=== PATIENT | female | born 1955 | race Caucasian/White ===

== ENCOUNTER 2016-12-13 06:47 | Outpatient (CLI) | payer MEDICAID ==
[2016-12-13] VITALS (10 sets, daily range): BP systolic 127–153; BP diastolic 48–74
[~2016-12-13] VITALS: Ht 154.9 cm; Wt 125.4 kg
[~2016-12-13 06:47] MED LIST: AC500T PO; ACHD5005 PO; ALBU17AE23 IH; ALPR0.5T7 PO; ASP81TEC PO; ASPI-983 PO; ATEN25TA PO; AZTH250C PO; BUDE10.22 IH; CEPH-507 PO; CHOL5000 PO; CYCL10TA9 PO; FLC150T PO; FLUC150T PO; FURO-125 PO; FURO40TA4 PO; LEVO75TA6 PO; LORA10TA7 PO; MAGN400T6 PO; METO5TAB6 PO; NAPR-243 PO; NITR-65 PO; OMG1KC PO; POTA-51 PO; POTA10TA36 PO; PRD20T PO; RABE20TA27 PO; RNT150T PO; ROSU10TA12 PO; RT-ALBUINH IH
[2016-12-13 07:54] LABS: MEAN PLATELET VOLUME 8.8 FL (7.4-10.4); RED BLOOD COUNT 3.73 10^6/uL (4.35-5.85); WHITE BLOOD COUNT 5.1 10^3/uL (4.3-11.0)
[2016-12-13 08:03] LABS: INR 1.2 (0.8-1.4); PROTHROMBIN TIME PATIENT 15.3 SEC (12.2-14.7)
[2016-12-13] MEDS ORDERED: LIDOCAINE 1% INJ 20 ML (XYLOCAINE) VIAL ONE (08:13)
[2016-12-13] MEDS ORDERED: FURO-125 PO (09:37)
[2016-12-13] MEDS ORDERED: SPIR25TA3 PO (09:37)
[2016-12-13] MEDS ORDERED: ACET-2267 PO (09:37)
[2016-12-13] MEDS ORDERED: FOLI1TAB24 PO (09:37)
[2016-12-13] MEDS ORDERED: RANI150T15 PO (09:37)
[2016-12-13] MEDS ORDERED: ACETAMINOPHEN 325 MG TABLET/CAPLET (TYLENOL) PO PRN (10:00)
--- NOTE | 2016-12-13 10:26 | Diagnostic Imaging Report ---
EXAMINATION: US-guided core biopsy-liver. INDICATION: Hepatitis. Cirrhosis assessment. Current history and physical and other medical records are reviewed prior to the procedure. CONSENT: Informed consent was obtained from the patient. The risks, benefits, potential complications and alternatives were reviewed and all questions answered to the patient's satisfaction. The patient's vital signs, cardiac rhythm, and pulse oximetry with observed throughout the procedure by qualified nursing personnel. Sedation/medications: none. FINDINGS: The liver contour is normal with no focal lesion identified. PROCEDURE: After maximal sterile barrier technique preparation and draping, 1% lidocaine was utilized for local anesthesia. With the patient in supine position, and via anterolateral subcostal approach, a 17-gauge guide needle is introduced into the right hepatic lobe under live ultrasound guidance. After confirming adequate positioning with saved ultrasound images, multiple 18 gauge core biopsy specimens were obtained. Gelfoam injected in the tract as the guide needle was removed The patient tolerated the procedure well with no immediate complications. IMPRESSION: Successful US-guided random liver core biopsy taken from the right hepatic lobe. Dictated by: Dictated on workstation # [id number]
[2016-12-13] MEDS ORDERED: ACETAMINOPHEN 325 MG TABLET/CAPLET (TYLENOL) ONE (13:25)
[2016-12-13] MEDS ORDERED: ACETAMINOPHEN 325 MG TABLET/CAPLET (TYLENOL) PO NR (13:31)
== END 2016-12-13 14:10 | disposition home or self-care (01) ==
LOC: RAD 06:47
PROVIDERS: ATTEND Pediatrics
DX: K74.60 Unspecified cirrhosis of liver (principal)
CPT/HCPCS: 36415; 76942; 85027; 85610; 85730

== ENCOUNTER 2017-03-10 11:29 | Emergency (ER) | payer MEDICAID ==
[~2017-03-10] VITALS: Ht 157.5 cm; Wt 108.9 kg
[~2017-03-10 11:29] MED LIST changes: +ACET-2267 PO; +FOLI1TAB24 PO; +RANI150T15 PO; +SPIR25TA3 PO
--- NOTE | 2017-03-10 12:13 | ED Lower Extremity ---
General Chief Complaint: Lower Extremity Stated Complaint: BIG TOE INJ Source: patient Exam Limitations: no limitations History of Present Illness Time seen by provider: 12:11 Initial Comments To ER with an injury to the second third toes of the right foot. She arrives per EMS after dropping a 1 gallon can of pork and beans to the top of her foot. Onset: just prior to arrival Severity: moderate Pain/Injury Location: right 2nd toe, right 3rd toe Modifying Factors: Worse With Movement Allergies and Home Medications Allergies Coded Allergies: ciprofloxacin (Verified Allergy, Mild, 01/14/16) sulfamethoxazole (Verified Allergy, Mild, ITCH ALL OVER, 01/14/16) trimethoprim (Verified Allergy, Mild, ITCH ALL OVER, 01/14/16) Penicillins (Verified Allergy, Unknown, 01/14/16) Sulfa (Sulfonamide Antibiotics) (Verified Allergy, Unknown, 01/14/16) atorvastatin (Unverified Allergy, Unknown, EDEMA, 12/13/16) hydrocodone (Verified Allergy, Unknown, 01/14/16) tramadol (Verified Allergy, Unknown, 01/14/16) metformin (Unverified Adverse Reaction, Mild, NAUSEA, 12/13/16) Uncoded Allergies: RED MEAT (Allergy, Unknown, HIVES, 12/13/16) KELFEX (Adverse Reaction, Mild, HEART RACES, 01/15/10) Home Medications Acetaminophen 500 Mg Tablet, 2 TAB PO Q6H, #0 Prescribed by: GRACIELA AGUILLON on 12/13/16 09 Alprazolam 0.5 Mg Tablet, 0.5 MG PO BID, (Reported) Atenolol 25 Mg Tablet, 12.5 MG PO HS, (Reported) TAKES 1/2 OF A (25 MG) TABLET Cholecalciferol (Vitamin D3) 5,000 Unit Capsule, 5,000 UNIT PO DAILY, (Reported) Folic Acid 1 Mg Tablet, 1 MG PO DAILY, #30 Prescribed by: GRACIELA AGUILLON on 12/13/1637 Furosemide 20 Mg Tablet, 20 MG PO DAILY, #30 Prescribed by: GRACIELA AGUILLON on 12/13/1637 Levothyroxine Sodium 75 Mcg Tablet, 75 MCG PO DAILY, (Reported) Loratadine 10 Mg Tablet, 10 MG PO DAILY, (Reported) Magnesium Oxide 400 Mg Tablet, 400 MG PO BID, (Reported) Potassium Chloride 20 Meq Tablet.er, 20 MEQ PO DAILY, #30 Ref 2 Prescribed by: JOCELYNE BARTON on 01/16/16 0815 Ranitidine HCl 150 Mg Tablet, 150 MG PO BID, #30 Prescribed by: GRACIELA AGUILLON on 12/13/16 0937 Spironolactone 25 Mg Tablet, 2 TAB PO DAILY, #30 Prescribed by: GRACIELA AGUILLON on 12/13/16 0937 Constitutional: see HPI EENTM: see HPI Respiratory: no symptoms reported Cardiovascular: no symptoms reported Genitourinary: no symptoms reported Musculoskeletal: see HPI Skin: no symptoms reported Psychiatric/Neurological: No Symptoms Reported Past Uhhedny-Djksqr-Gotizc Hx Patient Social History Type Used: Cigarettes Former Smoker/When Quit: Oct 26, 2015 Recent Hopitalizations: Yes Immunizations Up To Date Date of Pneumonia Vaccine: Sep 26, 2016 Date of Influenza Vaccine: Sep 26, 2016 Surgeries HX Surgeries: Yes (D&C) Surgeries: Section, Gallbladder, Hysterectomy Respiratory Hx Respiratory Disorders: Yes (SLEEP APNEA, COPD) Respiratory Disorders: Asthma, Sleep Apnea, COPD, Emphysema Cardiovascular Hx Cardiac Disorders: Yes Cardiac Disorders: Hypertension Neurological Hx Neurological Disorders: Yes (seizures from fever as teen) Reproductive System Hx 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 Genitourinary Hx Genitourinary Disorders: No Gastrointestinal Hx Gastrointestinal Disorders: Yes (HX OF HERNIA, GERD, CIRRHOSIS WITH ASCITES) Gastrointestinal Disorders: Gastroesophageal Reflux, Hepatitis, Cirrhosis Musculoskeletal Hx Musculoskeletal Disorders: Yes (DJD) Musculoskeletal Disorders: Arthritis Endocrine Hx Endocrine Disorders: Yes Endocrine Disorders: Hypothyroidsim, Diabetes, Non-Insulin dep HEENT HX ENT Disorders: No Cancer Hx Cancer: Yes Cancer: Skin Psychosocial Hx Psychiatric Problems: Yes Behavioral Health Disorders: Anxiety Integumentary HX Skin/Integumentary Disorder: Yes Skin/Integumentary Disorders: Psoriasis Blood Transfusions Hx Blood Disorders: No Adverse Reaction to a Blood Tr: No Family Medical History Significant Family History: Cancer Family Medial History: Arthritis G8 BROTHER G8 SISTER Diabetes mellitus 19 FATHER Neoplasm 19 MOTHER (lung cancer ) Respiratory disorder G8 SISTER (pulmonary fibrosis) Physical Exam Vital Signs Vital Sign - Last 12Hours 03/10/17 12:00 Temp 97.5 Pulse 70 B/P (MAP) 134/73 Pulse Ox 98 Capillary Refill : General Appearance: WD/WN, no apparent distress HEENT: PERRL/EOMI, normal ENT inspection Neck: non-tender, full range of motion Respiratory: no respiratory distress, no accessory muscle use Gastrointestinal: non tender, soft Hips: bilateral hip non-tender, bilateral hip normal inspection, bilateral hip normal range of motion Legs: bilateral leg non-tender, bilateral leg normal inspection, bilateral leg normal range of motion Knees: bilateral knee non-tender, bilateral knee normal inspection, bilateral knee normal range of motion Ankles: bilateral ankle non-tender, bilateral ankle normal inspection, bilateral ankle normal range of motion Feet: right foot other (there is a laceration to the dorsal aspect of the second third toes of the right foot with an eye avulsion of the second toenail from the proximal nail bed. Remains attached distally.) Neurologic/Psychiatric: alert, normal mood/affect, oriented x 3 Skin: normal color, warm/dry Laceration Repair : Wound Location: Lower Extremities Wound Length (cm): 3 Wound's Depth, Shape: bone, sub Q Wound Explored: clean Irrigated w/ Saline (ccs): 200 Anesthesia: 1% Lidocaine Volume Anesthetic (ccs): 3 Suture: Chromic Suture Size: 4-0 Number of Sutures: 13 Layer Closure?: 1 Number Deep Layer Sutures: 0 Progress The right third and fourth toes were anesthetized via digital block using a total of 4 mL of 2 percent lidocaine without epinephrine. The nail was removed from the third toe and the nailbed laceration was sutured using 4-0 chromic gut total of 6 sutures. The laceration to the dorsal aspect of the right toe was sutured with 4-0 chromic gut as well and used a total of 7 sutures. Progress/Results/Core Measures Results/Orders My Orders Orders - TONYA GONSALEZ APRN Lidocaine 2% Injection 20 Ml (Xylocaine (03/10/17 12:15) Foot, Right, 3 View (03/10/17 12:11) Dipht,Pertuss(Acell),Tet Adult (Boostrix (03/10/17 12:30) Medications Given in ED Current Medications Medications Dose Ordered Sig/Petr Route Start Time Stop Time Status Last Admin Dose Admin Lidocaine HCl 5 ml ONCE ONCE INJ 03/10/17 12:15 03/10/17 12:16 DC 03/10/17 12:37 5 ML Vital Signs/I&O Vital Sign - Last 12Hours 03/10/17 12:00 Temp 97.5 Pulse 70 B/P (MAP) 134/73 Pulse Ox 98 Departure Impression Impression: Primary Impression: Fracture of toe Additional Impression: Laceration of foot Disposition: 01 HOME, SELF-CARE Condition: Stable Departure-Patient Inst. Decision time for Depature: 13:16 Referrals: DANNY HUBABRD MD (PCP) Primary Care Physician KELLY HAYES (Family) Primary Care Physician Patient Instructions: Laceration Repair With Stitches (DC), Toe Fracture (DC) Add. Discharge Instructions: 1. Keep the foot clean and covered and dry for the next 3 days. The new may leave it open to air 2. Antibiotics as directed 3. Return to ER for any concerns 4. Follow-up with your doctor next week for recheck All discharge instructions reviewed with patient and/or family. Voiced understanding. Scripts Doxycycline Hyclate (Doxycycline Hyclate) 100 Mg Capsule 100 MG PO BID for 7 Days, CAP Prov: TONYA GONSALEZ APRN 03/10/17 TONYA GONSALEZ APRN Mar 10, 2017 12:13
[2017-03-10] MEDS ORDERED: LIDOCAINE 2% 20 ML (XYLOCAINE) VIAL INJ ONE (12:15)
[2017-03-10] MEDS ORDERED: TETANUS,DIPTH,PERTUSS P/F (BOOSTRIX) 0.5 ML VIAL IM ONE (12:30)
[2017-03-10] MEDS ORDERED: DOXY100C2 PO (13:19)
[2017-03-10 13:39] VITALS: BP 132/80
--- NOTE | 2017-03-10 14:38 | Diagnostic Imaging Report ---
EXAM: Right foot. INDICATION: Injury, foot pain. Three views were obtained. COMPARISON: There are no prior studies available for comparison. FINDINGS: There are slightly comminuted fractures involving the tuft of distal phalanx of the third digit and the body of the distal phalanx of the fourth digit. There is also a nondisplaced fracture of the lateral aspect of the head of the proximal phalanx of the fourth digit. In addition, there also appears to be a soft tissue injury to the medial aspect of the fourth digit. There is no radiopaque foreign body identified in this area, however. No other fracture or acute bony abnormality is appreciated. IMPRESSION: 1. There are comminuted fractures of the wyatt of the distal phalanx of the third digit and of the body of the distal phalanx of the fourth digit. There is also a nondisplaced fracture of the proximal phalanx of the fourth digit. 2. No other acute bony abnormality appreciated. Dictated by: Dictated on workstation # [id number]
== END 2017-03-10 13:39 | disposition home or self-care (01) ==
LOC: EDUNIT# 11:29 → ER 11:30
DX: S92.515A Nondisplaced fracture of proximal phalanx of left lesser toe(s), initial encounter for closed fracture (principal); S92.532A Displaced fracture of distal phalanx of left lesser toe(s), initial encounter for closed fracture; S91.214A Laceration without foreign body of right lesser toe(s) with damage to nail, initial encounter; S91.114A Laceration without foreign body of right lesser toe(s) without damage to nail, initial encounter; Z23 Encounter for immunization; J44.9 Chronic obstructive pulmonary disease, unspecified; I10 Essential (primary) hypertension; Z79.899 Other long term (current) drug therapy; W20.8XXA Other cause of strike by thrown, projected or falling object, initial encounter; Y93.G1 Activity, food preparation and clean up; Y99.8 Other external cause status
CPT/HCPCS: 12013; 73630; 90471; 90715

== ENCOUNTER 2017-06-19 19:22 | Emergency (ER) | payer MEDICAID ==
[~2017-06-19] VITALS: Ht 160 cm; Wt 123.8 kg
[~2017-06-19 19:22] MED LIST changes: +DOXY100C2 PO
--- NOTE | 2017-06-19 20:30 | Diagnostic Imaging Report ---
INDICATION: Chest pain. FINDINGS: The lungs are clear. The heart and vessels are normal. There is no effusion or pneumothorax. IMPRESSION: No acute appearing abnormality. Dictated by: Dictated on workstation # [id number]
[2017-06-19 20:40] LABS: BASOPHILS % (AUTO) 0 % (0-10); EOSINOPHILS % (AUTO) 1 % (0-10); LYMPHOCYTES # (AUTO) 0.8 X 10^3 (1.0-4.0); LYMPHOCYTES % (AUTO) 14 % (12-44); MEAN CORPUSCULAR HEMOGLOBIN 33 PG (25-34); MEAN CORPUSCULAR HGB CONC 34 G/DL (32-36); MEAN CORPUSCULAR VOLUME 95 FL (80-99); MONOCYTES # (AUTO) 0.2 X 10^3 (0.0-1.0); MONOCYTES % (AUTO) 5 % (0-12); NEUTROPHILS # (AUTO) 4.3 X 10^3 (1.8-7.8); NEUTROPHILS % (AUTO) 80 % (42-75); PLATELET COUNT 144 10^3/uL (130-400); RED BLOOD COUNT 4.07 10^6/uL (4.35-5.85); RED CELL DISTRIBUTION WIDTH 13.4 % (10.0-14.5); WHITE BLOOD COUNT 5.4 10^3/uL (4.3-11.0)
[2017-06-19 20:49] LABS: INR 1.1 (0.8-1.4); PROTHROMBIN TIME PATIENT 13.4 SEC (12.2-14.7)
[2017-06-19 21:00] LABS: ALANINE AMINOTRANSFERASE 20 U/L (0-55); ALBUMIN 3.8 GM/DL (3.2-4.5); ANION GAP 14 MMOL/L (5-14); ASPARTATE AMINO TRANSFERASE 27 U/L (5-34); BILIRUBIN,TOTAL 0.5 MG/DL (0.1-1.0); BLOOD UREA NITROGEN 23 MG/DL (7-18); BUN/CREATININE RATIO 16; CARBON DIOXIDE 22 MMOL/L (21-32); CHLORIDE 101 MMOL/L (98-107); GFR ESTIMATED 38; GLUCOSE 147 MG/DL (70-105); MAGNESIUM 2.1 MG/DL (1.8-2.4); POTASSIUM 4.2 MMOL/L (3.6-5.0); SODIUM 137 MMOL/L (135-145); TOTAL PROTEIN 8.6 GM/DL (6.4-8.2)
[2017-06-19 21:06] LABS: MYOGLOBIN SERUM 96.3 NG/ML (10.0-92.0)
--- NOTE | 2017-06-19 22:33 | ED Chest Pain ---
General Chief Complaint: Psych/Social Disorder Stated Complaint: CHEST PAIN Nursing Triage Note: PT TO ED 2 W/ FAMILY FOR C/O ANXIETY R/T RECENT MEDICATION CHANGES AND INTERMITTENT CHEST PAIN SINCE STARTING PREDNISONE X4 DAYS AGO. PT DENIES C/O CP AT THIS TIME. DENIES N/V/D, SOA Nursing Sepsis Screen: No Definite Risk Source: patient, old records Exam Limitations: no limitations History of Present Illness Time seen by provider: 19:38 Initial Comments This pleasant 61-year-old woman presents to the emergency room with primary complaint of epigastric and chest pain that occurs in intermittent episodes over the past 3 days. Patient reports starting prednisone 40 mg daily 4 or 5 days ago for treatment of what sounds like autoimmune hepatitis based on her description of pathology. She reports her pain is sometimes worse with eating and she feels like pain generally occurs 1-2 hours after taking prednisone. She also reports having some recent cramps in her legs over the past few days. She is on Lasix and potassium replacement. Her last episode of chest pain was around 19:00. The pain was noted to radiate to both arms. Patient does feel anxious about her present circumstances. She denies any shortness of air or lightheadedness. She does comment that burping seems to relieve the pain. She does have a history of GERD for which she takes Pepcid. She avoids PPIs due to hepatic metabolism of these medications. Review of her chart shows a cardiac catheterization in 2012 demonstrating ectasia of the right coronary system and a 40-50 percent stenosis of the LAD. Ejection fraction was 60 percent. Patient 's primary care provider is Ruma Barreto. She also sees Bryon Dubon. Her strip cleaner is Dr. Mason. Patient has had prior cholecystectomy. She denies any pain at present. Allergies and Home Medications Allergies Coded Allergies: ciprofloxacin (Verified Allergy, Mild, 01/14/16) sulfamethoxazole (Verified Allergy, Mild, ITCH ALL OVER, 01/14/16) trimethoprim (Verified Allergy, Mild, ITCH ALL OVER, 01/14/16) Penicillins (Verified Allergy, Unknown, 01/14/16) Sulfa (Sulfonamide Antibiotics) (Verified Allergy, Unknown, 01/14/16) atorvastatin (Unverified Allergy, Unknown, EDEMA, 12/13/16) hydrocodone (Verified Allergy, Unknown, 01/14/16) tramadol (Verified Allergy, Unknown, 01/14/16) metformin (Unverified Adverse Reaction, Mild, NAUSEA, 12/13/16) Uncoded Allergies: RED MEAT (Allergy, Unknown, HIVES, 12/13/16) KELFEX (Adverse Reaction, Mild, HEART RACES, 01/15/10) Home Medications Acetaminophen 500 Mg Tablet, 2 TAB PO Q6H, #0 Prescribed by: GRACIELA AGUILLON on 12/13/16 0937 Alprazolam 0.5 Mg Tablet, 0.5 MG PO BID, (Reported) Atenolol 25 Mg Tablet, 12.5 MG PO HS, (Reported) TAKES 1/2 OF A (25 MG) TABLET Cholecalciferol (Vitamin D3) 5,000 Unit Capsule, 5,000 UNIT PO DAILY, (Reported) Doxycycline Hyclate 100 Mg Capsule, 100 MG PO BID for 7 Days Prescribed by: TONYA GONSALEZ on 03/10/17 1319 Folic Acid 1 Mg Tablet, 1 MG PO DAILY, #30 Prescribed by: GRACEILA AGUILLON on 12/13/16 0937 Furosemide 20 Mg Tablet, 20 MG PO DAILY, #30 Prescribed by: GRACIELA AGUILLON on 12/13/16 0937 Levothyroxine Sodium 75 Mcg Tablet, 75 MCG PO DAILY, (Reported) Loratadine 10 Mg Tablet, 10 MG PO DAILY, (Reported) Magnesium Oxide 400 Mg Tablet, 400 MG PO BID, (Reported) Potassium Chloride 20 Meq Tablet.er, 20 MEQ PO DAILY, #30 Ref 2 Prescribed by: JOCELYNE BARTON on 01/16/16 0815 Ranitidine HCl 150 Mg Tablet, 150 MG PO BID, #30 Prescribed by: GRACIELA AGUILLON on 12/13/16 0937 Spironolactone 25 Mg Tablet, 2 TAB PO DAILY, #30 Prescribed by: GRACIELA AGUILLON on 12/13/16 0937 Sucralfate 1 Gm/10 Ml Oral.susp, 1 GM PO QID, #1200 30 minutes before meals and bedtime Prescribed by: CORBIN SCHWARTZ on 06/19/17 7682 Review of Systems Constitutional: no symptoms reported EENTM: No Symptoms Reported Respiratory: No Symptoms Reported Cardiovascular: See HPI Gastrointestinal: See HPI Genitourinary: No Symptoms Reported Musculoskeletal: no symptoms reported Skin: no symptoms reported Psychiatric/Neurological: See HPI, Anxiety Endocrine: No Symptoms Reported Hematologic/Lymphatic: No Symptoms Reported Past Obblxtc-Xjachy-Rcinmy Hx Patient Social History Alcohol Use: Denies Use Recreational Drug Use: No Smoking Status: Former Smoker Type Used: Cigarettes Former Smoker/When Quit: Oct 26, 2015 Recent Foreign Travel: No Contact w/Someone Who Travel: No Recent Infectious Disease Expo: No Recent Hopitalizations: No Immunizations Up To Date Date of Pneumonia Vaccine: Sep 26, 2016 Date of Influenza Vaccine: Mar 10, 2017 Surgeries HX Surgeries: Yes (D&C, skin cancer resection) Surgeries: Cardiac (Cardiac catheter with no interventions), Section, Gallbladder, Hysterectomy Respiratory Hx Respiratory Disorders: Yes (SLEEP APNEA, COPD) Respiratory Disorders: Asthma, Sleep Apnea, COPD, Emphysema Cardiovascular Hx Cardiac Disorders: Yes Cardiac Disorders: Coronary Artery Disease (Nonobstructive disease of the LAD per cardiac catheter 2012), Hypertension Neurological Hx Neurological Disorders: Yes (seizures from fever as teen) Reproductive System : No 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 Genitourinary Hx Genitourinary Disorders: No Gastrointestinal Hx Gastrointestinal Disorders: Yes (HX OF HERNIA, GERD, CIRRHOSIS WITH ASCITES) Gastrointestinal Disorders: Gastroesophageal Reflux, Hepatitis (?Autoimmune?), Cirrhosis Musculoskeletal Hx Musculoskeletal Disorders: Yes (DJD) Musculoskeletal Disorders: Arthritis Endocrine Hx Endocrine Disorders: Yes (Hypokalemia) Endocrine Disorders: Hypothyroidsim, Diabetes, Non-Insulin dep HEENT HX ENT Disorders: No Cancer Hx Cancer: Yes Cancer: Skin Psychosocial Hx Psychiatric Problems: Yes Behavioral Health Disorders: Anxiety Integumentary HX Skin/Integumentary Disorder: Yes Skin/Integumentary Disorders: Psoriasis Blood Transfusions Hx Blood Disorders: No Adverse Reaction to a Blood Tr: No Family Medical History Significant Family History: Cancer Family Medial History: Arthritis G8 BROTHER G8 SISTER Diabetes mellitus 19 FATHER Neoplasm 19 MOTHER (lung cancer ) Respiratory disorder G8 SISTER (pulmonary fibrosis) Physical Exam Vital Signs Vital Sign - Last 12Hours 06/19/17 19:33 Temp 99.2 Pulse 85 Resp 24 B/P (MAP) 167/75 Pulse Ox 94 O2 Delivery Room Air Capillary Refill : Less Than 3 Seconds General Appearance: No Apparent Distress, WD/WN, Obese HEENT: PERRL/EOMI, Normal ENT Inspection Neck: Normal Inspection Respiratory: Chest Non Tender, Lungs Clear, Normal Breath Sounds, No Accessory Muscle Use, No Respiratory Distress Cardiovascular: Regular Rate, Rhythm, No Edema, No Murmur, Normal Peripheral Pulses Gastrointestinal: Normal Bowel Sounds, Non Tender, Soft Extremity: Normal Inspection, Non Tender, No Pedal Edema Neurologic/Psychiatric: Alert, Oriented x3, No Motor/Sensory Deficits, Normal Mood/Affect, brush hand II-XII Norm as Tested Skin: Normal Color, Warm/Dry Laceration Repair : Suture Size: 4-0 Progress/Results/Core Measures Results/Orders Lab Results Laboratory Tests Test 06/19/17 18:30 06/19/17 21:25 Range/Units White Blood Count 5.4 4.3-11.0 10^3/uL Red Blood Count 4.07 L 4.35-5.85 10^6/uL Hemoglobin 13.3 11.5-16.0 G/DL Hematocrit 39 35-52 % Mean Corpuscular Volume 95 80-99 FL Mean Corpuscular Hemoglobin 33 25-34 PG Mean Corpuscular Hemoglobin Concent 34 32-36 G/DL Red Cell Distribution Width 13.4 10.0-14.5 % Platelet Count 144 130-400 10^3/uL Mean Platelet Volume 9.0 7.4-10.4 FL Neutrophils (%) (Auto) 80 H 42-75 % Lymphocytes (%) (Auto) 14 12-44 % Monocytes (%) (Auto) 5 0-12 % Eosinophils (%) (Auto) 1 0-10 % Basophils (%) (Auto) 0 0-10 % Neutrophils # (Auto) 4.3 1.8-7.8 X 10^3 Lymphocytes # (Auto) 0.8 L 1.0-4.0 X 10^3 Monocytes # (Auto) 0.2 0.0-1.0 X 10^3 Eosinophils # (Auto) 0.0 0.0-0.3 10^3/uL Basophils # (Auto) 0.0 0.0-0.1 10^3/uL Prothrombin Time 13.4 12.2-14.7 SEC INR Comment 1.1 0.8-1.4 Activated Partial Thromboplast Time 29 24-35 SEC Sodium Level 137 135-145 MMOL/L Potassium Level 4.2 3.6-5.0 MMOL/L Chloride Level 101 98-107 MMOL/L Carbon Dioxide Level 22 21-32 MMOL/L Anion Gap 14 5-14 MMOL/L Blood Urea Nitrogen 23 H 7-18 MG/DL Creatinine 1.40 H 0.60-1.30 MG/DL Estimat Glomerular Filtration Rate 38 BUN/Creatinine Ratio 16 Glucose Level 147 H 70-105 MG/DL Calcium Level 9.0 8.5-10.1 MG/DL Magnesium Level 2.1 1.8-2.4 MG/DL Total Bilirubin 0.5 0.1-1.0 MG/DL Aspartate Amino Transf (AST/SGOT) 27 5-34 U/L Alanine Aminotransferase (ALT/SGPT) 20 0-55 U/L Alkaline Phosphatase 78 40-136 U/L Myoglobin 96.3 H 10.0-92.0 NG/ML Troponin I < 0.30 < 0.30 <0.30 NG/ML Total Protein 8.6 H 6.4-8.2 GM/DL Albumin 3.8 3.2-4.5 GM/DL My Orders Orders - CORBIN HADLEY MD Cbc With Automated Diff (06/19/17 20:16) Magnesium (06/19/17 20:16) Chest 1 View, Ap/Pa Only (06/19/17 20:16) Ekg Tracing (06/19/17 20:16) Cardiac Profile 1 (06/19/17 20:16) Comprehensive Metabolic Panel (06/19/17 20:16) Myoglobin Serum (06/19/17 20:16) Protime With Inr (06/19/17 20:16) Partial Thromboplastin Time (06/19/17 20:16) O2 (06/19/17 20:16) Monitor-Rhythm Ecg Trace Only (06/19/17 20:16) Saline Lock/Iv-Start (06/19/17 20:16) Troponin I (06/19/17 21:12) Vital Signs/I&O Vital Sign - Last 12Hours 06/19/17 06/19/17 19:33 22:42 Temp 99.2 97.8 Pulse 85 70 Resp 24 20 B/P (MAP) 167/75 Pulse Ox 94 96 O2 Delivery Room Air Room Air Blood Pressure Mean: 105 Progress Note : Progress Note Workup was relatively unremarkable. Patient had no recurrence of chest pain while in the emergency room. I discussed the case with Dr. Bermeo who advised a 3 hour troponin rule out. The repeat troponin was negative. Patient was advised to increase her water intake while weather is hot as she had some mild renal insufficiency demonstrated in her lab work. Advise close follow-up with Dr. Mason and her primary care team. Etiology of chest pain could be caused by acid reflux and irritation from recent steroid use. Dietary recommendations were provided. Carafate was added to her medication regimen. PPIs will not be prescribed at this time due to concerns regarding hepatic metabolism. ECG Initial ECG Impression Date: Jun 19, 2017 Initial ECG Impression Time: 19:38 Initial ECG Rate: 83 Initial ECG Rhythm: Normal Sinus Initial ECG Intervals: Normal Comment Normal sinus rhythm with no ST elevation or depression. No abnormal intervals or axis deviation. Diagnostic Imaging Diagonstic Imaging: Xray Plain Films/CT/US/NM/MRI: chest Comments Chest x-ray viewed by me and report reviewed. See report below: NAME: JOSHUA WILDER [facility] REC#: [id number] PT STATUS: REG ER : 1955 PHYSICIAN: CORBIN HADLEY MD ADMIT DATE: 06/19/17/ER Signed Date of Exam: 06/19/17 CHEST 1 VIEW, AP/PA ONLY INDICATION: Chest pain. FINDINGS: The lungs are clear. The heart and vessels are normal. There is no effusion or pneumothorax. IMPRESSION: No acute appearing abnormality. Dictated by: Dictated on workstation # [id number] Dict: 06/19/172027 Trans: 06/19/172124 Interpreted by: GLENYS GARCIA Electronically signed by: GLENYS GARCIA 06/19/172124 Departure Impression Impression: Primary Impression: Chest pain Qualified Codes: R07.9 - Chest pain, unspecified Additional Impressions: Epigastric pain Renal insufficiency Disposition: 01 HOME, SELF-CARE Condition: Improved Departure-Patient Inst. Decision time for Depature: 22:28 Referrals: RUMA BARRETO MD (PCP/Family) Primary Care Physician Patient Instructions: Chest Pain Add. Discharge Instructions: Follow-up with your strip cleaner as soon as possible. Call tomorrow for an appointment. Continue taking your other medications including Pepcid as prescribed. Add Carafate suspension as prescribed from the ER. Avoid the following: Eating large meals, eating close to bedtime, caffeine, carbonation, chocolate, citrus fruits and juices, tomato products, tobacco products, alcohol, mint, spicy foods, fatty or greasy foods, NSAID medications such as ibuprofen or naproxen, or anything else you know irritate your stomach. All discharge instructions reviewed with patient and/or family. Voiced understanding. Scripts Sucralfate (Carafate) 1 Gm/10 Ml Oral.susp 1 GM PO QID, #1200 ML 30 minutes before meals and bedtime Prov: CORBIN HADLEY MD 06/19/17 Copy Copies To 1: RUMA BARRETO MD Copies To 2: STARLA MASON MD, JOSHUA T MD Jun 19, 2017 22:33
[2017-06-19] MEDS ORDERED: SUCR1ORA5 PO (22:34)
[2017-06-19 22:42] VITALS: BP 154/79
== END 2017-06-19 22:37 | disposition home or self-care (01) ==
LOC: EDUNIT# 19:22 → ER 19:25
DX: R07.89 Other chest pain (principal); R10.13 Epigastric pain; N28.9 Disorder of kidney and ureter, unspecified; K21.9 Gastro-esophageal reflux disease without esophagitis; I25.10 Atherosclerotic heart disease of native coronary artery without angina pectoris; E03.9 Hypothyroidism, unspecified; E11.9 Type 2 diabetes mellitus without complications; F41.9 Anxiety disorder, unspecified; M19.90 Unspecified osteoarthritis, unspecified site; M47.9 Spondylosis, unspecified; G47.30 Sleep apnea, unspecified; I10 Essential (primary) hypertension; J43.9 Emphysema, unspecified; Z87.891 Personal history of nicotine dependence; Z85.118 Personal history of other malignant neoplasm of bronchus and lung; Z85.828 Personal history of other malignant neoplasm of skin; Z90.710 Acquired absence of both cervix and uterus
CPT/HCPCS: 36415; 71010; 80053; 83735; 83874; 84484; 85025; 85610; 85730; 93005; 93041

== ENCOUNTER → 2017-09-27 | Outpatient (CLI) | payer MEDICAID ==
[~2017-09-27] MED LIST changes: +SUCR1ORA5 PO
== END ==
LOC: CARD 08:37
PROVIDERS: ATTEND Physician Assistant
DX: I25.10 Atherosclerotic heart disease of native coronary artery without angina pectoris (principal); I27.81 Cor pulmonale (chronic); I11.0 Hypertensive heart disease with heart failure; I50.30 Unspecified diastolic (congestive) heart failure
CPT/HCPCS: 93306

== ENCOUNTER 2017-10-17 05:54 | Outpatient (CLI) | payer MEDICAID ==
[~2017-10-17] VITALS: Ht 160 cm; Wt 132.9 kg
[2017-10-17] MEDS ORDERED: LACT10SO PO (11:42)
[2017-10-17] MEDS ORDERED: PANT40TA2 PO (11:42)
[2017-10-17] MEDS ORDERED: AMLO5TAB4 PO (11:42)
[2017-10-17] MEDS ORDERED: ASPI-999 PO (11:42)
== END 2017-10-17 11:52 ==
LOC: PREOP 05:54
PROVIDERS: ATTEND Surgery
DX: Z01.818 Encounter for other preprocedural examination (principal); K75.4 Autoimmune hepatitis

== ENCOUNTER → 2017-10-19 | Outpatient (CLI) | payer MEDICAID ==
[~2017-10-19] MED LIST changes: +AMLO5TAB4 PO; +ASPI-999 PO; +LACT10SO PO; +PANT40TA2 PO
== END ==
LOC: RAD 08:14
PROVIDERS: ATTEND Pediatrics
DX: K74.60 Unspecified cirrhosis of liver (principal)

== ENCOUNTER → 2017-10-24 | Day surgery (SDC) | payer MEDICAID ==
[~2017-10-24] VITALS: Ht 160 cm; Wt 132.9 kg
[~2017-10-24] MED LIST changes: +AZAT50TA16 PO; +HURRICAINE EXT TUBE (BENZOCAINE) XX PRN; +LACTATED RINGERS 1,000 ML IV ONE; +LACTATED RINGERS 1,000 ML IV SCH; +LACTATED RINGERS 1,000 ML IV STA; +MIDAZOLAM 2 MG/2 ML (VERSED) VIAL ONE; +PROPOFOL INJECTION 50 ML IV ONE; +proPOfol 200 MG/20 ML (DIPRIVAN) VIAL IV ONE
--- OUTSIDE RECORDS SUMMARY | 2017-10-24 11:23 | XMS REPORT | Continuity of Care Document ---
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
--- OUTSIDE RECORDS SUMMARY | 2017-10-24 11:24 | XMS REPORT | Encounter Summary ---
Author Author [facility] Organization [facility] Address Unknown Phone Unavailable Care Team Providers Care Composite Technician Name Role Phone PCP Unavailable Reason for Visit * Reason Comments Procedure Encounter Details Date Type Department Care Team Description 10/12/2017 Telephone Center for Devan Riley RN Procedure Transplantation-Liver Transplant Hep [address] [facility] [place] [address] Social History Tobacco Use Types Packs/Day Years Used Date Former Smoker Cigarettes Smokeless Tobacco: Former User Alcohol Use Drinks/Week oz/Week Comments Yes Sex Assigned at Date Recorded Not on file as of this encounter Functional Status Functional Status Response Date of Assessment Does the patient have a hearing impairment: No 10/11/2017 Does the patient have a visual impairment: Yes 10/11/2017 Does the patient have impaired ambulation: No 10/11/2017 Does the patient have an activity of daily living No 10/11/2017 (ADL) impairment: Does the patient have an instrumental activity of No 10/11/2017 daily living (IADL) impairment: Cognitive Status Response Date of Assessment Does the patient have a cognitive impairment: No 10/11/2017 as of this encounter Miscellaneous Notes * Telephone Encounter - Devan Riley RN - 10/12/2017 11:41 AM LABORER BRUSH CLEARING Spoke with Dr. Gonzales nurse to let her now that we are requesting CT abdomen with and without contrast, EGD, Colon and para with cell count and culture with replacement of 25%albumin per each lliter of ascites removed. [facility] stated that they probably could do all of that in [place], but would encourage pt to have it done at . [facility] will call back. in this encounter Plan of Treatment Not on fileas of this encounter Visit Diagnoses Not on filein this encounter
--- OUTSIDE RECORDS SUMMARY | 2017-10-24 11:24 | XMS REPORT | Encounter Summary ---
Author Author [facility] Organization [facility] Address Unknown Phone Unavailable Care Team Providers Care Teaching Aide Name Role Phone PCP Unavailable Reason for Visit * Reason Comments Test/procedure Encounter Details Date Type Department Care Team Description 10/16/2017 Telephone Center for Devan Riley RN Test/procedure Transplantation-Liver Transplant Hep [address] [facility] [place] [address] Social History Tobacco Use Types Packs/Day Years Used Date Former Smoker Cigarettes Quit: 11/26/2013 Smokeless Tobacco: Former User Alcohol Use Drinks/Week oz/Week Comments No Sex Assigned at Date Recorded Not on [...] Telephone Encounter - Devan Riley RN - 10/16/2017 9:44 AM MEASUREMENT ADVISOR Confirmed with pt that PCP's office has ordered CT, para, EGD and Colon. Pt stated yes. in this encounter Plan of Treatment Not on fileas of this encounter Visit Diagnoses Not on filein this encounter
--- OUTSIDE RECORDS SUMMARY | 2017-10-24 11:24 | XMS REPORT | Clinical Summary ---
Author Author [facility] Organization [facility] Address Unknown Phone Unavailable Care Team Providers Care Die Caster Name Role Phone PCP Unavailable Source Comments Some departments are not documenting in the electronic medical record. If you do not see the information that you expected, contact Release of Information in the Health Information Management department at [phone] for further assistance in locating additional records.[facility] Allergies Active Allergy Reactions Severity Noted Date Comments Hydrocodone ANAPHYLAXIS High 10/11/2017 Atorvastatin EDEMA High 10/11/2017 Penicillins ANAPHYLAXIS High 10/11/2017 Sulfur ANAPHYLAXIS High 10/11/2017 Tramadol ANAPHYLAXIS High 10/11/2017 Metformin Hcl STOMACH UPSET Low 10/11/2017 Current Medications Prescription Sig. Disp. Refills Start End Date Status Date folic acid (FOLVITE) 1 mg Take 1 mg by mouth daily. Active tablet pantoprazole DR Take 40 mg by mouth Active (PROTONIX) 40 mg tablet daily. lactulose 10 gram/15 mL Take 10 g by mouth daily. Active oral solution azaTHIOprine (IMURAN) 50 Take 50 mg by mouth Active mg tablet daily. spironolactone Take 25 mg by mouth Active (ALDACTONE) 25 mg tablet daily. Take with food. levothyroxine (SYNTHROID) Take 75 mcg by mouth Active 75 mcg tablet daily. loratadine (CLARITIN) 10 Take 10 mg by mouth Active mg tablet daily. potassium chloride SR Take 20 mEq by mouth Active (K-DUR) 20 mEq tablet daily. Take with a meal and a full glass of water. furosemide (LASIX) 20 mg Take 20 mg by mouth Active tablet daily. magnesium oxide (MAG-OX) Take 400 mg by mouth Active 400 mg tablet twice daily. aspirin EC 81 mg tablet Take 81 mg by mouth Active daily. Take with food. BLOOD-GLUCOSE METER Use as directed. Active (BLOOD GLUCOSE MONITOR [facility] blood sugar diagnostic Use 1 strip as directed Active test strip twice daily. Active Problems Not on file Encounters Date Type Specialty Care Team Description 10/16/2017 Telephone Transplant Surgery Devan Riley RN Test/ procedure 10/16/2017 Telephone Transplant Surgery Devan Riley RN Lab Request 10/12/2017 Hospital Lab Julien Wray MD Fatty (change of) liver, Encounter not elsewhere classified 10/12/2017 Telephone Transplant Surgery Devan Riely RN Procedure 10/12/2017 Telephone Hepatology Julien Wray MD Other (return call to [place] ) 10/11/2017 [facility] Lab Julien Wray MD Fatty (change of) liver, Encounter not elsewhere classified 10/11/2017 Office Visit Hepatology Julien Wray MD Fatty liver ( Primary Dx);Other cirrhosis of liver (HCC);Other ascites;Chronic kidney disease, unspecified CKD stage;Umbilical hernia without obstruction and without gangrene;Immunosuppressio n (HCC);Chronic idiopathic constipation;Autoimmune hepatitis (HCC);Metabolic syndrome;Housing or economic circumstance 10/04/2017 Telephone Hepatology Julien Wray MD Appointment Request from Last 3 Months Family History Medical History Relation Name Comments Heart Attack Father Cancer Mother Relation Name Status Comments Father Mother Social History Tobacco Use Types Packs/Day Years Used Date Former Smoker Cigarettes Quit: 11/26/2013 Smokeless Tobacco: Former User Tobacco Cessation: Counseling Given: Yes Alcohol Use Drinks/Week oz/Week Comments No Sex Assigned at Date Recorded Not on file Last Filed Vital Signs Vital Sign Reading Time Taken Blood Pressure 176/70 10/11/2017 12:58 PM MERRY GO ROUND ATTENDANT Pulse 80 10/11/2017 12:58 PM MERRY GO ROUND ATTENDANT Temperature 36.7 C (98.1 F) 10/11/2017 12:58 PM MERRY GO ROUND ATTENDANT Respiratory Rate 14 10/11/2017 12:58 PM MERRY GO ROUND ATTENDANT Oxygen Saturation 95% 10/11/2017 12:58 PM MERRY GO ROUND ATTENDANT Inhaled Oxygen - - Concentration Weight 133.3 kg (293 lb 12.8 oz) 10/11/2017 12:58 PM MERRY GO ROUND ATTENDANT Height 160 cm (5' 3") 10/11/2017 12:58 PM MERRY GO ROUND ATTENDANT Body Mass Index 52.04 10/11/2017 12:58 PM MERRY GO ROUND ATTENDANT Plan of Treatment Health Maintenance Due Date Last Done Comments PHYSICAL (COMPREHENSIVE) 1962 EXAM PERTUSSIS VACCINE 1966 TETANUS VACCINE 1972 CERVICAL CANCER SCREENING 1985 BREAST CANCER SCREENING 1995 COLORECTAL CANCER 2005 SCREENING SHINGLES VACCINE 2015 INFLUENZA VACCINE 06/26/2017 HEPATITIS C SCREENING Completed 10/11/2017 Results * OUTSIDE PATHOLOGY CONSULT (10/12/2017 10:48 AM) Component Value Ref Range PATHOLOGY REPORT [facility] [email or web address] Department of Pathology and Laboratory Medicine [address] [place] [address] Surgical Pathology Office: [phone] PATHOLOGY CONSULTATION NAME: JOSHUA GLEZ SURG PATH #: [id number] MR #: [id number] ALT ID #: LOCATION: [facility] DATE OF PROCEDURE: 10/12/2017 AGE: 62 SEX: F DATE RECEIVED: 10/12/2017 : 1955 TIME RECEIVED: 10:48 PHYSICIAN: JULIEN CHAWLA DATE OF REPORT: 10/12/2017 COPY TO: DATE OF PRINTIN10/12/2017 ################################################## ###################### Final Diagnosis: A. 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 See comment. Comment: Sections of the liver biopsy show broad bands of fibrosis with complete parenchymal nodules consistent with cirrhosis. Within the fibrous bands is moderate to marked chronic inflammation with lymphocytes and prominent plasma cells. The inflammatory infiltrate spills out into the liver parenchyma with moderate interface activity and lobular hepatitis. The lobules show prominent hepatocyte rosettes and emperipolesis is readily identified. These histologic findings would support the diagnosis of autoimmune hepatitis if supported clinically by positive autoimmune serologic markers. Trichrome stain supports the assessment of fibrosis (Stage 4/4) and an iron stain shows focally increased hepatic storage iron (1+/4). Attestation: By this signature, I attest that I have personally formulated the final interpretation expressed in this report and that the above diagnosis is based upon my examination of the slides and/or other material indicated in this report. +++ +++ paj/10/12/2017 ################################################## ###################### Material Received: A: Outside Slides x5 [id number], Via [facility] [address] [place] [address] History: 62-year-old female with a clinical history of cirrhosis. Gross Description: A. Received are five (5) outside slides labeled "[id number]", and a properly identified surgical pathology report from [facility] [address] [place] [address]. ; . [facility]/10/12/2017 If immunohistochemical stains and/or in situ hybridization are cited in this report, the performance characteristics were determined by the Department of Pathology and Laboratory Medicine of the [facility] ([employer]) in compliance with CLIA'88 regulations. Some of these tests rely on the use of "analyte specific reagents" and are subject to specific labeling requirements by the FDA. Known positive and negative control tissues demonstrate appropriate staining. Results should be interpreted with caution given the likelihood of false negativity on decalcified specimens. This testing was developed by the Department of Pathology and Laboratory Medicine of the [facility]. It has not been cleared or approved by the FDA. The FDA has determined that such clearance or approval is not necessary. Specimen Performing Laboratory [facility] RESULTS * HEPATITIS A IGG (10/11/2017 2:08 PM) Component Value Ref Range Hepatitis A IGG NEG Note: Test type and methodology has changed. The [facility] lab has discontinued the test for Total Hep A Immunoglobulin. This test has been replaced with more specific testing. The tests for Hep A IgG and Hep A IgM are both now available and can be ordered. Specimen Performing Laboratory Blood MAIN LAB [address] [place] [address] * TOTAL PROTEIN-URINE RANDOM (10/11/2017 2:08 PM) Component Value Ref Range Protein, Random <4 MG/DL Specimen Performing Laboratory Urine MAIN LAB [address] [place] [address] * SODIUM-URINE RANDOM (10/11/2017 2:08 PM) Component Value Ref Range Sodium, Random 55 MMOL/L Specimen Performing Laboratory Urine MAIN LAB [address] [place] [address] * ANTI-SMOOTH MUSCLE-QUANT (10/11/2017 2:08 PM) Component Value Ref Range Anti-Smooth Muscle Titer 40 (H) <20 TITER Specimen Performing Laboratory MAIN LAB [address] [place] [address] * ANTI-NUCLEAR AB(MILADYS)-QUANT (10/11/2017 2:08 PM) Component Value Ref Range MILADYS Titer/Pattern > QP=4899Mnhyrin: HOMOGENEOUS <80 Specimen Performing Laboratory MAIN LAB [address] [place] [address] * HEPATITIS C AB (10/11/2017 2:08 PM) Component Value Ref Range Anti HCV NEG Specimen Performing Laboratory Blood [facility] [address] [place] [address] * HEPATITIS B SURFACE AB (10/11/2017 2:08 PM) Component Value Ref Range Anti HBs <2.5 mIU/ml Comment: Hepatitis B Surface Antibody Reference Ranges >12.0 Positive 8.0-12.0 Equivocal <8.0 Negative Specimen Performing Laboratory Blood [facility] [address] [place] [address] * ANTI-SMOOTH MUSCLE AB (10/11/2017 2:08 PM) Component Value Ref Range Anti-Smooth Muscle Screen SEE TITER <20 TITER Specimen Performing Laboratory Blood [facility] [address] [place] [address] * ANTI-MITOCHONDRIAL ANTIBODY (10/11/2017 2:08 PM) Component Value Ref Range Anti-Mitochondrial Screen <20 <20 TITER Specimen Performing Laboratory Blood MAIN LAB [address] [place] [address] * 25-OH VITAMIN D (D2 + D3) (10/11/2017 2:08 PM) Component Value Ref Range Vitamin D(25-OH)Total 50.8 30 - 80 NG/ML Specimen Performing Laboratory Blood MAIN LAB [address] [place] [address] * PROTIME INR (PT) (10/11/2017 2:08 PM) Component Value Ref Range INR 1.0 0.8 - 1.2 Specimen Performing Laboratory Blood MAIN LAB [address] [place] [address] * CBC AND DIFF (10/11/2017 2:08 PM) Component Value Ref Range White Blood Cells 6.0 4.5 - 11.0 K/UL RBC 4.19 4.0 - 5.0 M/UL Hemoglobin 13.8 12.0 - 15.0 GM/DL Hematocrit 41.0 36 - 45 % MCV 97.9 80 - 100 FL MCH 33.0 26 - 34 PG MCHC 33.8 32.0 - 36.0 G/DL RDW 13.3 11 - 15 % Platelet Count 184 150 - 400 K/UL MPV 6.9 (L) 7 - 11 FL Neutrophils 54 41 - 77 % Lymphocytes 31 24 - 44 % Monocytes 9 4 - 12 % Eosinophils 6 (H) 0 - 5 % Basophils 0 0 - 2 % Absolute Neutrophil Count 3.20 1.8 - 7.0 K/UL Absolute Lymph Count 1.80 1.0 - 4.8 K/UL Absolute Monocyte Count 0.60 0 - 0.80 K/UL Absolute Eosinophil Count 0.30 0 - 0.45 K/UL Absolute Basophil Count 0.00 0 - 0.20 K/UL Specimen Performing Laboratory Blood MAIN LAB [address] [place] [address] * ANTI-NUCLEAR ANTIBODY(MILADYS) (10/11/2017 2:08 PM) Component Value Ref Range MILADYS Screen SEE TITER <80 TITER Specimen Performing Laboratory Blood MAIN LAB [address] [place] [address] * COMPREHENSIVE METABOLIC PANEL (10/11/2017 2:08 PM) Component Value Ref Range Sodium 137 137 - 147 MMOL/L Potassium 3.8 3.5 - 5.1 MMOL/L Chloride 101 98 - 110 MMOL/L Glucose 90 70 - 100 MG/DL Blood Urea Nitrogen 12 7 - 25 MG/DL Creatinine 0.98 0.4 - 1.00 MG/DL Calcium 9.6 8.5 - 10.6 MG/DL Total Protein 8.0 6.0 - 8.0 G/DL Total Bilirubin 0.6 0.3 - 1.2 MG/DL Albumin 3.8 3.5 - 5.0 G/DL Alk Phosphatase 81 25 - 110 U/L AST (SGOT) 28 7 - 40 U/L CO2 30 21 - 30 MMOL/L ALT (SGPT) 11 7 - 56 U/L Anion Gap 6 3 - 12 eGFR Non 58 (L) >60 mL/min Comment: The eGFR is not validated for use in drug dosing adjustments. Continue to use estimated creatinine clearance per dosing reference text. Please contact the Clinical Pharmacist for questions. eGFR >60 >60 mL/min Comment: The eGFR is not validated for use in drug dosing adjustments. Continue to use estimated creatinine clearance per dosing reference text. Please contact the Clinical Pharmacist for questions. Specimen Performing Laboratory Blood [facility] [address] [place] [address] from Last 3 Months
--- OUTSIDE RECORDS SUMMARY | 2017-10-24 11:24 | XMS REPORT | Encounter Summary ---
Author Author [facility] Organization [facility] Address Unknown Phone Unavailable Care Team Providers Care Vacuum Conditioner Operator Name Role Phone PCP Unavailable Encounter Details Date Type Department Care Team Description 10/12/2017 Hospital Clinlab Julien Wray MD Fatty (change of) liver, Encounter [address] [place] [place] [address] [place] [address] [phone] Social History Tobacco Use Types Packs/Day Years [...] impairment: No 10/11/2017 as of this encounter Medications at Time of Discharge Medication Sig. Disp. Refills Start Date End Date aspirin EC 81 mg tablet Take 81 mg by mouth daily. Take with food. azaTHIOprine (IMURAN) 50 Take 50 mg by mouth mg tablet daily. blood sugar diagnostic Use 1 strip as directed test strip twice daily. BLOOD-GLUCOSE METER Use as directed. (BLOOD GLUCOSE MONITOR [facility]) folic acid (FOLVITE) 1 mg Take 1 mg by mouth daily. tablet furosemide (LASIX) 20 mg Take 20 mg by mouth tablet daily. lactulose 10 gram/15 mL Take 10 g by mouth daily. oral solution levothyroxine (SYNTHROID) Take 75 mcg by mouth 75 mcg tablet daily. loratadine (CLARITIN) 10 Take 10 mg by mouth mg tablet daily. magnesium oxide (MAG-OX) Take 400 mg by mouth 400 mg tablet twice daily. pantoprazole DR Take 40 mg by mouth (PROTONIX) 40 mg tablet daily. potassium chloride SR Take 20 mEq by mouth (K-DUR) 20 mEq tablet daily. Take with a meal and a full glass of water. spironolactone Take 25 mg by mouth (ALDACTONE) 25 mg tablet daily. Take with food. as of this encounter Plan of Treatment Not on fileas of this encounter Results * OUTSIDE PATHOLOGY CONSULT (10/12/2017 10:48 AM) Component Value Ref Range PATHOLOGY REPORT [facility] [email or web address] Department of Pathology and Laboratory Medicine [address] [place] [address] Surgical Pathology Office: [phone] PATHOLOGY CONSULTATION NAME: JOSHUA GLEZ SURG PATH #: [id number] MR #: [id number] ALT ID #: LOCATION: [facility] DATE OF PROCEDURE: 10/12/2017 AGE: 62 SEX: F DATE RECEIVED: 10/12/2017 : 1955 TIME RECEIVED: 10:48 PHYSICIAN: JULIEN CHAWLA DATE OF REPORT: 10/12/2017 COPY TO: DATE OF PRINTIN10/12/2017 ################################################## ###################### Final Diagnosis: A. Outside case [id number] (Date Collected: 12/13/2016) Liver, needle biopsy- Cirrhosis [...] ###################### Material Received: A: Outside Slides x5 [id number], Via [facility] [address] [place] [address] History: 62-year-old female with a clinical history of cirrhosis. Gross Description: A. Received are five (5) outside slides labeled "[id number]", and a properly identified surgical pathology report from Via [facility]., [address] [place] [address]. ; . pa/10/12/2017 If immunohistochemical stains and/or in situ hybridization are cited in this report, the performance characteristics were determined by the Department of Pathology and Laboratory Medicine of the [facility] ([employer]) in compliance with CLIA'88 [...] of Pathology and Laboratory Medicine of the [facility]. It has not been cleared or approved by the FDA. The FDA has determined that such clearance or approval is not necessary. Specimen Performing Laboratory [facility] RESULTS in this encounter Visit Diagnoses Not on filein this encounter Admitting Diagnoses Diagnosis Fatty (change of) liver, not elsewhere classified in this encounter
--- OUTSIDE RECORDS SUMMARY | 2017-10-24 11:24 | XMS REPORT | Encounter Summary ---
Author Author [facility] Organization [facility] Address Unknown Phone Unavailable Care Team Providers Care Pan Devulcanizer Helper Name Role Phone PCP Unavailable Reason for Visit * Reason Comments Other return call to [place] Encounter Details Date Type Department Care Team Description 10/12/2017 Telephone Center for Sara Wray MD Other (return call to [place] Transplantation-Hepatolog [address] ) [place] [address] [phone] [facility] [place] [address] Social History Tobacco Use Types Packs/Day Years [...] impairment: No 10/11/2017 as of this encounter Plan of Treatment Not on fileas of this encounter Visit Diagnoses Not on filein this encounter
--- OUTSIDE RECORDS SUMMARY | 2017-10-24 11:24 | XMS REPORT | Encounter Summary ---
Author Author [facility] Organization [facility] Address Unknown Phone Unavailable Care Team Providers Care Metropolitan Editor Name Role Phone PCP Unavailable Reason for Visit * Reason Comments Lab Request Encounter Details Date Type Department Care Team Description 10/16/2017 Telephone Center for Devan Riley RN Lab Request Transplantation-Liver Transplant Hep [address] [facility] [place] [address] Social History Tobacco Use Types Packs/Day Years [...] Encounter - Devan Riley RN - 10/16/2017 8:08 AM FIELD MARKETING ASSOCIATE Labs reviewed with pt. Consistent with AI. Per Dr. Wray, pt to have monthly labs and to continue on azathioprine. Pt agrees with plan. Standing orders to be sent to [facility] in [facility]. in this encounter Plan of Treatment Name Priority Associated Diagnoses Order Schedule CBC AND DIFF Routine Autoimmune hepatitis Every 4 Weeks for 12 (HCC) Occurrences starting 10/16/2017 until 10/16/2018 COMPREHENSIVE METABOLIC PANEL Routine Autoimmune hepatitis Every 4 Weeks for 12 (HCC) Occurrences starting 10/16/2017 until 10/16/2018 PROTIME INR (PT) Routine Autoimmune hepatitis Every 4 Weeks for 12 (HCC) Occurrences starting 10/16/2017 until 10/16/2018 as of this encounter Visit Diagnoses Diagnosis Autoimmune hepatitis (HCC) - Primary Autoimmune hepatitis in this encounter
--- OUTSIDE RECORDS SUMMARY | 2017-10-24 11:25 | XMS REPORT | Encounter Summary ---
Author Author [facility] Organization [facility] Address Unknown Phone Unavailable Care Team Providers Care Corporate Technical Recruiter Name Role Phone PCP Unavailable Reason for Visit * Reason Comments Appointment Request Encounter Details Date Type Department Care Team Description 10/04/2017 Telephone Center for Sara Wray MD Appointment Request Transplantation-Hepatolog [address] [place] [place] [address] [phone] [facility] [place] [address] Social History Tobacco Use Types Packs/Day Years Used Date Never Assessed Sex Assigned at Date Recorded Not on file as of this encounter Miscellaneous Notes * Telephone Encounter - Kierra Wiley - 10/04/2017 9:30 AM CEMENT RAILROAD CAR LOADER LVM reminding pt of appt. Asked pt to arrive 30 minutes early and bring a list of current meds. in this encounter Plan of Treatment Not on fileas of this encounter Visit Diagnoses Not on filein this encounter
--- OUTSIDE RECORDS SUMMARY | 2017-10-24 11:25 | XMS REPORT | Encounter Summary ---
Author Author [facility] Organization [facility] Address Unknown Phone Unavailable Care Team Providers Care Special Systems Technician Name Role Phone PCP Unavailable Encounter Details Date Type Department Care Team Description 10/11/2017 [facility] Sara Wray MD Fatty (change of) liver, Encounter [address] [place] [address] [place] [address] [phone] Social History Tobacco Use Types Packs/Day Years [...] Use as directed. (BLOOD GLUCOSE MONITOR KIT [facility] [place]) folic acid (FOLVITE) 1 mg Take 1 [...] on fileas of this encounter Results * ANTI-SMOOTH MUSCLE-QUANT (10/11/2017 2:08 PM) Component Value Ref Range Anti-Smooth Muscle Titer 40 (H) <20 TITER Specimen Performing Laboratory MAIN LAB [address] [place] [id number] * ANTI-NUCLEAR AB(MILADYS)-QUANT (10/11/2017 2:08 PM) Component Value Ref Range MILADYS Titer/Pattern > [id number]: HOMOGENEOUS <80 Specimen Performing Laboratory MAIN LAB [address] [place] [address] * SODIUM-URINE RANDOM (10/11/2017 2:08 PM) Component Value Ref Range Sodium, Random 55 MMOL/L Specimen Performing Laboratory Urine [facility] [address] [place] [address] * TOTAL PROTEIN-URINE RANDOM (10/11/2017 2:08 PM) Component Value Ref Range Protein, Random <4 MG/DL Specimen Performing Laboratory Urine MAIN LAB [address] [place] [address] * ANTI-SMOOTH MUSCLE AB (10/11/2017 2:08 PM) Component Value Ref Range Anti-Smooth Muscle Screen SEE TITER <20 TITER Specimen Performing Laboratory Blood MAIN LAB [address] [place] [address] * ANTI-NUCLEAR ANTIBODY(MILADYS) (10/11/2017 2:08 PM) Component Value Ref Range MILADYS Screen SEE TITER <80 TITER Specimen Performing Laboratory Blood MAIN LAB [address] [place] [address] * ANTI-MITOCHONDRIAL ANTIBODY (10/11/2017 2:08 PM) Component Value Ref Range Anti-Mitochondrial Screen <20 <20 TITER Specimen Performing Laboratory Blood MAIN LAB [address] [place] [address], [place] [address] * HEPATITIS C AB (10/11/2017 2:08 PM) Component Value Ref Range Anti HCV NEG Specimen Performing Laboratory Blood MAIN LAB [address] [place] [address] * HEPATITIS B SURFACE AB (10/11/2017 2:08 PM) Component Value Ref Range Anti HBs <2.5 mIU/ml Comment: Hepatitis B Surface Antibody Reference Ranges >12.0 Positive 8.0-12.0 Equivocal <8.0 Negative Specimen Performing Laboratory Blood MAIN LAB [address] [place], [place] [id number] * HEPATITIS A IGG (10/11/2017 2:08 PM) Component Value Ref Range Hepatitis A IGG NEG Note: Test type and methodology has changed. The [facility] lab has discontinued the test for Total Hep A Immunoglobulin. This test has been replaced with more specific testing. The tests for Hep A IgG and Hep A IgM are both now available and can be ordered. Specimen Performing Laboratory Blood [facility] [address] [place] [id number] * 25-OH VITAMIN D (D2 + D3) (10/11/2017 2:08 PM) Component Value Ref Range Vitamin D(25-OH)Total 50.8 30 - 80 NG/ML Specimen Performing Laboratory Blood MAIN LAB [address] [place] [address] * PROTIME INR (PT) (10/11/2017 2:08 PM) Component Value Ref Range INR 1.0 0.8 - 1.2 Specimen Performing Laboratory Blood [facility] [address] [place], [place] [id number] * COMPREHENSIVE METABOLIC PANEL (10/11/2017 2:08 PM) [...] Specimen Performing Laboratory Blood [facility] [address] [place] [address] * CBC AND DIFF (10/11/2017 2:08 PM) [...] - 0.20 K/UL Specimen Performing Laboratory Blood [facility] [address] [place] [address] in this encounter Visit Diagnoses Diagnosis Fatty liver Other chronic nonalcoholic liver disease in this encounter Admitting Diagnoses Diagnosis Fatty (change of) liver, not elsewhere classified in this encounter
--- OUTSIDE RECORDS SUMMARY | 2017-10-24 11:25 | XMS REPORT | Encounter Summary ---
Author Author [facility] Organization [facility] Address Unknown Phone Unavailable Care Team Providers Care Neurourologist Name Role Phone PCP Unavailable Reason for Visit * Reason Comments Autoimmune Hepatitis Encounter Details Date Type Department Care Team Description 10/11/2017 Office Visit Center for Sara Wray MD Fatty liver ( Primary Transplantation-Hepatolog [address] Dx);Other [place] [address] liver (HCC);Other [address] [phone] ascites;Chronic kidney CENTER FOR disease, unspecified CKD TRANSPLANTATION stage;Umbilical hernia [place], [place] without obstruction and [phone] without [phone] gangrene;Immunosuppressio n (HCC);Chronic idiopathic constipation;Autoimmune hepatitis (HCC);Metabolic syndrome;Housing or economic circumstance Social History Tobacco Use Types Packs/Day Years Used Date Former Smoker Cigarettes Quit: 11/26/2013 Smokeless Tobacco: Former User Tobacco Cessation: Counseling Given: Yes Alcohol Use Drinks/Week oz/Week Comments No Sex Assigned at Date Recorded Not on file as of this encounter Last Filed Vital Signs Vital Sign Reading Time Taken Blood Pressure 176/70 10/11/2017 12:58 PM RN HEART Pulse 80 10/11/2017 12:58 PM RN HEART Temperature 36.7 C (98.1 F) 10/11/2017 12:58 PM RN HEART Respiratory Rate 14 10/11/2017 12:58 PM RN HEART Oxygen Saturation 95% 10/11/2017 12:58 PM RN HEART Inhaled Oxygen - - Concentration Weight 133.3 kg (293 lb 12.8 oz) 10/11/2017 12:58 PM RN HEART Height 160 cm (5' 3") 10/11/2017 12:58 PM RN HEART Body Mass Index 52.04 10/11/2017 12:58 PM RN HEART in this encounter Functional Status Functional Status Response [...] impairment: No 10/11/2017 as of this encounter Instructions * Patient Instructions - Devan Riley RN - 10/11/2017 1:00 PM RN HEART 10/11/[address] Nils ARIZMENDI to schedule Labs RTC 6 months Patient instructions Labs today I will get your biopsy slides from [facility] Dr. Wray feels that you have cirrhosis and fatty liver disease Weight loss. I will request your cardiac studies from [facility] ([place]) I will refer you to [facility] in [place] for a paracentesis and fluid studies Depending on your kidney function we will schedule you for abdominal imaging I will get you scheduled for a colonoscopy and upper endoscopy You can get your eye fixed- no general anesthesia If you are taking lactulose for constipation, please switch to miralax. If you have confusion(hepatic encephalopathy), you should take the lactulose cms in this encounter Progress Notes * Sara Wray MD - 10/11/2017 1:00 PM RN HEART Formatting of this note may be different from the original. Date of Service: 10/11/2017 Subjective: Madeleine Glez is a 62 y.o. female presenting for evaluation of liver disease. History of Present Illness Madeleine Glez is a 62 y.o. female with past medical history of metabolic syndrome including morbid obesity BMI 52; hypothyroidism; LY non compliant with CPAP; and cirrhosis, who is referred for the latter. Pt presents to clinic with a friend. Outside records are reviewed. Both are fair historians. Patient reports retaining fluid over the past 2 years. She initially reports lower extremity edema and then noticed worsening umbilical hernia and abdominal fluid retention. In late 2015, she was noted to have what appears to be an acute liver injury with AST 100s, ALT 30-40, total bilirubin 2, albumin 2.6, platelet 161. She is a lifelong nondrinker. At that time AMA and MILADYS were negative. It is uncclear if she had smooth muscle antibody testing done. 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 This biopsy was concerning for autoimmune hepatitis, and she reports being told only 3-4 months ago that she had this disease and any liver disease at all. She was initially given prednisone and now has been on low- dose azathioprine for 2 months. Last laboratory data available is from May 2017 and is as follows: Creatinine 1.1, albumin 3.6, bilirubin 0.5, alkaline phosphatase 84, AST 34, ALT 16. She has never undergone paracentesis. She reports undergoing an echocardiogram 09/27 and DSE 10/01, the results of which are unavailable. She does report some renal insufficiency, but it is unclear what from. She reports having diet-controlled diabetes. She is currently on Lasix 20 mg daily, but takes 40 mg 2 days of the week, and Aldactone 25 mg daily. She feels that this is not controlling her fluid adequately and her umbilical hernia is very bothersome to her. She takes lactulose for constipation, but denies any confusion or day night reversal. Last imaging available for review is a CT abdomen pelvis with contrast dated September 2016, demonstrating cirrhotic appearing liver; large ascites; splenomegaly; right lobe 1 cm indeterminate lesion. She denies ab pain, N/V, BRBPR, melena, jaundice, pruritus.No RF for HCV, including blood transfusion before 1989, unprofessionally placed tattoos, IVDA, intranasal cocaine use, nor high risk sexual behavior. She reports having EGD and colon several years ago. She is unsure if she had esophageal varices; she reports having polyps. She is the primary caregiver to her disabled son, whom she had a age 17. She very much wishes to do anything she can to improve her health, so that she may be there for her child. She last worked in 1991 and then became disabled. 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 She currently reports having housing issues with a bug infestation in her apartment. Unfortunately, the bugs are gravitating towards her CPAP machine and for this reason, she has been noncompliant with that. She quit smoking in 2013, previously smoked 1-1/2-2 packs per day. As stated before, she is a lifelong nondrinker. No family history of liver disease nor autoimmune disease. Past Medical History: Past Medical History: Diagnosis Date Ascites Autoimmune hepatitis (HCC) liver bx 11/2016 Cirrhosis of liver (HCC) 2/2 AIH +/- ALVAREZ Constipation History of liver injury ALI 12/28 Metabolic syndrome Morbid obesity with BMI of 50.0-59.9, adult (HCC) LY (obstructive sleep apnea) noncompliant with CPAP Seasonal allergies Surgical History: Past Surgical History: Procedure Laterality Date INCISIONAL HERNIA REPAIR OPEN CHOLECYSTECTOMY Social History: Social History Social History Marital status: Spouse name: N/A Number of children: 1 Years of education: N/A Occupational History disabled Social History Main Topics Smoking status: Former Smoker Types: Cigarettes Quit date: 11/26/2013 Smokeless tobacco: Former User Alcohol use No Drug use: No Sexual activity: No Other Topics Concern Not on file Social History Narrative Family History: Family History Problem Relation Age of Onset Cancer Mother Heart Attack Father Review of Systems A complete 10 point review of systems was asked and answered in the negative unless specifically commented upon in the HPI Objective: aspirin EC 81 mg tablet Take 81 mg by mouth daily. Take with food. azaTHIOprine (IMURAN) 50 mg tablet Take 50 mg by mouth daily. blood sugar diagnostic test strip Use 1 strip as directed twice daily. BLOOD-GLUCOSE METER (BLOOD GLUCOSE MONITOR KIT [facility]) Use as directed. folic acid (FOLVITE) 1 mg tablet Take 1 mg by mouth daily. furosemide (LASIX) 20 mg tablet Take 20 mg by mouth daily. lactulose 10 gram/15 mL oral solution Take 10 g by mouth daily. levothyroxine (SYNTHROID) 75 mcg tablet Take 75 mcg by mouth daily. loratadine (CLARITIN) 10 mg tablet Take 10 mg by mouth daily. magnesium oxide (MAG-OX) 400 mg tablet Take 400 mg by mouth twice daily. pantoprazole DR (PROTONIX) 40 mg tablet Take 40 mg by mouth daily. potassium chloride SR (K-DUR) 20 mEq tablet Take 20 mEq by mouth daily. Take with a meal and a full glass of water. spironolactone (ALDACTONE) 25 mg tablet Take 25 mg by mouth daily. Take with food. Vitals: 10/11/17 1258 BP: 176/70 Pulse: 80 Resp: 14 Temp: 36.7 C (98.1 F) TempSrc: Oral SpO2: 95% Weight: 133.3 kg (293 lb 12.8 oz) Height: 160 cm (63") Body mass index is 52.04 kg/(m^2). Physical Exam Vitals reviewed. Constitutional: Well-developed, well-nourished, in no apparent distress. HEENT: Normocephalic. No scleral icterus. Moist oral mucosa. Dentition fair Neck/Lymph: Normal ROM, supple. No thyromegaly. No lymphadenopathy Cardiac: Regular rate and rhythm. No overt murmurs Respiratory: Clear to auscultation bilaterally. No wheezes or rales GI: Abdomen obese, soft, non-distended, non-tender. BS present. + shifting dullness, reducible umbilical hernia. + splenomegaly. Exam limited d/t body habitus. Skin: Skin is warm and dry. No rash noted. No jaundice. + spider nevi noted. No palmar erythema Peripheral Vascular: + lower extremity edema. 2+ pulses in all extremities Musculoskeletal: ROM intact, adequate muscle bulk Psychiatric: Normal mood and affect. Behavior is normal. Neuro: No asterixis, + tremor Labs and Diagnostic tests: CBC w/Diff Lab Results Component Value Date/Time WBC 6.0 10/11/2017 02:08 PM RBC 4.19 10/11/2017 02:08 PM HGB 13.8 10/11/2017 02:08 PM HCT 41.0 10/11/2017 02:08 PM MCV 97.9 10/11/2017 02:08 PM MCH 33.0 10/11/2017 02:08 PM MCHC 33.8 10/11/2017 02:08 PM RDW 13.3 10/11/2017 02:08 PM PLTCT 184 10/11/2017 02:08 PM MPV 6.9 (L) 10/11/2017 02:08 PM Lab Results Component Value Date/Time NEUT 54 10/11/2017 02:08 PM ANC 3.20 10/11/2017 02:08 PM LYMA 31 10/11/2017 02:08 PM ALC 1.80 10/11/2017 02:08 PM ALANNAH 9 10/11/2017 02:08 PM AMC 0.60 10/11/2017 02:08 PM EOSA 6 (H) 10/11/2017 02:08 PM AEC 0.30 10/11/2017 02:08 PM BASA 0 10/11/2017 02:08 PM ABC 0.00 10/11/2017 02:08 PM Comprehensive Metabolic Profile Lab Results Component Value Date/Time NA 137 10/11/2017 02:08 PM K 3.8 10/11/2017 02:08 PM CL 101 10/11/2017 02:08 PM CO2 30 10/11/2017 02:08 PM GAP 6 10/11/2017 02:08 PM BUN 12 10/11/2017 02:08 PM CR 0.98 10/11/2017 02:08 PM GLU 90 10/11/2017 02:08 PM Lab Results Component Value Date/Time CA 9.6 10/11/2017 02:08 PM ALBUMIN 3.8 10/11/2017 02:08 PM TOTPROT 8.0 10/11/2017 02:08 PM ALKPHOS 81 10/11/2017 02:08 PM AST 28 10/11/2017 02:08 PM ALT 11 10/11/2017 02:08 PM TOTBILI 0.6 10/11/2017 02:08 PM GFR 58 (L) 10/11/2017 02:08 PM GFRAA >60 10/11/2017 02:08 PM MELD-Na score: 6 at 10/11/2017 2:08 PM MELD score: 6 at 10/11/2017 2:08 PM Calculated from: Serum Creatinine: 0.98 MG/DL (Rounded to 1) at 10/11/2017 2:08 PM Serum Sodium: 137 MMOL/L at 10/11/2017 2:08 PM Total Bilirubin: 0.6 MG/DL (Rounded to 1) at 10/11/2017 2:08 PM INR(ratio): 1.0 at 10/11/2017 2:08 PM Age: 62 years Imaging: CT a/p with contrast (OSH) 09/2016- cirrhotic appearing liver; large ascites; splenomegaly; right lobe 1 cm indeterminate lesion. Procedures: Liver biopsy (OSH) 11/2016- chronic hepatitis marked by lymphocytes with severe portal inflammation and necrosis, stage 4 out of 4 fibrosis EGD "several years ago", unknown results. Colonoscopy "several years ago", unknown results. Assessment and Plan: Cirrhosis: 2/2 AIH with RF for ALVAREZ. Complete AI serologies from outside are not available. Liver biopsy from 11/2016 suggests AIH, with labs 09/2016 c/w ALI. Labs were in a typical pattern suggestive of acute EtOH hepatitis, but pt is a lifelong nondrinker. Last labs 05/2017 reveal resolved ALI and normal liver function. She remains on low dose AZA. With ascites, as below. - Will review outside liver biopsy. - Stay on low dose AZA. - CBC with diff, updated MELD labs today. Liver Transplant Candidacy: deferred /2 low MELD. Barriers to OLT include morbid obesity and other co morbidities. Metabolic Syndrome: I had a discussion with the patient about nonalcoholic fatty liver disease (NAFLD). We discussed how fat deposits in the liver, how this leads to inflammation, and how chronic inflammation (ALVAREZ) can ultimately lead to scarring and cirrhosis. The long-term complications of fatty liver disease were discussed with the patient, including variable progression to cirrhosis and end stage liver disease. - It is recommended to lose 5% of body weight in order to reduce steatosis; and 10% is needed to reduce inflammation associated with ALVAREZ. Weight loss may be achieved through diet alone, or ideally, in conjunction with exercise. Goal is to exercise for 60min/day for most days (5-6) of the week, as able. - Consider the utility of liberalizing coffee and black tea consumption as some data that this may slow progression and reverse effects of ALVAREZ-related fibrosis. - The highest mortality in NAFLD/ALVAREZ is from cardiovascular disease and careful attention should be paid to those risk factors, including management of HTN, HLP, DM2. Statin use is safe and encouraged. She is currently noncompliant with CPAP d/t housing issues. Recommended she discuss any available assistance with PCP. Hepatocellular Cancer Screening: indeterminate lesion R lobe CT (OSH) 09/2016. - Recommend hepatoma screening q6-12 months with either abdominal ultrasound or contrasted, cross-sectional imaging. - She is due for updated imaging, but states renal insufficiency. We will recheck kidney function today and determine best screening modality, ideally triple phase CT now. Ascites: It is unclear if ascites is related to cirrhosis, although I suspect it is. She has RF for heart disease and recently underwent cardiac evaluation. Umbilical hernia is currently reducible, but is at risk. She needs better control of volume overload. Kidney function may be prohibitive. - Continue low dose diuretics for now. - BMP today and will adjust diuretics accordingly. - Therapeutic and diagnostic paracentesis to be set up locally. Check cell count with diff, TP, albumin, etc. - We will obtain outside cardiology reports. - Reinforced low Na diet. Hepatic Encephalopathy: none. Currently using lactulose for constipation. - Discontinue lactulose. - Miralax PRN for constipation. - Recommend strict avoidance of medications such as narcotics, sedatives and sleep aids. Low dose Benadryl PRN or melatonin can be used for insomnia, if needed. Esophageal Varices: unknown. - Recommend repeating an upper GI endoscopy now . If evidence of /large esophageal varices, would recommend esophageal varix band ligation or the initiation of a non-selective beta-khanh (carvedilol or propranolol). If band ligation is performed, please continue to repeat until eraditation of varices. Kidney Health: reported renal insufficiency. With "diet-controlled DM2". - BMP today. - Spot urine protein and Na. - All patients with liver disease should avoid the use of Non-steroidal Anti- Inflammatory (NSAID) medications as they can cause significant injury to the kidneys in this population. Immobility/Frailty: at risk Nutrition: As with most patients with chronic liver disease, there is a significant degree of protein malnutrition. Dicussed need to change dietary habits to improve overall protein balance. Discussed the importance of eating between 1.2-1.5g/kg /day lean protein such as plant-based proteins (soy, legumes, nuts), dairy- based proteins (cheese, milk, yogurt), white meat chicken or pork, fish, and eggs. Continue to follow a sodium restricted (<2g sodium diet), heart-healthy, Mediterranean style diet. It is best to minimize the intake of carbohydrates and sugars, to avoid obesity. - Strongly encourage protein supplements 2-3 times daily (Boost, Ensure, Oxford Instant Milk, etc.) between meals, or 5-6 times daily for meal replacement, to meet protein and caloric intake. - Recommend a bedtime snack with protein and complex carbohydrate to minimize risk of muscle catabolism overnight. Routine Health Care in Patient with Chronic Liver Disease: - We recommend screening for hepatitis A and B, and vaccination if not immune. - All patients with liver disease are at an increased risk for osteoporosis. We strongly recommend screening for Vitamin D deficiency with aggressive supplementation/replacement, as indicated. Screening for all fat soluble vitamin deficiencies should be performed in those patients with cholestatic liver disease. - Baseline DEXA scan should be performed to evaluate for decreased bone mineral density. If present, Ca/Vit D +/- bisphosphonate therapy should be considered.Follow up DEXA scans shall be based on prior scans as well as therapies. It is not uncommon for our patients to be referred to an Event Specialist Product Demonstrator/bone health specialist. - The preferred analgesic in cirrhosis and liver disease is Tylenol, up to 2g daily. - Recommend age appropriate vaccination including yearly influenza and Pneumovax prior to OLT in cirrhotic patients. Follow Up: 6 mos Labs today: CBC, updated MELD, repeat AI serologies, HCV screening, check immunity to Hepatitis A/B, urine protein and Na, Vit D. Imaging/biopsy: Review outside liver biopsy. Triple phase CT if renal function allows. Procedures: Tx and Dx paracentesis locally. Schedule EGD/colon. Thank you very much for the opportunity to participate in the care of this patient. If you have any further questions, please don't hesitate to contact our office. Sara Wray MD Construction Engine[employer] porter Advanced Hepatology & Liver Transplantation [facility] in this encounter Plan of Treatment Not on fileas of this encounter Results * SODIUM-URINE RANDOM (10/11/2017 2:08 PM) Component Value Ref Range Sodium, Random 55 MMOL/L Specimen Performing Laboratory Urine MAIN LAB [address] [place] [id number] * TOTAL PROTEIN-URINE RANDOM (10/11/2017 2:08 PM) Component Value Ref Range Protein, Random <4 MG/DL Specimen Performing Laboratory Urine MAIN LAB [address] [place] [address] * ANTI-SMOOTH MUSCLE AB (10/11/2017 2:08 PM) Component Value Ref Range Anti-Smooth Muscle Screen SEE TITER <20 TITER Specimen Performing Laboratory Blood MAIN LAB [address] [place] [address] * ANTI-NUCLEAR ANTIBODY(MILADYS) (10/11/2017 2:08 PM) Component Value Ref Range MILADYS Screen SEE TITER <80 TITER Specimen Performing Laboratory Blood MAIN LAB [address] [place] [address] * ANTI-MITOCHONDRIAL ANTIBODY (10/11/2017 2:08 PM) Component Value Ref Range Anti-Mitochondrial Screen <20 <20 TITER Specimen Performing Laboratory Blood MAIN LAB [address] [place] [address] * HEPATITIS C AB (10/11/2017 2:08 PM) Component Value Ref Range Anti HCV NEG Specimen Performing Laboratory Blood MAIN LAB [address] [place] [address] * HEPATITIS B SURFACE AB (10/11/2017 2:08 PM) Component Value Ref Range Anti HBs <2.5 mIU/ml Comment: Hepatitis B Surface Antibody Reference Ranges >12.0 Positive 8.0-12.0 Equivocal <8.0 Negative Specimen Performing Laboratory Blood MAIN LAB [address] [place] [address] * HEPATITIS A IGG (10/11/2017 2:08 PM) Component Value Ref Range Hepatitis A IGG NEG Note: Test type and methodology has changed. The [facility] lab has discontinued the test for Total Hep A Immunoglobulin. This test has been replaced with more specific testing. The tests for Hep A IgG and Hep A IgM are both now available and can be ordered. Specimen Performing Laboratory Blood [facility] [address] [place] [address] * 25-OH VITAMIN D (D2 + D3) (10/11/2017 2:08 PM) Component Value Ref Range Vitamin D(25-OH)Total 50.8 30 - 80 NG/ML Specimen Performing Laboratory Blood [facility] [address] [place] [address] * PROTIME INR (PT) (10/11/2017 2:08 PM) Component Value Ref Range INR 1.0 0.8 - 1.2 Specimen Performing Laboratory Blood [facility] [address] [place] [address] * COMPREHENSIVE METABOLIC PANEL (10/11/2017 2:08 PM) [...] Pharmacist for questions. Specimen Performing Laboratory Blood MAIN LAB [address] [place] [address] * CBC AND DIFF (10/11/2017 2:08 PM) [...] K/UL Specimen Performing Laboratory Blood MAIN LAB [address] [place] [address] in this encounter Visit Diagnoses Diagnosis Fatty liver - Primary Other chronic nonalcoholic liver disease Other cirrhosis of liver (HCC) Other ascites Chronic kidney disease, unspecified CKD stage Umbilical hernia without obstruction and without gangrene Immunosuppression (HCC) Unspecified disorder of immune mechanism Chronic idiopathic constipation Unspecified constipation Autoimmune hepatitis (HCC) Autoimmune hepatitis Metabolic syndrome Dysmetabolic Syndrome X Housing or economic circumstance Unspecified housing or economic circumstance in this encounter
--- OUTSIDE RECORDS SUMMARY | 2017-10-24 11:26 | XMS REPORT ---
Author Author CLARA GONZALES Organization [facility] Address [address] [place] [address] Care Team Providers Care Sanitation Director Name Role Phone CHRISTIAN CLARA Unavailable PROBLEMS Type Condition ICD9-CM Code [id number] Code Onset Dates Condition Status SNOMED Code Problem Diabetes type 2, controlled E11.9 Active 86183925 Problem Morbid obesity, unspecified obesity type E66.01 Active 791223115 Problem Sleep apnea in adult G47.33 Active 79825748 Problem Gastro-esophageal reflux disease without esophagitis K21.9 Active 347313107 Problem Chronic obstructive pulmonary disease, unspecified J44.9 Active 81269323 Problem Acquired hypothyroidism E03.9 Active 170966307 Problem Adjustment disorder with depressed mood F43.21 Active 96239513 Problem Cirrhosis of liver with ascites, unspecified hepatic cirrhosis type K74.60 Active 33243566 Problem Constipation, unspecified constipation type K59.00 Active 08051459 Problem Autoimmune hepatitis K75.4 Active 997167540 Problem Essential hypertension I10 Active 59699216 ALLERGIES No Information SOCIAL HISTORY Never Assessed PLAN OF CARE VITAL SIGNS MEDICATIONS Unknown Medications RESULTS No Results PROCEDURES No Known procedures IMMUNIZATIONS No Known Immunizations MEDICAL (GENERAL) HISTORY Type Description Date Medical History type II diabetes Medical History hypertension Medical History Hypothyroidism Medical History hyperlipidemia Medical History mood disorder Medical History sciatica Medical History chronic obstructive pulmonary disease (COPD)-nodules in right lung (2007) Medical History obesity Medical History sleep apnea Medical History gastroesophageal reflux disease (GERD) Medical History stress test (Lexiscan 04/2010) EF 70% Medical History squamous cell skin cancer 08/2009 Medical History seizures as a child Medical History degenerative disease lumbosacral spine-disabled sicne 1989 Medical History Lung nodule initially found 09/2007 CT scan 09/2008 3 nodular opacities within the lungs stable c/w films from 03/[address] Kaur in the past Medical History hypokalemia Medical History umbilical hernia Surgical History cholecystectomy Surgical History appendectomy Surgical History hysterectomy, total with bilateral salpingo-oophorectomy (BSO ) Surgical History cervical cryotherapy Surgical History section Surgical History Echocardiogram EF 60% mild LVH 01/2009 Surgical History PFT no abnormality except increased airway resistance and small airway disease 09/2008 Hospitalization History Thyroid disease TSH 5.77 on 02/11/201001/2010 Hospitalization History surgeries Hospitalization History hypokalemia 01/14/2016
--- OUTSIDE RECORDS SUMMARY | 2017-10-24 11:26 | XMS REPORT ---
Author Author RUMA BARRETO Organization [facility] Address [address] [place] [address] Care Team Providers Care Cartoon Animator Name Role Phone RUMA BARRETO Unavailable PROBLEMS Type Condition ICD9-CM Code [id number] Code Onset Dates Condition Status SNOMED Code Problem Diabetes type 2, controlled E11.9 Active 11346728 Problem Chronic obstructive pulmonary disease, unspecified J44.9 Active 82236420 Problem Gastro-esophageal reflux disease without esophagitis K21.9 Active 166413596 Problem Autoimmune hepatitis K75.4 Active 350344517 Problem Essential hypertension I10 Active 83464697 Problem Sleep apnea in adult G47.33 Active 11721187 Problem Morbid obesity, unspecified obesity type E66.01 Active 079657918 Problem Cirrhosis of liver with ascites, unspecified hepatic cirrhosis type K74.60 Active 44858781 Problem Constipation, unspecified constipation type K59.00 Active 67803093 ALLERGIES Substance Reaction Event Type Date Status Tramadol HCl Unknown Drug Allergy Sep, Active Sulfamethoxazole-Trimethoprim Unknown Drug Allergy Sep, Active Penicillin V Potassium Unknown Drug Allergy Sep, Active Metformin HCl stomach upset Drug Allergy Sep, Active Lipitor edema Drug Allergy Sep, Active Hydrocodone-Acetaminophen anaphylaxis Drug Allergy Sep, Active Red Meat hives Non Drug Allergy Sep, Active SOCIAL HISTORY No smoking Hx information available PLAN OF CARE Activity Details Follow Up 4 Weeks w me Reason: VITAL SIGNS Height 63 in 2016-10-16 Weight 276.9 lbs 2016-10-16 Temperature 98.5 degrees Fahrenheit 2016-10-16 Heart Rate 88 bpm 2016-10-16 Respiratory Rate 20 2016-10-16 BMI 49.05 kg/m2 2016-10-16 Blood pressure systolic 180 mmHg 2016-10-16 Blood pressure diastolic 92 mmHg 2016-10-16 MEDICATIONS Medication Instructions Dosage Frequency Start Date End Date Duration Status Zantac 150 MG Orally 2 times a day 1 tablet 12h 18 May, 2016 30 day(s) Active Alprazolam 0.5 MG Orally Twice a day 1 tablet 12h May, Active Potassium Chloride ER 20 MEQ Orally Twice a day 1 tablet 12h Active Folic Acid 1 MG Orally Once a day 1 tablet 24h May, Nov, 30 day(s) Active Levothyroxine Sodium 75 MCG Orally Once a day 1 tablet 24h 30 Active Blood Glucose Monitor System w/Device as directed May, Active Levaquin 500 MG Orally Once a day 1 tablet 24h Sep, Sep, 10 day(s) Active Claritin 10 MG Orally Once a day 1 tablet 24h Active Spironolactone 25 MG Orally Once a day 2 tablets 24h 30 Active Tylenol 500 mg Orally every 6 hrs 2 tablets as needed 6h Active Clobetasol Propionate 0.05 % Externally Twice a day X 10 days and then may repeat in 2 weeks if needed 1 application to affected area Jul, Active Test strips 1 as directed 12h Apr, 25 Active Magnesium 400 MG Orally Twice a day 1 tablet 12h Active Lasix 40 mg Orally Once a day 1 tablet 24h Active Blood Glucose Test - as directed May, Active MiraLax - Orally 3-4 times per week 17 grams Sep, Active Cholecalciferol 5000 UNIT Orally Once a day 1 tablet 24h Active Aspirin 81 mg take 1 tablet (81 mg) by oral route once daily Aug, Active RESULTS Name Result Date Reference Range INR (IN HOUSE) 2016-10-16 INR 1.2 1.10 - 3.30 PREVIOUS INR n/a CURRENT COUMADIN DOSE NEW COUMADIN DOSE Lot # [id number] Exp date 10/2016 PROTEIN E-PHORESIS, SERUM 2016-10-16 Protein, Total, Serum 8.2 6.0-8.5 Albumin 3.0 2.9-4.4 Ipxbw-8-Usdwnsab 0.3 0.0-0.4 Xxjwo-0-Kpfjpkgn 0.5 0.4-1.0 Beta Globulin 1.4 0.7-1.3 Gamma Globulin 3.0 0.4-1.8 M-Jose G Not Observed Not Observed Globulin, Total 5.2 2.2-3.9 A/G Ratio 0.6 0.7-1.7 Please note: MITOCHONDRIAL (M2) ANTIBODY 2016-10-16 Mitochondrial (M2) Antibody 5.5 0.0-20.0 MILADYS ANALYZER 2016-10-16 MILADYS Direct Negative Negative See below: MICROALBUMIN/CREATININE RATIO, URINE Ambiguous Test Order Please note Request Problem Request Problem Microalb/Creat Ratio Creatinine, Urine Microalbumin, Urine Written Authorization 2016-10-16 Written Authorization PDF Report 2016-10-16 PDF Report1 LCLS PROCEDURES Procedure Date Ordered Related Diagnosis Body Site Office Visit, Est Pt., Level 4 Oct 16, 2016 MITOCHONDRIAL (M2) ANTIBODY Oct 16, 2016 PROTHROMBIN TIME Oct 16, 2016 SINGLE IMMUNIZATION ADMIN Oct 16, 2016 FLUARIX QUAD P-FREE 3 AND UP .50 2015Oct 16, 2016 IMMUNIZATION ADMIN, EACH ADD (please include units) Oct 16, 2016 VENIPUNCT, ROUTINE* Oct 16, 2016 [facility] Oct 16, 2016 PCV 13 Oct 16, 2016 [place] (HEP A/B) Oct 16, 2016 IMMUNIZATIONS Vaccine Route Administration Date Status PCV 13 IM Intramuscular Oct 16, 2016 Administered FLUARIX QUAD P-FREE 3 AND UP .50 2015 IM Intramuscular Oct 16, 2016 Administered TWINRIX (HEP A/B) IM Intramuscular Oct 16, 2016 Administered
--- OUTSIDE RECORDS SUMMARY | 2017-10-24 11:26 | XMS REPORT ---
Author Author CLARA GONZALES Organization [facility] Address [address] [place] [address] Care Team Providers Care Anchorman Name Role Phone CLARA GONZALES Unavailable PROBLEMS Type Condition ICD9-CM Code [id number] Code Onset Dates Condition Status SNOMED Code Problem Diabetes type 2, controlled E11.9 Active 83529136 Problem Morbid obesity, unspecified obesity type E66.01 Active 966863073 Problem Sleep apnea in adult G47.33 Active 73994040 Problem Gastro-esophageal reflux disease without esophagitis K21.9 Active 303288267 Problem Chronic obstructive pulmonary disease, unspecified J44.9 Active 85006187 Problem Acquired hypothyroidism E03.9 Active 764250152 Problem Adjustment disorder with depressed mood F43.21 Active 72415431 Problem Cirrhosis of liver with ascites, unspecified hepatic cirrhosis type K74.60 Active 96904601 Problem Constipation, unspecified constipation type K59.00 Active 75450970 Problem Autoimmune hepatitis K75.4 Active 549673388 Problem Essential hypertension I10 Active 54929701 ALLERGIES No Information SOCIAL HISTORY Never Assessed PLAN OF CARE VITAL SIGNS MEDICATIONS Medication Instructions Dosage Frequency Start Date End Date Duration Status Clindamycin HCl 150 MG Orally every 6 hrs 2 capsules 6h March, March, 10 days Active RESULTS No Results PROCEDURES No Known procedures [...]
--- OUTSIDE RECORDS SUMMARY | 2017-10-24 11:27 | XMS REPORT ---
Author Author CLARA GONZALES Organization [facility] Address [address] [place] [address] Care Team Providers Care Educational Advisor Name Role Phone CLARA GONZALES Unavailable PROBLEMS Type Condition ICD9-CM Code [id number] Code Onset Dates Condition Status SNOMED Code Problem Diabetes type 2, controlled E11.9 Active 11309694 Problem Morbid obesity, unspecified obesity type E66.01 Active 935273616 Problem Sleep apnea in adult G47.33 Active 26858899 Problem Gastro-esophageal reflux disease without esophagitis K21.9 Active 843668030 Problem Chronic obstructive pulmonary disease, unspecified J44.9 Active 76277230 Problem Acquired hypothyroidism E03.9 Active 576015686 Problem Adjustment disorder with depressed mood F43.21 Active 58755117 Problem Cirrhosis of liver with ascites, unspecified hepatic cirrhosis type K74.60 Active 47063891 Problem Constipation, unspecified constipation type K59.00 Active 47097745 Problem Autoimmune hepatitis K75.4 Active 070632415 Problem Essential hypertension I10 Active 90125361 ALLERGIES No Information SOCIAL HISTORY Never Assessed PLAN OF CARE VITAL SIGNS MEDICATIONS Medication Instructions Dosage Frequency Start Date End Date Duration Status Potassium Chloride ER 20 MEQ Orally Twice a day 1 tablet 12h Active Lasix 40 mg Orally Once a day 1 tablet 24h Active RESULTS No Results PROCEDURES No Known [...]
--- OUTSIDE RECORDS SUMMARY | 2017-10-24 11:27 | XMS REPORT ---
Author Author CLARA GONZALES Organization [facility] Address [address] [place] [address] Care Team Providers Care Marine Welder Name Role Phone CLARA GONZALES Unavailable PROBLEMS Type Condition ICD9-CM Code [id number] Code Onset Dates Condition Status SNOMED Code Problem Diabetes type 2, controlled E11.9 Active 20500942 Problem Morbid obesity, unspecified obesity type E66.01 Active 276946599 Problem Sleep apnea in adult G47.33 Active 64005521 Problem Gastro-esophageal reflux disease without esophagitis K21.9 Active 046706611 Problem Chronic obstructive pulmonary disease, unspecified J44.9 Active 52442135 Problem Acquired hypothyroidism E03.9 Active 429030766 Problem Adjustment disorder with depressed mood F43.21 Active 79001022 Problem Cirrhosis of liver with ascites, unspecified hepatic cirrhosis type K74.60 Active 54443036 Problem Constipation, unspecified constipation type K59.00 Active 49601332 Problem Autoimmune hepatitis K75.4 Active 600869961 Problem Essential hypertension I10 Active 36447375 ALLERGIES No Information SOCIAL HISTORY Never Assessed PLAN OF CARE VITAL SIGNS MEDICATIONS Medication Instructions Dosage Frequency Start Date End Date Duration Status Atenolol 25 MG Orally Once a day 0.5 tablet at bedtime 24h 30 days Active RESULTS No Results PROCEDURES No [...]
--- OUTSIDE RECORDS SUMMARY | 2017-10-24 11:28 | XMS REPORT ---
Author Author CLARA GONZALES Organization [facility] Address [address] [place] [address] Care Team Providers Care Front Office Secretary Name Role Phone CLARA GONZALES Unavailable PROBLEMS Type Condition ICD9-CM Code [id number] Code Onset Dates Condition Status SNOMED Code Problem Gastro-esophageal reflux disease without esophagitis K21.9 Active 465013502 Problem Sleep apnea in adult G47.33 Active 69654569 Problem Chronic obstructive pulmonary disease, unspecified J44.9 Active 85573137 Problem Autoimmune hepatitis K75.4 Active 538183748 Problem Essential hypertension I10 Active 24387461 Problem Morbid obesity, unspecified obesity type E66.01 Active 051421172 Problem Diabetes type 2, controlled E11.9 Active 27350916 Problem Cirrhosis of liver with ascites, unspecified hepatic cirrhosis type K74.60 Active 21662153 Problem Constipation, unspecified constipation type K59.00 Active 58808949 ALLERGIES Unknown Allergies SOCIAL HISTORY No smoking Hx information available PLAN OF CARE VITAL SIGNS MEDICATIONS Medication Instructions Dosage Frequency Start Date End Date Duration Status Alprazolam 0.5 MG Orally Twice a day as needed 1 tablet May, 28 days Active RESULTS No Results PROCEDURES No Known procedures IMMUNIZATIONS No Known Immunizations
--- OUTSIDE RECORDS SUMMARY | 2017-10-24 11:28 | XMS REPORT ---
Author Author CLARA GONZALES Organization [facility] Address [address] [place] [address] Care Team Providers Care Autographer Name Role Phone CLARA GONZALES Unavailable PROBLEMS Type Condition ICD9-CM Code [id number] Code Onset Dates Condition Status SNOMED Code Problem Gastro-esophageal reflux disease without esophagitis K21.9 Active 429194830 Problem Sleep apnea in adult G47.33 Active 85424471 Problem Chronic obstructive pulmonary disease, unspecified J44.9 Active 70375015 Problem Autoimmune hepatitis K75.4 Active 629942454 Problem Essential hypertension I10 Active 04795906 Problem Morbid obesity, unspecified obesity type E66.01 Active 094546363 Problem Diabetes type 2, controlled E11.9 Active 53207523 Problem Cirrhosis of liver with ascites, unspecified hepatic cirrhosis type K74.60 Active 73010667 Problem Constipation, unspecified constipation type K59.00 Active 86147807 ALLERGIES Unknown Allergies SOCIAL HISTORY No smoking Hx information available PLAN OF CARE VITAL SIGNS MEDICATIONS Unknown Medications RESULTS No Results PROCEDURES No Known procedures IMMUNIZATIONS No Known Immunizations
--- OUTSIDE RECORDS SUMMARY | 2017-10-24 11:28 | XMS REPORT ---
Author Author CLARA GONZALES Organization [facility] Address [address] [place] [address] [address] Team Providers Care [address] Marker Installer Name Role Phone CLARA GONZALES Unavailable PROBLEMS Type Condition ICD9-CM Code [id number] Code Onset Dates Condition Status SNOMED Code Problem Gastro-esophageal reflux disease without esophagitis K21.9 Active 075713703 Problem Sleep apnea in adult G47.33 Active 04019418 Problem Chronic obstructive pulmonary disease, unspecified J44.9 Active 52787582 Problem Autoimmune hepatitis K75.4 Active 744562792 Problem Essential hypertension I10 Active 14336763 Problem Morbid obesity, unspecified obesity type E66.01 Active 689412775 Problem Diabetes type 2, controlled E11.9 Active 74149368 Problem Cirrhosis of liver with ascites, unspecified hepatic cirrhosis type K74.60 Active 16817450 Problem Constipation, unspecified constipation type K59.00 Active 97163925 ALLERGIES Unknown Allergies SOCIAL HISTORY No smoking Hx information available PLAN OF CARE VITAL SIGNS MEDICATIONS Medication Instructions Dosage Frequency Start Date End Date Duration Status Zantac 150 MG Orally 2 times a day 1 tablet 12h 18 May, 2016 30 day(s) Active Levothyroxine Sodium 75 MCG Orally Once a day 1 tablet 24h 30 Active RESULTS No Results PROCEDURES No Known procedures IMMUNIZATIONS No Known Immunizations
--- OUTSIDE RECORDS SUMMARY | 2017-10-24 11:30 | XMS REPORT ---
Author Author RUMA BARRETO Organization [facility] Address [address] [place] [address] Care Team Providers Care Pond Worker Name Role Phone RUMA BARRETO Unavailable PROBLEMS Type Condition ICD9-CM Code [id number] Code Onset Dates Condition Status SNOMED Code Problem Diabetes type 2, controlled E11.9 Active 43989594 Problem Morbid obesity, unspecified obesity type E66.01 Active 099647831 Problem Sleep apnea in adult G47.33 Active 34800816 Problem Gastro-esophageal reflux disease without esophagitis K21.9 Active 928332359 Problem Chronic obstructive pulmonary disease, unspecified J44.9 Active 57750762 Problem Acquired hypothyroidism E03.9 Active 266261882 Problem Adjustment disorder with depressed mood F43.21 Active 92855870 Problem Cirrhosis of liver with ascites, unspecified hepatic cirrhosis type K74.60 Active 42530752 Problem Constipation, unspecified constipation type K59.00 Active 66654607 Problem Autoimmune hepatitis K75.4 Active 126228303 Problem Essential hypertension I10 Active 57976158 ALLERGIES Substance Reaction Event Type Date Status Tramadol HCl Unknown Drug Allergy March, Active Sulfamethoxazole-Trimethoprim Unknown Drug Allergy March, Active Penicillin V Potassium Unknown Drug Allergy March, Active Metformin HCl stomach upset Drug Allergy March, Active Lipitor edema Drug Allergy March, Active Hydrocodone-Acetaminophen anaphylaxis Drug Allergy March, Active Red Meat hives Non Drug Allergy March, Active SOCIAL HISTORY Never Assessed PLAN OF CARE Activity Details Follow Up we will call Reason: VITAL SIGNS Height 63 in 2017-04-25 Weight 275 lbs 2017-04-25 Temperature 97.9 degrees Fahrenheit 2017-04-25 Heart Rate 70 bpm 2017-04-25 Respiratory Rate 20 2017-04-25 BMI 48.71 kg/m2 2017-04-25 Blood pressure systolic 110 mmHg 2017-04-25 Blood pressure diastolic 70 mmHg 2017-04-25 MEDICATIONS Medication Instructions Dosage Frequency Start Date End Date Duration Status Magnesium 400 MG Orally Twice a day 1 tablet 12h Active Zantac 150 MG Orally 2 times a day 1 tablet 12h 18 May, 2016 30 day(s) Active Test strips 1 as directed 12Apr, 25 Active Claritin 10 MG Orally Once a day 1 tablet 24h Active Blood Glucose Test - as directed May, Active Folic Acid 1 MG Orally Once a day 1 tablet 24h 30 Active Potassium Chloride ER 20 MEQ Orally Twice a day 1 tablet 12h Active Cholecalciferol 5000 UNIT Orally Once a day 1 tablet 24h Active Spironolactone 25 MG Orally Once a day 2 tablets 24h 30 Active Levothyroxine Sodium 75 MCG Orally Once a day 1 tablet 24h 30 Active Atenolol 25 MG Orally Once a day 0.5 tablet at bedtime 24h 30 days Active Blood Glucose Monitor System w/Device as directed May, Active Lasix 40 mg Orally Once a day 1 tablet 24h Active Alprazolam 0.5 MG Orally Twice a day as needed 1 tablet May, 28 days Active RESULTS Name Result Date Reference Range A1C (IN HOUSE) 2017-04-25 A1C IN HOUSE 5.2 4.3 - 5.6 % Previous A1c 5.0 Lot [id number] Exp date 01/2019 PROCEDURES Procedure Date Ordered Result Body Site GLYCATED HEMOGLOBIN TEST April 25, 2017 IMMUNIZATIONS No Known Immunizations MEDICAL (GENERAL) HISTORY [...]
--- OUTSIDE RECORDS SUMMARY | 2017-10-24 11:30 | XMS REPORT ---
Author Author CLARA GONZALES [facility] [address] Address [address] [place] [address] Care Team Providers Care Environmental Permitting Specialist Name Role Phone CLARA GONZALES Unavailable PROBLEMS Type Condition ICD9-CM Code [id number] Code Onset Dates Condition Status SNOMED Code Problem Gastro-esophageal reflux disease without esophagitis K21.9 Active 025099903 Problem Sleep apnea in adult G47.33 Active 37352347 Problem Chronic obstructive pulmonary disease, unspecified J44.9 Active 83897559 Problem Autoimmune hepatitis K75.4 Active 970257764 Problem Essential hypertension I10 Active 79511761 Problem Morbid obesity, unspecified obesity type E66.01 Active 235786549 Problem Diabetes type 2, controlled E11.9 Active 84660765 Problem Cirrhosis of liver with ascites, unspecified hepatic cirrhosis type K74.60 Active 54526501 Problem Constipation, unspecified constipation type K59.00 Active 98266333 ALLERGIES Unknown Allergies SOCIAL HISTORY No smoking Hx information available PLAN OF CARE VITAL SIGNS MEDICATIONS Unknown Medications RESULTS No Results PROCEDURES No Known procedures IMMUNIZATIONS No Known Immunizations
--- OUTSIDE RECORDS SUMMARY | 2017-10-24 11:30 | XMS REPORT ---
Author Author RUMA BARRETO Organization [facility] Address [address] [place] [address] Care Team Providers Care Cylinder Machine Operator Pulp Drier Name Role Phone RUMA BARRETO Unavailable PROBLEMS Type Condition ICD9-CM Code [id number] Code Onset Dates Condition Status SNOMED Code Problem Gastro-esophageal reflux disease without esophagitis K21.9 Active 031709501 Problem Sleep apnea in adult G47.33 Active 89104937 Problem Chronic obstructive pulmonary disease, unspecified J44.9 Active 12921925 Problem Autoimmune hepatitis K75.4 Active 750444709 Problem Essential hypertension I10 Active 01708189 Problem Morbid obesity, unspecified obesity type E66.01 Active 107148508 Problem Diabetes type 2, controlled E11.9 Active 68013949 Problem Cirrhosis of liver with ascites, unspecified hepatic cirrhosis type K74.60 Active 85608094 Problem Constipation, unspecified constipation type K59.00 Active 24388739 ALLERGIES No Information SOCIAL HISTORY Never Assessed [...]
--- OUTSIDE RECORDS SUMMARY | 2017-10-24 11:31 | XMS REPORT ---
Author Author RUMA BARRETO Organization [facility] Address [address] [place] [address] Care Team Providers Care Director Of Diagnostic Imaging Name Role Phone RUMA BARRETO Unavailable PROBLEMS Type Condition ICD9-CM Code MPQ72-CI Code Onset Dates Condition Status SNOMED Code Problem Gastro-esophageal reflux disease without esophagitis K21.9 Active 231241334 Problem Sleep apnea in adult G47.33 Active 94499733 Problem Chronic obstructive pulmonary disease, unspecified J44.9 Active 98434273 Problem Autoimmune hepatitis K75.4 Active 484977517 Problem Essential hypertension I10 Active 59980208 Problem Morbid obesity, unspecified obesity type E66.01 Active 773623964 Problem Diabetes type 2, controlled E11.9 Active 50156753 Problem Cirrhosis of liver with ascites, unspecified hepatic cirrhosis type K74.60 Active 51704808 Problem Constipation, unspecified constipation type K59.00 Active 23729363 ALLERGIES Unknown Allergies SOCIAL HISTORY No smoking Hx information available PLAN OF CARE VITAL SIGNS MEDICATIONS Unknown Medications RESULTS No Results PROCEDURES No Known procedures IMMUNIZATIONS No Known Immunizations
--- OUTSIDE RECORDS SUMMARY | 2017-10-24 11:32 | XMS REPORT ---
Author Author JOSELITO AMEZCUA Organization [facility] Address [address] [place] [address] Care Team Providers Care Installation Helper Name Role Phone JANELLE AMEZCUANETTE Unavailable PROBLEMS Type Condition ICD9-CM Code [id number] Code Onset Dates Condition Status SNOMED Code Problem Gastro-esophageal reflux disease without esophagitis K21.9 Active 467612193 Problem Sleep apnea in adult G47.33 Active 68132607 Problem Chronic obstructive pulmonary disease, unspecified J44.9 Active 36183105 Problem Autoimmune hepatitis K75.4 Active 834518843 Problem Essential hypertension I10 Active 34309841 Problem Morbid obesity, unspecified obesity type E66.01 Active 000403265 Problem Diabetes type 2, controlled E11.9 Active 47871978 Problem Cirrhosis of liver with ascites, unspecified hepatic cirrhosis type K74.60 Active 76612527 Problem Constipation, unspecified constipation type K59.00 Active 75640183 ALLERGIES No Information SOCIAL HISTORY Never Assessed [...]
--- OUTSIDE RECORDS SUMMARY | 2017-10-24 11:32 | XMS REPORT ---
Author Author CLARA GONZALES Organization [facility] Address [address] [place] [address] Care Team Providers Care Quality Assurance Director Name Role Phone CLARA GONZALES Unavailable PROBLEMS Type Condition ICD9-CM Code [id number] Code Onset Dates Condition Status SNOMED Code Problem Gastro-esophageal reflux disease without esophagitis K21.9 Active 188097150 Problem Sleep apnea in adult G47.33 Active 21927370 Problem Chronic obstructive pulmonary disease, unspecified J44.9 Active 04168569 Problem Autoimmune hepatitis K75.4 Active 576339036 Problem Essential hypertension I10 Active 61287431 Problem Morbid obesity, unspecified obesity type E66.01 Active 165804686 Problem Diabetes type 2, controlled E11.9 Active 71691879 Problem Cirrhosis of liver with ascites, unspecified hepatic cirrhosis type K74.60 Active 13515740 Problem Constipation, unspecified constipation type K59.00 Active 46812759 ALLERGIES Substance Reaction Event Type Date Status Tramadol HCl Unknown Drug Allergy Nov, Active Sulfamethoxazole-Trimethoprim Unknown Drug Allergy Nov, Active Penicillin V Potassium Unknown Drug Allergy Nov, Active Metformin HCl stomach upset Drug Allergy Nov, Active Lipitor edema Drug Allergy Nov, Active Hydrocodone-Acetaminophen anaphylaxis Drug Allergy Nov, Active Red Meat hives Non Drug Allergy Nov, Active SOCIAL HISTORY No smoking Hx information available PLAN OF CARE VITAL SIGNS Height 63 in 2016-12-07 Weight 276.9 lbs 2016-12-07 Temperature 98.0 degrees Fahrenheit 2016-12-07 Heart Rate 92 bpm 2016-12-07 Respiratory Rate 22 2016-12-07 BMI 49.05 kg/m2 2016-12-07 Blood pressure systolic 122 mmHg 2016-12-07 Blood pressure diastolic 78 mmHg 2016-12-07 MEDICATIONS Medication Instructions Dosage Frequency Start Date End Date Duration Status Alprazolam 0.5 MG Orally Twice a day as needed 1 tablet May, 28 days Active Folic Acid 1 MG Orally Once a day 1 tablet 24h May, Nov, 30 day(s) Active Cholecalciferol 5000 UNIT Orally Once a day 1 tablet 24h Active Blood Glucose Monitor System w/Device as directed May, Active Magnesium 400 MG Orally Twice a day 1 tablet 12h Active Tylenol 500 mg Orally every 6 hrs 2 tablets as needed 6h Active Spironolactone 25 MG Orally Once a day 2 tablets 24h 30 Active Claritin 10 MG Orally Once a day 1 tablet 24h Active Zantac 150 MG Orally 2 times a day 1 tablet 12h May, 30 day(s) Active Levothyroxine Sodium 75 MCG Orally Once a day 1 tablet 24h 30 Active Lasix 40 mg Orally Once a day 1 tablet 24h Active Test strips 1 as directed 12Apr, 25 Active Blood Glucose Test - as directed May, Active Potassium Chloride ER 20 MEQ Orally Twice a day 1 tablet 12h Active RESULTS Name Result Date Reference Range AFP TUMOR MARKER, SERUM 2016-12-07 AFP, Serum, Tumor Marker 3.3 0.0-8.3 CMP 2016-12-07 Glucose, Serum 116 65-99 BUN 9 8-27 Creatinine, Serum 0.85 0.57-1.00 eGFR If NonAfricn Am 74 >59 eGFR If Africn Am 86 >59 BUN/Creatinine Ratio 11 11-26 Sodium, Serum 138 134-144 Potassium, Serum 4.2 3.5-5.2 Chloride, Serum 98 96-106 Carbon Dioxide, Total 30 18-29 Calcium, Serum 8.8 8.7-10.3 Protein, Total, Serum 8.1 6.0-8.5 Albumin, Serum 3.0 3.6-4.8 Globulin, Total 5.1 1.5-4.5 A/G Ratio 0.6 1.1-2.5 Bilirubin, Total 0.8 0.0-1.2 Alkaline Phosphatase, S 62 39-117 AST (SGOT) 37 0-40 ALT (SGPT) 16 0-32 PROCEDURES Procedure Date Ordered Related Diagnosis Body Site LAB NOT BILLED BY [facility] Dec 07, 2016 Office Visit, Est Pt., Level 3 Dec 07, 2016 VENIPUNCT, ROUTINE* Dec 07, 2016 IMMUNIZATIONS No Known Immunizations
--- OUTSIDE RECORDS SUMMARY | 2017-10-24 11:32 | XMS REPORT ---
Author Author CLARA GONZALES Organization [facility] Address [address] [place] [address] Care Team Providers Care Executive Talent Acquisition Consultant Name Role Phone CLARA GONZALES Unavailable PROBLEMS Type Condition ICD9-CM Code [id number] Code Onset Dates Condition Status SNOMED Code Problem Gastro-esophageal reflux disease without esophagitis K21.9 Active 958187966 Problem Sleep apnea in adult G47.33 Active 26427689 Problem Chronic obstructive pulmonary disease, unspecified J44.9 Active 66178157 Problem Autoimmune hepatitis K75.4 Active 973275285 Problem Essential hypertension I10 Active 32286454 Problem Morbid obesity, unspecified obesity type E66.01 Active 481117913 Problem Diabetes type 2, controlled E11.9 Active 95270296 Problem Cirrhosis of liver with ascites, unspecified hepatic cirrhosis type K74.60 Active 87144735 Problem Constipation, unspecified constipation type K59.00 Active 01144266 ALLERGIES Substance Reaction Event Type Date Status Tramadol HCl Unknown Drug Allergy Dec, Active Sulfamethoxazole-Trimethoprim Unknown Drug Allergy Dec, Active Penicillin V Potassium Unknown Drug Allergy Dec, Active Metformin HCl stomach upset Drug Allergy Dec, Active Lipitor edema Drug Allergy Dec, Active Hydrocodone-Acetaminophen anaphylaxis Drug Allergy Dec, Active Red Meat hives Non Drug Allergy Dec, Active SOCIAL HISTORY No smoking Hx information available PLAN OF CARE VITAL SIGNS Height 63 in 2016-12-28 Weight 276.0 lbs 2016-12-28 Temperature 98.2 degrees Fahrenheit 2016-12-28 Heart Rate 72 bpm 2016-12-28 Respiratory Rate 20 2016-12-28 BMI 48.89 kg/m2 2016-12-28 Blood pressure systolic 155 mmHg 2016-12-28 Blood pressure diastolic 90 mmHg 2016-12-28 MEDICATIONS Medication Instructions Dosage Frequency Start Date End Date Duration Status Blood Glucose Monitor System w/Device as directed May, Active Spironolactone 25 MG Orally Once a day 2 tablets 24h 30 Active Lasix 40 mg Orally Once a day 1 tablet 24h Active Blood Glucose Test - as directed May, Active Alprazolam 0.5 MG Orally Twice a day as needed 1 tablet May, 28 days Active Test strips 1 as directed 12Apr, 25 Active Magnesium 400 MG Orally Twice a day 1 tablet 12h Active Tylenol 500 mg Orally every 6 hrs 2 tablets as needed 6h Active Levothyroxine Sodium 75 MCG Orally Once a day 1 tablet 24h 30 Active Zantac 150 MG Orally 2 times a day 1 tablet 12h May, 30 day(s) Active Claritin 10 MG Orally Once a day 1 tablet 24h Active Potassium Chloride ER 20 MEQ Orally Twice a day 1 tablet 12h Active Folic Acid 1 MG Orally Once a day 1 tablet 24h 30 Active Cholecalciferol 5000 UNIT Orally Once a day 1 tablet 24h Active RESULTS Name Result Date Reference Range Xray : Shoulder, Right 2 view (IN HOUSE) 2016-12-28 PROCEDURES Procedure Date Ordered Related Diagnosis Body Site X-RAY EXAM OF SHOULDER Dec 28, 2016 Office Visit, Est Pt., Level 3 Dec 28, 2016 IMMUNIZATIONS No Known Immunizations
[2017-10-24 12:15] VITALS: BP 151/65
--- NOTE | 2017-10-24 12:51 | Progress Note-Pre Operative ---
Pre-Operative Progress Note H&P Reviewed The H&P was reviewed, patient examined and no changes noted. Time Seen by Provider: 12:48 Date H&P Reviewed: Oct 24, 2017 Time H&P Reviewed: 12:51 Pre-Operative Diagnosis: Cirrhosis, Screening colonoscopy SHILPA SHERWOOD DO Oct 24, 2017 12:51
--- NOTE | 2017-10-24 13:52 | Progress Note-Post Operative ---
Post-Operative Progess Note Surgeon (s)/Pie Dough Roller (s) Surgeon SHILPA SHERWOOD DO Pie Dough Roller: none Pre-Operative Diagnosis Cirrhosis, Screening colonoscopy Post-Operative Diagnosis Gastritis, Duodenitis, Small Hiatal hernia Colon polyps x 7, Diverticula, Colonic Varices, Internal hemorrhoids Procedure & Operative Findings Date of Procedure 10/24/17 Procedure Performed/Findings EGD with bx Colon with snare polypectomy Anesthesia Type IV sedation Estimated Blood Loss Estimated blood loss (mL): scant Specimens/Packing Specimens Removed Duodenal bx Antral bx Colon polyp x7, 2 Asc colon, 1 Cecum, 3 Transverse colon, 1 Desc colon > 1cm taken in 2 pieces SHILPA SHERWOOD DO Oct 24, 2017 13:52
--- NOTE | 2017-10-24 13:54 | Endoscopy Discharge Instruct ---
Endo Procedure/Findings Findings 1.: Gastritis 2.: Polyp 3.: Diverticulosis 4.: Internal Hemorrhoids Discharge Instructions - Activity: You might feel a little sleepy until tomorrow. This is due to the medicine you received to relax you. Until tomorrow, you should: NOT drive a car, operate machinery or power tools. NOT drink any alcoholic beverages. NOT make any important decisions or sign importortant papers. Do not return to work until tomorrow, unless otherwise instructed. Resume previous activities tomorrow. Diet: Start by taking liquids. If you tolerate liquids, advance to solid food. Make appt for one week. Instructions: 1.: Colonoscopy in 1 year 2.: EGD in 3 years Notify Physician - If you experience excessive bleeding, unusual abdominal pain, fever, or chest pain, contact your doctor immediately. [phone] Follow-Up: - I have received and understand the above instructions and will call my doctor if I have any further questions. Patient Signature Date Nurse Signature Other (Relationship) SHILPA SHERWOOD DO Oct 24, 2017 13:54
[2017-10-24 14:05] VITALS: BP 185/95
[2017-10-24 14:35] VITALS: BP 160/80
[2017-10-24 14:44] VITALS: BP 160/80
--- NOTE | 2017-10-25 00:31 | OPERATIVE REPORT ---
DATE OF SERVICE: 10/24/2017 PREOPERATIVE DIAGNOSES: Cirrhosis and screening colonoscopy. POSTOPERATIVE DIAGNOSES: 1. Gastritis. 2. Duodenitis. 3. Colon polyps. 4. Diverticula. 5. Internal hemorrhoids. PROCEDURES: 1. EGD with biopsy. 2. Colonoscopy, snare polypectomy. SURGEON: Kulwant Yap DO. TELLERS SUPERVISOR: None. ANESTHESIA: IV sedation. SPECIMENS: 1. One biopsy from duodenum, 1 biopsy from antrum. 2. Two polyps in the ascending colon snared and taken in 1 bite. 3. One cecal polyp taken in snare. 3. Transverse colon polyps taken and then finally a descending colon polyp larger than a cm taken in 2 bites with a snare. BLOOD LOSS: Scant. FLUIDS: Per anesthesia. POSTOPERATIVE CONDITION: Stable. INDICATION FOR PROCEDURE: The patient is a 62-year-old female who has autoimmune hepatitis, supposedly end-stage cirrhosis and some treatment needed, EGD and colonoscopy prior to this treatment. FINDINGS: The patient had a little bit of gastritis, duodenitis and possibly a lipoma in the stomach, but did not see any esophageal varices. She also then in the colon had multiple polyps at least 7, one of them larger than a cm. She had some diverticula. She had some internal hemorrhoids. She also had what looked like colonic varices right out of the splenic flexure. PROCEDURE NOTE: After informed consent was obtained, the patient was brought to the endoscopy suite, placed in the bed in left lateral decubitus position. She was administered IV sedation. During the case, she was monitored by the HOSPITAL NURSE LIAISON, vitals. EGD was performed first. Inserted the scope down the mouth into the esophagus, did not see any esophageal varices, pushed down in the stomach. I saw some erythema in the antrum, did a biopsy here, pushed into the duodenum and saw a little bit of erythema here as well and did another biopsy. I saw a small lipoma, took a picture of this, retroflexed to look at the cardia and saw small hiatal hernia and then slowly withdrew the scope up in and out of the stomach into the esophagus. Z-line looked good at the GE junction and I again did not see any esophageal varices. I removed the scope up out of the esophagus out of the mouth. I then switched scopes went around to the other side and started the colonoscopy. I inserted the colonoscope pushing in. On the way in, noted some large colonic varices just outside of the splenic flexure, then pushed in toward the ascending colon and saw 2 polyps. These 2 polyps were then snared and then able to get to the cecum, saw another polyp in the cecum, did a snare polypectomy here. Took a picture of the appendiceal orifice, noted the ileocecal valve and slowly withdrew the scope insufflating to look circumferentially real looking at the cecum up the ascending colon to the hepatic flexure, then down the transverse colon. In the transverse colon, I found 3 more flat polyps, although that her polyps were actually flat. I removed these with a snare polypectomy, continued to the splenic flexure, saw the colonic varices that are very large and then saw another large flat polyp, looked like it was bigger than a cm, took this in two bites with a snare. Continued down the ascending colon, the sigmoid colon, again saw some diverticula throughout here and then down into the rectum, retroflexed, rectal vault, saw some internal hemorrhoids, took a picture of this and then removed the scope. The patient tolerated the procedure and she was recovered in the endoscopy suite. Job ID: [id number] DocumentID: [id number] Dictated Date: 10/24/2017 14:06:36 Grant Officer Date: 10/24/2017 23:49:36 Dictated By: KULWANT YAP DO
== END | disposition home or self-care (01) ==
LOC: ENDO 11:13
PROVIDERS: ATTEND Surgery
DX: Z12.11 Encounter for screening for malignant neoplasm of colon (principal); D12.2 Benign neoplasm of ascending colon; D12.0 Benign neoplasm of cecum; D12.3 Benign neoplasm of transverse colon; K29.80 Duodenitis without bleeding; K63.5 Polyp of colon; K57.30 Diverticulosis of large intestine without perforation or abscess without bleeding; K29.70 Gastritis, unspecified, without bleeding; K64.1 Second degree hemorrhoids; K75.4 Autoimmune hepatitis; Z88.0 Allergy status to penicillin; Z88.2 Allergy status to sulfonamides; Z88.5 Allergy status to narcotic agent; Z88.8 Allergy status to other drugs, medicaments and biological substances; Z88.6 Allergy status to analgesic agent; I25.10 Atherosclerotic heart disease of native coronary artery without angina pectoris; J44.9 Chronic obstructive pulmonary disease, unspecified; I10 Essential (primary) hypertension; E03.9 Hypothyroidism, unspecified; E78.5 Hyperlipidemia, unspecified; K74.60 Unspecified cirrhosis of liver; Z87.891 Personal history of nicotine dependence

== ENCOUNTER → 2017-10-30 | Outpatient (CLI) | payer MEDICAID ==
[~2017-10-30] VITALS: Ht 160 cm; Wt 132.9 kg
[~2017-10-30] MED LIST changes: -HURRICAINE EXT TUBE (BENZOCAINE) XX PRN; -LACTATED RINGERS 1,000 ML IV ONE; -LACTATED RINGERS 1,000 ML IV SCH; -LACTATED RINGERS 1,000 ML IV STA; -MIDAZOLAM 2 MG/2 ML (VERSED) VIAL ONE; -PROPOFOL INJECTION 50 ML IV ONE; -proPOfol 200 MG/20 ML (DIPRIVAN) VIAL IV ONE
== END ==
LOC: PREOP 05:31
PROVIDERS: ATTEND Surgery
DX: Z01.818 Encounter for other preprocedural examination (principal); K75.4 Autoimmune hepatitis

== ENCOUNTER → 2017-10-31 | Outpatient (CLI) | payer MEDICAID ==
--- NOTE | 2017-10-31 15:28 | Diagnostic Imaging Report ---
INDICATION: Assessment for ascites. TECHNIQUE: Multiple real time taylor scale sonographic images were obtained of the four quadrants of the abdomen. CORRELATION STUDY: None. FINDINGS: Limited abdominal ultrasound imaging demonstrates no appreciable ascites sufficient for paracentesis. IMPRESSION: Insufficient ascites for potential paracentesis. Dictated by: Dictated on workstation # [id number]
== END ==
LOC: RAD 10:10
PROVIDERS: ATTEND Surgery
DX: R18.8 Other ascites (principal)
CPT/HCPCS: 76705

== ENCOUNTER 2018-02-11 09:30 | Outpatient (CLI) | payer MEDICAID ==
[~2018-02-11] VITALS: Ht 160 cm; Wt 132.9 kg
[2018-02-11] MEDS ORDERED: POTA20TA15 PO (09:37)
[2018-02-11] MEDS ORDERED: FOLI1TAB24 PO (09:37)
[2018-02-11] MEDS ORDERED: SPIR25TA3 PO (09:37)
[2018-02-11] MEDS ORDERED: FURO-125 PO ×2 (09:37)
== END 2018-02-11 10:04 ==
LOC: PREOP 09:30
PROVIDERS: ATTEND Specialist
DX: Z01.818 Encounter for other preprocedural examination (principal); H25.89 Other age-related cataract

== ENCOUNTER 2018-02-15 10:15 | Day surgery (SDC) | payer MEDICAID ==
[~2018-02-15] VITALS: Ht 160 cm; Wt 132.9 kg
[~2018-02-15 10:15] MED LIST changes: +POTA20TA15 PO
--- OUTSIDE RECORDS SUMMARY | 2018-02-15 10:20 | XMS REPORT | Continuity of Care Document ---
Author Author [employer] Organization [facility] Address Unknown Phone Unavailable Care Team Providers Care Web Software Engineer Name Role Phone [employer] Unavailable Unavailable Problems Medications Allergies, Adverse Reactions, Alerts Immunizations Results Vital Signs Encounters Location Location Details Encounter Type Encounter Number Reason For Visit Attending Provider ADM Date DC Date Status Source OUTPATIENT [id number] JULIEN CALIX 10/11/20172016 Active [facility] SPECIMEN [id number] JULIEN CALIX 10/12/20172016 Active [facility] O Active [facility] Procedures Plan of Care Social History Assessment and Plan Family History Advance Directives Functional Status
--- OUTSIDE RECORDS SUMMARY | 2018-02-15 10:23 | XMS REPORT | Clinical Summary ---
Author Author [facility] Organization [facility] Address Unknown Phone Unavailable Care Team Providers Care Security Systems Integrator Name Role Phone PCP Unavailable Source Comments Some departments are not documenting in the electronic medical record. If you do not see the information that you expected, contact Release of Information in the Health Information Management department at [phone] for further assistance in locating additional records.[facility] Allergies Active Allergy Reactions Severity Noted Date Comments Hydrocodone ANAPHYLAXIS High 10/11/2017 Atorvastatin EDEMA High 10/11/2017 Metformin Hcl STOMACH UPSET Low 10/11/2017 Penicillins ANAPHYLAXIS High 10/11/2017 Sulfur ANAPHYLAXIS High 10/11/2017 Tramadol ANAPHYLAXIS High 10/11/2017 Current Medications Prescription Sig. Disp. Refills [...] as directed. Active (BLOOD GLUCOSE MONITOR [facility]) blood sugar diagnostic Use 1 strip as directed Active test strip twice daily. Active Problems Not on file Family History Medical History Relation Name Comments [...] Taken Blood Pressure 176/70 10/11/2017 12:58 PM BUSINESS SERVICES MANAGER Pulse 80 10/11/2017 12:58 PM BUSINESS SERVICES MANAGER Temperature 36.7 C (98.1 F) 10/11/2017 12:58 PM BUSINESS SERVICES MANAGER Respiratory Rate 14 10/11/2017 12:58 PM BUSINESS SERVICES MANAGER Oxygen Saturation 95% 10/11/2017 12:58 PM BUSINESS SERVICES MANAGER Inhaled Oxygen - - Concentration Weight 133.3 kg (293 lb 12.8 oz) 10/11/2017 12:58 PM BUSINESS SERVICES MANAGER Height 160 cm (5' 3") 10/11/2017 12:58 PM BUSINESS SERVICES MANAGER Body Mass Index 52.04 10/11/2017 12:58 PM BUSINESS SERVICES MANAGER Plan of Treatment Health Maintenance Due Date Last Done Comments PHYSICAL (COMPREHENSIVE) 1962 EXAM PERTUSSIS VACCINE 1966 HIV SCREENING 1970 TETANUS VACCINE 1972 CERVICAL CANCER SCREENING 1985 BREAST CANCER SCREENING 1995 COLORECTAL CANCER 2005 SCREENING SHINGLES VACCINE 2015 INFLUENZA VACCINE 08/26/2018 HEPATITIS C SCREENING Completed 10/11/2017 Results * PATHOLOGY REPORTS FROM OUTSIDE SCAN (12/17/2017 7:32 AM) Narrative Ordered by an unspecified provider. from Last 3 Months
--- OUTSIDE RECORDS SUMMARY | 2018-02-15 10:24 | XMS REPORT ---
Author Author CLARA GONZALES Organization [facility] Address [address] [place] [address] Care Team Providers Care Programming Director Name Role Phone CHRISTIAN CLARA Unavailable PROBLEMS Type Condition ICD9-CM Code OUT60-GX Code Onset Dates Condition Status SNOMED Code Problem Diabetes type 2, controlled E11.9 Active 20606704 Problem Morbid obesity, unspecified obesity type E66.01 Active 244246337 Problem Sleep apnea in adult G47.33 Active 54277535 Problem Gastro-esophageal reflux disease without esophagitis K21.9 Active 275941001 Problem Chronic obstructive pulmonary disease, unspecified J44.9 Active 25436232 Problem Acquired hypothyroidism E03.9 Active 700750182 Problem Adjustment disorder with depressed mood F43.21 Active 43359781 Problem Cirrhosis of liver with ascites, unspecified hepatic cirrhosis type K74.60 Active 02386494 Problem Constipation, unspecified constipation type K59.00 Active 83671599 Problem Autoimmune hepatitis K75.4 Active 133939822 Problem Essential hypertension I10 Active 72257523 ALLERGIES No Information SOCIAL HISTORY Never Assessed [...]
[2018-02-15] MEDS ORDERED: POVIDONE (BETADINE) OPHTH SOLN 5% 30 ML OP ONE (10:30)
[2018-02-15] MEDS ORDERED: EPINEPHrine INJECTION 1 MG/ML AMP INJ ONE (10:30)
[2018-02-15] MEDS ORDERED: TIMOLOL MALEATE 0.5% 5 ML (TIMOPTIC) BTL OU PRN (10:30)
[2018-02-15] MEDS ORDERED: LIDOCAINE PF 1% 2 ML VIAL (OR ONLY) IR PRN (10:30)
[2018-02-15] MEDS ORDERED: VANCOMYCIN/BSS (COMPOUNDED) 10 MG/ML SYR OP ONE (10:30)
[2018-02-15] MEDS ORDERED: MIDAZOLAM 2 MG/2 ML (VERSED) VIAL ONE (10:32)
[2018-02-15 10:40] VITALS: BP 143/96
[2018-02-15] MEDS: TETRACAINE 0.5% OPHTH SOLN 4 ML BTL (SINGLE DOSE ONLY) OU PRN ×4 (10:41→10:59)
[2018-02-15] MEDS: PHENYLEPHRINE 10% OPHTH (NEO-SYN) 5 ML BTL OU SCH ×3 (10:47→10:59)
[2018-02-15] MEDS: CYCLOPENTOLATE 1% (CYCLOGYL) 2 ML DROPS OP SCH ×3 (10:47→10:59)
--- NOTE | 2018-02-15 11:36 | Ophthalmologist Pre-Op Note ---
Pre-Operative Progress Note H&P Reviewed The H&P was reviewed, patient examined and no changes noted. Date H&P Reviewed: Feb 15, 2018 Time H&P Reviewed: 11:36 Pre-Op Dx Cataract, Right Eye AVA MCCARTHY MD Feb 15, 2018 11:36
--- NOTE | 2018-02-15 12:00 | Ophthalmology Operative Report ---
Cataract removal/placement IOL PREOPERATIVE DIAGNOSIS: Cataract Right Eye POSTOPERATIVE DIAGNOSIS: Cataract Right Eye PROCEDURE: Cataract removal and placement of posterior chamber implant, right eye SURGEON: Cosmo Mccarthy ANESTHESIA: Topical with sedation COMPLICATIONS: None ESTIMATED BLOOD LOSS: Minimal DESCRIPTION OF PROCEDURE: After proper informed consent was obtained, the patient, a 62 female, was taken to the Operating Room and the right eye was anesthetized with tetracaine. They right eye was then prepped and draped in the usual manner. A wire lid speculum was placed. A paracentesis was made at the left hand position. Preservative free lidocaine was injected into the anterior chamber followed by viscoelastic. A clear corneal incision was made in the temporal position. A capsulorrhexis was preformed and the central nuclear and cortical material were removed. The posterior capsule was polished and Pato 21.5 SN6CWS IOL was placed into the capsular bag. The residual viscoelastic was aspirated and balanced saline solution was injected into the anterior chamber. 1.0 mg of Vancomycin (10mg/ 1.0ml) was injected into the anterior chamber. The wound was checked and found to be water tight. The patient tolerated the procedure well without complications. COSMO MCCARTHY MD Feb 15, 2018 11:59
[2018-02-15 12:05] VITALS: BP 152/73
--- NOTE | 2018-02-15 14:26 | Anesthesia-General Post-Op ---
MAC Patient Condition Mental Status/LOC: Same as Preop Cardiovascular: Satisfactory Nausea/Vomiting: Absent Respiratory: Satisfactory Pain: Controlled Complications: Absent Post Op Complications Complications None Follow Up Care/Instructions Patient Instructions None needed. Anesthesiology Discharge Order Discharge Order Patient is doing well, no complaints, stable vital signs, no apparent adverse anesthesia problems. No complications reported per nursing. MERCEDES LEON CRNA Feb 15, 2018 14:26
== END 2018-02-15 12:10 | disposition home or self-care (01) ==
LOC: SDC 10:15
PROVIDERS: ATTEND Specialist
DX: H26.9 Unspecified cataract (principal); E11.36 Type 2 diabetes mellitus with diabetic cataract; E11.40 Type 2 diabetes mellitus with diabetic neuropathy, unspecified; I10 Essential (primary) hypertension; J45.909 Unspecified asthma, uncomplicated; G47.33 Obstructive sleep apnea (adult) (pediatric); E03.9 Hypothyroidism, unspecified; E66.01 Morbid (severe) obesity due to excess calories; Z68.43 Body mass index [BMI] 50.0-59.9, adult; Z79.82 Long term (current) use of aspirin; Z79.899 Other long term (current) drug therapy; Z87.891 Personal history of nicotine dependence
CPT/HCPCS: 82962

== ENCOUNTER → 2018-10-28 | Outpatient (CLI) | payer MEDICAID ==
[~2018-10-28] MED LIST changes: -RANI150T15 PO; +RANI150T46 PO; -SPIR25TA3 PO; +SPIR25TA5 PO
--- NOTE | 2018-10-28 16:39 | Diagnostic Imaging Report ---
INDICATION: Right upper quadrant pain. TIME OF EXAM: 3:55 p.m. COMPARISON: Correlation is made with prior study from 06/19/2017. FINDINGS: Heart size is stable. Lungs are clear. No infiltrate, effusion, or pneumothorax is seen. IMPRESSION: No acute cardiopulmonary process is detected. Dictated by: Dictated on workstation # [id number]
--- NOTE | 2018-10-28 16:43 | Diagnostic Imaging Report ---
INDICATION: Right-sided pain. TIME OF EXAM: 4:00 p.m. FINDINGS: The bowel gas pattern is nonobstructed. No definite pathologic calcifications are seen. No free air is identified. IMPRESSION: No acute abnormality is detected. Dictated by: Dictated on workstation # [id number]
== END ==
LOC: RAD 15:15
PROVIDERS: ATTEND Nurse Practitioner Community Health
DX: R10.11 Right upper quadrant pain (principal)
CPT/HCPCS: 71046; 74018

== ENCOUNTER → 2019-02-27 | Outpatient (CLI) | payer MEDICAID ==
[~2019-02-27] MED LIST changes: +CATHETER FLUSH 10 ML SYR IV PRN; +HOLD METFORMIN - RECEIVED CONTRAST 20 ML VIAL IV SCH; +IOHEXOL 350 MG/ML 100 ML (OMNIPAQUE 350) VIAL IV ONE
--- NOTE | 2019-02-27 10:26 | Diagnostic Imaging Report ---
PROCEDURE: CT abdomen with and without contrast. TECHNIQUE: Multiple contiguous axial CT images of the abdomen were obtained prior to and after intravenous administration of iodinated contrast. Auto Exposure Controls were utilized during the CT exam to meet ALARA standards for radiation dose reduction. INDICATION: History of cirrhosis. COMPARISON: 10/10/2016. FINDINGS: Included portions of the lung bases are clear. Fat-containing supraumbilical midline ventral hernia is partially visualized. The ostium measures 2.7 cm in transverse dimension. Liver demonstrates macronodular appearance to its external margins consistent with underlying cirrhosis. No focal hepatic masses are seen. Portal vein is patent. Spleen is mildly enlarged. It measures 14.6 x 8.9 x 13.0 cm. No focal splenic lesions are seen. The kidneys, pancreas, and right adrenal gland have a normal CT appearance. Left adrenal lesion measures 1.9 x 2.8 cm. This is increased in size compared to 2.1 x 1.8 cm on exam dated 10/10/2016. Noncontrast appearance and enhancement characteristics cannot safely characterize this as a benign adenoma. Included small bowel loops are nondistended. Cecum and appendix are not included on this exam. There is no loculated fluid collection, free fluid, nor free air within the abdomen. No abnormal mesenteric or retroperitoneal adenopathy is seen. There is significant diffuse calcified aortic and arterial atherosclerosis. Bony structures show no acute abnormalities. IMPRESSION: 1. Hepatic cirrhosis. Mild splenomegaly, which may be on the basis of underlying portal venous hypertension. 2. No focal hepatic mass. 3. Left adrenal lesion showing slight interval increase in size when compared to 10/10/2016. Again, imaging appearance cannot safely characterize this as a benign adenoma. 4. Fat-containing ventral hernia. Dictated by: Dictated on workstation # [id number]
== END ==
LOC: RAD 09:07
DX: K74.60 Unspecified cirrhosis of liver (principal); K75.81 Nonalcoholic steatohepatitis (NASH); K43.9 Ventral hernia without obstruction or gangrene; E27.8 Other specified disorders of adrenal gland; R16.1 Splenomegaly, not elsewhere classified
CPT/HCPCS: 74170

== ENCOUNTER 2019-03-12 15:40 | Outpatient (CLI) | payer MEDICAID ==
[~2019-03-12] VITALS: Ht 160 cm; Wt 132.9 kg
[~2019-03-12 15:40] MED LIST changes: -CATHETER FLUSH 10 ML SYR IV PRN; -HOLD METFORMIN - RECEIVED CONTRAST 20 ML VIAL IV SCH; -IOHEXOL 350 MG/ML 100 ML (OMNIPAQUE 350) VIAL IV ONE
[2019-03-12] MEDS ORDERED: FLUO20CA42 PO (15:51)
[2019-03-12] MEDS ORDERED: RANI150T46 PO (15:51)
== END 2019-03-12 16:03 | disposition home or self-care (01) ==
LOC: PREOP 15:40
PROVIDERS: ATTEND Surgery
DX: Z01.818 Encounter for other preprocedural examination (principal)

== ENCOUNTER 2019-03-17 07:27 | Day surgery (SDC) | payer MEDICAID ==
[~2019-03-17] VITALS: Ht 160 cm; Wt 132.9 kg
[~2019-03-17 07:27] MED LIST changes: +FLUO20CA42 PO
[2019-03-17] MEDS ORDERED: LACTATED RINGERS 1,000 ML IV ONE (07:36)
[2019-03-17] MEDS ORDERED: LACTATED RINGERS 1,000 ML IV STA (08:00)
[2019-03-17] MEDS ORDERED: HURRICAINE EXT TUBE (BENZOCAINE) XX PRN (08:00)
[2019-03-17 08:03] VITALS: BP 135/67
--- NOTE | 2019-03-17 08:20 | Progress Note-Pre Operative ---
Pre-Operative Progress Note H&P Reviewed The H&P was reviewed, patient examined and no changes noted. Time Seen by Provider: 08:17 Date H&P Reviewed: Mar 17, 2019 Time H&P Reviewed: 08:16 Pre-Operative Diagnosis: Gastritis, hx of cirrhosis SHILPA SHERWOOD DO Mar 17, 2019 08:20
[2019-03-17] MEDS ORDERED: HURRICAINE EXT TUBE (BENZOCAINE) ONE (08:23)
[2019-03-17] MEDS ORDERED: proPOfol 200 MG/20 ML (DIPRIVAN) VIAL IV ONE (09:04)
--- NOTE | 2019-03-17 09:20 | Progress Note-Post Operative ---
Post-Operative Progess Note Surgeon (s)/Monorail Operator (s) Surgeon SHILPA SHERWOOD DO Monorail Operator: none Pre-Operative Diagnosis Gastritis, hx of cirrhosis Post-Operative Diagnosis Same plus Hiatal hernia mild esophagitis Procedure & Operative Findings Date of Procedure 03/17/19 Procedure Performed/Findings EGD with bx Anesthesia Type IV sedation by DISTRIBUTOR CLEANER Estimated Blood Loss Estimated blood loss (mL): scant Specimens/Packing Specimens Removed Antral bx SHILPA SHERWOOD DO Mar 17, 2019 09:20
--- NOTE | 2019-03-17 09:21 | Endoscopy Discharge Instruct ---
Endo Procedure/Findings Findings 1.: Gastritis 2.: Hiatal Hernia Discharge Instructions - Activity: You might feel a little sleepy until tomorrow. This is due to the medicine you received to relax you. Until tomorrow, you should: NOT drive a car, operate machinery or power tools. NOT drink any alcoholic beverages. NOT make any important decisions or sign importortant papers. Do not return to work until tomorrow, unless otherwise instructed. Resume previous activities tomorrow. Diet: Start by taking liquids. If you tolerate liquids, advance to solid food. make an appointment for one week Notify Physician - If you experience excessive bleeding, unusual abdominal pain, fever, or chest pain, contact your doctor immediately. Follow-Up: - I have received and understand the above instructions and will call my doctor if I have any further questions. Patient Signature Date Nurse Signature Other (Relationship) SHILPA SHERWOOD DO Mar 17, 2019 09:21
[2019-03-17 09:35] VITALS: BP 137/64
[2019-03-17 10:05] VITALS: BP 147/71
[2019-03-17 10:30] VITALS: BP 147/71
--- NOTE | 2019-03-17 11:29 | Anesthesia-General Post-Op ---
MAC Patient Condition Mental Status/LOC: Same as Preop Cardiovascular: Satisfactory Nausea/Vomiting: Absent Respiratory: Satisfactory Pain: Controlled Complications: Absent Post Op Complications Complications None Follow Up Care/Instructions Patient Instructions None needed. Anesthesiology Discharge Order Discharge Order Patient is doing well, no complaints, stable vital signs, no apparent adverse anesthesia problems. No complications reported per nursing. AUTUMN JENKINS CRNA Mar 17, 2019 11:29
--- NOTE | 2019-03-18 02:30 | OPERATIVE REPORT ---
DATE OF SERVICE: PREOPERATIVE DIAGNOSES: History of gastritis and cirrhosis, need to make sure there were no esophageal varices. POSTOPERATIVE DIAGNOSES: 1. Gastritis. 2. Small hiatal hernia. 3. Mild esophagitis. PROCEDURE: EGD with biopsy. SURGEON: Kulwant Yap DO. LAB ANIMAL TECHNICIAN: None. ANESTHESIA: IV sedation by the FIELD SERVICE SPECIALIST. SPECIMEN: Biopsy of the antrum. BLOOD LOSS: Scant. FLUIDS: Per anesthesia. POSTOPERATIVE CONDITION: Stable. INDICATION FOR PROCEDURE: The patient is a 63-year-old female who has a history of cirrhosis, gastritis. Her liver specialist want an EGD to make sure she has not developed any varices. FINDINGS: The patient had some mild gastritis, small hiatal hernia and some very mild esophagitis, but no varices seen in the stomach or the esophagus. PROCEDURE NOTE: After informed consent was obtained, the patient was brought to the endoscopy suite, placed in the bed left lateral decubitus position. She was administered IV sedation by the FIELD SERVICE SPECIALIST who then monitored vitals the entire time, heart rate, blood pressure and pulse ox and the scope was inserted down the mouth through the esophagus into the stomach. Took a picture of the antrum, looked like there was mild gastritis, pushed into the duodenum, duodenum looked fine, pulled back and then did a biopsy of the antrum and retroflexed the scope, saw small lipoma, took a picture of this and then looked up at the GE junction and saw small hiatal hernia. At this point, then pulled the scope into the GE junction and saw some mild esophagitis, pulled the scope up into the esophagus, did not see any varices or any problems in the esophagus, pulled the scope slowly out the esophagus and out the mouth. The patient tolerated the procedure. She was recovered in endoscopy suite. Job ID: [id number] DocumentID: [id number] Dictated Date: 03/17/2019 18:51:03 Barrel Roller Date: 03/18/2019 02:30:24 Dictated By: KULWANT YAP DO
== END 2019-03-17 10:30 | disposition home or self-care (01) ==
LOC: ENDO 07:27
PROVIDERS: ATTEND Surgery
DX: K29.70 Gastritis, unspecified, without bleeding (principal); K44.9 Diaphragmatic hernia without obstruction or gangrene; K21.0 Gastro-esophageal reflux disease with esophagitis; I11.9 Hypertensive heart disease without heart failure; J44.9 Chronic obstructive pulmonary disease, unspecified; E78.5 Hyperlipidemia, unspecified; I51.9 Heart disease, unspecified; I25.10 Atherosclerotic heart disease of native coronary artery without angina pectoris; E03.9 Hypothyroidism, unspecified; K74.60 Unspecified cirrhosis of liver; G47.33 Obstructive sleep apnea (adult) (pediatric); Z79.899 Other long term (current) drug therapy; Z87.891 Personal history of nicotine dependence; Z79.82 Long term (current) use of aspirin; Z86.010 Personal history of colon polyps; Z88.8 Allergy status to other drugs, medicaments and biological substances; Z88.0 Allergy status to penicillin

== ENCOUNTER 2019-10-08 05:36 | Outpatient (CLI) | payer MEDICAID ==
[~2019-10-08 05:36] MED LIST changes: +RANI-613 PO; -RANI150T46 PO
== END 2019-10-08 10:35 | disposition home or self-care (01) ==
LOC: PREOP 05:36
PROVIDERS: ATTEND Specialist
DX: Z01.818 Encounter for other preprocedural examination (principal)

== ENCOUNTER 2019-10-10 10:29 | Day surgery (SDC) | payer MEDICAID ==
[~2019-10-10] VITALS: Ht 160 cm; Wt 138.2 kg
[2019-10-10] MEDS ORDERED: POVIDONE (BETADINE) OPHTH SOLN 5% 30 ML OP ONE (10:45)
[2019-10-10] MEDS ORDERED: TIMOLOL MALEATE 0.5% 5 ML (TIMOPTIC) BTL OU PRN (10:45)
[2019-10-10] MEDS ORDERED: LIDOCAINE PF 1% 2 ML AMP IR PRN (10:45)
[2019-10-10] MEDS: TETRACAINE 0.5% OPHTH SOLN 4 ML BTL (SINGLE DOSE ONLY) OU PRN ×4 (10:54→11:13)
[2019-10-10 10:57] VITALS: BP 146/65
[2019-10-10] MEDS: CYCLOPENTOLATE 1% (CYCLOGYL) 2 ML DROPS OP SCH ×3 (11:02→11:13)
[2019-10-10] MEDS: PHENYLEPHRINE 10% OPHTH (NEO-SYN) 5 ML BTL OU SCH ×3 (11:02→11:13)
[2019-10-10] MEDS ORDERED: MIDAZOLAM 2 MG/2 ML (VERSED) VIAL ONE (11:15)
--- NOTE | 2019-10-10 11:37 | Ophthalmologist Pre-Op Note ---
Pre-Operative Progress Note H&P Reviewed The H&P was reviewed, patient examined and no changes noted. Date H&P Reviewed: Oct 10, 2019 Time H&P Reviewed: 11:36 Pre-Op Dx Cataract, Left Eye AVA MCCARTHY MD Oct 10, 2019 11:37 POS
--- NOTE | 2019-10-10 11:57 | Ophthalmology Operative Report ---
Cataract removal/placement IOL PREOPERATIVE DIAGNOSIS: Cataract Left Eye POSTOPERATIVE DIAGNOSIS: Cataract Left Eye PROCEDURE: Cataract removal and placement of posterior chamber implant, left eye SURGEON: Cosmo Mccarthy ANESTHESIA: Topical with sedation COMPLICATIONS: None ESTIMATED BLOOD LOSS: Minimal DESCRIPTION OF PROCEDURE: After proper informed consent was obtained, the patient, a 64 female, was taken to the Operating Room and the left eye was anesthetized with tetracaine. The left eye was then prepped and draped in the usual manner. A wire lid speculum was placed. A paracentesis was made at the left hand position. Preservative free lidocaine was injected into the anterior chamber followed by viscoelastic. A clear corneal incision was made in the temporal position. A capsulorrhexis was preformed and the central nuclear and cortical material were removed. The posterior capsule was polished and an Pato 20.5 [id number] was placed into the capsular bag. The residual viscoelastic was aspirated and balanced saline solution was injected into the anterior chamber. Moxifloxacin was injected into the anterior chamber. The wound was checked and found to be water tight. The patient tolerated the procedure well without complications. COSMO MCCARTHY MD Oct 10, 2019 11:57 POS
[2019-10-10 12:08] VITALS: BP 137/63
--- NOTE | 2019-10-10 13:11 | Anesthesia-General Post-Op ---
MAC Patient Condition Mental Status/LOC: Same as Preop Cardiovascular: Satisfactory Nausea/Vomiting: Absent Respiratory: Satisfactory Pain: Controlled Complications: Absent Post Op Complications Complications None Follow Up Care/Instructions Patient Instructions None needed. Anesthesiology Discharge Order Discharge Order Patient is doing well, no complaints, stable vital signs, no apparent adverse anesthesia problems. No complications reported per nursing. LITO MURRAY CRNA Oct 10, 2019 13:11 POS
== END 2019-10-10 12:07 | disposition home or self-care (01) ==
LOC: SDC 10:29
PROVIDERS: ATTEND Specialist
DX: E11.36 Type 2 diabetes mellitus with diabetic cataract (principal); H25.12 Age-related nuclear cataract, left eye; I10 Essential (primary) hypertension; J45.909 Unspecified asthma, uncomplicated; G47.33 Obstructive sleep apnea (adult) (pediatric); B19.20 Unspecified viral hepatitis C without hepatic coma; K21.9 Gastro-esophageal reflux disease without esophagitis; E66.01 Morbid (severe) obesity due to excess calories; Z68.43 Body mass index [BMI] 50.0-59.9, adult; Z88.0 Allergy status to penicillin; Z88.2 Allergy status to sulfonamides; Z88.1 Allergy status to other antibiotic agents; Z88.8 Allergy status to other drugs, medicaments and biological substances; Z91.018 Allergy to other foods; Z87.891 Personal history of nicotine dependence; Z90.710 Acquired absence of both cervix and uterus; Z79.82 Long term (current) use of aspirin

== ENCOUNTER → 2019-10-20 | Outpatient (CLI) | payer MEDICAID ==
--- NOTE | 2019-10-20 08:44 | Diagnostic Imaging Report ---
EXAMINATION: CT Chest without contrast. TECHNIQUE: Multiple contiguous axial images were obtained through the chest without the use of intravenous contrast. All CT scans use one or more of the following dose optimizing techniques: automated exposure control, MA and/or KvP adjustment based on a patient size and exam type, or iterative reconstruction. HISTORY: LUNG NODULE. COMPARISON: 08/13/2013. FINDINGS: The lungs are clear without edema or pneumonia. No pleural effusion or pneumothorax. An 11 mm fissural nodule along the minor fissure is in keeping with a lymph node and is unchanged in size from 2012 and can be considered benign. Another fissural lymph node along the left major fissure measuring approximately 4 mm is also unchanged and can be considered benign. No suspicious nodules are seen. The heart size is normal. No pericardial effusion. The aorta is normal in caliber. There is no axillary or supraclavicular lymphadenopathy. There is no mediastinal lymphadenopathy. There are severe coronary artery calcifications. Limited views of the upper abdomen are unremarkable. There are no suspicious osseus lesions. There is a mild compression fracture of a mid thoracic vertebra, likely T8. This is stable from a chest radiograph dated 10/28/2018. IMPRESSION: Stable pulmonary nodules in keeping with fissural lymph nodes which can now be considered benign. Dictated by: Dictated on workstation # [id number]
== END ==
LOC: RAD 08:03
PROVIDERS: ATTEND Pediatrics
DX: R91.8 Other nonspecific abnormal finding of lung field (principal)
CPT/HCPCS: 71250

== ENCOUNTER → 2020-01-20 | Outpatient (CLI) | payer MEDICAID ==
[~2020-01-20] MED LIST changes: -MAGN400T6 PO; +MAGN400T8 PO
== END ==
LOC: CARD 10:45
PROVIDERS: ATTEND Physician Assistant
DX: I34.0 Nonrheumatic mitral (valve) insufficiency (principal); I25.10 Atherosclerotic heart disease of native coronary artery without angina pectoris; I11.9 Hypertensive heart disease without heart failure; E78.5 Hyperlipidemia, unspecified
CPT/HCPCS: 93306

== ENCOUNTER → 2020-02-11 | Outpatient (CLI) | payer MEDICAID | END | disposition home or self-care (01) | LOC: PREOP 05:42 | PROVIDERS: ATTEND Specialist | DX: Z01.818 Encounter for other preprocedural examination (principal) ==

== ENCOUNTER 2020-05-17 05:48 | Outpatient (RCR) | payer MEDICAID ==
[~2020-05-17] VITALS: Ht 160 cm; Wt 138.2 kg
[~2020-05-17 05:48] MED LIST changes: +ASPI-1238 PO; -ASPI-983 PO
[2020-05-17] MEDS ORDERED: CHOL500050 PO (12:11)
== END 2020-08-15 | disposition home or self-care (01) ==
LOC: PREOP 05:48
PROVIDERS: ATTEND Specialist
DX: Z01.818 Encounter for other preprocedural examination (principal)

== ENCOUNTER → 2020-10-07 | Outpatient (CLI) | payer MEDICAID ==
[~2020-10-07] MED LIST changes: +CHOL500050 PO
--- NOTE | 2020-10-08 10:35 | Diagnostic Imaging Report ---
INDICATION: Routine screening. COMPARISON is made with prior mammograms of 09/23/2014 and 01/27/2013. 2-D and 3-D bilateral screening mammography was performed with CAD. Scattered fibroglandular densities are identified bilaterally. There are benign parenchymal and vascular calcifications bilaterally. A nodular density has developed in the medial right breast at mid depth. Additional views are recommended. Left breast is unremarkable. Axillae are unremarkable. IMPRESSION: BI-RADS 0 Right breast density. Additional views are recommended for further evaluation. ACR BI-RADS Category 0: Incomplete. (Needs additional imaging evaluation). Result letter will be mailed to the patient. Note: At least 10% of breast cancer is not imaged by mammography. Dictated by: Dictated on workstation # [id number]
== END ==
LOC: RAD 14:12
PROVIDERS: ATTEND Physician Assistant
DX: Z12.31 Encounter for screening mammogram for malignant neoplasm of breast (principal)
CPT/HCPCS: 77063; 77067

== ENCOUNTER → 2020-10-27 | Outpatient (CLI) | payer MEDICAID ==
--- NOTE | 2020-10-27 14:06 | Diagnostic Imaging Report ---
Indication: Right breast density. Patient presents for additional views. Correlation is made with prior mammogram from 10/07/2020. Unilateral right 2-D and 3-D diagnostic mammography was performed with CAD. Spot compression CC and ML views as well as conventional CC and mediolateral views were performed. The nodular density in the inner right breast best seen on CC view on the screening mammogram is no longer visualized. This may have represented superimposed tissue versus a resolved cyst. No new mass is identified. There are benign calcifications in the right breast. IMPRESSION: BI-RADS Category 2 No mammographic features suspicious for malignancy are identified. Patient may return to routine annual screening mammography. ACR BI-RADS Category 2: Benign findings. Result letter will be mailed to the patient. Note: At least 10% of breast cancer is not imaged by mammography. Dictated by: Dictated on workstation # [id number]
== END ==
LOC: RAD 13:45
PROVIDERS: ATTEND Physician Assistant
DX: R92.2 Inconclusive mammogram (principal)
CPT/HCPCS: 77065; G0279

== ENCOUNTER → 2021-03-22 | Outpatient (CLI) | payer MEDICAID ==
[~2021-03-22] MED LIST changes: +CATHETER FLUSH 10 ML SYR IV PRN; -FOLI1TAB24 PO; +FOLI1TAB33 PO; +HOLD METFORMIN - RECEIVED CONTRAST 20 ML VIAL IV SCH; +IOHEXOL 350 MG/ML 100 ML (OMNIPAQUE 350) VIAL IV ONE; -LACT10SO PO; +LACT10SO3 PO; +NS 100 ML (IVPB) BAG IV ONE; -RABE20TA27 PO; +RABE20TA30 PO
--- NOTE | 2021-03-22 14:19 | Diagnostic Imaging Report ---
EXAMINATION: CT abdomen with and without intravenous contrast. TECHNIQUE: Precontrast acquisitions were acquired through the abdomen . Multiple contiguous axial images were obtained through the abdomen after the administration of intravenous contrast. All CT scans use one or more of the following dose optimizing techniques: automated exposure control, MA and/or KvP adjustment based on patient size and exam type or iterative reconstruction. HISTORY: Cirrhosis COMPARISON: 02/27/2019 FINDINGS: Limited views of the lower thorax are unremarkable. The liver is cirrhotic without focal lesion. There is no biliary ductal dilation. Gallbladder is not seen. Pancreas is normal. Spleen is normal. Adrenal glands are normal. The kidneys are normal. There is no hydronephrosis. Visualized bowel is normal in caliber without obstruction or inflammation. There is a complex fat containing ventral hernia. No free fluid or air. No abdominal lymphadenopathy. Aorta is normal in caliber without aneurysm. There are no suspicious osseus lesions. IMPRESSION: 1. Cirrhotic liver without suspicious lesion. Dictated by: Dictated on workstation # [id number]
== END ==
LOC: RAD 12:45
PROVIDERS: ATTEND Nurse Practitioner Family
DX: K75.81 Nonalcoholic steatohepatitis (NASH) (principal); K74.69 Other cirrhosis of liver; D84.9 Immunodeficiency, unspecified; K75.4 Autoimmune hepatitis
CPT/HCPCS: 74170

== ENCOUNTER → 2021-06-14 | Outpatient (CLI) | payer MEDICAID ==
[~2021-06-14] MED LIST changes: -CATHETER FLUSH 10 ML SYR IV PRN; -HOLD METFORMIN - RECEIVED CONTRAST 20 ML VIAL IV SCH; -IOHEXOL 350 MG/ML 100 ML (OMNIPAQUE 350) VIAL IV ONE; -NS 100 ML (IVPB) BAG IV ONE
== END ==
LOC: CARD 13:00
PROVIDERS: ATTEND Physician Assistant
DX: I10 Essential (primary) hypertension (principal); I34.0 Nonrheumatic mitral (valve) insufficiency; I25.10 Atherosclerotic heart disease of native coronary artery without angina pectoris
CPT/HCPCS: 93306

== ENCOUNTER 2022-10-29 10:07 | Inpatient (IN) | payer MEDICAID ==
[~2022-10-29] VITALS: Ht 160 cm; Wt 107.8 kg
[~2022-10-29 10:07] MED LIST changes: -DOXY100C2 PO; +DOXY100C5 PO; -MAGN400T8 PO; +MGX400T PO; +POTA-177 PO; +POTA-179 PO; -POTA10TA36 PO; -POTA20TA15 PO
--- NOTE | 2022-10-29 10:22 | ED Respiratory ---
General Chief Complaint: Respiratory Problems Stated Complaint: SOA Nursing Triage Note: PT TO RM 9 BY [facility] WITH CC OF SOB SINCE ABOUT 0500 THIS A.M. 88% ON ROOM AIR AT TRIAGE, COPD, ASTHMA, DIABETIC Source: patient Exam Limitations: no limitations History of Present Illness Date Seen by Provider: Oct 29, 2022 Time Seen by Provider: 10:09 Initial Comments 67-year-old female with history of valvular cardiac disease, COPD presents for shortness of breath. She states she started to have fevers last night, woke up this morning short of breath. States she has a pressure in her midsternal region with deep inspiration, burning type sensation. No aggravating or alleviating factors outside of inspiration. She has a cough which is moderately productive of green sputum. Oxygen saturation on room air was found to be 87% upon her arrival. She has had her COVID vaccinations Allergies and Home Medications Allergies Coded Allergies: cephalexin (Verified Allergy, Mild, 10/30/17) ciprofloxacin (Verified Allergy, Mild, 10/30/17) sulfamethoxazole (Verified Allergy, Mild, ITCH ALL OVER, 10/30/17) trimethoprim (Verified Allergy, Mild, ITCH ALL OVER, 10/30/17) Penicillins (Verified Allergy, Unknown, 10/30/17) Sulfa (Sulfonamide Antibiotics) (Verified Allergy, Unknown, 10/30/17) atorvastatin (Unverified Allergy, Unknown, EDEMA, 10/30/17) hydrocodone (Verified Allergy, Unknown, 10/30/17) tramadol (Verified Allergy, Unknown, 10/30/17) metformin (Unverified Adverse Reaction, Mild, NAUSEA, 10/30/17) Uncoded Allergies: RED MEAT (Allergy, Unknown, HIVES, 12/13/16) Patient Home Medication List Home Medication List Reviewed: Yes Acetaminophen (Tylenol Extra Strength) 500 Mg Tablet, 1,000 MG PO Q8H PRN for PAIN-MILD (1-4), (Reported) Entered as Reported by: MEGHANA STOLL on 10/30/22 1107 Last Action: Reviewed Amlodipine Besylate (Norvasc) 5 Mg Tablet, 5 MG PO DAILY, (Reported) Entered as Reported by: SINDI BRITO on 10/17/17 1142 Last Action: Held Azathioprine (Imuran) 50 Mg Tablet, 50 MG PO 1200, (Reported) Entered as Reported by: MEGHANA STOLL on 10/30/221101 Last Action: Held Cetirizine HCl (Cetirizine HCl) 10 Mg Tablet, 10 MG PO HS, (Reported) Entered as Reported by: MEGHANA STOLL on 10/30/221101 Last Action: Converted Ezetimibe (Ezetimibe) 10 Mg Tablet, 10 MG PO HS, (Reported) Entered as Reported by: MEGHANA STOLL on 10/30/221101 Last Action: Held Fluoxetine HCl (Prozac) 20 Mg Capsule, 20 MG PO HS, (Reported) Entered as Reported by: NOAM GAN on 03/12/19 1551 Last Action: Continued Folic Acid (Folic Acid) 1 Mg Tablet, 1 MG PO DAILY, (Reported) Entered as Reported by: NOAM GAN on 02/11/18936 Last Action: Continued Furosemide (Lasix) 20 Mg Tablet, 20 MG PO DAILY PRN for FLUID RETENTION, (Reported) Entered as Reported by: NOAM GAN on 02/11/18936 Last Action: Held Levothyroxine Sodium (Levothyroxine Sodium) 75 Mcg Tablet, 75 MCG PO DAILY, (Reported) Entered as Reported by: ERICA ZAFAR on 01/14/16 170 Last Action: Continued Liraglutide (Victoza 3-Avery) 0.6 Mg/0.1 Ml (18 Mg/3 Ml) Pen.injctr, 1.8 MG SQ DAILY, (Reported) Entered as Reported by: MEGHANA STOLL on 10/30/221106 Last Action: Held Lisinopril (Lisinopril) 5 Mg Tablet, 5 MG PO DAILY, (Reported) Entered as Reported by: MEGHANA STOLL on 10/30/221101 Last Action: Held Potassium Chloride (Potassium Chloride) 20 Meq Tab.er.prt, 20 MEQ PO DAILY PRN for FLUID RETENTION, (Reported) Entered as Reported by: NOAM GAN on 02/11/18936 Last Action: Held Rifaximin (Xifaxan) 550 Mg Tablet, 550 MG PO BID, (Reported) Entered as Reported by: MEGHANA STOLL on 10/30/221101 Last Action: Continued Review of Systems Review of Systems Constitutional: fever, weakness EENTM: no symptoms reported Respiratory: cough, short of breath Cardiovascular: chest pain Gastrointestinal: no symptoms reported Genitourinary: no symptoms reported Musculoskeletal: no symptoms reported Skin: no symptoms reported Psychiatric/Neurological: No Symptoms Reported Hematologic/Lymphatic: No Symptoms Reported Immunological/Allergic: no symptoms reported Past Gpndzij-Dkajon-Mkdztl Hx Patient Social History Tobacco Use?: No Use of E-Cig and/or Vaping dev: No Substance use?: No Alcohol Use?: No Seasonal Allergies Seasonal Allergies: Yes Past Medical History Surgeries: Yes (D&C, skin cancer resection, HEART CATH) Section, Gallbladder, Hysterectomy Respiratory: Yes (wears oxygen prn) Asthma, Sleep Apnea, COPD, Emphysema Currently Using CPAP: No (trying to get a new one) Currently Using BIPAP: No Cardiac: Yes Coronary Artery Disease, Hypertension Neurological: Yes (seizures from 5yrs old until 16 yr old) Reproductive Disorders: No BUTCHER 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 History: Hysterectomy Sexually Transmitted Disease: No HIV/AIDS: No Genitourinary: No Gastrointestinal: Yes (HX OF HERNIA,CIRRHOSIS WITH ASCITES, ) Liver Disease/Jaundice, Hepatitis, Cirrhosis Musculoskeletal: Yes (DJD) Arthritis Endocrine: Yes (diet controlled) Hypothyroidsim, Diabetes, Non-Insulin dep HEENT: Yes Cataract Loss of Vision: Bilateral Hearing Impairment: Denies Cancer: Yes Skin What Type of Treatment Did You: Surgical Intervention Psychosocial: Yes Anxiety Integumentary: Yes Psoriasis Blood Disorders: No Adverse Reaction/Blood Tranf: No Family Medical History Reviewed Nursing Family Hx Arthritis G8 BROTHER G8 SISTER Diabetes mellitus 19 FATHER Neoplasm 19 MOTHER (lung cancer ) Respiratory disorder G8 SISTER (pulmonary fibrosis) Cancer Physical Exam Vital Signs - First Documented 10/29/22 10:10 Temp 37.1 Pulse 85 Resp 22 B/P (MAP) 126/42 (70) Pulse Ox 95 O2 Delivery Nasal Cannula O2 Flow Rate 2.00 Capillary Refill : Less Than 3 Seconds Height: 5'3.00" Weight: 293lbs. 0.0oz. 132.927372wk; 45.00 BMI Method:Stated General Appearance: WD/WN, no apparent distress HEENT: PERRL/EOMI, normal ENT inspection, TMs normal, pharynx normal Neck: non-tender, supple, normal inspection Respiratory: chest non-tender, other (Tachypnea with diffuse rhonchi and scant expiratory wheezes bilaterally) Cardiovascular: regular rate, rhythm, no murmur Gastrointestinal: normal bowel sounds, non tender, soft, no organomegaly, no pulsatile mass Extremities: normal range of motion, non-tender, normal inspection, no pedal edema, no calf tenderness Neurologic/Psychiatric: alert, normal mood/affect, oriented x 3 Skin: normal color, warm/dry Lymphatic: no adenopathy Focused Exam Lactate Level 10/29/22 10:30: Lactic Acid Level 1.70 Lactic Acid Level Laboratory Tests Test 10/29/22 10:30 Lactic Acid Level 1.70 MMOL/L (0.50-2.00) Procedures/Interventions Suture Size: 4-0 Progress/Results/Core Measures Suspected Sepsis SIRS Temperature: Pulse: 85 Respiratory Rate: 22 Blood Pressure 126 /42 Mean: 70 10/29/22 10:30: Lactic Acid Level 1.70 Results/Orders Lab Results Laboratory Tests Test 10/29/22 10:15 10/29/22 10:30 Range/Units Influenza Type A (RT-PCR) Not Detected Not Detecte Influenza Type B (RT-PCR) Not Detected Not Detecte SARS-CoV-2 RNA (RT-PCR) Not Detected Not Detecte White Blood Count 1.3 *L 4.3-11.0 10^3/uL Red Blood Count 3.42 L 3.80-5.11 10^6/uL Hemoglobin 11.8 11.5-16.0 g/dL Hematocrit 33 L 35-52 % Mean Corpuscular Volume 97 80-99 fL Mean Corpuscular Hemoglobin 35 H 25-34 pg Mean Corpuscular Hemoglobin Concent 35 32-36 g/dL Red Cell Distribution Width 16.8 H 10.0-14.5 % Platelet Count 72 L 130-400 10^3/uL Mean Platelet Volume 9.5 9.0-12.2 fL Immature Granulocyte % (Auto) 2 % Neutrophils (%) (Auto) 56 42-75 % Lymphocytes (%) (Auto) 25 12-44 % Monocytes (%) (Auto) 17 H 0-12 % Eosinophils (%) (Auto) 0 0-10 % Basophils (%) (Auto) 0 0-10 % Neutrophils # (Auto) 0.7 L 1.8-7.8 10^3/uL Lymphocytes # (Auto) 0.3 L 1.0-4.0 10^3/uL Monocytes # (Auto) 0.2 0.0-1.0 10^3/uL Eosinophils # (Auto) 0.0 0.0-0.3 10^3/uL Basophils # (Auto) 0.0 0.0-0.1 10^3/uL Immature Granulocyte # (Auto) 0.0 0.0-0.1 10^3/uL Percent Immature Platelet Fraction 3.0 0.0-7.6 % Sodium Level 129 L 135-145 MMOL/L Potassium Level 4.2 3.6-5.0 MMOL/L Chloride Level 95 L 98-107 MMOL/L Carbon Dioxide Level 22 21-32 MMOL/L Anion Gap 12 5-14 MMOL/L Blood Urea Nitrogen 13 7-18 MG/DL Creatinine 0.91 0.60-1.30 MG/DL Estimat Glomerular Filtration Rate 69 BUN/Creatinine Ratio 14 Glucose Level 142 H 70-105 MG/DL Lactic Acid Level 1.70 0.50-2.00 MMOL/L Calcium Level 8.6 8.5-10.1 MG/DL Corrected Calcium 9.2 8.5-10.1 MG/DL Total Bilirubin 1.3 H 0.1-1.0 MG/DL Aspartate Amino Transf (AST/SGOT) 12 5-34 U/L Alanine Aminotransferase (ALT/SGPT) < 6 0-55 U/L Alkaline Phosphatase 51 40-136 U/L Total Protein 7.3 6.4-8.2 GM/DL Albumin 3.2 3.2-4.5 GM/DL Micro Results Microbiology 10/29/22 Blood Culture - Final, Complete Staphylococcus epidermidis See Comments 10/29/22 Blood Culture - Preliminary, Resulted Staphylococcus epidermidis Staphylococcus capitis See Comments My Orders Orders - NICOLA GREENWOOD DO Cbc With Automated Diff (10/29/22 10:16) Comprehensive Metabolic Panel (10/29/22 10:16) Blood Culture (10/29/22 10:16) Chest 1 View, Ap/Pa Only (10/29/22 10:16) Ed Iv/Invasive Line Start (10/29/22 10:16) O2 (10/29/22 10:16) Lactic Acid Analyzer (10/29/22 10:16) Influenza A And B By Pcr (10/29/22 10:16) Covid 19 Inhouse Test (10/29/22 10:16) Meropenem (Merrem 500 Mg) (10/29/22 11:15) Furosemide Injection (Lasix Injection) (10/29/22 11:15) Ed Admission (Communication) (10/29/22 11:25) Vital Signs/I&O 10/29/22 10/29/22 10/29/22 10:10 10:12 10:15 Temp 37.1 Pulse 85 Resp 22 B/P (MAP) 126/42 (70) Pulse Ox 95 97 O2 Delivery Nasal Cannula Nasal Cannula Nasal Cannula O2 Flow Rate 2.00 2.00 2.00 Capillary Refill : Less Than 3 Seconds Blood Pressure Mean: 70 Departure Communication (Admissions) Patient is initially hypoxic to 87% on room air with increased work of breathing, tachypnea. She does have diffuse expiratory. Wheezes and rhonchi especially in the right base. She is found to have likely pneumonia on chest x- ray as well as some pulmonary vascular congestion. I start her on antibiotics for community-acquired pneumonia and also gave her a dose of Lasix. No history of known heart failure and recent chart review states EF 55% in 2020. Regardless she does feel better with the provided therapies. She was given a breathing treatment here as well. I spoke with the hospitalist who agrees to admission at this time. Impression Primary Impression: Pulmonary vascular congestion Additional Impressions: Hypoxia CAP (community acquired pneumonia) Qualified Codes: J18.9 - Pneumonia, unspecified organism Disposition: ADMITTED INPATIENT Condition: Stable Departure-Patient Inst. Referrals: [facility] (PCP/Family) Primary Care Physician NICOLA GREENWOOD DO Oct 29, 2022 10:22
[2022-10-29 10:39] LABS: EOSINOPHILS % (AUTO) 0 % (0-10); HEMATOCRIT 33 % (35-52); HEMOGLOBIN 11.8 g/dL (11.5-16.0); MEAN CORPUSCULAR HGB CONC 35 g/dL (32-36)
[2022-10-29 10:41] LABS: BASOPHILS % (AUTO) 0 % (0-10); LYMPHOCYTES # (AUTO) 0.3 10^3/uL (1.0-4.0); LYMPHOCYTES % (AUTO) 25 % (12-44); MEAN CORPUSCULAR HEMOGLOBIN 35 pg (25-34); MEAN CORPUSCULAR VOLUME 97 fL (80-99); MEAN PLATELET VOLUME 9.5 fL (9.0-12.2); MONOCYTES # (AUTO) 0.2 10^3/uL (0.0-1.0); MONOCYTES % (AUTO) 17 % (0-12); NEUTROPHILS # (AUTO) 0.7 10^3/uL (1.8-7.8); NEUTROPHILS % (AUTO) 56 % (42-75); PLATELET COUNT 72 10^3/uL (130-400)
[2022-10-29 10:42] LABS: WHITE BLOOD COUNT 1.3 10^3/uL (4.3-11.0)
[2022-10-29 10:47] LABS: ALBUMIN 3.2 GM/DL (3.2-4.5)
[2022-10-29 10:48] LABS: CHLORIDE 95 MMOL/L (98-107); POTASSIUM 4.2 MMOL/L (3.6-5.0); SODIUM 129 MMOL/L (135-145)
[2022-10-29 10:49] LABS: CALCIUM 8.6 MG/DL (8.5-10.1)
[2022-10-29 10:50] LABS: GLUCOSE 142 MG/DL (70-105); TOTAL PROTEIN 7.3 GM/DL (6.4-8.2)
[2022-10-29 10:51] LABS: CARBON DIOXIDE 22 MMOL/L (21-32)
[2022-10-29 10:52] LABS: BILIRUBIN,TOTAL 1.3 MG/DL (0.1-1.0)
[2022-10-29 10:53] LABS: ALKALINE PHOSPHATASE 51 U/L (40-136)
[2022-10-29 10:54] LABS: CREATININE SERUM 0.91 MG/DL (0.60-1.30); GFR ESTIMATED 69
[2022-10-29 10:55] LABS: BUN/CREATININE RATIO 14
[2022-10-29 10:56] LABS: ALANINE AMINOTRANSFERASE < 6 U/L (0-55)
--- NOTE | 2022-10-29 11:09 | Diagnostic Imaging Report ---
INDICATION: Dyspnea and hypoxia and fever. EXAMINATION: Chest 10/29/2022 COMPARISON: 06/19/2017 FINDINGS: Heart unremarkable. Pulmonary vasculature appears congested with a possible infiltrate at the right lung base. No effusions or pneumothorax. IMPRESSION: 1. Pulmonary vascular congestion. 2. Possible developing infiltrate right lung base. Dictated by: Dictated on workstation # [id number]
[2022-10-29] MEDS ORDERED: FUROSEMIDE 40 MG/4 ML INJ (LASIX) IVP ONE (11:15)
[2022-10-29] MEDS ORDERED: MEROPENEM 500 MG in NS (IVPB) 100 ML IV ONE (11:15)
--- NOTE | 2022-10-29 13:09 | History & Physical-Hospitalist ---
History of Present Illness HPI/Chief Complaint CC: Acute respiratory failure HPI: This is a 67yoWF who has known COPD and continues to smoke who presents to the ER with acute resp failure with hypoxia of 70% resolved with aggressive meds and oxygen. Patient will require IV steroids along with ICS and Nebs and O2. CSD required. PNA will be treatment with abx. Source: patient, RN/MD Date Seen 10/29/22 Time Seen by a Provider: 13:30 Attending Physician [place] PCP Admitting Physician: Sandy Woo DO Attending Physician: Sandy Woo DO Referring Physician Date of Admission Oct 29, 2022 at 11:27 Home Medications & Allergies Home Medications Reviewed patient Home Medication Reconciliation performed by pharmacy medication reconciliations mixing technician and/or nursing. Patients Allergies have been reviewed. Allergies Allergies Coded Allergies cephalexin (Verified Allergy, Mild, 10/30/17) ciprofloxacin (Verified Allergy, Mild, 10/30/17) sulfamethoxazole (Verified Allergy, Mild, ITCH ALL OVER, 10/30/17) trimethoprim (Verified Allergy, Mild, ITCH ALL OVER, 10/30/17) Penicillins (Verified Allergy, Unknown, 10/30/17) Sulfa (Sulfonamide Antibiotics) (Verified Allergy, Unknown, 10/30/17) atorvastatin (Unverified Allergy, Unknown, EDEMA, 10/30/17) hydrocodone (Verified Allergy, Unknown, 10/30/17) tramadol (Verified Allergy, Unknown, 10/30/17) metformin (Unverified Adverse Reaction, Mild, NAUSEA, 10/30/17) Uncoded Allergies RED MEAT ( Allergy, Unknown, HIVES, 12/13/16) Past Abllczo-Fjxobj-Zwhocz Hx Patient Social History Marrital Status: single Employed/Student: retired Tobacco Use?: Yes Tobacco type used: Cigarettes Smoking Status: Current Everyday Smoker Use of E-Cig and/or Vaping dev: No Substance use?: No Alcohol Use?: No Immunizations Up To Date Date of Influenza Vaccine: Mar 10, 2017 Date of Pneumonia Vaccine: Sep 26, 2016 Seasonal Allergies Seasonal Allergies: Yes Current Status Primary Language: Bahraini Implanted or Applied Medical D: None Past Medical History Surgeries: Section, Gallbladder, Hysterectomy Asthma, Sleep Apnea, COPD, Emphysema Currently Using CPAP: No (trying to get a new one) Currently Using BIPAP: No Coronary Artery Disease, 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 COPD- pt. used to see Vincent 2. Anxiety 3. DM-II not taking medications "diet controlled" 4. HTN 5. HLP 6. Hypothyroidism 7. Psoriasis 8. Mild non-obstructive coronary artery disease Isabella 9. Chronic edema of her lower extremities with no history of CHF 10. LY- using CPAP and O2 at night 11. GERD 12. Childhood seizures-resolved 13. Extreme Morbid Obesity Past Surgical History 1. RU BSO 38 years ago 2. 36 years ago 3. Appendectomy- 40 years ago 4. Cholecystectomy 5. Teeth extraction 6. Cardiac Cath 2012 Family Medical History Reviewed Nursing Family Hx Arthritis G8 BROTHER G8 SISTER Diabetes mellitus 19 FATHER Neoplasm 19 MOTHER (lung cancer ) Respiratory disorder G8 SISTER (pulmonary fibrosis) Cancer Review of Systems Constitutional: see HPI EENTM: no symptoms reported Respiratory: dyspnea on exertion, short of breath, wheezing Gastrointestinal: no symptoms reported Genitourinary: no symptoms reported Physical Exam Physical Exam Vital Signs Vital Signs - First Documented 10/29/22 10:10 Temp 37.1 Pulse 85 Resp 22 B/P (MAP) 126/42 (70) Pulse Ox 95 O2 Delivery Nasal Cannula O2 Flow Rate 2.00 Capillary Refill : Less Than 3 Seconds Height, Weight, BMI Height: 5'3.00" Weight: 293lbs. 0.0oz. [id number]; 45.00 BMI Method:Stated General Appearance: No Apparent Distress, Chronically ill, Obese Eyes: Right Eye Normal Inspection, Right Eye PERRL HEENT: PERRL/EOMI, Normal ENT Inspection, Pharynx Normal, Moist Mucous Membranes Neck: Full Range of Motion, Normal Inspection, Non Tender Respiratory: Chest Non Tender, No Accessory Muscle Use, No Respiratory Distress, Decreased Breath Sounds, Wheezing Cardiovascular: Regular Rate, Rhythm, No Edema, No Gallop, No JVD, No Murmur, Normal Peripheral Pulses Gastrointestinal: Normal Bowel Sounds, No Organomegaly, No Pulsatile Mass, Non Tender, Soft Back: Normal Inspection, No CVA Tenderness, No Vertebral Tenderness Extremity: Normal Capillary Refill, Normal Inspection, Normal Range of Motion, Non Tender, No Calf Tenderness, No Pedal Edema Neurologic/Psychiatric: Alert, Oriented x3, No Motor/Sensory Deficits, Normal Mood/Affect Skin: Normal Color, Warm/Dry Lymphatic: No Adenopathy Results Results/Procedures Labs Laboratory Tests 10/29/22 10:30 Patient resulted labs reviewed. Assessment/Plan Admission Diagnosis Assessment: Acute hypoxic hypercapneic respiratory failure AECOPD PNA Smoker LY non-compliant Obesity Plan: IV steroids IV abx Nebs O2 BiPAP Admission Status: Inpatient Order (span 2 midnights) Reason for Inpatient Admission: resp failure SANDY WOO DO Oct 29, 2022 13:09
[2022-10-29] MEDS ORDERED: cloNIDine 0.1 MG (CATAPRES) TAB PO PRN (13:15)
[2022-10-29] MEDS ORDERED: LACTULOSE SYRUP 10GM/15ML (ENULOSE) 30ML UDC PO PRN (13:15)
[2022-10-29] MEDS ORDERED: CALCIUM CARBONATE 500 MG (TUMS) TAB.CHEW PO PRN (13:15)
[2022-10-29] MEDS ORDERED: MELATONIN 3 MG TABLET PO PRN (13:15)
[2022-10-29] MEDS ORDERED: MEROPENEM 1,000 MG in NS (IVPB) 100 ML IV SCH (13:15)
[2022-10-29] MEDS ORDERED: diphenhydrAMINE 25 MG TAB (BENADRYL) PO PRN (13:15)
[2022-10-29] MEDS ORDERED: HYDROmorphone 2 MG/ML VIAL (DILAUDID) IV PRN (13:15)
[2022-10-29] MEDS ORDERED: ALPRAZolam 1 MG (XANAX) TAB PO PRN (13:15)
[2022-10-29] MEDS ORDERED: MILK OF MAGNESIA 400 MG/5 ML 30 ML UDC PO PRN (13:15)
[2022-10-29] MEDS ORDERED: polyethylene glycoL POWDER 17 GM (MIRALAX) PACK PO PRN (13:15)
[2022-10-29] MEDS ORDERED: ONDANSETRON 4 MG/2 ML (SDV) Z0FRAN IV PRN (13:15)
[2022-10-29] MEDS ORDERED: BISACODYL 10 MG SUPP (DULCOLAX) PR PRN (13:15)
[2022-10-29] MEDS ORDERED: ONDANSETRON 4 MG (ZOFRAN) ORAL DISSOLVE TAB PO PRN (13:15)
[2022-10-29] MEDS ORDERED: diphenhydrAMINE 50 MG/ML INJ (BENADRYL) IVP PRN (13:15)
[2022-10-29] MEDS ORDERED: RT-ALBUTEROL SULF 2.5 MG/3 ML PRE-MIX VIAL INH SCH (14:00)
[2022-10-29 15:20] VITALS: BP 126/42
[2022-10-29] MEDS ORDERED: RT-ALBUTEROL SULF 2.5 MG/3 ML PRE-MIX VIAL INH PRN (16:00)
--- NOTE | 2022-10-29 17:09 | Consultation-Cardiology ---
HPI-Cardiology Cardiology Consultation: Date of Consultation 10/29/22 Time Seen by a Provider: 16:45 Date of Admission Attending Physician [place] Admitting Physician Admitting Physician: Sandy Woo DO Attending Physician: Sandy Woo DO Consulting Physician ASHLI BOTELLO MD, MA, FACP, FACC, [facility] [place], CCDS Physician requesting consult: Dr Woo HPI: Chief Complaint: Reason for Card consult: Chest pain 67 yo woman who was admitted to Dr Woo's service this afternoon after she had presented to the ER with cough, shortness of breath, malaise, weakness, and pleuritic chest pain in the lower chest on both sides. Chest pain much worse with inspiration and coughing. Denies palp or syncope or swelling. No n/v but poor appetite Review of Systems-Cardiology Review of Systems Constitutional: As described under HPI Eyes: No vision change Ears/Nose/Throat: No ear discharge, No nasal drainage, No recent hearing loss Respiratory: As described under HPI Cardiovascular: As described under HPI Gastrointestinal: No diarrhea, No nausea, No vomiting Genitourinary: No dysuria, No hematuria Musculoskeletal: other (gen body pains) Skin: No rash, No ulcerations Hematologic: No bleeding abnormalities JVW-Dphbuo-Xuutzg Hx Patient Social History Marrital Status: single Employed/Student: retired Smoking Status: Current Everyday Smoker Former smoker/When Quit: Oct 26, 2015 Have you traveled recently?: No Alcohol Use?: No Tobacco type used: Cigarettes Immunizations Up To Date Date of Pneumonia Vaccine: Sep 26, 2016 Date of Influenza Vaccine: Mar 10, 2017 Past Medical History PMH As described under Assessment. Family Medical History Family History: Arthritis G8 BROTHER G8 SISTER Diabetes mellitus 19 FATHER Neoplasm 19 MOTHER (lung cancer ) Respiratory disorder G8 SISTER (pulmonary fibrosis) Allergies and Home Medications Allergies Coded Allergies: cephalexin (Verified Allergy, Mild, 10/30/17) ciprofloxacin (Verified Allergy, Mild, 10/30/17) sulfamethoxazole (Verified Allergy, Mild, ITCH ALL OVER, 10/30/17) trimethoprim (Verified Allergy, Mild, ITCH ALL OVER, 10/30/17) Penicillins (Verified Allergy, Unknown, 10/30/17) Sulfa (Sulfonamide Antibiotics) (Verified Allergy, Unknown, 10/30/17) atorvastatin (Unverified Allergy, Unknown, EDEMA, 10/30/17) hydrocodone (Verified Allergy, Unknown, 10/30/17) tramadol (Verified Allergy, Unknown, 10/30/17) metformin (Unverified Adverse Reaction, Mild, NAUSEA, 10/30/17) Uncoded Allergies: RED MEAT (Allergy, Unknown, HIVES, 12/13/16) Patient Home Medication List Home Medication List Reviewed: Yes Amlodipine Besylate (Norvasc) 5 Mg Tablet, 5 MG PO DAILY, (Reported) Entered as Reported by: SINDI BRITO on 10/17/17 1142 Aspirin (Aspirin) 81 Mg Tab.chew, 81 MG PO DAILY, (Reported) Entered as Reported by: SINDI BRITO on 10/17/17 1142 Cholecalciferol (Vitamin D3) (Vitamin D3) 125 Mcg Capsule, 125 MCG PO DAILY, (Reported) Entered as Reported by: SINDI BRITO on 05/17/20 1211 Fluoxetine HCl (Prozac) 20 Mg Capsule, 20 MG PO DAILY, (Reported) Entered as Reported by: NOAM GAN on 03/12/19 1551 Folic Acid (Folic Acid) 1 Mg Tablet, 1 MG PO DAILY, (Reported) Entered as Reported by: NOAM GAN on 02/11/18 0937 Furosemide (Lasix) 20 Mg Tablet, 20 MG PO SuTuThSa, (Reported) Entered as Reported by: NOAM GAN on 02/11/18 09 Furosemide (Lasix) 20 Mg Tablet, 40 MG PO MoWeFr, (Reported) Entered as Reported by: NOAM GAN on 02/11/18 09 Levothyroxine Sodium (Levothyroxine Sodium) 75 Mcg Tablet, 75 MCG PO DAILY, (Reported) Entered as Reported by: ERICA ZAFAR on 01/14/16 170 Loratadine (Loratadine) 10 Mg Tablet, 10 MG PO DAILY, (Reported) Entered as Reported by: ERICA ZAFAR on 01/14/16 171 Magnesium Oxide (Magnesium Oxide) 400 Mg Tablet, 400 MG PO BID, (Reported) Entered as Reported by: ERICA ZAFAR on 01/14/16 170 Potassium Chloride (Potassium Chloride) 20 Meq Tab.er.prt, 20 MEQ PO DAILY, (Reported) Entered as Reported by: NOAM GAN on 02/11/18 0937 Ranitidine HCl (Zantac) 150 Mg Tablet, 150 MG PO HS, (Reported) Entered as Reported by: NOAM GAN on 03/12/19 1551 Physical Exam-Cardiology Physical Exam Vital Signs/I&O 10/29/22 10/29/22 10/29/22 10/29/22 10:10 10:12 10:15 15:14 Temp 37.1 Pulse 85 81 Resp 22 B/P (MAP) 126/42 (70) 134/74 Pulse Ox 95 97 97 O2 Delivery Nasal Cannula Nasal Cannula Nasal Cannula Nasal Cannula O2 Flow Rate 2.00 2.00 2.00 2.00 10/29/22 10/29/22 15:20 15:32 Temp 37.1 Pulse 85 Pulse Ox 87 O2 Delivery Nasal Cannula O2 Flow Rate 2.00 Capillary Refill : Less Than 3 Seconds Constitutional: AAO x 3, well-developed, well-nourished, other (appears uncomfortable) HEENT: PERRL, EOMI, hearing is well preserved; No xanthelasmas are seen Neck: carotid pulses are 2 + bilaterally, with good upstrokes Respiratory: No accessory muscle use; chest expansion is symmetric, chest is bilaterally symmetric, other (scattered rhonchi and coarse crackles) Cardiovascular: regular rate-rhythm, S1 and S2, systolic murmur (soft EVER at card base) Gastrointestinal: No tender; soft; No guarding, No rebound; audible bowel sounds Extremities: No clubbing, No cyanosis, No significant edema Neurologic/Psychiatric: oriented x 3, other (moves all limbs equally) Skin: warm/dry; No cool, No diaphoresis Data Review Labs Laboratory Tests 10/29/22 10:15: Influenza Type A (RT-PCR) Not Detected, Influenza Type B (RT-PCR) Not Detected, SARS-CoV-2 RNA (RT-PCR) Not Detected 10/29/22 10:30: White Blood Count 1.3*L, Red Blood Count 3.42L, Hemoglobin 11.8, Hematocrit 33L, Mean Corpuscular Volume 97, Mean Corpuscular Hemoglobin 35H, Mean Corpuscular Hemoglobin Concent 35, Red Cell Distribution Width 16.8H, Platelet Count 72L, Mean Platelet Volume 9.5, Immature Granulocyte % (Auto) 2, Neutrophils (%) (Auto) 56, Lymphocytes (%) (Auto) 25, Monocytes (%) (Auto) 17H, Eosinophils (%) (Auto) 0, Basophils (%) (Auto) 0, Neutrophils # (Auto) 0.7L, Lymphocytes # (Auto) 0.3L, Monocytes # (Auto) 0.2, Eosinophils # (Auto) 0.0, Basophils # (Auto) 0.0, Immature Granulocyte # (Auto) 0.0, Percent Immature Platelet Fraction 3.0, Sodium Level 129L, Potassium Level 4.2, Chloride Level 95L, Carbon Dioxide Level 22, Anion Gap 12, Blood Urea Nitrogen 13, Creatinine 0.91, Estimat Glomerular Filtration Rate 69, BUN/Creatinine Ratio 14, Glucose Level 142H, Lactic Acid Level 1.70, Calcium Level 8.6, Corrected Calcium 9.2, Total Jesus irubin 1.3H, Aspartate Amino Transf (AST/SGOT) 12, Alanine Aminotransferase (ALT/SGPT) < 6, Alkaline Phosphatase 51, Total Protein 7.3, Albumin 3.2 10/29/22 16:50: Glucometer 116H Laboratory Tests 10/29/22 10:30 A/P-Cardiology Assessment/Admission Diagnosis Pleuritic chest pain, likely due to pneumonia Marked neutropenia and considerable thrombocytopenia of undetermined etiology Previous cardiac w/u -cardiac catheterization on 08/13/2013 revealed ectasia in the RCA with small vessel disease, slow flow in the RCA. 40-50 percent mid LAD stenosis, otherwise, nonobstructive disease. EF 60 percent - stress test and 2-D echocardiogram in September 2017 revealed no ischemia or infarct with normal EF - 2D echo was in May 2021 showing normal LV size, EF 55 to 65%, mild mitral regurgitation, PA pressure 25 mmHg H/o hypertension H/o hyperlipidemia - h/o intolerance to statins Nonobstructive carotid artery stenosis per carotid duplex done November 2019 Obesity, BMI is 46 Chronic tobacco use (smokes cigs) - advised to quit COPD/asthma, educated on smoking cessation. Diabetes mellitus II H/o hypothyroidism, followed and managed by primary care physician H/o autoimmune hepatitis, followed and managed by primary care physician. H/o psoriasis, followed and managed by primary care physician Discussion and Recomendations * She appears quite ill at this exam. Given marked neutropenia and pneumonia, we recommend consideration of transfer to a tertiary care facility. I have communicated this to Dr Woo (her attending during this admission) * Echo * Monitor labs closely ASHLI BOTELLO MD FACP FAC CCDS Oct 29, 2022 17:09
[2022-10-29] MEDS: methylPREDNISolone 40 MG/ML (Solu-MEDROL) VIAL IV SCH ×3 (18:13→23:48)
[2022-10-29] MEDS: inSUlin ASPART (NovoLOG) 1 UNIT/0.01 ML (CHARGE PER UNIT) SC SCH ×2 (18:13→20:30)
[2022-10-29] MEDS: MEROPENEM 500 MG/NS 100 ML IVPB IV SCH ×4 (18:26→23:48)
[2022-10-29] MEDS: ENOXAPARIN 40 MG/0.4 ML (LOVENOX) SYR SC SCH (18:26)
[2022-10-29] MEDS: FUROSEMIDE 40 MG/4 ML INJ (LASIX) IVP SCH (18:26)
[2022-10-29] MEDS: RT--FLUTICASONE/SALMETEROL 113-14 (AIRDUO RespiCLICK) IH SCH (18:30)
[2022-10-29] MEDS: RT-ALBUTEROL SULF 2.5 MG/3 ML PRE-MIX VIAL INH SCH (18:30)
[2022-10-29 20:27] VITALS: BP 118/61
[2022-10-29] MEDS: MONTELUKAST 10 MG (SINGULAIR) TAB PO SCH (20:27)
[2022-10-29] MEDS: DOCUSATE SODIUM 100 MG (COLACE) CAP PO SCH (20:27)
[2022-10-29] MEDS: SENNOSIDES 8.6 MG (SENOKOT) TAB PO SCH (20:27)
[2022-10-29] MEDS ORDERED: ADVAIR HFA 115/21 MCG INHALER 8 GM IH SCH (21:00)
[2022-10-29 23:51] VITALS: BP 116/67
[2022-10-30] VITALS (11 sets, daily range): BP systolic 88–128; BP diastolic 52–73
[2022-10-30] MEDS: RT-ALBUTEROL SULF 2.5 MG/3 ML PRE-MIX VIAL INH SCH ×7 (01:21→22:10)
[2022-10-30 05:08] LABS: EOSINOPHILS % (AUTO) 0 % (0-10); MEAN CORPUSCULAR VOLUME 97 fL (80-99); MONOCYTES # (AUTO) 0.2 10^3/uL (0.0-1.0)
[2022-10-30 05:10] LABS: BASOPHILS % (AUTO) 1 % (0-10); HEMATOCRIT 31 % (35-52); HEMOGLOBIN 11.2 g/dL (11.5-16.0); LYMPHOCYTES # (AUTO) 0.2 10^3/uL (1.0-4.0); LYMPHOCYTES % (AUTO) 21 % (12-44); MEAN CORPUSCULAR HEMOGLOBIN 35 pg (25-34); MEAN CORPUSCULAR HGB CONC 36 g/dL (32-36); MEAN PLATELET VOLUME 9.9 fL (9.0-12.2); MONOCYTES % (AUTO) 16 % (0-12); NEUTROPHILS # (AUTO) 0.6 10^3/uL (1.8-7.8); NEUTROPHILS % (AUTO) 59 % (42-75); PLATELET COUNT 65 10^3/uL (130-400)
[2022-10-30 05:33] LABS: WHITE BLOOD COUNT 1.1 10^3/uL (4.3-11.0)
[2022-10-30 05:39] LABS: BILIRUBIN,TOTAL 0.7 MG/DL (0.1-1.0); CALCIUM 8.8 MG/DL (8.5-10.1); CREATININE SERUM 0.83 MG/DL (0.60-1.30); POTASSIUM 3.8 MMOL/L (3.6-5.0); TOTAL PROTEIN 6.8 GM/DL (6.4-8.2)
[2022-10-30] MEDS: methylPREDNISolone 40 MG/ML (Solu-MEDROL) VIAL IV SCH ×4 (05:59→23:59)
[2022-10-30] MEDS: MEROPENEM 500 MG/NS 100 ML IVPB IV SCH ×8 (05:59→23:59)
[2022-10-30] MEDS: inSUlin ASPART (NovoLOG) 1 UNIT/0.01 ML (CHARGE PER UNIT) SC SCH ×4 (06:01→20:32)
[2022-10-30] MEDS: ENOXAPARIN 40 MG/0.4 ML (LOVENOX) SYR SC SCH (06:01)
[2022-10-30] MEDS: FUROSEMIDE 40 MG/4 ML INJ (LASIX) IVP SCH ×2 (06:02→16:50)
[2022-10-30 06:34] LABS: BAND NEUTROPHILS 2 %; LYMPHOCYTES % (MANUAL) 22 %; MONOCYTES % (MANUAL) 20 %; NEUTROPHILS % (MANUAL) 56 %
[2022-10-30 06:35] LABS: ANISOCYTOSIS SLIGHT; NUCLEATED RED BLOOD CELLS 2; PLATELET ESTIMATE DECREASED; POLYCHROMASIA SLIGHT
[2022-10-30] MEDS: RT--FLUTICASONE/SALMETEROL 113-14 (AIRDUO RespiCLICK) IH SCH ×2 (06:40→18:50)
[2022-10-30 06:42] LABS: ABG BASE EXCESS 4.4 MMOL/L (-2.5-2.5); ABG OXYGEN SATURATION 93 % (94-100); ABG PCO2 44 MMHG (35-45); ABG PH 7.43 (7.37-7.43); ABG PO2 60 MMHG (79-93); ABG TCO2 30.1 MMOL/L (21.0-31.0)
[2022-10-30 06:45] LABS: ALLENS TEST YES-POS; INSPIRED O2 N; PATIENT TEMP 36.4; VENTILATOR NO
--- NOTE | 2022-10-30 08:23 | Progress Note ---
STEW SMITH 10/30/2223: Subjective Subjective/Events-last exam Madeleine Glez is a 67 yo female admitted for CAP with ARF. She presented to the ER yesterday with SOB and an O2 sat of 70%. Patient reports she is feeling a little better this morning, treatments are helping. She is eating well and able to keep it down. The patient endorses pain and ecchymosis in her thigh that has been present for about 1 week. She states she has seen her PCP for this problem. She is not sure what caused the ecchymosis but does report easy bruising for the past few months. Patient takes a daily aspirin at home. ECHO to be completed this morning. Review of Systems General: No Chills; Appetite Pulmonary: Dyspnea, Cough, Pleuritic Chest Pain Cardiovascular: No: Chest Pain, Palpitations Gastrointestinal: No: Nausea, Vomiting, Abdominal Pain Genitourinary: No Retention Musculoskeletal: leg pain (right lateral and posterior thigh) Neurological: No: Weakness, Confusion Focused Exam Sepsis Stage: Sepsis Lactate Level 10/29/22 10:30: Lactic Acid Level 1.70 Time of Focused Exam: 08:15 Respiratory: Crackles, Wheezing Cardiovascular: Regular Rate, Rhythm Skin: ecchymosis (easy bruising, large ecchymoses to the lateral and posterior thigh, present for 1 week) Within 3hrs of presentation: Admin ABX, Blood cultures prior to ABX's, Focus exam, Lactate level Objective Exam Last Set of Vital Signs Vital Signs Date Time Temp Pulse Resp B/P (MAP) Pulse Ox O2 Delivery O2 Flow Rate FiO2 10/30/22 07:56 36.6 67 18 128/73 (91) 96 Nasal Cannula 2.00 Capillary Refill : Less Than 3 Seconds I&O Intake and Output 10/30/22 00:00 Intake Total 820 ml Output Total 500 ml Balance 320 ml Intake Oral 720 ml IV Total 100 ml Output Urine Total 500 ml # Voids 3 Daily Weight Change No General: Alert, Oriented X3, Cooperative Lungs: Other (expiratory wheezes throughout lung rosas, crackles in bilateral bases) Heart: Regular Rate, Normal S1, Normal S2 Skin: Other (many ecchymoses present, on bilateral upper and lower extremities) Psych/Mental Status: Mental Status NL Results/Procedures Lab Laboratory Tests 10/29/22 10:15: Influenza Type A (RT-PCR) Not Detected, Influenza Type B (RT-PCR) Not Detected, SARS-CoV-2 RNA (RT-PCR) Not Detected 10/29/22 10:30: White Blood Count 1.3*L, Red Blood Count 3.42L, Hemoglobin 11.8, Hematocrit 33L, Mean Corpuscular Volume 97, Mean Corpuscular Hemoglobin 35H, Mean Corpuscular Hemoglobin Concent 35, Red Cell Distribution Width 16.8H, Platelet Count 72L, Mean Platelet Volume 9.5, Immature Granulocyte % (Auto) 2, Neutrophils (%) (Auto) 56, Lymphocytes (%) (Auto) 25, Monocytes (%) (Auto) 17H, Eosinophils (%) (Auto) 0, Basophils (%) (Auto) 0, Neutrophils # (Auto) 0.7L, Lymphocytes # (Auto) 0.3L, Monocytes # (Auto) 0.2, Eosinophils # (Auto) 0.0, Basophils # (Auto) 0.0, Immature Granulocyte # (Auto) 0.0, Percent Immature Platelet Fraction 3.0, Sodium Level 129L, Potassium Level 4.2, Chloride Level 95L, Carbon Dioxide Level 22, Anion Gap 12, Blood Urea Nitrogen 13, Creatinine 0.91, Estimat Glomerular Filtration Rate 69, BUN/Creatinine Ratio 14, Glucose Level 142H, Lactic Acid Level 1.70, Calcium Level 8.6, Corrected Calcium 9.2, Total Bilirubin 1.3H, Aspartate Amino Transf (AST/SGOT) 12, Alanine Aminotransferase (ALT/SGPT) < 6, Alkaline Phosphatase 51, Total Protein 7.3, Albumin 3.2 10/29/22 16:50: Glucometer 116H 10/29/22 20:29: Glucometer 153H 10/30/22 04:25: White Blood Count 1.1*L, Red Blood Count 3.20L, Hemoglobin 11.2L, Hematocrit 31L , Mean Corpuscular Volume 97, Mean Corpuscular Hemoglobin 35H, Mean Corpuscular Hemoglobin Concent 36, Red Cell Distribution Width 16.3H, Platelet Count 65L, Mean Platelet Volume 9.9, Immature Granulocyte % (Auto) 4, Neutrophils (%) (Auto) 59, Lymphocytes (%) (Auto) 21, Monocytes (%) (Auto) 16H, Eosinophils (%) (Auto) 0, Basophils (%) (Auto) 1, Neutrophils # (Auto) 0.6L, Lymphocytes # (A uto) 0.2L, Monocytes # (Auto) 0.2, Eosinophils # (Auto) 0.0, Basophils # (Auto) 0.0, Immature Granulocyte # (Auto) 0.0, Neutrophils % (Manual) 56, Lymphocytes % (Manual) 22, Monocytes % (Manual) 20, Band Neutrophils 2, Nucleated Red Blood Cells 2, Platelet Estimate DECREASED, Percent Immature Platelet Fraction 3.1, Polychromasia SLIGHT, Anisocytosis SLIGHT, Macrocytosis SLIGHT, Sodium Level 131L, Potassium Level 3.8, Chloride Level 96L, Carbon Dioxide Level 22, Anion Gap 13, Blood Urea Nitrogen 16, Creatinine 0.83, Estimat Glomerular Filtration Rate 77, BUN/Creatinine Ratio 19, Glucose Level 151H, Calcium Level 8.8, Corrected Calcium 9.6, Total Bilirubin 0.7, Aspartate Amino Transf (AST/SGOT) 13, Alanine Aminotransferase (ALT/SGPT) 8, Alkaline Phosphatase 49, Total Protein 6.8, Albumin 3.0L 10/30/22 06:35: Blood Gas Puncture Site RIGHT RADIAL, Blood Gas Patient Temperature 36.4, Arterial Blood pH 7.43, Arterial Blood Partial Pressure CO2 44, Arterial Blood Partial Pressure O2 60L, Arterial Blood HCO3 29H, Arterial Blood Total CO2 30.1, Arterial Blood Oxygen Saturation 93L, Arterial Blood Base Excess 4.4H, Benjamin Test YES-POS, Blood Gas Ventilator Setting NO, Blood Gas Inspired Oxygen N Radiology Chest XR 10/29/2022: pulmonary vascular congestion, possible infiltrate developing in right lung base. Assessment/Plan Assessment/Plan Admission Status: Inpatient Order (span 2 midnights) Assessment & Plan Diet: GI prophylaxis: DVT prophylaxis: Code status: DNR Dispo: (1) Bacteremia due to Gram-positive bacteria Status: Acute Assessment & Plan: Blood cultures obtained 10/29/2022 positive for gram + cocci in clusters Patient on Meropenem. (2) CAP (community acquired pneumonia) Status: Acute Assessment & Plan: Blood cultures drawn on presentation. Pending. Labs drawn. Show neutropenia and thrombocytopenia. Chest XR obtained. Shows pulmonary vascular congestion, possible right base infiltrate. Cardiology consulted due to chest pain, determined it pleuritic in origin. Qualifiers: Qualified Codes: J18.9 - Pneumonia, unspecified organism (3) COPD exacerbation Status: Acute Assessment & Plan: Wheezing throughout lung rosas. Patient being treated with Solu-medrol, airduo, albuterol, singulair. Reports some improvement in breathing. ABG results pCO2 44, pO2 60, HCO3 29, O2 sat 93, base excess 4.4 CXR obtained. (4) Pancytopenia Status: Acute Assessment & Plan: Pancytopenia. Normal CBC documented in April 2022. Peripheral smear ordered. Enoxiparin held. Consult hematology. (5) Pulmonary vascular congestion Status: Acute Assessment & Plan: CXR shows pulmonary vascular congestion. EKG obtained. ECHO results show grade 1 diastolic dysfunction of left ventricle. (6) Hypoxia Status: Chronic Assessment & Plan: Patient is on 2L of oxygen. Patient states she has been told she should be on oxygen therapy at home but she is noncompliant. (7) Diabetes mellitus type 2 in obese Status: Chronic Assessment & Plan: Patient is on insulin aspart sliding scale. (8) CAD (coronary artery disease) Status: Chronic (9) LY (obstructive sleep apnea) Status: Chronic Assessment & Plan: Non compliant with CPAP. (10) HTN (hypertension) Status: Chronic (11) Cigarette smoker Status: Chronic JP MONTANEZ MD [id number]/30/[id number]: Supervisory-Addendum Brief Verification & Attestation Participated in pt care: history, MDM, physical Personally performed: exam, history, MDM, supervision of care Care discussed with: Medical Student Procedures: n/a I saw and examined patient and did my own history which confirmed that documented by the medical student. I directed the plan of care as documented. Of note, patient also reports history of cirrhosis which may be related to her pancytopenia, but she did have normal labs in April 2022. STEW SMITH Oct 30, 2022 08:23 JP MONTANEZ MD Oct 30, 2022 21:29
[2022-10-30] MEDS: DOCUSATE SODIUM 100 MG (COLACE) CAP PO SCH ×2 (08:24→20:19)
[2022-10-30] MEDS: SENNOSIDES 8.6 MG (SENOKOT) TAB PO SCH ×2 (08:24→20:19)
[2022-10-30] MEDS ORDERED: LORATADINE (CLARITIN) 10 MG TAB PO SCH (09:00)
--- NOTE | 2022-10-30 09:04 | Cardiology Progress Note ---
Subjective Date Seen by Provider: Oct 30, 2022 Time Seen by Provider: 09:01 Subjective/Events-last exam Patient sitting up in bed, reports dyspnea and chest pain with deep inspiration and cough. Review of Systems General: No Chills, No Night Sweats, No Fatigue, No Malaise, No Appetite, No O ther HEENT: No Head Aches, No Visual Changes, No Eye Pain, No Ear Pain, No Dys phasia, No Sinus Congestion, No Post Nasal Drip, No Sore Throat, No Other Pulmonary: Dyspnea, Cough; No Pleuritic Chest Pain, No Other Cardiovascular: Chest Pain; No: Palpitations, Orthopnea, Paroxysmal Noc. Dyspnea, Edema, Lt Headedness, Other Focused Exam Lactate Level 10/29/22 10:30: Lactic Acid Level 1.70 Objective-Cardiology Exam Last Set of Vital Signs Vital Signs 10/30/22 07:56 Temp 36.6 Pulse 67 Resp 18 B/P (MAP) 128/73 (91) Pulse Ox 96 O2 Delivery Nasal Cannula O2 Flow Rate 2.00 I&O Intake and Output 10/30/22 00:00 Intake Total 820 ml Output Total 500 ml Balance 320 ml Intake Oral 720 ml IV Total 100 ml Output Urine Total 500 ml # Voids 3 Daily Weight Change No General: Alert, Oriented X3, Cooperative HEENT: Atraumatic Neck: Supple Lungs: Other (expiratory wheezes throughout lung rosas, crackles in bilateral bases) Heart: Regular Rate, Normal S1, Normal S2 Extremities: No Clubbing Skin: Other (many ecchymoses present) Neuro: Normal Speech, Normal Tone, Sensation Intact Psych/Mental Status: Mental Status NL, Mood NL Results Lab Laboratory Tests 10/29/22 10:30 10/30/22 04:25 A/P-Cardiology Admission Diagnosis Pneumonia Pleuritic chest pain HTN HLP Assessment/Plan Pleuritic chest pain, likely due to pneumonia I will repeat chest x-ray Echo will be done today Marked neutropenia and considerable thrombocytopenia of undetermined etiology, could be secondary to viral illness Coronary artery disease -cardiac catheterization on 08/13/2013 revealed ectasia in the RCA with small ve ssel disease, slow flow in the RCA. 40-50 percent mid LAD stenosis, otherwise, nonobstructive disease. EF 60 percent - stress test and 2-D echocardiogram in September 2017 revealed no ischemia or infarct with normal EF - 2D echo was in May 2021 showing normal LV size, EF 55 to 65%, mild mitral regurgitation, PA pressure 25 mmHg. I will reevaluate 2D Echo Hypertension, was initially borderline hypotensive, currently blood pressure is better. Continue to monitor H/o hyperlipidemia, intolerance to statins Nonobstructive carotid artery stenosis per carotid duplex done November 2019 Obesity, BMI is 53 Chronic tobacco use - advised to quit COPD/asthma, educated on smoking cessation. Diabetes mellitus II H/o hypothyroidism, followed and managed by primary care physician H/o autoimmune hepatitis, followed and managed by primary care physician. H/o psoriasis, followed and managed by primary care physician Supervisory-Addendum Brief Supervisory Addendum Participated in pt care: history, MDM, physical Personally performed: exam, history, MDM Care discussed with: NADEGE Results interpretation: Verified all documentation Notes: Patient was seen and evaluated with Luisito, examination performed, management plan was discussed, agree with the current scribed note, I made few changes to the note using Italic font Patient was seen at bedside, laying down comfortably, still having cough and some dyspnea I will repeat chest x-ray, continue with the current treatment Chest pain is unlikely to be cardiac. Appears to be pleuritic in nature Patient was noted to have pancytopenia which is worsening. Managed by primary care team LUISITO KEMP Oct 30, 2022 09:04 STARLA COTA MD Oct 30, 2022 09:07
--- NOTE | 2022-10-30 11:00 | Diagnostic Imaging Report ---
INDICATION: Dyspnea. FINDINGS: The heart size, mediastinal configuration, and pulmonary vascularity are within normal limits. There is no pleural effusion, pneumothorax, or pneumonia. The osseous structures are unremarkable. IMPRESSION: No acute cardiopulmonary abnormality. Dictated by: Dictated on workstation # [id number]
[2022-10-30] MEDS ORDERED: EZET10TA49 PO (11:02)
[2022-10-30] MEDS ORDERED: AZAT50TA16 PO (11:02)
[2022-10-30] MEDS ORDERED: LISI5TAB20 PO (11:02)
[2022-10-30] MEDS ORDERED: RIFA550T PO (11:02)
[2022-10-30] MEDS ORDERED: CETI10TA17 PO (11:02)
[2022-10-30] MEDS ORDERED: LIRA0.6P3 SQ (11:07)
[2022-10-30] MEDS ORDERED: ACET-2267 PO (11:07)
[2022-10-30] MEDS ORDERED: ENOXAPARIN 60 MG/0.6 ML (LOVENOX) SYR SC SCH (17:00)
[2022-10-30] MEDS: ACETAMINOPHEN 325 MG TABLET PO PRN (17:02)
[2022-10-30] MEDS: MONTELUKAST 10 MG (SINGULAIR) TAB PO SCH (20:19)
[2022-10-30 21:49] LABS: ABSOLUTE RETIC # 94 10e9/uL (24-90); BASOPHILS % (AUTO) 0 % (0-10); EOSINOPHILS % (AUTO) 0 % (0-10); HEMATOCRIT 29 % (35-52); HEMOGLOBIN 10.6 g/dL (11.5-16.0); LYMPHOCYTES # (AUTO) 0.1 10^3/uL (1.0-4.0); LYMPHOCYTES % (AUTO) 14 % (12-44); MEAN CORPUSCULAR HEMOGLOBIN 34 pg (25-34); MEAN CORPUSCULAR HGB CONC 36 g/dL (32-36); MEAN CORPUSCULAR VOLUME 95 fL (80-99); MEAN PLATELET VOLUME 10.5 fL (9.0-12.2); MONOCYTES # (AUTO) 0.3 10^3/uL (0.0-1.0); MONOCYTES % (AUTO) 25 % (0-12); NEUTROPHILS # (AUTO) 0.6 10^3/uL (1.8-7.8); NEUTROPHILS % (AUTO) 57 % (42-75); PLATELET COUNT 62 10^3/uL (130-400); RETICULOCYTE % 3.05 % (0.50-2.40)
[2022-10-30 22:17] LABS: NEUTROPHILS % (MANUAL) 61 %
[2022-10-30 22:18] LABS: LYMPHOCYTES % (MANUAL) 13 %; MONOCYTES % (MANUAL) 26 %; POLYCHROMASIA MARKED
[2022-10-31] VITALS (8 sets, daily range): BP systolic 104–129; BP diastolic 54–80
[2022-10-31] MEDS: RT-ALBUTEROL SULF 2.5 MG/3 ML PRE-MIX VIAL INH SCH ×6 (02:31→22:23)
[2022-10-31 04:54] LABS: HEMOGLOBIN 11.5 g/dL (11.5-16.0); LYMPHOCYTES # (AUTO) 0.3 10^3/uL (1.0-4.0); MEAN CORPUSCULAR VOLUME 96 fL (80-99)
[2022-10-31 04:56] LABS: BASOPHILS % (AUTO) 1 % (0-10); EOSINOPHILS % (AUTO) 1 % (0-10); HEMATOCRIT 32 % (35-52); LYMPHOCYTES % (AUTO) 24 % (12-44); MEAN CORPUSCULAR HEMOGLOBIN 34 pg (25-34); MEAN CORPUSCULAR HGB CONC 36 g/dL (32-36); MEAN PLATELET VOLUME 10.2 fL (9.0-12.2); MONOCYTES # (AUTO) 0.2 10^3/uL (0.0-1.0); MONOCYTES % (AUTO) 14 % (0-12); NEUTROPHILS # (AUTO) 0.7 10^3/uL (1.8-7.8); NEUTROPHILS % (AUTO) 56 % (42-75); PLATELET COUNT 72 10^3/uL (130-400)
[2022-10-31 05:07] LABS: WHITE BLOOD COUNT 1.2 10^3/uL (4.3-11.0)
[2022-10-31 05:14] LABS: BILIRUBIN,TOTAL 0.4 MG/DL (0.1-1.0); CALCIUM 9.1 MG/DL (8.5-10.1); CREATININE SERUM 0.83 MG/DL (0.60-1.30); POTASSIUM 3.7 MMOL/L (3.6-5.0); TOTAL PROTEIN 7.1 GM/DL (6.4-8.2)
[2022-10-31] MEDS: MEROPENEM 500 MG/NS 100 ML IVPB IV SCH ×6 (05:50→17:29)
[2022-10-31] MEDS: methylPREDNISolone 40 MG/ML (Solu-MEDROL) VIAL IV SCH ×2 (05:50→17:30)
[2022-10-31] MEDS: inSUlin ASPART (NovoLOG) 1 UNIT/0.01 ML (CHARGE PER UNIT) SC SCH ×4 (05:50→21:12)
[2022-10-31] MEDS: FUROSEMIDE 40 MG/4 ML INJ (LASIX) IVP SCH ×2 (06:23→17:30)
[2022-10-31] MEDS: RT--FLUTICASONE/SALMETEROL 113-14 (AIRDUO RespiCLICK) IH SCH ×2 (07:51→22:23)
--- NOTE | 2022-10-31 08:53 | Cardiology Progress Note ---
Subjective Date Seen by Provider: Oct 31, 2022 Time Seen by Provider: 08:47 Subjective/Events-last exam Patient was seen at bedside, laying down comfortably Still having wheezing and cough. Review of Systems General: No Chills, No Night Sweats; Fatigue, Malaise; No Appetite, No Other HEENT: No Head Aches, No Visual Changes, No Eye Pain, No Ear Pain, No Dysphasia, No Sinus Congestion, No Post Nasal Drip, No Sore Throat, No Other Pulmonary: Dyspnea, Cough; No Pleuritic Chest Pain, No Other Cardiovascular: No: Chest Pain, Palpitations, Orthopnea, Paroxysmal Noc. Dyspnea, Edema, Lt Headedness, Other Focused Exam Lactate Level 10/29/22 10:30: Lactic Acid Level 1.70 Time of Focused Exam: 08:15 Objective-Cardiology Exam Last Set of Vital Signs Vital Signs 10/31/22 10/31/22 10/31/22 07:33 07:38 07:51 Temp 36.1 Pulse 60 Resp 18 B/P (MAP) 104/59 (74) Pulse Ox 92 O2 Delivery Nasal Cannula O2 Flow Rate 2.00 I&O Intake and Output 10/30/22 23:59 Intake Total 2600 ml Output Total 2475 ml Balance 125 ml Intake Oral 2600 ml Output Urine Total 2475 ml # Voids 3 # Bowel Movements 1 General: Alert, Oriented X3, Cooperative HEENT: Atraumatic Neck: Supple Lungs: Other (expiratory wheezes throughout lung rosas, crackles in bilateral bases) Heart: Regular Rate, Normal S1, Normal S2 Extremities: No Clubbing Skin: Other (many ecchymoses present, on bilateral upper and lower extremities) Neuro: Normal Speech, Normal Tone, Sensation Intact Psych/Mental Status: Mental Status NL, Mood NL Results Lab Laboratory Tests 10/30/22 21:43 10/31/22 04:15 A/P-Cardiology Admission Diagnosis Pneumonia Pleuritic chest pain HTN HLP Assessment/Plan Pleuritic chest pain, likely due to pneumonia Repeat chest x-ray showed improvement Still having acute exacerbation of COPD with reactive airway disease, having active wheezing. Gram-positive bacteremia, 2 bottles of cultures were positive Patient is neutropenic. She was started on meropenem Identification of the bacteria still pending Marked neutropenia and considerable thrombocytopenia of undetermined etiology Pancytopenia, slightly worse today. Managed and followed by primary care physician History of autoimmune hepatitis, patient was on azathioprine Followed and managed with primary care physician Coronary artery disease -cardiac catheterization on 08/13/2013 revealed ectasia in the RCA with small vessel disease, slow flow in the RCA. 40-50 percent mid LAD stenosis, otherwise, nonobstructive disease. EF 60 percent - stress test and 2-D echocardiogram in September 2017 revealed no ischemia or infarct with normal EF 2D echo was done on October 30, 2022 with normal ejection fraction 55 to 60%, PA pressures 35 to 40 mmHg, grade 1 diastolic dysfunction. I did not notice any vegetation on her valvular structure and no significant valvular disease was noted. If her blood culture were staph aureus I will consider doing a MAURI Hypertension, was initially borderline hypotensive, currently blood pressure is better. Continue to monitor H/o hyperlipidemia, intolerance to statins Nonobstructive carotid artery stenosis per carotid duplex done November 2019 Obesity, BMI is 53 Chronic tobacco use - advised to quit COPD/asthma, educated on smoking cessation. Diabetes mellitus II H/o hypothyroidism, followed and managed by primary care physician H/o autoimmune hepatitis, followed and managed by primary care physician. H/o psoriasis, followed and managed by primary care physician STARLA COTA MD Oct 31, 2022 08:53
[2022-10-31] MEDS: LEVOTHYROXINE 75 MCG (LEVOTHROID) TABLET PO SCH (08:58)
[2022-10-31] MEDS: FOLIC ACID 1 MG TAB PO SCH (08:58)
[2022-10-31] MEDS: RIFAXIMIN 550 MG TABLET (XIFAXAN) PO SCH ×2 (08:58→21:05)
[2022-10-31] MEDS: DOCUSATE SODIUM 100 MG (COLACE) CAP PO SCH ×2 (08:59→21:04)
[2022-10-31] MEDS: SENNOSIDES 8.6 MG (SENOKOT) TAB PO SCH ×2 (08:59→21:05)
--- NOTE | 2022-10-31 09:15 | Progress Note ---
STEW SMITH 10/31/22 0915: Subjective Subjective/Events-last exam Patient is feeling physically better this morning but notes she is worried about the bacteremia and about her . She feels her breathing is improving. She is still on 2L oxygen. She states she is eating and drinking well without issue. She has been able to urinate and pass stool. Review of Systems General: Other (Reports frontal headache today) Pulmonary: Cough, Pleuritic Chest Pain Cardiovascular: Edema; No: Chest Pain, Palpitations Gastrointestinal: No: Nausea, Vomiting, Abdominal Pain, Diarrhea Genitourinary: No Incontinence, No Retention Neurological: No: Change in speech, Confusion Focused Exam Reason for ruling out sepsis: Does not meet SIRS criteria at this time. Lactate Level 10/29/22 10:30: Lactic Acid Level 1.70 Time of Focused Exam: 08:30 Respiratory: No Accessory Muscle Use, Wheezing (Still present but improved since yesterday) Cardiovascular: Regular Rate, Rhythm, Other (Edema, patient states it is consistent with baseline) Skin: ecchymosis (Multiple ecchymoses at multiple sites) Objective Exam Last Set of Vital Signs Vital Signs Date Time Temp Pulse Resp B/P (MAP) Pulse Ox O2 Delivery O2 Flow Rate FiO2 10/31/22 07:51 92 Nasal Cannula 2.00 10/31/22 07:38 60 10/31/22 07:33 36.1 18 104/59 (74) Capillary Refill : Less Than 3 Seconds I&O Intake and Output 10/31/22 00:00 Intake Total 2600 ml Output Total 2475 ml Balance 125 ml Intake Oral 2600 ml Output Urine Total 2475 ml # Voids 3 # Bowel Movements 1 General: Alert, Cooperative Lungs: Other (wheezing present, improved since yesterday) Heart: Regular Rate, Normal S1, Normal S2 Abdomen: Normal Bowel Sounds, Soft, No Tenderness Extremities: Other (lower extremity edema present) Skin: Other (ecchymoses present at mutiple sites) Neuro: Normal Speech Psych/Mental Status: Mental Status NL, Other (mood congruent) Results/Procedures Lab Laboratory Tests 10/30/22 10:47: Glucometer 275H 10/30/22 15:35: Glucometer 164H 10/30/22 20:26: Glucometer 218H 10/30/22 21:43: White Blood Count 1.0*L, Red Blood Count 3.08L, Hemoglobin 10.6L, Hematocrit 29L , Mean Corpuscular Volume 95, Mean Corpuscular Hemoglobin 34, Mean Corpuscular Hemoglobin Concent 36, Red Cell Distribution Width 16.2H, Platelet Count 62L, Mean Platelet Volume 10.5, Immature Granulocyte % (Auto) 4, Neutrophils (%) (Auto) 57, Lymphocytes (%) (Auto) 14, Monocytes (%) (Auto) 25H, Eosinophils (%) (Auto) 0, Basophils (%) (Auto) 0, Neutrophils # (Auto) 0.6L, Lymphocytes # (Auto) 0.1L, Monocytes # (Auto) 0.3, Eosinophils # (Auto) 0.0, Basophils # (Auto) 0.0, Immature Granulocyte # (Auto) 0.0, Neutrophils % (Manual) 61, Lymphocytes % (Manual) 13, Monocytes % (Manual) 26, Percent Immature Platelet Fraction 4.1, Polychromasia MARKED, Absolute Reticulocyte Count 94H, Percent Reticulocyte Count 3.05H 10/31/22 04:15: White Blood Count 1.2*L, Red Blood Count 3.36L, Hemoglobin 11.5, Hematocrit 32L, Mean Corpuscular Volume 96, Mean Corpuscular Hemoglobin 34, Mean Corpuscular Hemoglobin Concent 36, Red Cell Distribution Width 16.1H, Platelet Count 72L, Mean Platelet Volume 10.2, Immature Granulocyte % (Auto) 4, Neutrophils (%) (Auto) 56, Lymphocytes (%) (Auto) 24, Monocytes (%) (Auto) 14H, Eosinophils (%) (Auto) 1, Basophils (%) (Auto) 1, Neutrophils # (Auto) 0.7L, Lymphocytes # (Auto) 0.3L, Monocytes # (Auto) 0.2, Eosinophils # (Auto) 0.0, Basophils # (Auto) 0.0, Immature Granulocyte # (Auto) 0.1, Percent Immature Platelet Fraction 4.5, Sodium Level 132L, Potassium Level 3.7, Chloride Level 93L, Carbon Dioxide Level 25, Anion Gap 14, Blood Urea Nitrogen 22H, Creatinine 0.83, Estimat Glomerular Filtration Rate 77, BUN/Creatinine Ratio 27, Glucose Level 164H, Calcium Level 9.1, Corrected Calcium 9.9, Total Bilirubin 0.4, Aspartate Amino Transf (AST/SGOT) 21, Alanine Aminotransferase (ALT/SGPT) 15, Alkaline Phosphatase 46, Total Protein 7.1, Albumin 3.0L Microbiology 10/29/22 Blood Culture - Preliminary, Resulted Gram Positive Cocci in Cluster See Comments Radiology Chest XR 10/29/2022: pulmonary vascular congestion, possible infiltrate developing in right lung base. Assessment/Plan Assessment/Plan Admission Status: Inpatient Order (span 2 midnights) Assessment & Plan Diet: Regular DVT prophylaxis: none, thrombocytopenia Code status: DNR Dispo: Inpatient (1) Bacteremia due to Gram-positive bacteria Status: Acute Assessment & Plan: Blood cultures obtained 10/29/2022 positive for gram + cocci in clusters. Patient on Meropenem. Continue. Plan to repeat blood cultures. (2) CAP (community acquired pneumonia) Status: Acute Assessment & Plan: Blood cultures drawn on presentation. Postive for gram + cocci in clusters. Labs show neutropenia and thrombocytopenia. Improving slightly. Chest XR shows pulmonary vascular congestion, possible right base infiltrate. Repeat chest CR was WNL. Cardiology consulted due to chest pain, determined it is pleuritic in origin. EKG and ECHO obtained. Qualifiers: Qualified Codes: J18.9 - Pneumonia, unspecified organism (3) COPD exacerbation Status: Acute Assessment & Plan: Wheezing throughout lung rosas. Patient being treated with Solu-medrol, airduo, albuterol, singulair. Reports improvement in breathing. ABG results 10/30/2022 pCO2 44, pO2 60, HCO3 29, O2 sat 93, base excess 4.4 CXR obtained and repeated. Lungs sound better today. Decreased solu-medrol. (4) Pancytopenia Status: Acute Assessment & Plan: Pancytopenia. Normal CBC documented in April 2022. Peripheral smear ordered. Enoxiparin held. Consult hematology. Some improvement in blood counts from 10/30/2022 to 10/31/2022. (5) Pulmonary vascular congestion Status: Acute Assessment & Plan: CXR shows pulmonary vascular congestion. EKG obtained. ECHO results show grade 1 diastolic dysfunction of left ventricle. Repeat CXR showed congestion had improved. (6) Hypoxia Status: Chronic Assessment & Plan: Patient is on 2L of oxygen here. Patient states she has been told she should be on oxygen therapy at home but she is noncompliant. (7) Diabetes mellitus type 2 in obese Status: Chronic Assessment & Plan: Patient is on insulin aspart sliding scale. (8) CAD (coronary artery disease) Status: Chronic Qualifiers: Qualified Codes: I25.10 - Atherosclerotic heart disease of [place] coronary a rtery without angina pectoris (9) LY (obstructive sleep apnea) Status: Chronic Assessment & Plan: Non compliant with CPAP. (10) HTN (hypertension) Status: Chronic Qualifiers: Qualified Codes: I10 - Essential (primary) hypertension (11) Cigarette smoker Status: Chronic (12) Hyponatremia Status: Acute Assessment & Plan: Slowly improving. Continue current management. JP MONTANEZ MD 10/31/22 1852: Assessment/Plan Assessment/Plan (1) CAP (community acquired pneumonia) Status: Acute Qualifiers: Qualified Codes: J18.9 - Pneumonia, unspecified organism (2) CAD (coronary artery disease) Status: Chronic Qualifiers: Qualified Codes: I25.10 - Atherosclerotic heart disease of [place] coronary artery without angina pectoris (3) Pancytopenia Status: Acute (4) Hypoxia Status: Chronic (5) HTN (hypertension) Status: Chronic Qualifiers: Qualified Codes: I10 - Essential (primary) hypertension (6) LY (obstructive sleep apnea) Status: Chronic (7) COPD exacerbation Status: Acute (8) Diabetes mellitus type 2 in obese Status: Chronic (9) Pulmonary vascular congestion Status: Acute (10) Bacteremia due to Gram-positive bacteria Status: Acute (11) Hyponatremia Status: Acute (12) Cigarette smoker Status: Chronic (13) Autoimmune hepatitis Status: Chronic (14) Cirrhosis Status: Chronic Supervisory-Addendum Brief Verification & Attestation Participated in pt care: history, MDM, physical Personally performed: exam, history, MDM, supervision of care Care discussed with: Medical Student Procedures: n/a I personally saw and examined patient and did my own history and exam which confirm that documented by the medical student. I directed the plan of care as documented. Noted that she was on azathioprine for autoimmune hepatitis which can cause pancytopenia, held this when resuming her home meds. Appreciate Hematology and Cardiology recommendations. STEW SMITH Oct 31, 2022 09:15 JP MONTANEZ MD Oct 31, 2022 18:52
[2022-10-31] MEDS: ACETAMINOPHEN 325 MG TABLET PO PRN (10:58)
[2022-10-31] MEDS: dilTIAZem DRIP PRE-MIX 125 ML IV SCH (14:00)
--- NOTE | 2022-10-31 14:47 | Tele-ICU Consult ---
History of Present Illness History of Present Illness Date Seen by Provider: Oct 31, 2022 Time Seen by Provider: 14:46 Allergies and Home Medications Allergies Coded Allergies: cephalexin (Verified Allergy, Mild, 10/30/17) ciprofloxacin (Verified Allergy, Mild, 10/30/17) sulfamethoxazole (Verified Allergy, Mild, ITCH ALL OVER, 10/30/17) trimethoprim (Verified Allergy, Mild, ITCH ALL OVER, 10/30/17) Penicillins (Verified Allergy, Unknown, 10/30/17) Sulfa (Sulfonamide Antibiotics) (Verified Allergy, Unknown, 10/30/17) atorvastatin (Unverified Allergy, Unknown, EDEMA, 10/30/17) hydrocodone (Verified Allergy, Unknown, 10/30/17) tramadol (Verified Allergy, Unknown, 10/30/17) metformin (Unverified Adverse Reaction, Mild, NAUSEA, 10/30/17) Uncoded Allergies: RED MEAT (Allergy, Unknown, HIVES, 12/13/16) Home Medications Acetaminophen 500 Mg Tablet, 1,000 MG PO Q8H PRN for PAIN-MILD (1-4), (Reported) TAKES 2 (500MG) TABS Amlodipine Besylate 5 Mg Tablet, 5 MG PO DAILY, (Reported) Azathioprine 50 Mg Tablet, 50 MG PO 1200, (Reported) Cetirizine HCl 10 Mg Tablet, 10 MG PO HS, (Reported) Ezetimibe 10 Mg Tablet, 10 MG PO HS, (Reported) Fluoxetine HCl 20 Mg Capsule, 20 MG PO HS, (Reported) Folic Acid 1 Mg Tablet, 1 MG PO DAILY, (Reported) Furosemide 20 Mg Tablet, 20 MG PO DAILY PRN for FLUID RETENTION, (Reported) Levothyroxine Sodium 75 Mcg Tablet, 75 MCG PO DAILY, (Reported) Liraglutide 0.6 Mg/0.1 Ml (18 Mg/3 Ml) Pen.injctr, 1.8 MG SQ DAILY, (Reported) Lisinopril 5 Mg Tablet, 5 MG PO DAILY, (Reported) Potassium Chloride 20 Meq Tab.er.prt, 20 MEQ PO DAILY PRN for FLUID RETENTION, (Reported) Rifaximin 550 Mg Tablet, 550 MG PO BID, (Reported) Past Medical/Social/Family Hx Patient Social History Marrital Status: single Employed/Student: retired Tobacco Use?: Yes Tobacco type used: Cigarettes Smoking Status: Current Everyday Smoker Use of E-Cig and/or Vaping dev: No Substance use?: No Alcohol Use?: No Immunizations Up To Date Influenza Vaccine Up-to-Date: Yes; Up-to-Date Tetanus Booster (TDap): Unknown Date of Pneumonia Vaccine: Sep 26, 2016 Current Status Primary Language: Serbian Implanted or Applied Medical D: None Past Medical History Past Medical History 1. COPD- pt. used to see [facility] 2. Anxiety 3. DM-II not taking medications "diet controlled" 4. HTN 5. HLP 6. Hypothyroidism 7. Psoriasis 8. Mild non-obstructive coronary artery disease Is[place] 9. Chronic edema of her lower extremities with no history of CHF 10. LY- using CPAP and O2 at night 11. GERD 12. Childhood seizures-resolved 13. Extreme Morbid Obesity Past Surgical History 1. RU BSO 38 years ago 2. 36 years ago 3. Appendectomy- 40 years ago 4. Cholecystectomy 5. Teeth extraction 6. Cardiac Cath 2012 Focused Exam Lactate Level 10/29/22 10:30: Lactic Acid Level 1.70 Height, Weight, BMI Height: 5'3.00" Weight: 293lbs. 0.0oz. 132.699610nt; 45.93 BMI Method:Stated Time of Focused Exam: 08:30 Exam Exam Patient acknowledged, consented, and participated in this virtual visit which was conducted using real time audio/video Vital Signs Date Time Temp Pulse Resp B/P (MAP) Pulse Ox O2 Delivery O2 Flow Rate FiO2 10/31/22 14:00 159 123/80 10/31/22 13:59 141 115/68 10/31/22 12:49 159 10/31/22 12:47 129 10/31/22 12:45 84 20 123/80 (94) 94 Nasal Cannula 3.00 10/31/22 12:00 70 13 113/58 (76) 94 Nasal Cannula 3.00 10/31/22 11:50 36.4 70 18 111/54 (73) 91 Nasal Cannula 2.00 10/31/22 10:43 94 Nasal Cannula 3.00 10/31/22 08:00 71 19 129/68 (88) 92 Nasal Cannula 3.00 10/31/22 08:00 94 Nasal Cannula 2.00 10/31/22 07:51 92 Nasal Cannula 2.00 10/31/22 07:38 60 10/31/22 07:33 36.1 60 18 104/59 (74) 92 10/31/22 07:00 63 16 104/59 (74) 91 Nasal Cannula 2.00 10/31/22 04:00 36.0 66 20 113/62 (79) 94 Nasal Cannula 2.00 10/31/22 02:31 93 Nasal Cannula 2.00 10/31/22 01:00 71 10/31/22 00:02 36.5 70 19 118/56 (76) 92 Nasal Cannula 2.00 10/30/22 22:10 94 Nasal Cannula 2.00 10/30/22 20:17 36.0 74 15 128/65 (86) 91 Nasal Cannula 2.00 10/30/22 20:00 94 Nasal Cannula 2.00 10/30/22 19:00 72 10/30/22 18:50 Nasal Cannula 2.00 10/30/22 18:44 92 Nasal Cannula 2.00 10/30/22 17:00 88 23 113/58 (76) 92 Nasal Cannula 2.00 10/30/22 15:55 36.3 72 18 122/65 (84) 93 Nasal Cannula 2.00 10/30/22 15:04 93 Nasal Cannula 2.00 I & O 10/31/22 07:00 Intake Total 2080 ml Output Total 2875 ml Balance -795 ml Height & Weight Height: 5'3.00" Weight: 293lbs. 0.0oz. 132.985409lx; 45.93 BMI Method:Stated General Appearance: No Apparent Distress, Chronically ill, Obese HEENT: PERRL/EOMI, Normal ENT Inspection, Pharynx Normal, Moist Mucous Membranes Neck: Full Range of Motion, Normal Inspection, Non Tender Respiratory: No Accessory Muscle Use, Wheezing (Still present but improved since yesterday) Cardiovascular: Regular Rate, Rhythm, Other (Edema, patient states it is consistent with baseline) Capillary Refill: Less Than 3 Seconds Gastrointestinal: normal bowel sounds, non tender, soft, no organomegaly, no pulsatile mass Extremity: Normal Capillary Refill, Normal Inspection, Normal Range of Motion, Non Tender, No Calf Tenderness, No Pedal Edema Neurologic/Psychiatric: Alert, Oriented x3, No Motor/Sensory Deficits, Normal Mood/Affect Skin: Normal Color, Warm/Dry Lymphatic: No Adenopathy Results Lab Laboratory Tests 10/30/22 04:25 10/30/22 21:43 10/31/22 04:15 CECILE CORLEY MD Oct 31, 2022 14:47
--- NOTE | 2022-10-31 14:59 | Tele-ICU Consult ---
History of Present Illness History of Present Illness Date Seen by Provider: Oct 31, 2022 Time Seen by Provider: 14:56 Date of Admission History of Present Illness (Tele-ICU Physician , consultation) Available chart/ vitals / labs / Images reviewed H&P is from ER notes Patient's information available about PMH, allergy reviewed in EMR. ROS as per chart and RN report Video assessment done using teleICU camera, rest of exam as per RN Discussed with RN. She is a 67-year-old female with past medical history of fall hypertension, hyperlipidemia and COPD presented with cough weakness malaise and bilateral alloy rib cage pleuritic type of chest pain. She has a chronic leg swelling. Chest x-ray showed a right lower lobe infiltrate. She is admitted to medical floor and started on IV antibiotics. She is upon admission has a severe neutropenia and thrombocytopenia. Initially she was given Lovenox for DVT prophylaxis and now it is discontinued. She is transferred to the intensive care unit today because of atrial fibrillation and rapid ventricular rate. She was given earlier IV Lasix and repeat chest x-ray done yesterday showed improvement in the pulmonary infiltrate. However she continues to have a neutropenia etiology not clear. She has a history of eczema. She is morbidly obese with a BMI over 50 and she has been a chronic smoker. She carries a diagnosis of COPD/asthma. Also has a hypothyroidism and autoimmune hepatitis as well as psoriasis. Impression 1. New onset atrial fibrillation with rapid ventricular rate 2. Bilateral pleuritic type of chest pain in a patient who is morbidly obese and has a chronic leg swelling is a concern for DVT and pulmonary embolism. 3. Neutropenia and thrombocytopenia could be due to either sepsis or viral infection 4. History of hypertension 5. History of severe osteoarthritis of the knee. 6. COPD with possible exacerbation 7. Right lower lobe pneumonia 8. Tobacco abuse disorder. Recommendations 1. We will get D-dimer, PT/INR, venous Dopplers of the both lower limbs. If the D-dimer is elevated I will do a CT angiogram of the chest. 2. I would recommend therapeutic anticoagulation 3. We will repeat blood cultures to see whether the positive blood cultures from before or contaminant as it grew staph epidermidis. 4. Continue IV antibiotics for now and add vancomycin to cover staph aureus until we know for another. 5. Continue bronchodilator therapy 6. Advised her to quit smoking. 7. Afib with rvr per cardiology Allergies and Home Medications Allergies Coded Allergies: cephalexin (Verified Allergy, Mild, 10/30/17) ciprofloxacin (Verified Allergy, Mild, 10/30/17) sulfamethoxazole (Verified Allergy, Mild, ITCH ALL OVER, 10/30/17) trimethoprim (Verified Allergy, Mild, ITCH ALL OVER, 10/30/17) Penicillins (Verified Allergy, Unknown, 10/30/17) Sulfa (Sulfonamide Antibiotics) (Verified Allergy, Unknown, 10/30/17) atorvastatin (Unverified Allergy, Unknown, EDEMA, 10/30/17) hydrocodone (Verified Allergy, Unknown, 10/30/17) tramadol (Verified Allergy, Unknown, 10/30/17) metformin (Unverified Adverse Reaction, Mild, NAUSEA, 10/30/17) Uncoded Allergies: RED MEAT (Allergy, Unknown, HIVES, 12/13/16) Home Medications Acetaminophen 500 Mg Tablet, 1,000 MG PO Q8H PRN for PAIN-MILD (1-4), (Reported) TAKES 2 (500MG) TABS Amlodipine Besylate 5 Mg Tablet, 5 MG PO DAILY, (Reported) Azathioprine 50 Mg Tablet, 50 MG PO 1200, (Reported) Cetirizine HCl 10 Mg Tablet, 10 MG PO HS, (Reported) Ezetimibe 10 Mg Tablet, 10 MG PO HS, (Reported) Fluoxetine HCl 20 Mg Capsule, 20 MG PO HS, (Reported) Folic Acid 1 Mg Tablet, 1 MG PO DAILY, (Reported) Furosemide 20 Mg Tablet, 20 MG PO DAILY PRN for FLUID RETENTION, (Reported) Levothyroxine Sodium 75 Mcg Tablet, 75 MCG PO DAILY, (Reported) Liraglutide 0.6 Mg/0.1 Ml (18 Mg/3 Ml) Pen.injctr, 1.8 MG SQ DAILY, (Reported) Lisinopril 5 Mg Tablet, 5 MG PO DAILY, (Reported) Potassium Chloride 20 Meq Tab.er.prt, 20 MEQ PO DAILY PRN for FLUID RETENTION, (Reported) Rifaximin 550 Mg Tablet, 550 MG PO BID, (Reported) Past Medical/Social/Family Hx Patient Social History Marrital Status: single Employed/Student: retired Tobacco Use?: Yes Tobacco type used: Cigarettes Smoking Status: Current Everyday Smoker Use of E-Cig and/or Vaping dev: No Substance use?: No Alcohol Use?: No Immunizations Up To Date Influenza Vaccine Up-to-Date: Yes; Up-to-Date Tetanus Booster (TDap): Unknown Date of Pneumonia Vaccine: Sep 26, 2016 Current Status Primary Language: Estonian Implanted or Applied Medical D: None Past Medical History Past Medical History 1. COPD- pt. used to see [facility] 2. Anxiety 3. DM-II not taking medications "diet controlled" 4. HTN 5. HLP 6. Hypothyroidism 7. Psoriasis 8. Mild non-obstructive coronary artery disease Isabella 9. Chronic edema of her lower extremities with no history of CHF 10. LY- using CPAP and O2 at night 11. GERD 12. Childhood seizures-resolved 13. Extreme Morbid Obesity Past Surgical History 1. RU BSO 38 years ago 2. 36 years ago 3. Appendectomy- 40 years ago 4. Cholecystectomy 5. Teeth extraction 6. Cardiac Cath 2012 Review of Systems Constitutional: see HPI Other per attending physician Focused Exam Lactate Level 10/29/22 10:30: Lactic Acid Level 1.70 Height, Weight, BMI Height: 5'3.00" Weight: 293lbs. 0.0oz. 132.434440ed; 45.93 BMI Method:Stated Time of Focused Exam: 08:30 Exam Exam Patient acknowledged, consented, and participated in this virtual visit which was conducted using real time audio/video Vital Signs Date Time Temp Pulse Resp B/P (MAP) Pulse Ox O2 Delivery O2 Flow Rate FiO2 10/31/22 14:00 159 123/80 10/31/22 13:59 141 115/68 10/31/22 12:49 159 10/31/22 12:47 129 10/31/22 12:45 84 20 123/80 (94) 94 Nasal Cannula 3.00 10/31/22 12:00 70 13 113/58 (76) 94 Nasal Cannula 3.00 10/31/22 11:50 36.4 70 18 111/54 (73) 91 Nasal Cannula 2.00 10/31/22 10:43 94 Nasal Cannula 3.00 10/31/22 08:00 71 19 129/68 (88) 92 Nasal Cannula 3.00 10/31/22 08:00 94 Nasal Cannula 2.00 10/31/22 07:51 92 Nasal Cannula 2.00 10/31/22 07:38 60 10/31/22 07:33 36.1 60 18 104/59 (74) 92 10/31/22 07:00 63 16 104/59 (74) 91 Nasal Cannula 2.00 10/31/22 04:00 36.0 66 20 113/62 (79) 94 Nasal Cannula 2.00 10/31/22 02:31 93 Nasal Cannula 2.00 10/31/22 01:00 71 10/31/22 00:02 36.5 70 19 118/56 (76) 92 Nasal Cannula 2.00 10/30/22 22:10 94 Nasal Cannula 2.00 10/30/22 20:17 36.0 74 15 128/65 (86) 91 Nasal Cannula 2.00 10/30/22 20:00 94 Nasal Cannula 2.00 10/30/22 19:00 72 10/30/22 18:50 Nasal Cannula 2.00 10/30/22 18:44 92 Nasal Cannula 2.00 10/30/22 17:00 88 23 113/58 (76) 92 Nasal Cannula 2.00 10/30/22 15:55 36.3 72 18 122/65 (84) 93 Nasal Cannula 2.00 10/30/22 15:04 93 Nasal Cannula 2.00 I & O 10/31/22 07:00 Intake Total 2080 ml Output Total 2875 ml Balance -795 ml Height & Weight Height: 5'3.00" Weight: 293lbs. 0.0oz. 132.395942uw; 45.93 BMI Method:Stated General Appearance: No Apparent Distress, Chronically ill, Obese HEENT: PERRL/EOMI, Normal ENT Inspection, Pharynx Normal, Moist Mucous Membranes Neck: Full Range of Motion, Normal Inspection, Non Tender Respiratory: No Accessory Muscle Use, Wheezing (Still present but improved since yesterday) Cardiovascular: Regular Rate, Rhythm, Other (Edema, patient states it is consistent with baseline) Capillary Refill: Less Than 3 Seconds Gastrointestinal: normal bowel sounds, non tender, soft, no organomegaly, no pulsatile mass Extremity: Normal Capillary Refill, Normal Inspection, Normal Range of Motion, Non Tender, No Calf Tenderness, No Pedal Edema Neurologic/Psychiatric: Alert, Oriented x3, No Motor/Sensory Deficits, Normal Mood/Affect Skin: Normal Color, Warm/Dry Lymphatic: No Adenopathy Results Lab Laboratory Tests 10/30/22 04:25 10/30/22 21:43 10/31/22 04:15 Assessment/Plan Assessment/Plan as above Critical Care: Critically Ill Patient Time spent with patient (mins): 40 CECILE CORLEY MD Oct 31, 2022 14:59
--- NOTE | 2022-10-31 16:10 | Diagnostic Imaging Report ---
PROCEDURE: US Venous Lower Ext Jesus. TECHNIQUE: Multiple real-time grayscale images were obtained over the lower extremities in various projections, bilaterally. Additional duplex Doppler and color Doppler images were also obtained. INDICATION: Lower extremity swelling. FINDINGS: There is no evidence of right or left lower extremity DVT. Both lower extremity deep venous systems show normal compressibility with normal response to augmentation and Valsalva. No fluid collection or mass is detected. IMPRESSION: No evidence of right or left lower extremity DVT. Dictated by: Dictated on workstation # [id number]
[2022-10-31 17:04] LABS: FREE T4 (FREE THYROXINE) 0.98 NG/DL (0.70-1.48)
[2022-10-31] MEDS ORDERED: IOHEXOL 350 MG/ML 100 ML (OMNIPAQUE 350) VIAL IV ONE (19:45)
[2022-10-31] MEDS ORDERED: NS 100 ML (IVPB) BAG IV ONE (19:45)
--- NOTE | 2022-10-31 20:44 | Diagnostic Imaging Report ---
PROCEDURE: CT angiography of the chest with contrast. TECHNIQUE: Multiple contiguous axial images were obtained through the chest after uneventful bolus administration of intravenous contrast. 3D reconstructed CTA MIP acquisitions were also performed. Auto Exposure Controls were utilized during the CT exam to meet ALARA standards for radiation dose reduction. INDICATION: Shortness of air, elevated D-dimer COMPARISON: 10/20/2019 FINDINGS: No significant adenopathy within the chest. Scattered vascular calcifications, including advanced calcifications within the coronary arteries. No aneurysmal dilatation of the thoracic aorta. The heart is enlarged. No significant pericardial effusion. No significant pleural effusion. No pneumothorax. Mild background emphysematous changes. Stable 0.5 cm left upper lobe pulmonary nodule, benign. Focal dense consolidation/opacities noted within the left lower lobe with minimal reticular opacities also noted within the lingula. New focal groundglass opacities within the inferior right upper lobe, best seen on series 3, image 71. There is mild scarring and/or atelectasis within the inferior right lower lobe. 1.2 cm pulmonary nodule pleural-based within the right middle lobe is unchanged since 2019, and benign. No significant filling defect within the central or segmental pulmonary arteries. 2.8 cm hypodense mass lesion within the left adrenal gland is again identified and not significantly changed from the prior examination. The visualized upper abdomen is otherwise unremarkable. Stable vertebral body height loss within the mid to lower thoracic spine. Scattered osseous degenerative changes without acute osseous abnormality. IMPRESSION: No significant pulmonary embolus. Dense focal consolidation within the left lower lobe extending into the lingula, this is favored to relate to underlying pneumonia. Patchy ground glass opacities within the inferior right upper lobe. This is also concerning for an infectious infiltrate. Radiographic follow-up after appropriate therapy is recommended. Advanced calcifications within the coronary arteries. Mild background emphysematous changes. Bilateral pulmonary nodules are stable from 2 years prior and benign. Benign left adrenal gland mass, felt to relate to an adenoma. Dictated by: Dictated on workstation # [id number]
[2022-10-31] MEDS ORDERED: APIXABAN 5 MG (ELIQUIS) TABLET PO SCH (21:00)
[2022-10-31] MEDS: FLUoxetine HCL 20 MG (PROzac) CAP PO SCH (21:04)
[2022-10-31] MEDS: LORATADINE (CLARITIN) 10 MG TAB PO SCH (21:05)
[2022-10-31] MEDS: MONTELUKAST 10 MG (SINGULAIR) TAB PO SCH (21:05)
[2022-10-31] MEDS: MICONAZOLE 2% POWDER (DESENEX AF) 90 GM TOP SCH (21:15)
[2022-11-01] MEDS: dilTIAZem DRIP PRE-MIX 125 ML IV SCH ×2 (00:39→13:28)
[2022-11-01] MEDS: MEROPENEM 500 MG/NS 100 ML IVPB IV SCH ×8 (00:40→18:21)
[2022-11-01] MEDS: RT-ALBUTEROL SULF 2.5 MG/3 ML PRE-MIX VIAL INH SCH ×4 (03:10→18:52)
[2022-11-01 03:29] LABS: BASOPHILS % (AUTO) 0 % (0-10); EOSINOPHILS % (AUTO) 0 % (0-10)
[2022-11-01 03:31] LABS: HEMATOCRIT 30 % (35-52); LYMPHOCYTES # (AUTO) 0.2 10^3/uL (1.0-4.0); LYMPHOCYTES % (AUTO) 27 % (12-44); MEAN CORPUSCULAR HEMOGLOBIN 35 pg (25-34); MEAN CORPUSCULAR HGB CONC 36 g/dL (32-36); MEAN CORPUSCULAR VOLUME 96 fL (80-99); MEAN PLATELET VOLUME 10.8 fL (9.0-12.2); MONOCYTES # (AUTO) 0.1 10^3/uL (0.0-1.0); MONOCYTES % (AUTO) 8 % (0-12); NEUTROPHILS # (AUTO) 0.5 10^3/uL (1.8-7.8); NEUTROPHILS % (AUTO) 60 % (42-75); PLATELET COUNT 71 10^3/uL (130-400)
[2022-11-01 03:33] LABS: WHITE BLOOD COUNT 0.9 10^3/uL (4.3-11.0)
[2022-11-01 03:49] LABS: ALBUMIN 2.8 GM/DL (3.2-4.5)
[2022-11-01 03:50] LABS: POTASSIUM 3.5 MMOL/L (3.6-5.0)
[2022-11-01 03:51] LABS: CALCIUM 8.5 MG/DL (8.5-10.1)
[2022-11-01 03:52] LABS: TOTAL PROTEIN 6.5 GM/DL (6.4-8.2)
[2022-11-01 03:54] LABS: BILIRUBIN,TOTAL 0.4 MG/DL (0.1-1.0)
[2022-11-01 03:56] LABS: CREATININE SERUM 0.73 MG/DL (0.60-1.30)
[2022-11-01] MEDS: RT--FLUTICASONE/SALMETEROL 113-14 (AIRDUO RespiCLICK) IH SCH ×2 (06:42→18:53)
[2022-11-01] MEDS: inSUlin ASPART (NovoLOG) 1 UNIT/0.01 ML (CHARGE PER UNIT) SC SCH ×4 (07:04→21:34)
[2022-11-01] MEDS: methylPREDNISolone 40 MG/ML (Solu-MEDROL) VIAL IV SCH ×2 (07:28→18:19)
[2022-11-01 07:31] LABS: MAGNESIUM 1.9 MG/DL (1.6-2.4); PHOSPHORUS 3.3 MG/DL (2.3-4.7)
--- NOTE | 2022-11-01 07:59 | Tele-ICU Progress Note ---
Subjective Date Seen by a Provider: Nov 01, 2022 Time Seen by a Provider: 07:59 Sepsis Event Evaluation Height, Weight, BMI Height: 5'3.00" Weight: 293lbs. 0.0oz. 132.565102lk; 45.93 BMI Method:Stated Focused Exam Lactate Level 10/29/22 10:30: Lactic Acid Level 1.70 Time of Focused Exam: 08:30 Exam Exam Patient acknowledged, consented, and participated in this virtual visit which was conducted using real time audio/video Vital Signs Date Time Temp Pulse Resp B/P (MAP) Pulse Ox O2 Delivery O2 Flow Rate FiO2 11/01/22 06:42 96 Nasal Cannula 3.00 11/01/22 06:00 65 8 112/63 (79) 96 Nasal Cannula 2.00 11/01/22 05:00 65 16 110/61 (77) 95 Nasal Cannula 2.00 11/01/22 04:00 74 18 117/68 (84) 94 Nasal Cannula 2.00 11/01/22 03:39 95 Nasal Cannula 2.00 11/01/22 03:10 95 Nasal Cannula 3.00 11/01/22 03:00 81 16 99/71 (80) 94 Nasal Cannula 2.00 11/01/22 02:00 67 10 98/65 (76) 94 Nasal Cannula 2.00 11/01/22 01:00 74 11/01/22 01:00 66 33 117/67 (84) 94 Nasal Cannula 2.00 11/01/22 00:39 75 113/67 11/01/22 00:00 58 17 116/60 (78) 93 Nasal Cannula 2.00 10/31/22 23:59 95 Nasal Cannula 2.00 10/31/22 23:00 79 20 105/61 (76) 95 Nasal Cannula 2.00 10/31/22 22:24 95 Nasal Cannula 3.00 10/31/22 22:00 82 14 99/51 (67) 95 Nasal Cannula 2.00 10/31/22 21:00 98 21 91/56 (68) 93 Nasal Cannula 2.00 10/31/22 20:45 87 11 111/88 (96) 93 Nasal Cannula 2.00 10/31/22 20:00 36.5 10/31/22 20:00 94 Nasal Cannula 2.00 10/31/22 20:00 84 12 93 Nasal Cannula 2.00 10/31/22 19:47 98 Nasal Cannula 3.00 10/31/22 19:00 86 22 105/62 (76) 93 Nasal Cannula 2.00 10/31/22 19:00 86 10/31/22 18:00 108 18 102/65 (77) 93 Nasal Cannula 3.00 10/31/22 17:00 96 10 105/58 (74) 95 Nasal Cannula 3.00 10/31/22 16:00 94 Nasal Cannula 3.00 10/31/22 16:00 105 14 97/63 (74) 93 Nasal Cannula 3.00 10/31/22 15:53 36.3 10/31/22 15:30 110 10 114/62 (79) 94 Nasal Cannula 3.00 10/31/22 15:15 110 19 97/60 (72) 94 Nasal Cannula 2.50 10/31/22 15:00 112 26 105/78 (87) 94 Nasal Cannula 2.50 10/31/22 14:45 115 18 100/68 (79) 94 Nasal Cannula 2.50 10/31/22 14:30 105 22 100/65 (77) 93 Nasal Cannula 2.50 10/31/22 14:15 123 40 88/64 (72) 92 Nasal Cannula 2.50 10/31/22 14:00 159 123/80 10/31/22 14:00 137 36 100/75 (83) 93 Nasal Cannula 2.50 10/31/22 13:59 141 115/68 10/31/22 13:45 129 27 115/68 (84) 93 Nasal Cannula 2.50 10/31/22 13:30 118 24 92/66 (75) 93 Nasal Cannula 2.50 10/31/22 13:20 133 10/31/22 12:49 159 10/31/22 12:47 129 10/31/22 12:45 84 20 123/80 (94) 94 Nasal Cannula 3.00 10/31/22 12:00 70 13 113/58 (76) 94 Nasal Cannula 3.00 10/31/22 11:50 36.4 70 18 111/54 (73) 91 Nasal Cannula 2.00 10/31/22 10:43 94 Nasal Cannula 3.00 10/31/22 08:00 71 19 129/68 (88) 92 Nasal Cannula 3.00 10/31/22 08:00 94 Nasal Cannula 2.00 I & O 11/01/22 07:00 Intake Total 1670 ml Output Total 1400 ml Balance 270 ml Height & Weight Height: 5'3.00" Weight: 293lbs. 0.0oz. 132.056631wk; 45.93 BMI Method:Stated General Appearance: No Apparent Distress, Chronically ill, Obese HEENT: PERRL/EOMI, Normal ENT Inspection, Pharynx Normal, Moist Mucous Membranes Neck: Full Range of Motion, Normal Inspection, Non Tender Respiratory: No Accessory Muscle Use, Wheezing (Still present but improved since yesterday) Cardiovascular: Regular Rate, Rhythm, Other (Edema, patient states it is consistent with baseline) Capillary Refill: Less Than 3 Seconds Gastrointestinal: normal bowel sounds, non tender, soft, no organomegaly, no pulsatile mass Extremity: Normal Capillary Refill, Normal Inspection, Normal Range of Motion, Non Tender, No Calf Tenderness, No Pedal Edema Neurologic/Psychiatric: Alert, Oriented x3, No Motor/Sensory Deficits, Normal Mood/Affect Skin: Normal Color, Warm/Dry Lymphatic: No Adenopathy Results Lab Laboratory Tests 10/30/22 21:43 10/31/22 04:15 11/01/22 03:06 CECILE CORLEY MD Nov 01, 2022 07:59
--- NOTE | 2022-11-01 08:06 | Tele-ICU Progress Note ---
Subjective Date Seen by a Provider: Nov 01, 2022 Time Seen by a Provider: 08:00 Subjective/Events-last exam Tele-ICU Physician , consultation) Available chart/ vitals / labs / Images reviewed H&P is from ER notes Patient's information available about PMH, allergy reviewed in EMR. ROS as per chart and RN report Video assessment done using teleICU camera, rest of exam as per RN Discussed with RN. She is a 67-year-old female with past medical history of fall hypertension, hyperlipidemia and COPD presented with cough weakness malaise and bilateral alloy rib cage pleuritic type of chest pain. She has a chronic leg swelling. Chest x-ray showed a right lower lobe infiltrate. She is admitted to medical floor and started on IV antibiotics. She is upon admission has a severe neutropenia and thrombocytopenia. Initially she was given Lovenox for DVT prophylaxis and now it is discontinued. She is transferred to the intensive care unit today because of atrial fibrillation and rapid ventricular rate. She was given earlier IV Lasix and repeat chest x-ray done yesterday showed improvement in the pulmonary infiltrate. However she continues to have a neutropenia etiology not clear. She has a history of eczema. She is morbidly obese with a BMI over 50 and she has been a chronic smoker. She carries a diagnosis of COPD/asthma. Also has a hypothyroidism and autoimmune hepatitis as well as psoriasis. today wbc is 0.9. CTA chest swoed no PE but has jesus. pneumonia. venous dopplers showed no DVT Impression 1. New onset atrial fibrillation with rapid ventricular rate now rate controll ed 2. Bilateral pleuritic type of chest pain probably due to pneumonia. 3. Neutropenia and thrombocytopenia could be due to either sepsis or viral infection or malignancy 4. History of hypertension 5. History of severe osteoarthritis of the knee. 6. COPD with possible exacerbation 7. Jesus. pneumonia 8. Tobacco abuse disorder. 9. Possible hemopoietic malignancies considered. Recommendations 1. Suggest bone marrow biopsy. 2. consider neupogen 3. We will repeat blood cultures to see whether the positive blood cultures from before or contaminant as it grew staph epidermidis. 4. Continue IV antibiotics for now and add vancomycin to cover staph aureus until we know for further. 5. Continue bronchodilator therapy 6. Advised her to quit smoking. 7. Afib with rvr per cardiology 8. Discussed with Patient via video visit. 9. she is apixaban now Sepsis Event Evaluation Height, Weight, BMI Height: 5'3.00" Weight: 293lbs. 0.0oz. 132.455992hd; 45.93 BMI Method:Stated Focused Exam Lactate Level 10/29/22 10:30: Lactic Acid Level 1.70 Time of Focused Exam: 08:30 Exam Exam Patient acknowledged, consented, and participated in this virtual visit which was conducted using real time audio/video Vital Signs Date Time Temp Pulse Resp B/P (MAP) Pulse Ox O2 Delivery O2 Flow Rate FiO2 11/01/22 06:42 96 Nasal Cannula 3.00 11/01/22 06:00 65 8 112/63 (79) 96 Nasal Cannula 2.00 11/01/22 05:00 65 16 110/61 (77) 95 Nasal Cannula 2.00 11/01/22 04:00 74 18 117/68 (84) 94 Nasal Cannula 2.00 11/01/22 03:39 95 Nasal Cannula 2.00 11/01/22 03:10 95 Nasal Cannula 3.00 11/01/22 03:00 81 16 99/71 (80) 94 Nasal Cannula 2.00 11/01/22 02:00 67 10 98/65 (76) 94 Nasal Cannula 2.00 11/01/22 01:00 74 11/01/22 01:00 66 33 117/67 (84) 94 Nasal Cannula 2.00 11/01/22 00:39 75 113/67 11/01/22 00:00 58 17 116/60 (78) 93 Nasal Cannula 2.00 10/31/22 23:59 95 Nasal Cannula 2.00 10/31/22 23:00 79 20 105/61 (76) 95 Nasal Cannula 2.00 10/31/22 22:24 95 Nasal Cannula 3.00 10/31/22 22:00 82 14 99/51 (67) 95 Nasal Cannula 2.00 10/31/22 21:00 98 21 91/56 (68) 93 Nasal Cannula 2.00 10/31/22 20:45 87 11 111/88 (96) 93 Nasal Cannula 2.00 10/31/22 20:00 36.5 10/31/22 20:00 94 Nasal Cannula 2.00 10/31/22 20:00 84 12 93 Nasal Cannula 2.00 10/31/22 19:47 98 Nasal Cannula 3.00 10/31/22 19:00 86 22 105/62 (76) 93 Nasal Cannula 2.00 10/31/22 19:00 86 10/31/22 18:00 108 18 102/65 (77) 93 Nasal Cannula 3.00 10/31/22 17:00 96 10 105/58 (74) 95 Nasal Cannula 3.00 10/31/22 16:00 94 Nasal Cannula 3.00 10/31/22 16:00 105 14 97/63 (74) 93 Nasal Cannula 3.00 10/31/22 15:53 36.3 10/31/22 15:30 110 10 114/62 (79) 94 Nasal Cannula 3.00 10/31/22 15:15 110 19 97/60 (72) 94 Nasal Cannula 2.50 10/31/22 15:00 112 26 105/78 (87) 94 Nasal Cannula 2.50 10/31/22 14:45 115 18 100/68 (79) 94 Nasal Cannula 2.50 10/31/22 14:30 105 22 100/65 (77) 93 Nasal Cannula 2.50 10/31/22 14:15 123 40 88/64 (72) 92 Nasal Cannula 2.50 10/31/22 14:00 159 123/80 10/31/22 14:00 137 36 100/75 (83) 93 Nasal Cannula 2.50 10/31/22 13:59 141 115/68 10/31/22 13:45 129 27 115/68 (84) 93 Nasal Cannula 2.50 10/31/22 13:30 118 24 92/66 (75) 93 Nasal Cannula 2.50 10/31/22 13:20 133 10/31/22 12:49 159 10/31/22 12:47 129 10/31/22 12:45 84 20 123/80 (94) 94 Nasal Cannula 3.00 10/31/22 12:00 70 13 113/58 (76) 94 Nasal Cannula 3.00 10/31/22 11:50 36.4 70 18 111/54 (73) 91 Nasal Cannula 2.00 10/31/22 10:43 94 Nasal Cannula 3.00 I & O 11/01/22 07:00 Intake Total 1670 ml Output Total 1400 ml Balance 270 ml Height & Weight Height: 5'3.00" Weight: 293lbs. 0.0oz. 132.696402rj; 45.93 BMI Method:Stated General Appearance: No Apparent Distress, Chronically ill, Obese HEENT: PERRL/EOMI, Normal ENT Inspection, Pharynx Normal, Moist Mucous Membranes Neck: Full Range of Motion, Normal Inspection, Non Tender Respiratory: No Accessory Muscle Use, Wheezing (Still present but improved since yesterday) Cardiovascular: Regular Rate, Rhythm, Other (Edema, patient states it is consistent with baseline) Capillary Refill: Less Than 3 Seconds Gastrointestinal: normal bowel sounds, non tender, soft, no organomegaly, no pulsatile mass Extremity: Normal Capillary Refill, Normal Inspection, Normal Range of Motion, Non Tender, No Calf Tenderness, No Pedal Edema Neurologic/Psychiatric: Alert, Oriented x3, No Motor/Sensory Deficits, Normal Mood/Affect Skin: Normal Color, Warm/Dry Lymphatic: No Adenopathy Results Lab Laboratory Tests 10/30/22 21:43 10/31/22 04:15 11/01/22 03:06 Assessment/Plan Assessment/Plan as above Critical Care: Critically Ill Patient Time spent with patient (mins): 20 CECILE CORLEY MD Nov 01, 2022 08:06
[2022-11-01] MEDS ORDERED: KCL 20 MEQ TAB (K-DUR) PO NR (08:30)
[2022-11-01] MEDS ORDERED: NS IV 500 ML 500 ML IV PRN (08:30)
[2022-11-01] MEDS: FUROSEMIDE 40 MG/4 ML INJ (LASIX) IVP SCH ×2 (09:52→18:19)
[2022-11-01] MEDS: RIFAXIMIN 550 MG TABLET (XIFAXAN) PO SCH ×2 (09:52→20:59)
[2022-11-01] MEDS: DOCUSATE SODIUM 100 MG (COLACE) CAP PO SCH ×2 (09:53→21:35)
[2022-11-01] MEDS: FOLIC ACID 1 MG TAB PO SCH (09:53)
[2022-11-01] MEDS: LEVOTHYROXINE 75 MCG (LEVOTHROID) TABLET PO SCH (09:53)
[2022-11-01] MEDS: SENNOSIDES 8.6 MG (SENOKOT) TAB PO SCH ×2 (09:53→21:35)
[2022-11-01] MEDS: MICONAZOLE 2% POWDER (DESENEX AF) 90 GM TOP SCH ×2 (09:54→21:00)
[2022-11-01] MEDS: TBO-FILGRASTIM 480 MCG/0.8 ML (GRANIX) SQ SCH (09:54)
--- NOTE | 2022-11-01 10:21 | Cardiology Progress Note ---
Subjective Date Seen by Provider: Nov 01, 2022 Time Seen by Provider: 08:55 Subjective/Events-last exam Patient in bed, continues to c/o cough and dyspnea. Denies any chest pain Focused Exam Lactate Level Time of Focused Exam: 08:30 Objective-Cardiology Exam Last Set of Vital Signs Vital Signs 11/01/22 11/01/22 11/01/22 14:00 14:35 16:42 Temp 36.3 Pulse 93 Resp 25 B/P (MAP) 108/75 (86) Pulse Ox 94 O2 Delivery Nasal Cannula O2 Flow Rate 3.00 I&O Intake and Output 11/01/22 00:00 Intake Total 1625 ml Output Total 1600 ml Balance 25 ml Intake Oral 1425 ml IV Total 200 ml Output Urine Total 1600 ml # Voids 1 General: Alert, Cooperative HEENT: Atraumatic Neck: Supple Lungs: Other (wheezing present, improved since yesterday) Heart: Normal S1, Normal S2, Other (irregularly irregular) Abdomen: Normal Bowel Sounds, Soft, No Tenderness Extremities: Other (lower extremity edema present) Skin: Other (ecchymoses present at mutiple sites) Neuro: Normal Speech Psych/Mental Status: Mental Status NL, Other (mood congruent) Results Lab Laboratory Tests 11/01/22 03:06 11/01/22 12:05 A/P-Cardiology Admission Diagnosis Pneumonia Pleuritic chest pain HTN HLP Assessment/Plan New onset afib with RVR, started on Cardizem gtt, Eliquis. Rate better controlled. Pleuritic chest pain, likely due to pneumonia Repeat chest x-ray showed improvement Still having acute exacerbation of COPD with reactive airway disease, having active wheezing. Gram-positive bacteremia, 2 bottles of cultures were positive Patient is neutropenic. She was started on meropenem Identification of the bacteria still pending Marked neutropenia and considerable thrombocytopenia of undetermined etiology Pancytopenia. Managed and followed by primary care physician History of autoimmune hepatitis, patient was on azathioprine Followed and managed with primary care physician Coronary artery disease -cardiac catheterization on 08/13/2013 revealed ectasia in the RCA with small vessel disease, slow flow in the RCA. 40-50 percent mid LAD stenosis, otherwise, nonobstructive disease. EF 60 percent - stress test and 2-D echocardiogram in September 2017 revealed no ischemia or infarct with normal EF 2D echo was done on October 30, 2022 with normal ejection fraction 55 to 60%, PA pressures 35 to 40 mmHg, grade 1 diastolic dysfunction. I did not notice any vegetation on her valvular structure and no significant valvular disease was noted. If her blood culture were staph aureus I will consider doing a MAURI Hypertension, was initially borderline hypotensive, currently blood pressure is better. Continue to monitor H/o hyperlipidemia, intolerance to statins Nonobstructive carotid artery stenosis per carotid duplex done November 2019 Obesity, BMI is 53 Chronic tobacco use - advised to quit COPD/asthma, educated on smoking cessation. Diabetes mellitus II H/o hypothyroidism, followed and managed by primary care physician H/o autoimmune hepatitis, followed and managed by primary care physician. H/o psoriasis, followed and managed by primary care physician Supervisory-Addendum Brief Supervisory Addendum Participated in pt care: history, MDM, physical Personally performed: exam, history, MDM Care discussed with: NADEGE Results interpretation: Verified all documentation Notes: Patient was seen and evaluated with Maddie, examination performed, management plan was discussed, agree with the current scribed note, I made few changes to the note using Italic font Patient was seen at bedside, laying down comfortably I transferred her to ICU last night and started her on Cardizem drip Heart rate is better controlled, Discussed the possibility of doing cardioversion tomorrow, I will start her on heparin drip for now due to the fact that she has pancytopenia, I can stop the heparin as needed and will monitor her closely. MADDIE KEMP Nov 01, 2022 10:21 STARLA COTA MD Nov 01, 2022 16:44
[2022-11-01 10:56] VITALS: BP 128/80
[2022-11-01 12:29] LABS: HEMOGLOBIN 11.7 g/dL (11.5-16.0)
[2022-11-01 12:31] LABS: MEAN PLATELET VOLUME 9.6 fL (9.0-12.2)
[2022-11-01 12:34] LABS: WHITE BLOOD COUNT 0.8 10^3/uL (4.3-11.0)
[2022-11-01 12:44] LABS: PROTHROMBIN TIME PATIENT 13.8 SEC (12.2-14.7)
[2022-11-01] MEDS: HEParin 1000 UNIT/ML (10ML VIAL) FOR BOLUS IV SCH (13:43)
[2022-11-01] MEDS: HEParin DRIP 25000 UNIT/500ML 500 ML IV SCH (13:47)
[2022-11-01] MEDS ORDERED: VANCOMYCIN INJECTION 0.1 MG in NS (IVPB) 250 ML IV SCH (14:45)
[2022-11-01] MEDS ORDERED: VANCOMYCIN 2000 MG/NS 500 ML IVPB IV NR ×2 (15:30)
[2022-11-01] MEDS: ACETAMINOPHEN 325 MG TABLET PO PRN (16:32)
--- NOTE | 2022-11-01 16:52 | Progress Note ---
STEW COOK 11/01/22 5222: Subjective Subjective/Events-last exam Patient reports she feels better today. She states she is breathing better. She is eating, drinking, urinating. Has not stooled for two days but states this is normal for her, does not want intervention at this time. Patient was moved to the ICU due to new onset atrial fibrillation with RVR. Patient restarted on some of her home medications. Review of Systems Pulmonary: Other (Patient states her breathing feels much improved since admission) Cardiovascular: Palpitations; No: Chest Pain Gastrointestinal: Constipation (Patient states this is normal for her, does not want any intervention at this time); No: Vomiting Focused Exam Time of Focused Exam: 08:30 Respiratory: No Accessory Muscle Use, No Respiratory Distress, Wheezing Cardiovascular: Irregularly Irregular, Other (edema present) Skin: ecchymosis (ecchymosis at multiple sites) Objective Exam Last Set of Vital Signs Vital Signs Date Time Temp Pulse Resp B/P (MAP) Pulse Ox O2 Delivery O2 Flow Rate FiO2 11/01/22 16:42 36.3 11/01/22 14:35 94 Nasal Cannula 3.00 11/01/22 14:00 93 25 108/75 (86) Capillary Refill : Less Than 3 Seconds I&O Intake and Output 11/01/22 00:00 Intake Total 1625 ml Output Total 1600 ml Balance 25 ml Intake Oral 1425 ml IV Total 200 ml Output Urine Total 1600 ml # Voids 1 General: Alert, Oriented X3, Cooperative Lungs: Other (wheezing throughout lung rosas) Heart: Other (Irregulaly irregular rythm) Abdomen: Normal Bowel Sounds Extremities: Other (lower extremity edema, consistent with patient's baseline) Skin: Other (ecchymoses at many sites) Psych/Mental Status: Mental Status NL, Other (Mood congruent) Results/Procedures Lab Laboratory Tests 10/31/22 20:45: Glucometer 203H 11/01/22 03:06: White Blood Count 0.9*L, Red Blood Count 3.15L, Hemoglobin 11.0L, Hematocrit 30L , Mean Corpuscular Volume 96, Mean Corpuscular Hemoglobin 35H, Mean Corpuscular Hemoglobin Concent 36, Red Cell Distribution Width 16.1H, Platelet Count 71L, Mean Platelet Volume 10.8, Immature Granulocyte % (Auto) 5, Neutrophils (%) (Auto) 60, Lymphocytes (%) (Auto) 27, Monocytes (%) (Auto) 8, Eosinophils (%) (Auto) 0, Basophils (%) (Auto) 0, Neutrophils # (Auto) 0.5L, Lymphocytes # (Auto) 0.2L, Monocytes # (Auto) 0.1, Eosinophils # (Auto) 0.0, Basophils # (Auto) 0.0, Immature Granulocyte # (Auto) 0.0, Percent Immature Platelet Fraction 3.4, Sodium Level 133L, Potassium Level 3.5L, Chloride Level 93L, Carbon Dioxide Level 29, Anion Gap 11, Blood Urea Nitrogen 26H, Creatinine 0.73, Estimat Glomerular Filtration Rate 90, BUN/Creatinine Ratio 36, Glucose Level 152H, Calcium Level 8.5, Corrected Calcium 9.5, Phosphorus Level 3.3, Magnesium Level 1.9, Total Bilirubin 0.4, Aspartate Amino Transf (AST/SGOT) 27, Alanine Aminotransferase (ALT/SGPT) 17, Alkaline Phosphatase 41, Total Protein 6.5, Albumin 2.8L 11/01/22 06:33: Glucometer 161H 11/01/22 10:37: Glucometer 329H 11/01/22 12:05: White Blood Count 0.8*L, Red Blood Count 3.36L, Hemoglobin 11.7, Hematocrit 32L, Mean Corpuscular Volume 96, Mean Corpuscular Hemoglobin 35H, Mean Corpuscular Hemoglobin Concent 36, Red Cell Distribution Width 16.0H, Platelet Count 77L, Mean Platelet Volume 9.6, Percent Immature Platelet Fraction 3.5, Prothrombin Time 13.8, INR Comment 1.0, Activated Partial Thromboplast Time 36H Microbiology 10/31/22 Blood Culture - Preliminary, Resulted No growth Radiology Chest XR 10/29/2022: pulmonary vascular congestion, possible infiltrate developing in right lung base. Assessment/Plan Assessment/Plan Admission Status: Inpatient Order (span 2 midnights) Assessment & Plan Diet: Regular DVT prophylaxis: none, thrombocytopenia Code status: DNR Dispo: Inpatient (1) Atrial fibrillation Status: Acute Assessment & Plan: New onset Afib with RVR. Patient transferred to ICU for management. Patient had not been on any DVT prophylaxis due to thrombocytopenia. Patient started on Cardizem and Eliquis. Eliquis stopped, heparin started. Qualifiers: Qualified Codes: I48.19 - Other persistent atrial fibrillation (2) CAP (community acquired pneumonia) Status: Acute Assessment & Plan: Blood cultures drawn on admission positive for gram + cocci in clusters. Patient put on meropenem. Pancytopenia present. Chest Xray showed pulmonary vascular congestion and right base infiltrate. X ray repeated and showed improvement in congestion. Cardiology consulted for chest pain, determined to be pleuritic in nature. EKG and ECHO obtained, show grade 1 diastolic dysfunction. Patient states her breathing feels better. O2 requirements went up from 2L to 3L. Chest CT showed no evidence of PE, pneumonia in lower left lobe, infection in upper right lobe, mild emphysematous changes, bilateral benign nodules stable for 2 years, and benign adrenal adenoma. Qualifiers: Qualified Codes: J18.9 - Pneumonia, unspecified organism (3) Bacteremia due to Gram-positive bacteria Status: Acute Assessment & Plan: Blood cultures drawn 10/29/2022 positive for gram+ cocci in clusters. Patient on Meropenem. Continue. Vancomycin added to cover staph aureus. Repeat blood cultures. (4) Pancytopenia Status: Acute Assessment & Plan: Normal CBC in April of 2022. Peripheral smear ordered and obtained. Likely multifactorial, chronic liver disease combined with acute infection. Enoxiparin held. Heme consulted, filgrastim started, ordered bone marrow biopsy. (5) Hypoxia Status: Chronic Assessment & Plan: Patient feels better, but oxygen requirements increased from 2L to 3L. Patient states she has been told she needs oxygen at home but she is noncompliant. (6) COPD exacerbation Status: Acute Assessment & Plan: Patient on solu-medrol, airduo, singulair. Patient feels as though her breathing has improved. ABG results 10/30/2022 pCO2 44, pO2 60, HCO3 29, O2 sat 93, base excess 4.4 Chest Xray obtained and repeated Solu-medrol decreased 10/31/2022 Oxygen requirements increased from 2L to 3L. Will continue with current therapy. (7) Pulmonary vascular congestion Status: Acute Assessment & Plan: Chest Xray shows pulmonary vascular congestion. EKG obtained ECHO results show grade 1 diastolic dysfunction Repeat Chest X ray showed improvement in congestion. (8) LY (obstructive sleep apnea) Status: Chronic Assessment & Plan: Non compliant with CPAP. (9) CAD (coronary artery disease) Status: Chronic Qualifiers: Qualified Codes: I25.10 - Atherosclerotic heart disease of [place] coronary artery without angina pectoris (10) Diabetes mellitus type 2 in obese Status: Chronic Assessment & Plan: Insulin aspart sliding scale. (11) Autoimmune hepatitis Status: Chronic Assessment & Plan: Rifaximin started. (12) Cirrhosis Status: Chronic (13) Lower extremity edema Status: Chronic Assessment & Plan: Patient states this is her baseline. Left leg usually more edematous than right. Doppler showed no evidence of DVT in either leg. Chest CT showed no evidence of PE. (14) HTN (hypertension) Status: Chronic Qualifiers: Qualified Codes: I10 - Essential (primary) hypertension (15) Hyponatremia Status: Acute Assessment & Plan: Improving with Lasix. (16) Cigarette smoker Status: Chronic Assessment & Plan: Counselled to stop. (17) Hypothyroidism Status: Chronic Assessment & Plan: Restarted home levothyroxine. Qualifiers: Qualified Codes: E03.9 - Hypothyroidism, unspecified (18) Anxiety Status: Chronic Assessment & Plan: Restarted home Fluoxetine. JP MONTANEZ MD 11/01/221927: Supervisory-Addendum Brief Verification & Attestation Participated in pt care: history, MDM, physical Personally performed: exam, history, MDM, supervision of care Care discussed with: Medical Student Procedures: n/a Pt seen and examined by me along with OMSBrigette Cook, I did my own history as well which confirms that documented by the medical student. I directed the plan of care as documented. STEW COOK Nov 01, 2022 16:52 JP MONTANEZ MD Nov 01, 2022 19:28
[2022-11-01] MEDS: MONTELUKAST 10 MG (SINGULAIR) TAB PO SCH (20:59)
[2022-11-01] MEDS: FLUoxetine HCL 20 MG (PROzac) CAP PO SCH (20:59)
[2022-11-01] MEDS: LORATADINE (CLARITIN) 10 MG TAB PO SCH (20:59)
[2022-11-02] MEDS: HEParin 1000 UNIT/ML (10ML VIAL) FOR BOLUS IV SCH (00:30)
[2022-11-02] MEDS: MEROPENEM 500 MG/NS 100 ML IVPB IV SCH ×10 (00:45→23:51)
[2022-11-02] MEDS: RT-ALBUTEROL SULF 2.5 MG/3 ML PRE-MIX VIAL INH SCH ×5 (02:44→22:23)
[2022-11-02] MEDS: VANCOMYCIN 1500 MG/NS 500 ML IVPB IV SCH ×4 (04:38→15:49)
[2022-11-02] MEDS ORDERED: VANCOMYCIN 1250 MG/NS 250 ML IVPB IV SCH ×2 (05:00)
[2022-11-02 05:29] LABS: BASOPHILS % (AUTO) 0 % (0-10); EOSINOPHILS % (AUTO) 1 % (0-10); HEMATOCRIT 31 % (35-52); HEMOGLOBIN 11.4 g/dL (11.5-16.0); LYMPHOCYTES # (AUTO) 0.7 10^3/uL (1.0-4.0); LYMPHOCYTES % (AUTO) 23 % (12-44); MEAN CORPUSCULAR HEMOGLOBIN 35 pg (25-34); MEAN CORPUSCULAR HGB CONC 37 g/dL (32-36); MEAN CORPUSCULAR VOLUME 96 fL (80-99); MEAN PLATELET VOLUME 11.2 fL (9.0-12.2); MONOCYTES # (AUTO) 0.6 10^3/uL (0.0-1.0); MONOCYTES % (AUTO) 20 % (0-12); NEUTROPHILS # (AUTO) 1.3 10^3/uL (1.8-7.8); NEUTROPHILS % (AUTO) 44 % (42-75); PLATELET COUNT 54 10^3/uL (130-400); WHITE BLOOD COUNT 2.9 10^3/uL (4.3-11.0)
[2022-11-02 05:40] LABS: ALBUMIN 2.7 GM/DL (3.2-4.5); POTASSIUM 3.9 MMOL/L (3.6-5.0)
[2022-11-02 05:41] LABS: CALCIUM 8.4 MG/DL (8.5-10.1)
[2022-11-02 05:43] LABS: TOTAL PROTEIN 6.5 GM/DL (6.4-8.2)
[2022-11-02 05:44] LABS: BILIRUBIN,TOTAL 0.3 MG/DL (0.1-1.0)
[2022-11-02 05:46] LABS: CREATININE SERUM 0.84 MG/DL (0.60-1.30); PHOSPHORUS 2.7 MG/DL (2.3-4.7)
[2022-11-02 05:49] LABS: MAGNESIUM 1.7 MG/DL (1.6-2.4)
[2022-11-02] MEDS: KCL 20 MEQ TAB (K-DUR) PO SCH (05:53)
[2022-11-02] MEDS: POTASSIUM CL 10MEQ/50ML IVPB 50 ML IV SCH (05:53)
[2022-11-02] MEDS: MAGNESIUM 1 GM/100 ML IVPB 100 ML IV SCH ×3 (05:54→08:51)
[2022-11-02] MEDS: methylPREDNISolone 40 MG/ML (Solu-MEDROL) VIAL IV SCH ×2 (06:19→17:12)
[2022-11-02] MEDS: FUROSEMIDE 40 MG/4 ML INJ (LASIX) IVP SCH ×2 (06:19→15:49)
[2022-11-02] MEDS: inSUlin ASPART (NovoLOG) 1 UNIT/0.01 ML (CHARGE PER UNIT) SC SCH ×4 (06:20→20:28)
[2022-11-02] MEDS: HEParin DRIP 25000 UNIT/500ML 500 ML IV SCH (07:34)
[2022-11-02] MEDS: RT--FLUTICASONE/SALMETEROL 113-14 (AIRDUO RespiCLICK) IH SCH ×2 (08:02→20:27)
--- NOTE | 2022-11-02 08:19 | Tele-ICU Consult ---
History of Present Illness History of Present Illness Date Seen by Provider: Nov 02, 2022 Time Seen by Provider: 08:15 Date of Admission Available chart/ vitals / labs / Images reviewed H&P is from ER notes, RN and progress notes Patient's information available about PMH, allergy reviewed in EMR. ROS as per chart and RN report Video assessment done using teleICU camera, rest of exam as per RN Discussed with RN. Moved to ICU for a fib, on IV Cardizem and Eliquis, to be changed to po Cardizem 60 mg COPD-on Airduo, Medrol/Singulair LLL PNA on IV Vanco and Meropenem Leukopenia-WBC has incrased to 2.9, plt down to 54K received Filgrastin LY, Allergies and Home Medications Allergies Coded Allergies: cephalexin (Verified Allergy, Mild, 10/30/17) ciprofloxacin (Verified Allergy, Mild, 10/30/17) sulfamethoxazole (Verified Allergy, Mild, ITCH ALL OVER, 10/30/17) trimethoprim (Verified Allergy, Mild, ITCH ALL OVER, 10/30/17) Penicillins (Verified Allergy, Unknown, 10/30/17) Sulfa (Sulfonamide Antibiotics) (Verified Allergy, Unknown, 10/30/17) atorvastatin (Unverified Allergy, Unknown, EDEMA, 10/30/17) hydrocodone (Verified Allergy, Unknown, 10/30/17) tramadol (Verified Allergy, Unknown, 10/30/17) metformin (Unverified Adverse Reaction, Mild, NAUSEA, 10/30/17) Uncoded Allergies: RED MEAT (Allergy, Unknown, HIVES, 12/13/16) Home Medications Acetaminophen 500 Mg Tablet, 1,000 MG PO Q8H PRN for PAIN-MILD (1-4), (Reported) TAKES 2 (500MG) TABS Amlodipine Besylate 5 Mg Tablet, 5 MG PO DAILY, (Reported) Azathioprine 50 Mg Tablet, 50 MG PO 1200, (Reported) Cetirizine HCl 10 Mg Tablet, 10 MG PO HS, (Reported) Ezetimibe 10 Mg Tablet, 10 MG PO HS, (Reported) Fluoxetine HCl 20 Mg Capsule, 20 MG PO HS, (Reported) Folic Acid 1 Mg Tablet, 1 MG PO DAILY, (Reported) Furosemide 20 Mg Tablet, 20 MG PO DAILY PRN for FLUID RETENTION, (Reported) Levothyroxine Sodium 75 Mcg Tablet, 75 MCG PO DAILY, (Reported) Liraglutide 0.6 Mg/0.1 Ml (18 Mg/3 Ml) Pen.injctr, 1.8 MG SQ DAILY, (Reported) Lisinopril 5 Mg Tablet, 5 MG PO DAILY, (Reported) Potassium Chloride 20 Meq Tab.er.prt, 20 MEQ PO DAILY PRN for FLUID RETENTION, (Reported) Rifaximin 550 Mg Tablet, 550 MG PO BID, (Reported) Past Medical/Social/Family Hx Patient Social History Marrital Status: single Employed/Student: retired Tobacco Use?: Yes Tobacco type used: Cigarettes Smoking Status: Current Everyday Smoker Use of E-Cig and/or Vaping dev: No Substance use?: No Alcohol Use?: No Immunizations Up To Date Influenza Vaccine Up-to-Date: Yes; Up-to-Date Tetanus Booster (TDap): Unknown Date of Pneumonia Vaccine: Sep 26, 2016 Current Status Primary Language: German Implanted or Applied Medical D: None Past Medical History Past Medical History 1. COPD- pt. used to see [facility] 2. Anxiety 3. DM-II not taking medications "diet controlled" 4. HTN 5. HLP 6. Hypothyroidism 7. Psoriasis 8. Mild non-obstructive coronary artery disease [place] 9. Chronic edema of her lower extremities with no history of CHF 10. LY- using CPAP and O2 at night 11. GERD 12. Childhood seizures-resolved 13. Extreme Morbid Obesity Past Surgical History 1. RU BSO 38 years ago 2. 36 years ago 3. Appendectomy- 40 years ago 4. Cholecystectomy 5. Teeth extraction 6. Cardiac Cath 2012 Review of Systems Constitutional: see HPI EENTM: see HPI Respiratory: see HPI Cardiovascular: see HPI Gastrointestinal: see HPI Genitourinary: see HPI Musculoskeletal: see HPI Skin: see HPI Psychiatric/Neurological: See HPI Focused Exam Height, Weight, BMI Height: 5'3.00" Weight: 293lbs. 0.0oz. [id number]; 52.73 BMI Method:Stated Time of Focused Exam: 08:30 Exam Exam Patient acknowledged, consented, and participated in this virtual visit which was conducted using real time audio/video Vital Signs Date Time Temp Pulse Resp B/P (MAP) Pulse Ox O2 Delivery O2 Flow Rate FiO2 11/02/22 06:00 86 18 110/68 (82) 92 Nasal Cannula 3.00 11/02/22 05:00 92 20 113/68 (83) 92 Nasal Cannula 3.00 11/02/22 04:47 36.6 11/02/22 04:00 100 23 107/65 (79) 92 Nasal Cannula 3.00 11/02/22 04:00 93 Nasal Cannula 3.00 11/02/22 03:00 85 23 117/65 (82) 92 Nasal Cannula 3.00 11/02/22 02:44 94 Nasal Cannula 3.00 11/02/22 02:00 83 17 120/71 (87) 93 Nasal Cannula 3.00 11/02/22 01:00 77 20 102/65 (77) 94 Nasal Cannula 3.00 11/02/22 00:54 77 11/02/22 00:00 36.4 11/02/22 00:00 81 10 104/58 (73) 94 Nasal Cannula 3.00 11/01/22 23:59 93 Nasal Cannula 3.00 11/01/22 23:00 78 17 119/77 (91) 94 Nasal Cannula 3.00 11/01/22 22:00 70 17 101/70 (80) 92 Nasal Cannula 3.00 11/01/22 21:00 80 17 124/69 (87) 97 Nasal Cannula 3.00 11/01/22 20:00 87 10 112/76 (88) 100 Nasal Cannula 3.00 11/01/22 20:00 94 Nasal Cannula 3.00 11/01/22 20:00 36.5 Nasal Cannula 3.00 11/01/22 19:01 104 11/01/22 19:00 87 16 113/81 (92) 96 Nasal Cannula 2.00 11/01/22 18:53 98 Nasal Cannula 3.00 11/01/22 18:00 79 38 109/73 (85) Nasal Cannula 2.00 11/01/22 17:00 76 24 96 Nasal Cannula 2.00 11/01/22 16:42 36.3 11/01/22 16:30 93 Nasal Cannula 3.00 11/01/22 16:00 82 13 109/59 (76) 93 Nasal Cannula 2.00 11/01/22 15:00 89 21 110/55 (73) 92 Nasal Cannula 2.00 11/01/22 14:35 94 Nasal Cannula 3.00 11/01/22 14:00 93 25 108/75 (86) 93 Nasal Cannula 2.00 11/01/22 13:28 85 109/61 11/01/22 13:24 76 11/01/22 13:00 86 16 110/80 (90) 95 Nasal Cannula 2.00 11/01/22 12:45 93 Nasal Cannula 2.00 11/01/22 12:00 81 21 118/64 (82) 89 Nasal Cannula 2.00 11/01/22 11:53 36.2 11/01/22 11:00 72 23 120/74 (89) 93 Nasal Cannula 2.00 11/01/22 10:56 36.6 81 92 11/01/22 10:00 81 19 128/80 (96) 92 Nasal Cannula 2.00 11/01/22 09:00 78 19 128/64 (85) 95 Nasal Cannula 2.00 11/01/22 08:45 96 Nasal Cannula 2.00 I & O 11/02/22 07:00 Intake Total 2780 ml Output Total 1440 ml Balance 1340 ml Height & Weight Height: 5'3.00" Weight: 293lbs. 0.0oz. 132.211087rq; 52.73 BMI Method:Stated General Appearance: No Apparent Distress, Chronically ill, Obese HEENT: PERRL/EOMI, Normal ENT Inspection, Pharynx Normal, Moist Mucous Membranes Neck: Full Range of Motion, Normal Inspection, Non Tender Respiratory: No Accessory Muscle Use, No Respiratory Distress, Wheezing Cardiovascular: Irregularly Irregular, Other (edema present) Capillary Refill: Less Than 3 Seconds Gastrointestinal: normal bowel sounds, non tender, soft, no organomegaly, no pulsatile mass Extremity: Normal Capillary Refill, Normal Inspection, Normal Range of Motion, Non Tender, No Calf Tenderness, No Pedal Edema, Pedal Edema (+2 pitting leg edema bilatteraly) Neurologic/Psychiatric: Alert, Oriented x3, No Motor/Sensory Deficits, Normal Mood/Affect Skin: Normal Color, Warm/Dry Lymphatic: No Adenopathy Results Lab Laboratory Tests 11/01/22 03:06 11/01/22 12:05 11/02/22 05:03 Assessment/Plan Assessment/Plan fib, on IV Cardizem and Eliquis, can change manager to oral COPD-on Airduo, Medrol/Singulair-will continue, on 3 lpm NC LLL PNA on IV Vanco and Meropenem Leukopenia-WBC has incrased to 2.9 on Filgrastin LY on CPPA at home Oncologist to see re: pancytopenia Critical Care: Critically Ill Patient Time spent with patient (mins): 25 RICHARDSON SANZ MD Nov 02, 2022 08:19
--- NOTE | 2022-11-02 08:26 | Cardiology Progress Note ---
Subjective Date Seen by Provider: Nov 02, 2022 Time Seen by Provider: 08:25 Subjective/Events-last exam Patient was seen at bedside, laying down comfortably, feeling better Still in atrial fibrillation, heart rate is better controlled. Review of Systems General: No Chills, No Night Sweats; Fatigue; No Malaise, No Appetite, No Other HEENT: No Head Aches, No Visual Changes, No Eye Pain, No Ear Pain, No Dysphasia, No Sinus Congestion, No Post Nasal Drip, No Sore Throat, No Other Pulmonary: Dyspnea; No Cough, No Pleuritic Chest Pain, No Other Cardiovascular: No: Chest Pain, Palpitations, Orthopnea, Paroxysmal Noc. Dyspnea, Edema, Lt Headedness, Other Focused Exam Time of Focused Exam: 08:30 Objective-Cardiology Exam Last Set of Vital Signs Vital Signs 11/02/22 11/02/22 04:47 06:00 Temp 36.6 Pulse 86 Resp 18 B/P (MAP) 110/68 (82) Pulse Ox 92 O2 Delivery Nasal Cannula O2 Flow Rate 3.00 I&O Intake and Output 11/02/22 00:00 Intake Total 2410 ml Output Total 1490 ml Balance 920 ml Intake Oral 1540 ml IV Total 870 ml Output Urine Total 1490 ml # Voids 5 # Bowel Movements 1 General: Alert, Oriented X3, Cooperative HEENT: Atraumatic Neck: Supple Lungs: Other (wheezing throughout lung rosas) Heart: Normal S1, Normal S2, Other (Irregulaly irregular rythm) Abdomen: Normal Bowel Sounds Extremities: No Clubbing, No Cyanosis, Other (lower extremity edema, consistent with patient's baseline) Skin: No Rashes, No Breakdown, Other (ecchymoses at many sites) Neuro: Normal Speech Psych/Mental Status: Mental Status NL, Other (Mood congruent) Results Lab Laboratory Tests 11/01/22 12:05 11/02/22 05:03 A/P-Cardiology Admission Diagnosis Pneumonia Pleuritic chest pain HTN HLP Assessment/Plan New onset afib with RVR, started on Cardizem gtt, Eliquis. Rate better controlled. I was planning to proceed with cardioversion but due to her worsening thrombocytopenia I decided to cancel the procedure. Patient will be unable to tolerate anticoagulation for the next month. I will maintain rate controlling medication and switch to Cardizem to oral Continue to monitor platelet counts. Pleuritic chest pain, likely due to pneumonia Repeat chest x-ray showed improvement Still having acute exacerbation of COPD with reactive airway disease, having active wheezing. Gram-positive bacteremia, 2 bottles of cultures were positive, probably contamination Patient is neutropenic. She was started on meropenem Marked neutropenia and considerable thrombocytopenia of undetermined etiology Pancytopenia. Managed and followed by primary care physician History of autoimmune hepatitis, patient was on azathioprine Followed and managed with primary care physician Coronary artery disease -cardiac catheterization on 08/13/2013 revealed ectasia in the RCA with small vessel disease, slow flow in the RCA. 40-50 percent mid LAD stenosis, otherwise, nonobstructive disease. EF 60 percent - stress test and 2-D echocardiogram in September 2017 revealed no ischemia or infarct with normal EF 2D echo was done on October 30, 2022 with normal ejection fraction 55 to 60%, PA pressures 35 to 40 mmHg, grade 1 diastolic dysfunction. I did not notice any vegetation on her valvular structure and no significant valvular disease was noted. If her blood culture were staph aureus I will consider doing a MAURI Hypertension, was initially borderline hypotensive, currently blood pressure is better. Continue to monitor H/o hyperlipidemia, intolerance to statins Nonobstructive carotid artery stenosis per carotid duplex done November 2019 Obesity, BMI is 53 Chronic tobacco use - advised to quit COPD/asthma, educated on smoking cessation. Diabetes mellitus II H/o hypothyroidism, followed and managed by primary care physician H/o autoimmune hepatitis, followed and managed by primary care physician. H/o psoriasis, followed and managed by primary care physician STARLA COTA MD Nov 02, 2022 08:26
[2022-11-02] MEDS: FOLIC ACID 1 MG TAB PO SCH (08:36)
[2022-11-02] MEDS: dilTIAZem DRIP PRE-MIX 125 ML IV SCH (08:36)
[2022-11-02] MEDS: RIFAXIMIN 550 MG TABLET (XIFAXAN) PO SCH ×2 (08:37→20:28)
[2022-11-02] MEDS: LEVOTHYROXINE 75 MCG (LEVOTHROID) TABLET PO SCH (08:37)
[2022-11-02] MEDS: MICONAZOLE 2% POWDER (DESENEX AF) 90 GM TOP SCH ×2 (09:02→20:29)
[2022-11-02] MEDS: TBO-FILGRASTIM 480 MCG/0.8 ML (GRANIX) SQ SCH (09:02)
[2022-11-02] MEDS: SENNOSIDES 8.6 MG (SENOKOT) TAB PO SCH ×2 (09:03→20:28)
[2022-11-02] MEDS: DOCUSATE SODIUM 100 MG (COLACE) CAP PO SCH ×2 (09:03→20:28)
--- NOTE | 2022-11-02 16:47 | Progress Note ---
STEW SMITH 11/02/22 1387: Subjective Subjective/Events-last exam Patient states she is coughing up thick mucous this morning, she feels this is good and states she feels better when she gets mucous up. She does state she gets SOB during coughing episodes and has some chest pain only when she coughs. She states she feels weak and fatigued. She had a bowel movement yesterday and is eating and drinking okay. Review of Systems General: Fatigue, Malaise, Appetite (good) Pulmonary: Dyspnea (only with cough), Cough, Pleuritic Chest Pain (only with cough) Gastrointestinal: No: Nausea, Vomiting, Abdominal Pain, Diarrhea, Constipation Genitourinary: No Dysuria Neurological: Weakness; No: Change in speech, Confusion Focused Exam Time of Focused Exam: 08:30 Objective Exam Last Set of Vital Signs Vital Signs Date Time Temp Pulse Resp B/P (MAP) Pulse Ox O2 Delivery O2 Flow Rate FiO2 11/02/22 16:00 Nasal Cannula 3.00 11/02/22 16:00 93 30 111/65 (80) 93 11/02/22 15:06 36.4 Capillary Refill : Less Than 3 Seconds I&O Intake and Output 11/02/22 00:00 Intake Total 2410 ml Output Total 1490 ml Balance 920 ml Intake Oral 1540 ml IV Total 870 ml Output Urine Total 1490 ml # Voids 5 # Bowel Movements 1 General: Alert, Oriented X3, Cooperative Lungs: Other (end expiratory wheezes diffusely) Heart: Other (irregulaly irregular) Abdomen: Normal Bowel Sounds, Soft Neuro: Normal Speech Psych/Mental Status: Mental Status NL, Mood NL Results/Procedures Lab Laboratory Tests 11/01/22 17:00: Glucometer 140H 11/01/22 18:10: Activated Partial Thromboplast Time 63H 11/01/22 21:28: Glucometer 198H 11/01/22 23:50: Activated Partial Thromboplast Time 53H 11/02/22 05:03: White Blood Count 2.9L, Red Blood Count 3.23L, Hemoglobin 11.4L, Hematocrit 31L, Mean Corpuscular Volume 96, Mean Corpuscular Hemoglobin 35H, Mean Corpuscular Hemoglobin Concent 37H, Red Cell Distribution Width 15.9H, Platelet Count 54L, Mean Platelet Volume 11.2, Immature Granulocyte % (Auto) 13, Neutrophils (%) (Auto) 44, Lymphocytes (%) (Auto) 23, Monocytes (%) (Auto) 20H, Eosinophils (%) (Auto) 1, Basophils (%) (Auto) 0, Neutrophils # (Auto) 1.3L, Lymphocytes # (Auto) 0.7L, Monocytes # (Auto) 0.6, Eosinophils # (Auto) 0.0, Basophils # (Auto) 0.0, Immature Granulocyte # (Auto) 0.4H, Sodium Level 132L, Potassium Level 3.9, Chloride Level 93L, Carbon Dioxide Level 28, Anion Gap 11, Blood Urea Nitrogen 23H, Creatinine 0.84, Estimat Glomerular Filtration Rate 76, BUN/Creatinine Ratio 27, Glucose Level 157H, Calcium Level 8.4L, Corrected Calcium 9.4, Phosphorus Level 2.7, Magnesium Level 1.7, Total Bilirubin 0.3, Aspartate Amino Transf (AST/SGOT) 22, Alanine Aminotransferase (ALT/SGPT) 19, Alkaline Phosphatase 39L, Total Protein 6.5, Albumin 2.7L 11/02/22 06:34: Activated Partial Thromboplast Time 88H 11/02/22 10:45: Glucometer 229H 11/02/22 11:29: Glucometer 198H 11/02/22 12:29: Activated Partial Thromboplast Time 30 11/02/22 15:32: Glucometer 240H Microbiology 10/31/22 Blood Culture - Preliminary, Resulted No growth Radiology Chest XR 10/29/2022: pulmonary vascular congestion, possible infiltrate developing in right lung base. Assessment/Plan Assessment/Plan Admission Status: Inpatient Order (span 2 midnights) Assessment & Plan Diet: Regular DVT prophylaxis: heparin Code status: DNR Dispo: Inpatient (1) Atrial fibrillation Status: Acute Assessment & Plan: New onset Afib with RVR. Patient transferred to ICU for management. Patient had not been on any DVT prophylaxis due to thrombocytopenia. Patient started on Cardizem and Eliquis. Eliquis stopped, heparin started. Cardiology does not plan to cardiovert her due to low platelet count. Cardiology plans to change Cardizem from IV to oral. Qualifiers: Qualified Codes: I48.19 - Other persistent atrial fibrillation (2) CAP (community acquired pneumonia) Status: Acute Assessment & Plan: Blood cultures drawn on admission positive for gram + cocci in clusters. Patient put on meropenem. Pancytopenia present. Chest Xray showed pulmonary vascular congestion and right base infiltrate. X ray repeated and showed improvement in congestion. Cardiology consulted for chest pain, determined to be pleuritic in nature. EKG and ECHO obtained, show grade 1 diastolic dysfunction. Patient states her breathing feels better. O2 requirements went up from 2L to 3L. Chest CT showed no evidence of PE, pneumonia in lower left lobe, infection in upper right lobe, mild emphysematous changes, bilateral benign nodules stable for 2 years, and benign adrenal adenoma. Qualifiers: Qualified Codes: J18.9 - Pneumonia, unspecified organism (3) Bacteremia due to Gram-positive bacteria Status: Acute Assessment & Plan: Blood cultures drawn 10/29/2022 positive for gram+ cocci in clusters. Patient on Meropenem. Continue. Vancomycin added to cover staph aureus. Repeat blood cultures. (4) Pancytopenia Status: Acute Assessment & Plan: Normal CBC in April of 2022. Peripheral smear ordered and obtained. Likely multifactorial, chronic liver disease combined with acute infection. Enoxiparin held. Heme consulted, filgrastim started, ordered bone marrow biopsy. (5) Hypoxia Status: Chronic Assessment & Plan: Patient feels better, but oxygen requirements increased from 2L to 3L. Patient states she has been told she needs oxygen at home but she is noncompliant. (6) COPD exacerbation Status: Acute Assessment & Plan: Patient on solu-medrol, airduo, singulair. Patient feels as though her breathing has improved. ABG results 10/30/2022 pCO2 44, pO2 60, HCO3 29, O2 sat 93, base excess 4.4 Chest Xray obtained and repeated Solu-medrol decreased 10/31/2022 Oxygen requirements increased from 2L to 3L. Will continue with current therapy. (7) Pulmonary vascular congestion Status: Acute Assessment & Plan: Chest Xray shows pulmonary vascular congestion. EKG obtained ECHO results show grade 1 diastolic dysfunction Repeat Chest X ray showed improvement in congestion. (8) LY (obstructive sleep apnea) Status: Chronic Assessment & Plan: Non compliant with CPAP. (9) CAD (coronary artery disease) Status: Chronic Qualifiers: Qualified Codes: I25.10 - Atherosclerotic heart disease of [place] coronary artery without angina pectoris (10) Diabetes mellitus type 2 in obese Status: Chronic Assessment & Plan: Insulin aspart sliding scale. (11) Autoimmune hepatitis Status: Chronic Assessment & Plan: Rifaximin started. (12) Cirrhosis Status: Chronic (13) Lower extremity edema Status: Chronic Assessment & Plan: Patient states this is her baseline. Left leg usually more edematous than right. Doppler showed no evidence of DVT in either leg. Chest CT showed no evidence of PE. (14) HTN (hypertension) Status: Chronic Qualifiers: Qualified Codes: I10 - Essential (primary) hypertension (15) Hyponatremia Status: Acute Assessment & Plan: Improving with Lasix. (16) Cigarette smoker Status: Chronic Assessment & Plan: Counselled to stop. (17) Hypothyroidism Status: Chronic Assessment & Plan: Restarted home levothyroxine. Qualifiers: Qualified Codes: E03.9 - Hypothyroidism, unspecified (18) Anxiety Status: Chronic Assessment & Plan: Restarted home Fluoxetine. JP MONTANEZ MD 11/02/229: Supervisory-Addendum Brief Verification & Attestation Participated in pt care: history, MDM, physical Personally performed: exam, history, MDM, supervision of care Care discussed with: Medical Student Procedures: n/a I did my own history and exam which confirmed that documented by the medical student. I directed the plan of care as documented by the medical student. Azathioprine for autoimmune hepatitis held held due to pancytopenia. STEW SMITH Nov 02, 2022 16:47 JP MONTANEZ MD Nov 02, 2022 18:19
[2022-11-02] MEDS: ACETAMINOPHEN 325 MG TABLET PO PRN (18:33)
[2022-11-02] MEDS: MONTELUKAST 10 MG (SINGULAIR) TAB PO SCH (20:28)
[2022-11-02] MEDS: LORATADINE (CLARITIN) 10 MG TAB PO SCH (20:28)
[2022-11-02] MEDS: FLUoxetine HCL 20 MG (PROzac) CAP PO SCH (20:28)
[2022-11-03] MEDS: RT-ALBUTEROL SULF 2.5 MG/3 ML PRE-MIX VIAL INH SCH ×6 (02:32→22:52)
[2022-11-03 05:30] LABS: EOSINOPHILS % (AUTO) 0 % (0-10); HEMOGLOBIN 11.1 g/dL (11.5-16.0); MEAN CORPUSCULAR VOLUME 97 fL (80-99)
[2022-11-03 05:32] LABS: BASOPHILS % (AUTO) 1 % (0-10); HEMATOCRIT 32 % (35-52); LYMPHOCYTES # (AUTO) 0.2 10^3/uL (1.0-4.0); LYMPHOCYTES % (AUTO) 8 % (12-44); MEAN CORPUSCULAR HEMOGLOBIN 34 pg (25-34); MEAN CORPUSCULAR HGB CONC 35 g/dL (32-36); MEAN PLATELET VOLUME 10.9 fL (9.0-12.2); MONOCYTES % (AUTO) 33 % (0-12); NEUTROPHILS # (AUTO) 1.3 10^3/uL (1.8-7.8); NEUTROPHILS % (AUTO) 41 % (42-75); PLATELET COUNT 47 10^3/uL (130-400); WHITE BLOOD COUNT 3.1 10^3/uL (4.3-11.0)
[2022-11-03 05:56] LABS: ALBUMIN 2.8 GM/DL (3.2-4.5); BILIRUBIN,TOTAL 0.4 MG/DL (0.1-1.0); CALCIUM 8.4 MG/DL (8.5-10.1); CREATININE SERUM 0.8 MG/DL (0.60-1.30); MAGNESIUM 2.6 MG/DL (1.6-2.4); PHOSPHORUS 2.5 MG/DL (2.3-4.7); POTASSIUM 3.5 MMOL/L (3.6-5.0); TOTAL PROTEIN 6.1 GM/DL (6.4-8.2)
[2022-11-03] MEDS: VANCOMYCIN 1500 MG/NS 500 ML IVPB IV SCH ×6 (05:58→23:25)
[2022-11-03] MEDS: MEROPENEM 500 MG/NS 100 ML IVPB IV SCH ×6 (05:58→18:34)
[2022-11-03] MEDS: methylPREDNISolone 40 MG/ML (Solu-MEDROL) VIAL IV SCH ×2 (05:59→18:33)
[2022-11-03] MEDS: FUROSEMIDE 40 MG/4 ML INJ (LASIX) IVP SCH ×2 (05:59→16:03)
[2022-11-03 06:00] LABS: SMEAR SCAN COMMENT YES
[2022-11-03] MEDS: MAGNESIUM 1 GM/100 ML IVPB 100 ML IV SCH (06:11)
[2022-11-03] MEDS: POTASSIUM CL 10MEQ/50ML IVPB 50 ML IV SCH (06:12)
[2022-11-03] MEDS: KCL 20 MEQ TAB (K-DUR) PO SCH (06:12)
[2022-11-03] MEDS: inSUlin ASPART (NovoLOG) 1 UNIT/0.01 ML (CHARGE PER UNIT) SC SCH ×4 (06:23→21:02)
[2022-11-03] MEDS: RT--FLUTICASONE/SALMETEROL 113-14 (AIRDUO RespiCLICK) IH SCH ×2 (06:56→21:25)
[2022-11-03] MEDS ORDERED: KCL 20 MEQ TAB (K-DUR) PO ONE (08:00)
[2022-11-03] MEDS: FOLIC ACID 1 MG TAB PO SCH (08:55)
[2022-11-03] MEDS: LEVOTHYROXINE 75 MCG (LEVOTHROID) TABLET PO SCH (08:55)
[2022-11-03] MEDS: TBO-FILGRASTIM 480 MCG/0.8 ML (GRANIX) SQ SCH (08:55)
[2022-11-03] MEDS: RIFAXIMIN 550 MG TABLET (XIFAXAN) PO SCH ×2 (08:55→21:02)
[2022-11-03] MEDS: MICONAZOLE 2% POWDER (DESENEX AF) 90 GM TOP SCH ×2 (08:55→21:04)
[2022-11-03] MEDS: DOCUSATE SODIUM 100 MG (COLACE) CAP PO SCH ×3 (08:56→21:58)
[2022-11-03] MEDS: SENNOSIDES 8.6 MG (SENOKOT) TAB PO SCH ×3 (08:56→21:58)
--- NOTE | 2022-11-03 09:44 | Tele-ICU Progress Note ---
Subjective Date Seen by a Provider: Nov 03, 2022 Subjective/Events-last exam This virtual visit was conducted using real time audio/video. Thank you for asking us to see this patient for respiratory insufficiency due to LLL CAP with underlying COPD. Also new Afib, pancytopenia. PE: VSS. O2 sat 93% on 4LPM HEENT: No obvious masses, adenopathy or JVD. Chest: diminished and coarse breath sounds on auscultation. CV: Irreg 80-105 S1 S2 No murmur or added sounds. Abd: Non-tender. Bowel sounds Y. : Unremarkable. Ho N. TRANSMISSION TESTER/psychiatric: Grossly intact. No obvious focal findings. Extremities: 1+ edema. Capillary refill < 3 seconds. Skin: unremarkable. Results: Elevated BG 221. Decreased WCC 3.1 better, Platelets 47K, worse, K 3.5, Na 134. B.43/44/60 on RA. CXR: LLL infilt. CTAC: no PE, LLL consolidation.. Available chart/ vitals / labs / images reviewed. Video assessment done using teleICU camera, rest of exam as per RN. A/P: Respiratory insufficiency: Continue present management with O2, airduo, Singulair. Monitor for increasing oxygenation needs and/or need for intubation/NIV. Critical Care: critically ill patient. Cont. Card., abx, Filgastrim, rifaxamin, SSI, Folate, prozac, Synth. replace K Discussed with RN sloan.. Asked RN to reach out to eICU if any questions or concerns later. Time spent with patient/coordination of care with other health professionals (mins): 21 Sepsis Event Evaluation Height, Weight, BMI Height: 5'3.00" Weight: 293lbs. 0.0oz. 132.368204tm; 52.61 BMI Method:Stated Focused Exam Time of Focused Exam: 08:30 Exam Exam Patient acknowledged, consented, and participated in this virtual visit which was conducted using real time audio/video Vital Signs Date Time Temp Pulse Resp B/P (MAP) Pulse Ox O2 Delivery O2 Flow Rate FiO2 11/03/22 08:00 36.9 11/03/22 08:00 105 95/74 (81) 92 High Flow N/C 4.00 11/03/22 07:00 84 26 102/64 (77) 96 High Flow N/C 4.00 11/03/22 07:00 85 11/03/22 06:56 94 Nasal Cannula 4.00 11/03/22 06:00 92 11 98/64 (75) 93 High Flow N/C 4.00 11/03/22 05:00 80 28 111/61 (78) 93 High Flow N/C 4.00 11/03/22 04:33 93 Nasal Cannula 4.00 11/03/22 04:00 85 22 119/76 (90) 95 High Flow N/C 4.00 11/03/22 03:00 86 20 104/67 (79) 94 High Flow N/C 4.00 11/03/22 02:59 36.1 High Flow N/C 4.00 11/03/22 02:32 94 Nasal Cannula 4.00 11/03/22 02:00 86 26 104/64 (77) 94 High Flow N/C 4.00 11/03/22 01:00 80 11/03/22 01:00 82 22 102/61 (75) 94 High Flow N/C 4.00 11/03/22 00:00 105 18 114/65 (81) 93 High Flow N/C 4.00 11/02/22 23:56 95 Nasal Cannula 4.00 11/02/22 23:56 36.4 High Flow N/C 4.00 11/02/22 23:00 88 19 111/64 (80) 93 High Flow N/C 4.00 11/02/22 22:23 94 Nasal Cannula 4.00 11/02/22 22:00 79 20 105/65 (78) 94 High Flow N/C 4.00 11/02/22 21:00 87 21 102/69 (80) 92 High Flow N/C 4.00 11/02/22 20:00 87 20 103/60 (74) 91 High Flow N/C 4.00 11/02/22 20:00 92 Nasal Cannula 4.00 11/02/22 19:41 36.1 11/02/22 19:08 93 Nasal Cannula 4.00 11/02/22 19:00 36.6 High Flow N/C 4.00 11/02/22 19:00 88 22 110/59 (76) 92 High Flow N/C 4.00 11/02/22 19:00 88 11/02/22 18:00 86 23 106/66 (79) 93 Nasal Cannula 4.00 11/02/22 17:00 89 26 126/75 (92) 92 Nasal Cannula 4.00 11/02/22 16:00 Nasal Cannula 3.00 11/02/22 16:00 93 30 111/65 (80) 93 Nasal Cannula 4.00 11/02/22 15:06 36.4 11/02/22 15:00 92 Nasal Cannula 4.00 11/02/22 15:00 88 20 98/57 (71) 93 Nasal Cannula 4.00 11/02/22 14:00 77 28 121/78 (92) 94 Nasal Cannula 4.00 11/02/22 13:03 73 11/02/22 13:00 75 18 116/64 (81) 94 Nasal Cannula 4.00 11/02/22 12:00 93 20 123/79 (94) 94 Nasal Cannula 4.00 11/02/22 12:00 Nasal Cannula 3.00 11/02/22 11:56 36.8 11/02/22 11:00 92 30 109/63 (78) 94 Nasal Cannula 4.00 11/02/22 10:00 108 23 117/65 (82) 91 Nasal Cannula 4.00 I & O 11/03/22 07:00 Intake Total 3222.5 ml Output Total 2050 ml Balance 1172.5 ml Height & Weight Height: 5'3.00" Weight: 293lbs. 0.0oz. 132.222622lq; 52.61 BMI Method:Stated General Appearance: No Apparent Distress, Chronically ill, Obese HEENT: PERRL/EOMI, Normal ENT Inspection, Pharynx Normal, Moist Mucous Membranes Neck: Full Range of Motion, Normal Inspection, Non Tender Respiratory: No Accessory Muscle Use, No Respiratory Distress, Wheezing Cardiovascular: Irregularly Irregular, Other (edema present) Capillary Refill: Less Than 3 Seconds Gastrointestinal: normal bowel sounds, non tender, soft, no organomegaly, no pulsatile mass Extremity: Normal Capillary Refill, Normal Inspection, Normal Range of Motion, Non Tender, No Calf Tenderness, No Pedal Edema, Pedal Edema (+2 pitting leg edema bilatteraly) Neurologic/Psychiatric: Alert, Oriented x3, No Motor/Sensory Deficits, Normal Mood/Affect Skin: Normal Color, Warm/Dry Lymphatic: No Adenopathy Results Lab Laboratory Tests 11/01/22 12:05 11/02/22 05:03 11/03/22 05:05 Assessment/Plan Assessment/Plan See free text Critical Care: Critically Ill Patient ARNOLD BOSS MD Nov 03, 2022 09:44
[2022-11-03] MEDS: ACETAMINOPHEN 325 MG TABLET PO PRN (11:14)
--- NOTE | 2022-11-03 14:54 | Progress Note ---
Subjective Subjective/Events-last exam Pt states she is tired, denies other concerns. Continues to feel her breathing is improving. Focused Exam Time of Focused Exam: 08:30 Objective Exam Last Set of Vital Signs Vital Signs Date Time Temp Pulse Resp B/P (MAP) Pulse Ox O2 Delivery O2 Flow Rate FiO2 11/03/22 14:00 106 16 113/65 (81) 98 High Flow N/C 4.00 11/03/22 08:00 36.9 Capillary Refill : Less Than 3 Seconds I&O Intake and Output 11/03/22 00:00 Intake Total 3297.5 ml Output Total 1600 ml Balance 1697.5 ml Intake Oral 1655 ml IV Total 1642.5 ml Output Urine Total 1600 ml # Voids 2 General: Alert, No Acute Distress Lungs: Other (expiratory wheezing) Heart: Regular Rate Neuro: Normal Speech Psych/Mental Status: Mood NL Results/Procedures Lab Laboratory Tests 11/02/22 15:32: Glucometer 240H 11/02/22 20:02: Glucometer 243H 11/03/22 05:05: White Blood Count 3.1L, Red Blood Count 3.25L, Hemoglobin 11.1L, Hematocrit 32L, Mean Corpuscular Volume 97, Mean Corpuscular Hemoglobin 34, Mean Corpuscular Hemoglobin Concent 35, Red Cell Distribution Width 16.0H, Platelet Count 47L, Mean Platelet Volume 10.9, Immature Granulocyte % (Auto) 18, Neutrophils (%) (Auto) 41L, Lymphocytes (%) (Auto) 8L, Monocytes (%) (Auto) 33H, Eosinophils (%) (Auto) 0, Basophils (%) (Auto) 1, Neutrophils # (Auto) 1.3L, Lymphocytes # (Auto) 0.2L, Monocytes # (Auto) 1.0, Eosinophils # (Auto) 0.0, Basophils # (Auto) 0.0, Immature Granulocyte # (Auto) 0.5H, Percent Immature Platelet Fraction 5.1, Sodium Level 134L, Potassium Level 3.5L, Chloride Level 92L, Carbon Dioxide Level 29, Anion Gap 13, Blood Urea Nitrogen 19H, Creatinine 0.80, Estimat Glomerular Filtration Rate 81, BUN/Creatinine Ratio 24, Glucose Level 221H, Calcium Level 8.4L, Corrected Calcium 9.4, Phosphorus Level 2.5, Magnesium Level 2.6H, Total Bilirubin 0.4, Aspartate Amino Transf (AST/SGOT) 16, Alanine Aminotransferase (ALT/SGPT) 20, Alkaline Phosphatase 45, Total Protein 6.1L, Albumin 2.8L, Smear Scan YES 11/03/22 11:50: Glucometer 205H Microbiology 10/31/22 Blood Culture - Preliminary, Resulted No growth Radiology Chest XR 10/29/2022: pulmonary vascular congestion, possible infiltrate developing in right lung base. Assessment/Plan Assessment/Plan Assessment & Plan Diet: Regular DVT prophylaxis: heparin Code status: DNR Dispo: Inpatient (1) Atrial fibrillation Status: Acute Assessment & Plan: New onset Afib with RVR. Patient transferred to ICU for management. Patient had not been on any DVT prophylaxis due to thrombocytopenia. Patient started on Cardizem and Eliquis. Eliquis stopped, heparin started. Cardiology does not plan to cardiovert her due to low platelet count. Cardiology changed Cardizem from IV to oral, transfer to floor when okay with Card Qualifiers: Qualified Codes: I48.19 - Other persistent atrial fibrillation (2) CAP (community acquired pneumonia) Status: Acute Assessment & Plan: Blood cultures drawn on admission positive for gram + cocci in clusters. Patient put on meropenem, vanc added due to staph epi cultures, but uncertain if true infection Pancytopenia present. Chest Xray showed pulmonary vascular congestion and right base infiltrate. X ray repeated and showed improvement in congestion. Cardiology consulted for chest pain, determined to be pleuritic in nature. EKG and ECHO obtained, show grade [address] showed no evidence of PE, pneumonia in lower left lobe, infection in upper right lobe, mild emphysematous changes, bilateral benign nodules stable for 2 years, and benign adrenal adenoma. Qualifiers: Qualified Codes: J18.9 - Pneumonia, unspecified organism (3) Bacteremia due to Gram-positive bacteria Status: Acute Assessment & Plan: Blood cultures drawn 10/29/2022 positive for gram+ cocci in clusters. Patient on Meropenem. Continue. Vancomycin added to cover staph epi and capitis Repeat blood cultures obtained before vanc, no growth to date (4) Pancytopenia Status: Acute Assessment & Plan: Normal CBC in April of 2022. Peripheral smear ordered and obtained. Likely multifactorial, chronic liver disease combined with acute infection and azathioprine use. Heme consulted, filgrastim started, plan for bone marrow biopsy (5) Hypoxia Status: Chronic Assessment & Plan: Patient states she has been told she needs oxygen at home but she is noncompliant. (6) COPD exacerbation Status: Acute Assessment & Plan: Patient on solu-medrol, airduo, singulair. Patient feels as though her breathing has improved. ABG results 10/30/2022 pCO2 44, pO2 60, HCO3 29, O2 sat 93, base excess 4.4 Chest Xray obtained and repeated Solu-medrol decreased 10/31/202211/03 decrease solumedrol to 40 mg IV q12 (7) Pulmonary vascular congestion Status: Acute Assessment & Plan: Chest Xray shows pulmonary vascular congestion. EKG obtained ECHO results show grade 1 diastolic dysfunction Repeat Chest X ray showed improvement in congestion. (8) LY (obstructive sleep apnea) Status: Chronic Assessment & Plan: Non compliant with CPAP. (9) CAD (coronary artery disease) Status: Chronic Qualifiers: Qualified Codes: I25.10 - Atherosclerotic heart disease of [place] coronary artery without angina pectoris (10) Diabetes mellitus type 2 in obese Status: Chronic Assessment & Plan: Insulin aspart sliding scale. (11) Autoimmune hepatitis Status: Chronic Assessment & Plan: Home Rifaximin started. (12) Cirrhosis Status: Chronic (13) Lower extremity edema Status: Chronic Assessment & Plan: Patient states this is her baseline. Left leg usually more edematous than right. Doppler showed no evidence of DVT in either leg. Chest CT showed no evidence of PE. (14) HTN (hypertension) Status: Chronic Qualifiers: Qualified Codes: I10 - Essential (primary) hypertension (15) Hyponatremia Status: Acute Assessment & Plan: Improving with Lasix. (16) Cigarette smoker Status: Chronic Assessment & Plan: Counselled to stop. (17) Hypothyroidism Status: Chronic Assessment & Plan: Restarted home levothyroxine. Qualifiers: Qualified Codes: E03.9 - Hypothyroidism, unspecified (18) Anxiety Status: Chronic Assessment & Plan: Restarted home Fluoxetine. JP MONTANEZ MD Nov 03, 2022 14:54
--- NOTE | 2022-11-03 17:00 | Cardiology Progress Note ---
Progress Note-Cardiology Events since last exam Date Seen by Provider: Nov 03, 2022 Time Seen by Provider: 16:55 Events since last exam We are following her due to atrial fibrillation. She still have a cough and when this happens, she feels short of breath. When she is not coughing, she states her breathing has improved. She denies chest discomfort, palpitations, or syncope. Her peripheral edema has improved. Certain portions of this document may have been dictated utilizing voice recognition technology. Inherent to this technology, typographical and grammatical errors may exist. As much as I am diligent to identify and correct these mistakes, some errors may remain in the document. Vitals Last set of Vitals Signs Vital Signs 11/03/22 11/03/22 15:43 16:00 Temp 36.7 Pulse 108 Resp 18 B/P (MAP) 119/72 (88) Pulse Ox 95 O2 Delivery High Flow N/C O2 Flow Rate 4.00 Labs Labs Laboratory Tests 11/03/22 05:05 Exam Vital Signs Vital Signs Date Time Temp Pulse Resp B/P (MAP) Pulse Ox O2 Delivery O2 Flow Rate FiO2 11/03/22 16:00 108 18 119/72 (88) 95 High Flow N/C 4.00 11/03/22 15:43 36.7 Physical Exam General: Alert. No acute distress. Eye: No xanthelasma. HENT: Normocephalic. Neck: Jugular venous pressure does not appear elevated. Respiratory: Lungs have diffusely decreased breath sounds with scattered wheezes bilaterally. Respirations are non-labored. Breath sounds are equal. Symmetrical chest wall expansion. Cardiovascular: Normal rate. Irregular rhythm. Distant S1/S2. No murmur. No gallop. Trace bilateral pretibial edema. Gastrointestinal: Soft. Normal bowel sounds. Skin: Warm. Dry. Neurologic: Alert and oriented to person, place, time. Cranial nerves 3-11 grossly intact. Psychiatric: Cooperative. Appropriate mood & affect. Labs Laboratory Tests Test 11/02/22 20:02 11/03/22 05:05 11/03/22 11:50 11/03/22 15:29 Range/Units Glucometer 243 H 205 H 226 H 70-110 MG/DL White Blood Count 3.1 L 4.3-11.0 10^3/uL Red Blood Count 3.25 L 3.80-5.11 10^6/uL Hemoglobin 11.1 L 11.5-16.0 g/dL Hematocrit 32 L 35-52 % Mean Corpuscular Volume 97 80-99 fL Mean Corpuscular Hemoglobin 34 25-34 pg Mean Corpuscular Hemoglobin Concent 35 32-36 g/dL Red Cell Distribution Width 16.0 H 10.0-14.5 % Platelet Count 47 L 130-400 10^3/uL Mean Platelet Volume 10.9 9.0-12.2 fL Immature Granulocyte % (Auto) 18 % Neutrophils (%) (Auto) 41 L 42-75 % Lymphocytes (%) (Auto) 8 L 12-44 % Monocytes (%) (Auto) 33 H 0-12 % Eosinophils (%) (Auto) 0 0-10 % Basophils (%) (Auto) 1 0-10 % Neutrophils # (Auto) 1.3 L 1.8-7.8 10^3/uL Lymphocytes # (Auto) 0.2 L 1.0-4.0 10^3/uL Monocytes # (Auto) 1.0 0.0-1.0 10^3/uL Eosinophils # (Auto) 0.0 0.0-0.3 10^3/uL Basophils # (Auto) 0.0 0.0-0.1 10^3/uL Immature Granulocyte # (Auto) 0.5 H 0.0-0.1 10^3/uL Percent Immature Platelet Fraction 5.1 0.0-7.6 % Sodium Level 134 L 135-145 MMOL/L Potassium Level 3.5 L 3.6-5.0 MMOL/L Chloride Level 92 L 98-107 MMOL/L Carbon Dioxide Level 29 21-32 MMOL/L Anion Gap 13 5-14 MMOL/L Blood Urea Nitrogen 19 H 7-18 MG/DL Creatinine 0.80 0.60-1.30 MG/DL Estimat Glomerular Filtration Rate 81 BUN/Creatinine Ratio 24 Glucose Level 221 H 70-105 MG/DL Calcium Level 8.4 L 8.5-10.1 MG/DL Corrected Calcium 9.4 8.5-10.1 MG/DL Phosphorus Level 2.5 2.3-4.7 MG/DL Magnesium Level 2.6 H 1.6-2.4 MG/DL Total Bilirubin 0.4 0.1-1.0 MG/DL Aspartate Amino Transf (AST/SGOT) 16 5-34 U/L Alanine Aminotransferase (ALT/SGPT) 20 0-55 U/L Alkaline Phosphatase 45 40-136 U/L Total Protein 6.1 L 6.4-8.2 GM/DL Albumin 2.8 L 3.2-4.5 GM/DL Smear Scan YES Diagnosis/Problems Diagnosis/Problems (1) Persistent atrial fibrillation Assessment & Plan: She has remained in atrial fibrillation for at least the past several days. She seems to be asymptomatic with this. Heart rates have been reasonably controlled with short acting diltiazem. I will change this over to long-acting diltiazem on 11/04. She is not on oral anticoagulation due to pancytopenia with severe thrombocytopenia. (2) Coronary artery disease without angina pectoris Assessment & Plan: She has a history of coronary artery disease but is not currently having angina. She is not receiving aspirin due to thrombocytopenia. She is on diltiazem for antianginal properties and rate control for the atrial fibrillation. She takes ezetimibe at home for her cholesterol but this is currently on hold. (3) Acute heart failure with preserved ejection fraction (HFpEF) Assessment & Plan: She has been receiving intravenous Lasix. Her peripheral edema has improved. We may be able to convert this over to oral diuretic in the near future. We need to watch her renal function closely. (4) Primary hypertension Assessment & Plan: Continue diltiazem. (5) Mixed hyperlipidemia Assessment & Plan: Resume ezetimibe when more clinically stable. (6) Pancytopenia Status: Acute Assessment & Plan: This is being evaluated by the hospitalist who has also ordered a hematology consultation and bone marrow biopsy. The severe thrombocytopenia is a relative contraindication to anticoagulation for the atrial fibrillation. (7) Morbid obesity Status: Chronic Assessment & Plan: She needs to work on weight loss. (8) Cigarette smoker Status: Chronic Assessment & Plan: She is adamant that she has quit smoking since the day of this current admission. DANNY TATE JR, MD Nov 03, 2022 17:00
[2022-11-03] MEDS: LORATADINE (CLARITIN) 10 MG TAB PO SCH (21:02)
[2022-11-03] MEDS: MONTELUKAST 10 MG (SINGULAIR) TAB PO SCH (21:02)
[2022-11-03] MEDS: FLUoxetine HCL 20 MG (PROzac) CAP PO SCH (21:02)
[2022-11-04] MEDS: MEROPENEM 500 MG/NS 100 ML IVPB IV SCH ×8 (01:25→18:45)
[2022-11-04] MEDS: RT-ALBUTEROL SULF 2.5 MG/3 ML PRE-MIX VIAL INH SCH ×6 (02:35→21:26)
[2022-11-04 05:53] LABS: INR 1.1 (0.8-1.4); PROTHROMBIN TIME PATIENT 14.6 SEC (12.2-14.7)
[2022-11-04 05:55] LABS: ALBUMIN 2.7 GM/DL (3.2-4.5); BILIRUBIN,TOTAL 0.7 MG/DL (0.1-1.0); CALCIUM 8.2 MG/DL (8.5-10.1); CREATININE SERUM 0.71 MG/DL (0.60-1.30); MAGNESIUM 1.9 MG/DL (1.6-2.4); PHOSPHORUS 2.6 MG/DL (2.3-4.7); POTASSIUM 3.9 MMOL/L (3.6-5.0); TOTAL PROTEIN 5.8 GM/DL (6.4-8.2)
[2022-11-04] MEDS: POTASSIUM CL 10MEQ/50ML IVPB 50 ML IV SCH (06:05)
[2022-11-04] MEDS: MAGNESIUM 1 GM/100 ML IVPB 100 ML IV SCH (06:05)
[2022-11-04] MEDS: KCL 20 MEQ TAB (K-DUR) PO SCH (06:06)
[2022-11-04] MEDS: inSUlin ASPART (NovoLOG) 1 UNIT/0.01 ML (CHARGE PER UNIT) SC SCH ×4 (06:14→22:06)
[2022-11-04] MEDS: methylPREDNISolone 40 MG/ML (Solu-MEDROL) VIAL IV SCH ×2 (06:14→17:20)
[2022-11-04] MEDS: FUROSEMIDE 40 MG/4 ML INJ (LASIX) IVP SCH ×2 (06:15→16:24)
--- NOTE | 2022-11-04 06:41 | Progress Note - Hospitalist ---
Subjective HPI/CC On Admission Date Seen by Provider: Nov 04, 2022 Time Seen by Provider: 11:00 CC: Acute respiratory failure HPI: This is a 67yoWF who has known COPD and continues to smoke who presents to the ER with acute resp failure with hypoxia of 70% resolved with aggressive meds and oxygen. Patient will require IV steroids along with ICS and Nebs and O2. CSD required. PNA will be treatment with abx. Subjective/Events-last exam Patient doing a lot better Atrial fibrillation is pretty well controlled O2 sat is good Lungs are improved Moving to fourth floor Review of Systems General: Fatigue, Malaise Pulmonary: Cough Focused Exam Time of Focused Exam: 08:30 Objective Exam Vital Signs Vital Signs Date Time Temp Pulse Resp B/P (MAP) Pulse Ox O2 Delivery O2 Flow Rate FiO2 11/04/22 13:00 87 11/04/22 12:15 36.5 18 112/60 (77) 90 Nasal Cannula 3.00 Capillary Refill : Less Than 3 Seconds General Appearance: No Apparent Distress, WD/WN, Chronically ill, Obese Respiratory: Crackles, Decreased Breath Sounds Cardiovascular: Regular Rate, Rhythm Neurologic/Psychiatric: Alert, Oriented x3, No Motor/Sensory Deficits, Normal Mood/Affect Results/Procedures Lab Laboratory Tests 11/04/22 04:42 Patient resulted labs reviewed. Assessment/Plan Assessment and Plan Assess & Plan/Chief Complaint (1) Atrial fibrillation Status: Acute Assessment & Plan: New onset Afib with RVR. Patient transferred to ICU for management. Patient had not been on any DVT prophylaxis due to thrombocytopenia. Patient started on Cardizem and Eliquis. Eliquis stopped, heparin started. Cardiology does not plan to cardiovert her due to low platelet count. Cardiology changed Cardizem from IV to oral, transfer to floor when okay with Card Qualifiers: Qualified Codes: I48.19 - Other persistent atrial fibrillation (2) CAP (community acquired pneumonia) Status: Acute Assessment & Plan: Blood cultures drawn on admission positive for gram + cocci in clusters. Patient put on meropenem, vanc added due to staph epi cultures, but uncertain if true infection Pancytopenia present. Chest Xray showed pulmonary vascular congestion and right base infiltrate. X ray repeated and showed improvement in congestion. Cardiology consulted for chest pain, determined to be pleuritic in nature. EKG and ECHO obtained, show grade [address] showed no evidence of PE, pneumonia in lower left lobe, infection in upper right lobe, mild emphysematous changes, bilateral benign nodules stable for 2 years, and benign adrenal adenoma. Qualifiers: Qualified Codes: J18.9 - Pneumonia, unspecified organism (3) Bacteremia due to Gram-positive bacteria Status: Acute Assessment & Plan: Blood cultures drawn 10/29/2022 positive for gram+ cocci in clusters. Patient on Meropenem. Continue. Vancomycin added to cover staph epi and capitis Repeat blood cultures obtained before vanc, no growth to date (4) Pancytopenia Status: Acute Assessment & Plan: Normal CBC in April of 2022. Peripheral smear ordered and obtained. Likely multifactorial, chronic liver disease combined with acute infection and azathioprine use. Heme consulted, filgrastim started, plan for bone marrow biopsy (5) Hypoxia Status: Chronic Assessment & Plan: Patient states she has been told she needs oxygen at home but she is noncompliant. (6) COPD exacerbation Status: Acute Assessment & Plan: Patient on solu-medrol, airduo, singulair. Patient feels as though her breathing has improved. ABG results 10/30/2022 pCO2 44, pO2 60, HCO3 29, O2 sat 93, base excess 4.4 Chest Xray obtained and repeated Solu-medrol decreased 10/31/202211/03 decrease solumedrol to 40 mg IV q12 (7) Pulmonary vascular congestion Status: Acute Assessment & Plan: Chest Xray shows pulmonary vascular congestion. EKG obtained ECHO results show grade 1 diastolic dysfunction Repeat Chest X ray showed improvement in congestion. (8) LY (obstructive sleep apnea) Status: Chronic Assessment & Plan: Non compliant with CPAP. (9) CAD (coronary artery disease) Status: Chronic Qualifiers: Qualified Codes: I25.10 - Atherosclerotic heart disease of [place] coronary artery without angina pectoris (10) Diabetes mellitus type 2 in obese Status: Chronic Assessment & Plan: Insulin aspart sliding scale. (11) Autoimmune hepatitis Status: Chronic Assessment & Plan: Home Rifaximin started. (12) Cirrhosis Status: Chronic (13) Lower extremity edema Status: Chronic Assessment & Plan: Patient states this is her baseline. Left leg usually more edematous than right. Doppler showed no evidence of DVT in either leg. Chest CT showed no evidence of PE. (14) HTN (hypertension) Status: Chronic Qualifiers: Qualified Codes: I10 - Essential (primary) hypertension (15) Hyponatremia Status: Acute Assessment & Plan: Improving with Lasix. (16) Cigarette smoker Status: Chronic Assessment & Plan: Counselled to stop. (17) Hypothyroidism Status: Chronic Assessment & Plan: Restarted home levothyroxine. Qualifiers: Qualified Codes: E03.9 - Hypothyroidism, unspecified (18) Anxiety Status: Chronic Assessment & Plan: Restarted home Fluoxetine. Plan: Moved to fourth floor Hold anticoagulation due to thrombocytopenia and anemia and bleeding risk Supportive care Critical Care Critically Ill Patient RANDI GRIMM DO Nov 04, 2022 06:41
[2022-11-04] MEDS: RT--FLUTICASONE/SALMETEROL 113-14 (AIRDUO RespiCLICK) IH SCH ×2 (08:23→21:26)
[2022-11-04] MEDS: LEVOTHYROXINE 75 MCG (LEVOTHROID) TABLET PO SCH (08:52)
[2022-11-04] MEDS: RIFAXIMIN 550 MG TABLET (XIFAXAN) PO SCH ×2 (08:52→22:06)
[2022-11-04] MEDS: FOLIC ACID 1 MG TAB PO SCH (08:52)
[2022-11-04] MEDS: MICONAZOLE 2% POWDER (DESENEX AF) 90 GM TOP SCH ×2 (08:53→22:05)
[2022-11-04] MEDS: DOCUSATE SODIUM 100 MG (COLACE) CAP PO SCH ×2 (09:11→22:06)
[2022-11-04] MEDS: SENNOSIDES 8.6 MG (SENOKOT) TAB PO SCH ×2 (09:12→22:05)
[2022-11-04 12:15] VITALS: BP 112/60
[2022-11-04] MEDS: VANCOMYCIN 1500 MG/NS 500 ML IVPB IV SCH ×2 (13:11)
--- NOTE | 2022-11-04 14:18 | Physical Therapy Evaluation ---
PT Evaluation-General Medical Diagnosis Admission Date Oct 29, 2022 at 11:27 Medical Diagnosis: Pneumonia Onset Date: Oct 29, 2022 Therapy Diagnosis Therapy Diagnosis: impaired mobility Height/Weight Height (Feet): 5 Height (Inches): 3.00 Weight (Pounds): 293 Weight (Ounces): 0.0 Precautions Precautions/Isolations: Fall Prevention, Standard Precautions Weight Bear Status Right Lower Extremity: Right Full Weight Bearing Left Lower Extremity: Left Full Weight Bearing Referral Physician: Chilo Reason for Referral: Evaluation/Treatment Medical History Pertinent Medical History: CAD, COPD, DM, HTN Additional Medical History cholecystectomy, hysterectomy, asthma, sleep apnea, emphysema, cirrhosis, hepatitis, heart catheter Current History Community acquired pneumonia. Reviewed History: Yes Social History Home: Apartment Current Living Status: Spouse Entry Into Home: Level Entry Prior Prior Level of Function SCALE: Activities may be completed with or without assistive devices. 5-Hhrszwebzx-pwfozpt completes the activity by him/herself with no assistance from a helper. 5-Set-up or Clean-up Assistance-helper sets up or cleans up; patient completes activity. [place] assists only prior to or following the activity. 4-Supervision or Touching Assistance-helper provides verbal cues and/or touching/steadying and/or contact guard assistance as patient completes activity. Assistance may be provided throughout the activity or intermittently. 3-Partial/Moderate Assistance-helper does LESS THAN HALF the effort. [place] lifts, holds or supports trunk or limbs, but provides less than half the effort. 2-Substantial/Maximal Assistance-helper does MORE THAN HALF the effort. [place] lifts or holds trunk or limbs and provides more than half the effort. 9-Avtzapfmi-fhylnw does ALL the effort. Patient does none of the effort to co mplete the activity. Or, the assistance of 2 or more helpers is required for the patient to complete the activity. If activity was not attempted, code reason: 7-Patient Refused. 9-Not Applicable-not attempted and the patient did not perform the activity before the current illness, exacerbation or injury. 10-Not Attempted due to Environmental Limitations-(lack of equipment, weather restraints, etc.). 88-Not Attempted due to Medical Conditions or Safety Concerns. Bed Mobility: 4 Transfers (B,C,W/C): 4 Gait: 4 Stairs: 4 Indoor Mobility (Ambulation): Independent Stairs: Needed Some Help Prior Devices Use: Walker PT Evaluation-Current Subjective Pt notes that she is breathing better and able to do more. No pain reported. Pain Numeric Pain Scale: 0-No Pain Pt/Family Goals return home Objective Patient Orientation: Person, Place, Time, Situation Attachments: Oxygen ROM/Strength ROM Upper Extremities WFL ROM Lower Extremities WFL Strength Upper Extremities 3+/5 (B) UE gross MMT Strength Lower Extremities 4-/5 (B) LE gross MMT Sensory Hearing: Functional Sensation Right Upper Extremit: Intact Sensation Left Upper Extremity: Intact Sensation Right Lower Extremit: Impaired Sensation Left Lower Extremity: Impaired Sensation Lower Extremities (B) LE peripheral neuropathy, dorsum and plantar surfaces of (B) feet. Transfers Roll Left to Right (QC): 4 Sit to Lying (QC): 4 Lying to Sitting/Side of Bed(Q: 4 Sit to Stand (QC): 4 Chair/Ekf-sp-Uacff Xfer(QC): 4 Gait Does the Patient Walk?: Yes Mode of Locomotion: Walk Anticipated Mode of Locomotion: Walk Walk 10 feet (QC): 4 Distance: 10ft Gait Assistive Device: FWW Wheelchair Training Does the Pt Use a Wheelchair?: No Balance Sitting Static: Good Sitting Dynamic: Good Standing Static: Fair Standing Dynamic: Fair Assessment/Needs Pt was limited by dyspnea today. She was motivated to walk more, but had to stop. Rehab Potential: Good PT Language Pathologist Goals Residential Goals PT Residential Goals Time Frame: Nov 18, 2022 Roll Left & Right (QC): 5 Sit to Lying (QC): 5 Lying-Sitting on Side/Bed(QC): 5 Sit to Stand (QC): 5 Chair/Qiz-nn-Pvrtw Xfer(QC): 5 Toilet Transfer (QC): 5 Car Transfer (QC): 5 Does the Patient Walk: Yes Walk 10 feet (QC): 5 Walk 50ft with 2 Turns (QC): 5 Walk 150 ft (QC): 5 Does the Pt use WC or Scooter?: No PT Plan Problem List Problem List: Activity Tolerance, Functional Strength, Safety, Balance, Gait, Transfer, Bed Mobility Treatment/Plan Treatment Plan: Continue Plan of Care Treatment Duration: Nov 18, 2022 Frequency: 6 times per week Estimated Hrs Per Day: .25 hour per day Patient and/or Family Agrees t: Yes Time Time In: 1030 Time Out: 1050 DATE: Nov 04, 2022 Total Billed Treatment Time: 20 Total Billed Treatment 1, evlowc 20 GARO HERNÁNDEZ PT Nov 04, 2022 14:18
[2022-11-04 16:00] VITALS: BP 112/60
[2022-11-04 16:16] VITALS: BP 112/60
--- NOTE | 2022-11-04 16:45 | Cardiology Progress Note ---
Progress Note-Cardiology Events since last exam Date Seen by Provider: Nov 04, 2022 Time Seen by Provider: 16:41 Events since last exam We are following her due to atrial fibrillation. Earlier today she was rodriguez sferred out of the intensive care unit to the medical floor. She feels as though her breathing continues to improve. She denies chest discomfort, palpitations, or syncope. She has mild ankle edema. Certain portions of this document may have been dictated utilizing voice recognition technology. Inherent to this technology, typographical and grammatical errors may exist. As much as I am diligent to identify and correct these mistakes, some errors may remain in the document. Vitals Last set of Vitals Signs Vital Signs 11/04/22 11/04/22 11/04/22 12:15 14:38 16:16 Temp 36.5 Pulse 87 Resp 18 B/P (MAP) 112/60 (77) Pulse Ox 95 O2 Delivery Nasal Cannula O2 Flow Rate 4.00 Labs Labs Laboratory Tests 11/04/22 04:42 Exam Vital Signs Vital Signs Date Time Temp Pulse Resp B/P (MAP) Pulse Ox O2 Delivery O2 Flow Rate FiO2 11/04/22 16:16 36.5 87 95 11/04/22 14:38 Nasal Cannula 4.00 11/04/22 12:15 18 112/60 (77) Physical Exam General: Alert. No acute distress. She is morbidly obese. Eye: No xanthelasma. HENT: Normocephalic. Neck: Jugular venous pressure does not appear elevated. Respiratory: Lungs are clear to auscultation but decreased at the bases bilaterally. Respirations are non-labored. Breath sounds are equal. Symmetrical chest wall expansion. Cardiovascular: Normal rate. Irregular rhythm. Distant S1/S2. No murmur. No gallop. Trace bilateral pretibial edema. Gastrointestinal: Soft. Normal bowel sounds. Skin: Warm. Dry. Neurologic: Alert and oriented to person, place, time. Cranial nerves 3-11 grossly intact. Psychiatric: Cooperative. Appropriate mood & affect. Labs Laboratory Tests Test 11/03/22 20:54 11/04/22 04:42 11/04/22 10:22 11/04/22 16:01 Range/Units Glucometer 170 H 248 H 193 H 70-110 MG/DL Prothrombin Time 14.6 12.2-14.7 SEC INR Comment 1.1 0.8-1.4 Sodium Level 134 L 135-145 MMOL/L Potassium Level 3.9 3.6-5.0 MMOL/L Chloride Level 92 L 98-107 MMOL/L Carbon Dioxide Level 32 21-32 MMOL/L Anion Gap 10 5-14 MMOL/L Blood Urea Nitrogen 18 7-18 MG/DL Creatinine 0.71 0.60-1.30 MG/DL Estimat Glomerular Filtration Rate 93 BUN/Creatinine Ratio 25 Glucose Level 174 H 70-105 MG/DL Calcium Level 8.2 L 8.5-10.1 MG/DL Corrected Calcium 9.2 8.5-10.1 MG/DL Phosphorus Level 2.6 2.3-4.7 MG/DL Magnesium Level 1.9 1.6-2.4 MG/DL Total Bilirubin 0.7 0.1-1.0 MG/DL Aspartate Amino Transf (AST/SGOT) 14 5-34 U/L Alanine Aminotransferase (ALT/SGPT) 17 0-55 U/L Alkaline Phosphatase 41 40-136 U/L Total Protein 5.8 L 6.4-8.2 GM/DL Albumin 2.7 L 3.2-4.5 GM/DL Diagnosis/Problems Diagnosis/Problems (1) Persistent atrial fibrillation Assessment & Plan: She has remained in atrial fibrillation for at least the past several days. She seems to be asymptomatic with this. Heart rates had been reasonably controlled with short acting diltiazem. On 11/04 I changed her over to long-acting diltiazem. She is not on oral anticoagulation due to pancytopenia with severe thrombocytopenia. (2) Coronary artery disease without angina pectoris Assessment & Plan: She has a history of coronary artery disease but is not currently having angina. She is not receiving aspirin due to thrombocytopenia. She is on diltiazem for antianginal properties and rate control for the atrial fibrillation. She takes ezetimibe at home for her cholesterol but this is currently on hold. (3) Acute heart failure with preserved ejection fraction (HFpEF) Assessment & Plan: She has been receiving intravenous Lasix. Her peripheral edema has improved. We may be able to convert this over to oral diuretic in the near future. We need to watch her renal function closely. (4) Primary hypertension Assessment & Plan: Continue diltiazem. (5) Mixed hyperlipidemia Assessment & Plan: I have ordered her ezetimibe. She has an intolerance to atorvastatin. (6) Pancytopenia Status: Acute Assessment & Plan: This is being evaluated by the hospitalist who has also ordered a hematology consultation and bone marrow biopsy. The severe thrombocytopenia is a relative contraindication to anticoagulation for the atrial fibrillation. (7) Morbid obesity Status: Chronic Assessment & Plan: She needs to work on weight loss. (8) Cigarette smoker Status: Chronic Assessment & Plan: She is adamant that she has quit smoking since the day of this current admission. DANNY TATE JR, MD Nov 04, 2022 16:45
[2022-11-04] MEDS: ACETAMINOPHEN 325 MG TABLET PO PRN (18:50)
[2022-11-04 21:00] VITALS: BP 117/66
[2022-11-04] MEDS: MONTELUKAST 10 MG (SINGULAIR) TAB PO SCH (22:05)
[2022-11-04] MEDS: eZETimibe 10 MG (ZETIA) TABLET PO SCH (22:06)
[2022-11-04] MEDS: FLUoxetine HCL 20 MG (PROzac) CAP PO SCH (22:06)
[2022-11-04] MEDS: LORATADINE (CLARITIN) 10 MG TAB PO SCH (22:06)
[2022-11-05] VITALS: BP 110/60
[2022-11-05] MEDS: MEROPENEM 500 MG/NS 100 ML IVPB IV SCH ×8 (01:42→18:03)
[2022-11-05] MEDS: RT-ALBUTEROL SULF 2.5 MG/3 ML PRE-MIX VIAL INH SCH ×6 (02:20→22:05)
[2022-11-05 03:24] VITALS: BP 126/73
[2022-11-05] MEDS: inSUlin ASPART (NovoLOG) 1 UNIT/0.01 ML (CHARGE PER UNIT) SC SCH ×4 (06:15→21:06)
[2022-11-05] MEDS: methylPREDNISolone 40 MG/ML (Solu-MEDROL) VIAL IV SCH ×2 (06:18→17:10)
[2022-11-05] MEDS: FUROSEMIDE 40 MG/4 ML INJ (LASIX) IVP SCH ×2 (06:18→16:02)
--- NOTE | 2022-11-05 06:19 | Progress Note - Hospitalist ---
Subjective HPI/CC On Admission Date Seen by Provider: Nov 05, 2022 Time Seen by Provider: 11:00 CC: Acute respiratory failure HPI: This is a 67yoWF who has known COPD and continues to smoke who presents to the ER with acute resp failure with hypoxia of 70% resolved with aggressive meds and oxygen. Patient will require IV steroids along with ICS and Nebs and O2. CSD required. PNA will be treatment with abx. Subjective/Events-last exam No major issues Needs bone marrow so will reach out to Dr Amato tomorrow Breathing better Wants a shower Review of Systems General: Fatigue, Malaise Focused Exam Time of Focused Exam: 08:30 Objective Exam Vital Signs Vital Signs Date Time Temp Pulse Resp B/P (MAP) Pulse Ox O2 Delivery O2 Flow Rate FiO2 11/05/22 15:21 36.2 81 18 139/68 (91) 96 High Flow N/C 4.50 Capillary Refill : Less Than 3 Seconds General Appearance: No Apparent Distress, WD/WN, Chronically ill, Obese Respiratory: Normal Breath Sounds, Crackles Cardiovascular: Regular Rate, Rhythm Neurologic/Psychiatric: Alert, Oriented x3, No Motor/Sensory Deficits, Normal Mood/Affect Results/Procedures Lab Laboratory Tests 11/05/22 07:53 Patient resulted labs reviewed. Assessment/Plan Assessment and Plan Assess & Plan/Chief Complaint (1) Atrial fibrillation Status: Acute Assessment & Plan: New onset Afib with RVR. Patient transferred to ICU for management. Patient had not been on any DVT prophylaxis due to thrombocytopenia. Patient started on Cardizem and Eliquis. Eliquis stopped, heparin started. Cardiology does not plan to cardiovert her due to low platelet count. Cardiology changed Cardizem from IV to oral, transfer to floor when okay with Card Qualifiers: Qualified Codes: I48.19 - Other persistent atrial fibrillation (2) CAP (community acquired pneumonia) Status: Acute Assessment & Plan: Blood cultures drawn on admission positive for gram + cocci in clusters. Patient put on meropenem, vanc added due to staph epi cultures, but uncertain if true infection Pancytopenia present. Chest Xray showed pulmonary vascular congestion and right base infiltrate. X ray repeated and showed improvement in congestion. Cardiology consulted for chest pain, determined to be pleuritic in nature. EKG and ECHO obtained, show grade [address] showed no evidence of PE, pneumonia in lower left lobe, infection in up per right lobe, mild emphysematous changes, bilateral benign nodules stable for 2 years, and benign adrenal adenoma. Qualifiers: Qualified Codes: J18.9 - Pneumonia, unspecified organism (3) Bacteremia due to Gram-positive bacteria Status: Acute Assessment & Plan: Blood cultures drawn 10/29/2022 positive for gram+ cocci in clusters. Patient on Meropenem. Continue. Vancomycin added to cover staph epi and capitis Repeat blood cultures obtained before vanc, no growth to date (4) Pancytopenia Status: Acute Assessment & Plan: Normal CBC in April of 2022. Peripheral smear ordered and obtained. Likely multifactorial, chronic liver disease combined with acute infection and azathioprine use. Heme consulted, filgrastim started, plan for bone marrow biopsy (5) Hypoxia Status: Chronic Assessment & Plan: Patient states she has been told she needs oxygen at home but she is noncompliant. (6) COPD exacerbation Status: Acute Assessment & Plan: Patient on solu-medrol, airduo, singulair. Patient feels as though her breathing has improved. ABG results 10/30/2022 pCO2 44, pO2 60, HCO3 29, O2 sat 93, base excess 4.4 Chest Xray obtained and repeated Solu-medrol decreased 10/31/202211/03 decrease solumedrol to 40 mg IV q12 (7) Pulmonary vascular congestion Status: Acute Assessment & Plan: Chest Xray shows pulmonary vascular congestion. EKG obtained ECHO results show grade 1 diastolic dysfunction Repeat Chest X ray showed improvement in congestion. (8) LY (obstructive sleep apnea) Status: Chronic Assessment & Plan: Non compliant with CPAP. (9) CAD (coronary artery disease) Status: Chronic Qualifiers: Qualified Codes: I25.10 - Atherosclerotic heart disease of [place] coronary artery without angina pectoris (10) Diabetes mellitus type 2 in obese Status: Chronic Assessment & Plan: Insulin aspart sliding scale. (11) Autoimmune hepatitis Status: Chronic Assessment & Plan: Home Rifaximin started. (12) Cirrhosis Status: Chronic (13) Lower extremity edema Status: Chronic Assessment & Plan: Patient states this is her baseline. Left leg usually more edematous than right. Doppler showed no evidence of DVT in either leg. Chest CT showed no evidence of PE. (14) HTN (hypertension) Status: Chronic Qualifiers: Qualified Codes: I10 - Essential (primary) hypertension (15) Hyponatremia Status: Acute Assessment & Plan: Improving with Lasix. (16) Cigarette smoker Status: Chronic Assessment & Plan: Counselled to stop. (17) Hypothyroidism Status: Chronic Assessment & Plan: Restarted home levothyroxine. Qualifiers: Qualified Codes: E03.9 - Hypothyroidism, unspecified (18) Anxiety Status: Chronic Assessment & Plan: Restarted home Fluoxetine. Plan: Moved to fourth floor Hold anticoagulation due to thrombocytopenia and anemia and bleeding risk Supportive care Critical Care Critically Ill Patient RANDI GRIMM DO Nov 05, 2022 06:19
[2022-11-05] MEDS: RT--FLUTICASONE/SALMETEROL 113-14 (AIRDUO RespiCLICK) IH SCH ×2 (07:34→22:05)
[2022-11-05 07:35] VITALS: BP 115/61
[2022-11-05 08:00] LABS: BASOPHILS % (AUTO) 1 % (0-10); EOSINOPHILS % (AUTO) 0 % (0-10); HEMATOCRIT 32 % (35-52); HEMOGLOBIN 11.3 g/dL (11.5-16.0); MEAN CORPUSCULAR HEMOGLOBIN 35 pg (25-34); MEAN CORPUSCULAR HGB CONC 36 g/dL (32-36); MEAN CORPUSCULAR VOLUME 96 fL (80-99)
[2022-11-05 08:02] LABS: LYMPHOCYTES # (AUTO) 0.2 10^3/uL (1.0-4.0); LYMPHOCYTES % (AUTO) 11 % (12-44); MEAN PLATELET VOLUME 11.2 fL (9.0-12.2); MONOCYTES # (AUTO) 0.4 10^3/uL (0.0-1.0); MONOCYTES % (AUTO) 23 % (0-12); NEUTROPHILS # (AUTO) 0.9 10^3/uL (1.8-7.8); NEUTROPHILS % (AUTO) 58 % (42-75); WHITE BLOOD COUNT 1.6 10^3/uL (4.3-11.0)
[2022-11-05 08:08] LABS: PLATELET COUNT 30 10^3/uL (130-400)
[2022-11-05 08:57] LABS: ALBUMIN 2.8 GM/DL (3.2-4.5); BILIRUBIN,TOTAL 0.7 MG/DL (0.1-1.0); CALCIUM 8.5 MG/DL (8.5-10.1); CREATININE SERUM 0.71 MG/DL (0.60-1.30); POTASSIUM 3.7 MMOL/L (3.6-5.0); TOTAL PROTEIN 6.2 GM/DL (6.4-8.2)
[2022-11-05 08:59] LABS: ANISOCYTOSIS SLIGHT; BAND NEUTROPHILS 1 %; BASOPHILS % (MANUAL) 0 %; ELLIPT/OVALOCYTES SLIGHT; EOSINOPHILS % (MANUAL) 0 %; LYMPHOCYTES % (MANUAL) 11 %; MONOCYTES % (MANUAL) 18 %; NEUTROPHILS % (MANUAL) 70 %
[2022-11-05] MEDS ORDERED: SENNOSIDES 8.6 MG (SENOKOT) TAB PO SCH (09:00)
[2022-11-05] MEDS ORDERED: DOCUSATE SODIUM 100 MG (COLACE) CAP PO SCH (09:00)
[2022-11-05] MEDS: DOCUSATE SODIUM 100 MG (COLACE) CAP PO SCH ×2 (11:06→19:44)
[2022-11-05] MEDS: LEVOTHYROXINE 75 MCG (LEVOTHROID) TABLET PO SCH (11:06)
[2022-11-05] MEDS: SENNOSIDES 8.6 MG (SENOKOT) TAB PO SCH ×2 (11:07→19:44)
[2022-11-05] MEDS: RIFAXIMIN 550 MG TABLET (XIFAXAN) PO SCH ×2 (11:07→21:06)
[2022-11-05] MEDS: MICONAZOLE 2% POWDER (DESENEX AF) 90 GM TOP SCH ×2 (11:07→21:05)
[2022-11-05] MEDS: FOLIC ACID 1 MG TAB PO SCH (11:07)
--- NOTE | 2022-11-05 11:17 | Cardiology Progress Note ---
Progress Note-Cardiology Events since last exam Date Seen by Provider: Nov 05, 2022 Time Seen by Provider: 11:11 Events since last exam We are following her due to atrial fibrillation. She feels as though her br eathing has improved and she plans to get up to take a shower with assistance today. She denies chest discomfort, palpitations, or syncope. She still has some mild ankle edema. Certain portions of this document may have been dictated utilizing voice recognition technology. Inherent to this technology, typographical and grammatical errors may exist. As much as I am diligent to identify and correct these mistakes, some errors may remain in the document. Vitals Last set of Vitals Signs Vital Signs 11/05/22 11/05/22 07:35 08:26 Temp 36.0 Pulse 82 Resp 20 B/P (MAP) 115/61 (79) Pulse Ox 92 O2 Delivery Nasal Cannula O2 Flow Rate 4.00 Labs Labs Laboratory Tests 11/05/22 07:53 Exam Vital Signs Vital Signs Date Time Temp Pulse Resp B/P (MAP) Pulse Ox O2 Delivery O2 Flow Rate FiO2 11/05/22 08:26 92 Nasal Cannula 4.00 11/05/22 07:35 36.0 82 20 115/61 (79) Physical Exam General: Alert. No acute distress. She is morbidly obese. Eye: No xanthelasma. HENT: Normocephalic. Neck: Jugular venous pressure does not appear elevated. Respiratory: Lungs have decreased breath sounds at the bases bilaterally. Respirations are non-labored. Breath sounds are equal. Symmetrical chest wall expansion. Cardiovascular: Normal rate. Irregular rhythm. Distant S1/S2. No murmur. No gallop. Trace bilateral pretibial edema with some venous stasis changes. Gastrointestinal: Soft. Normal bowel sounds. Skin: Warm. Dry. Neurologic: Alert and oriented to person, place, time. Cranial nerves 3-11 grossly intact. Psychiatric: Cooperative. Appropriate mood & affect. Labs Laboratory Tests Test 11/04/22 16:01 11/04/22 21:19 11/05/22 05:59 11/05/22 07:53 Range/Units Glucometer 193 H 212 H 166 H 70-110 MG/DL White Blood Count 1.6 L 4.3-11.0 10^3/uL Red Blood Count 3.28 L 3.80-5.11 10^6/uL Hemoglobin 11.3 L 11.5-16.0 g/dL Hematocrit 32 L 35-52 % Mean Corpuscular Volume 96 80-99 fL Mean Corpuscular Hemoglobin 35 H 25-34 pg Mean Corpuscular Hemoglobin Concent 36 32-36 g/dL Red Cell Distribution Width 15.6 H 10.0-14.5 % Platelet Count 30 *L 130-400 10^3/uL Mean Platelet Volume 11.2 9.0-12.2 fL Immature Granulocyte % (Auto) 7 % Neutrophils (%) (Auto) 58 42-75 % Lymphocytes (%) (Auto) 11 L 12-44 % Monocytes (%) (Auto) 23 H 0-12 % Eosinophils (%) (Auto) 0 0-10 % Basophils (%) (Auto) 1 0-10 % Neutrophils # (Auto) 0.9 L 1.8-7.8 10^3/uL Lymphocytes # (Auto) 0.2 L 1.0-4.0 10^3/uL Monocytes # (Auto) 0.4 0.0-1.0 10^3/uL Eosinophils # (Auto) 0.0 0.0-0.3 10^3/uL Basophils # (Auto) 0.0 0.0-0.1 10^3/uL Immature Granulocyte # (Auto) 0.1 0.0-0.1 10^3/uL Neutrophils % (Manual) 70 % Lymphocytes % (Manual) 11 % Monocytes % (Manual) 18 % Eosinophils % (Manual) 0 % Basophils % (Manual) 0 % Band Neutrophils 1 % Percent Immature Platelet Fraction 9.0 H 0.0-7.6 % Anisocytosis SLIGHT Elliptocytes SLIGHT Sodium Level 135 135-145 MMOL/L Potassium Level 3.7 3.6-5.0 MMOL/L Chloride Level 87 L 98-107 MMOL/L Carbon Dioxide Level 35 H 21-32 MMOL/L Anion Gap 13 5-14 MMOL/L Blood Urea Nitrogen 24 H 7-18 MG/DL Creatinine 0.71 0.60-1.30 MG/DL Estimat Glomerular Filtration Rate 93 BUN/Creatinine Ratio 34 Glucose Level 178 H 70-105 MG/DL Calcium Level 8.5 8.5-10.1 MG/DL Corrected Calcium 9.5 8.5-10.1 MG/DL Magnesium Level 2.0 1.6-2.4 MG/DL Total Bilirubin 0.7 0.1-1.0 MG/DL Aspartate Amino Transf (AST/SGOT) 12 5-34 U/L Alanine Aminotransferase (ALT/SGPT) 16 0-55 U/L Alkaline Phosphatase 43 40-136 U/L Total Protein 6.2 L 6.4-8.2 GM/DL Albumin 2.8 L 3.2-4.5 GM/DL Test 11/05/22 10:58 Range/Units Glucometer 282 H 70-110 MG/DL Diagnosis/Problems Diagnosis/Problems (1) Persistent atrial fibrillation Assessment & Plan: She has remained in atrial fibrillation for at least the past several days. She seems to be asymptomatic with this. Heart rates had been reasonably controlled with short acting diltiazem. On 11/04 I changed her over to long-acting diltiazem. She is not on oral anticoagulation due to pancytopenia with severe thrombocytopenia. I will obtain a follow-up electrocardiogram in the morning. She is not currently a candidate for antiarrhythmic drug since we cannot give it for anticoagulation due to thrombocytopenia. (2) Coronary artery disease without angina pectoris Assessment & Plan: She has a history of coronary artery disease but is not currently having angina. She is not receiving aspirin due to thrombocytopenia. She is on diltiazem for antianginal properties and rate control for the atrial fibrillation. I restarted her ezetimibe. (3) Acute heart failure with preserved ejection fraction (HFpEF) Assessment & Plan: She has been receiving intravenous Lasix. Her peripheral edema has improved. We may be able to convert this over to oral diuretic in the near future. We need to watch her renal function closely. (4) Primary hypertension Assessment & Plan: Blood pressures have been reasonably controlled on the current dose of diltiazem. (5) Mixed hyperlipidemia Assessment & Plan: Continue ezetimibe which she takes at home. She has an intolerance to atorvastatin. (6) Pancytopenia Status: Acute Assessment & Plan: This is being evaluated by the hospitalist who has also ordered a hematology consultation and bone marrow biopsy. The severe thrombocytopenia is a relative contraindication to anticoagulation for the atrial fibrillation. The platelet count continues to drop. No signs of bleeding at this point in time. (7) Morbid obesity Status: Chronic Assessment & Plan: She needs to work on weight loss. (8) Cigarette smoker Status: Chronic Assessment & Plan: She is adamant that she has quit smoking since the day of this current admission. DANNY TATE JR, MD Nov 05, 2022 11:17
[2022-11-05 15:21] VITALS: BP 139/68
[2022-11-05 20:18] VITALS: BP 110/52
[2022-11-05] MEDS: MONTELUKAST 10 MG (SINGULAIR) TAB PO SCH (21:05)
[2022-11-05] MEDS: eZETimibe 10 MG (ZETIA) TABLET PO SCH (21:06)
[2022-11-05] MEDS: LORATADINE (CLARITIN) 10 MG TAB PO SCH (21:06)
[2022-11-05] MEDS: FLUoxetine HCL 20 MG (PROzac) CAP PO SCH (21:06)
[2022-11-05 23:39] VITALS: BP 108/64
[2022-11-06] VITALS (8 sets, daily range): BP systolic 108–136; BP diastolic 55–84
[2022-11-06] MEDS: MEROPENEM 500 MG/NS 100 ML IVPB IV SCH ×8 (00:53→18:08)
[2022-11-06] MEDS: RT-ALBUTEROL SULF 2.5 MG/3 ML PRE-MIX VIAL INH SCH ×6 (02:56→22:03)
[2022-11-06] MEDS: inSUlin ASPART (NovoLOG) 1 UNIT/0.01 ML (CHARGE PER UNIT) SC SCH ×5 (05:43→20:18)
[2022-11-06] MEDS: methylPREDNISolone 40 MG/ML (Solu-MEDROL) VIAL IV SCH ×2 (06:00→18:07)
[2022-11-06] MEDS: FUROSEMIDE 40 MG/4 ML INJ (LASIX) IVP SCH ×2 (06:00→16:28)
[2022-11-06] MEDS: RT--FLUTICASONE/SALMETEROL 113-14 (AIRDUO RespiCLICK) IH SCH ×2 (07:05→22:03)
[2022-11-06 07:15] LABS: ALBUMIN 2.9 GM/DL (3.2-4.5); BASOPHILS % (AUTO) 2 % (0-10); BILIRUBIN,TOTAL 0.8 MG/DL (0.1-1.0); CALCIUM 8.6 MG/DL (8.5-10.1); CREATININE SERUM 0.74 MG/DL (0.60-1.30); EOSINOPHILS % (AUTO) 0 % (0-10); LYMPHOCYTES # (AUTO) 0.2 10^3/uL (1.0-4.0); LYMPHOCYTES % (AUTO) 28 % (12-44); MEAN CORPUSCULAR HGB CONC 36 g/dL (32-36); MEAN CORPUSCULAR VOLUME 96 fL (80-99); MEAN PLATELET VOLUME 10.3 fL (9.0-12.2); MONOCYTES # (AUTO) 0.1 10^3/uL (0.0-1.0); MONOCYTES % (AUTO) 15 % (0-12); NEUTROPHILS # (AUTO) 0.3 10^3/uL (1.8-7.8); NEUTROPHILS % (AUTO) 51 % (42-75); POTASSIUM 4.2 MMOL/L (3.6-5.0); TOTAL PROTEIN 6.4 GM/DL (6.4-8.2)
[2022-11-06 07:16] LABS: HEMATOCRIT 32 % (35-52); HEMOGLOBIN 11.8 g/dL (11.5-16.0); MEAN CORPUSCULAR HEMOGLOBIN 35 pg (25-34)
[2022-11-06 08:17] LABS: PLATELET COUNT 14 10^3/uL (130-400)
[2022-11-06 08:18] LABS: WHITE BLOOD COUNT 0.7 10^3/uL (4.3-11.0)
[2022-11-06] MEDS: DOCUSATE SODIUM 100 MG (COLACE) CAP PO SCH ×2 (08:26→20:17)
[2022-11-06] MEDS: FOLIC ACID 1 MG TAB PO SCH (08:26)
[2022-11-06] MEDS: RIFAXIMIN 550 MG TABLET (XIFAXAN) PO SCH ×2 (08:26→20:17)
[2022-11-06] MEDS: SENNOSIDES 8.6 MG (SENOKOT) TAB PO SCH ×2 (08:26→20:17)
[2022-11-06] MEDS: MICONAZOLE 2% POWDER (DESENEX AF) 90 GM TOP SCH ×2 (08:26→20:17)
[2022-11-06] MEDS: LEVOTHYROXINE 75 MCG (LEVOTHROID) TABLET PO SCH (08:26)
--- NOTE | 2022-11-06 09:03 | Cardiology Progress Note ---
Subjective Date Seen by Provider: Nov 06, 2022 Time Seen by Provider: 08:15 Subjective/Events-last exam Patient is sitting up in bed, denies any chest pain or dyspnea, reporting improvement. Review of Systems General: No Chills, No Night Sweats; Fatigue, Malaise; No Appetite, No Other HEENT: No Head Aches, No Visual Changes, No Eye Pain, No Ear Pain, No Dysphasia, No Sinus Congestion, No Post Nasal Drip, No Sore Throat, No Other Pulmonary: No Dyspnea; Cough; No Pleuritic Chest Pain, No Other Cardiovascular: No: Chest Pain, Palpitations, Orthopnea, Paroxysmal Noc. Dyspnea, Edema, Lt Headedness, Other Focused Exam Time of Focused Exam: 08:30 Objective-Cardiology Exam Last Set of Vital Signs Vital Signs 11/06/22 08:06 Temp 36.4 Pulse 91 Resp 18 B/P (MAP) 108/62 (77) Pulse Ox 93 O2 Delivery Nasal Cannula O2 Flow Rate 4.00 I&O Intake and Output 11/06/22 00:00 Intake Total 2360 ml Output Total 2150 ml Balance 210 ml Intake Oral 2260 ml IV Total 100 ml Output Urine Total 2150 ml # Voids 1 # Bowel Movements 2 General: Alert, No Acute Distress HEENT: Atraumatic Neck: Supple Lungs: Clear to Auscultation Heart: Normal S1, Normal S2, Other (Atrial fibrillation) Abdomen: Normal Bowel Sounds, Soft Extremities: No Clubbing, No Cyanosis, Other (lower extremity edema, consistent with patient's baseline) Skin: No Rashes, No Breakdown, Other (ecchymosis at many sites) Neuro: Normal Speech Psych/Mental Status: Mood NL Results Lab Laboratory Tests 11/06/22 06:28 11/06/22 09:45 A/P-Cardiology Admission Diagnosis Pneumonia Pleuritic chest pain HTN HLP Assessment/Plan Persistent afib, new onset during this hospital admission. Rate controlled at this time. Maintained on PO Cardizem Not a candidate for cardioversion due to her thrombocytopenia. Unable to take any anticoagulation at this time. Pleuritic chest pain, likely due to pneumonia, reporting improvement Repeat chest x-ray showed improvement Still having acute exacerbation of COPD with reactive airway disease, having active wheezing. Gram-positive bacteremia, 2 bottles of cultures were positive, probably contamination Pancytopenia, neutropenia, managed by primary care physician Patient is scheduled for bone marrow biopsy today. History of autoimmune hepatitis, patient was on azathioprine Followed and managed with primary care physician Coronary artery disease -cardiac catheterization on 08/13/2013 revealed ectasia in the RCA with small vessel disease, slow flow in the RCA. 40-50 percent mid LAD stenosis, otherwise, nonobstructive disease. EF 60 percent - stress test and 2-D echocardiogram in September 2017 revealed no ischemia or infarct with normal EF 2D echo was done on October 30, 2022 with normal ejection fraction 55 to 60%, PA pressures 35 to 40 mmHg, grade 1 diastolic dysfunction. I did not notice any vegetation on her valvular structure and no significant valvular disease was noted. Hypertension, was initially borderline hypotensive, currently blood pressure is better. Continue to monitor H/o hyperlipidemia, intolerance to statins Nonobstructive carotid artery stenosis per carotid duplex done November 2019 Obesity, BMI is 53 Chronic tobacco use - advised to quit COPD/asthma, educated on smoking cessation. Diabetes mellitus II H/o hypothyroidism, followed and managed by primary care physician H/o autoimmune hepatitis, followed and managed by primary care physician. H/o psoriasis, followed and managed by primary care physician Supervisory-Addendum Brief Supervisory Addendum Participated in pt care: history, MDM, physical Personally performed: exam, history, MDM Care discussed with: NADEGE Results interpretation: Verified all documentation Notes: Patient was seen and evaluated with Luisito, examination performed, management plan was discussed, agree with the current scribed note, I made few changes to the note using Italic font Patient was seen at bedside, sitting comfortably No new complaint, reporting improvement in her symptoms, still having some cough I discussed with Dr. Ceja regarding her pancytopenia, she has been consulting with Dr. Amato over the phone. Patient is scheduled for bone marrow biopsy today. LUISITO KEMP Nov 06, 2022 09:03 STARLA COTA MD Nov 06, 2022 10:03
[2022-11-06] MEDS ORDERED: NS IV 1000 ML 1,000 ML IV STA (09:42)
--- NOTE | 2022-11-06 09:44 | Physical Therapy Daily Note ---
PT Daily Note-Current Subjective Patient agrees to PT. Pain Section J - Health Conditions 1. Rarely or not at all 2. Occasionally 3. Frequently 4. Almost constantly 8. Unable to answer Pain Effect on Sleep: 1 Pain Interference with Therapy: 1 Pain Interference w/Day-to-Day: 1 Transfers SCALE: Activities may be completed with or without assistive devices. 5-Yvufpjqiwj-cvvcxjk completes the activity by him/herself with no assistance from a helper. 5-Set-up or Clean-up Assistance-helper sets up or cleans up; patient completes activity. [place] assists only prior to or following the activity. 4-Supervision or Touching Assistance-helper provides verbal cues and/or touching/steadying and/or contact guard assistance as patient completes activity. Assistance may be provided throughout the activity or intermittently. 3-Partial/Moderate Assistance-helper does LESS THAN HALF the effort. [place] lifts, holds or supports trunk or limbs, but provides less than half the effort. 2-Substantial/Maximal Assistance-helper does MORE THAN HALF the effort. [place] lifts or holds trunk or limbs and provides more than half the effort. 3-Lqgkdqlod-sbdqlo does ALL the effort. Patient does none of the effort to complete the activity. Or, the assistance of 2 or more helpers is required for the patient to complete the activity. If activity was not attempted, code reason: 7-Patient Refused. 9-Not Applicable-not attempted and the patient did not perform the activity before the current illness, exacerbation or injury. 10-Not Attempted due to Environmental Limitations-(lack of equipment, weather restraints, etc.). 88-Not Attempted due to Medical Conditions or Safety Concerns. Lying to Sitting/Side of Bed(Q: 6 Sit to Stand (QC): 6 Chair/Krx-wz-Ziigm Xfer(QC): 6 Toilet Transfer (QC): 6 Weight Bearing Right Lower Extremity: Right Full Weight Bearing Left Lower Extremity: Left Full Weight Bearing Gait Training Distance: 15' x 1/50' x 1 Walk 10 feet (QC): 5 Walk 50 ft with 2 Turns(QC): 5 Gait Assistive Device: FWW slow, steady gait sequence with no deviation Exercises Seated Therapy Exercises: Ankle pumps, Long arc quads, Hip flexion Seated Reps: 15 Assessment Patient improving with treatment plan and is up in recliner with needs met. Patient is encouraged with improvement. PT to increase activity as tolerated by patient. PT Waste Collection Driver Goals Detention Goals PT Waste Collection Driver Goals Time Frame: Nov 18, 2022 Roll Left & Right (QC): 5 Sit to Lying (QC): 5 Lying-Sitting on Side/Bed(QC): 5 Sit to Stand (QC): 5 Chair/Gda-ml-Subsc Xfer(QC): 5 Toilet Transfer (QC): 5 Car Transfer (QC): 5 Does the Patient Walk: Yes Walk 10 feet (QC): 5 Walk 50ft with 2 Turns (QC): 5 Walk 150 ft (QC): 5 Does the Pt use WC or Scooter?: No PT Plan Treatment/Plan Treatment Plan: Continue Plan of Care Treatment Duration: Nov 18, 2022 Frequency: 6 times per week Estimated Hrs Per Day: .25 hour per day Patient and/or Family Agrees t: Yes Time Time In: 837 Time Out: 852 DATE: Nov 06, 2022 Total Billed Treatment Time: 15 Total Billed Treatment 1 visit FA 15 min KEVIN QUINTANILLA PT Nov 06, 2022 09:44
[2022-11-06] MEDS ORDERED: fentaNYL INJ 100 MCG/2 ML AMP IVP ONE (09:45)
[2022-11-06] MEDS ORDERED: LIDOCAINE 1% INJ 30 ML (XYLOCAINE) VIAL INJ ONE (09:45)
[2022-11-06] MEDS ORDERED: MIDAZOLAM 2 MG/2 ML (VERSED) VIAL IVP ONE (09:45)
[2022-11-06 09:53] LABS: EOSINOPHILS % (AUTO) 0 % (0-10); HEMATOCRIT 34 % (35-52)
[2022-11-06 09:55] LABS: ABSOLUTE RETIC # 58 10e9/uL (24-90); BASOPHILS % (AUTO) 0 % (0-10); LYMPHOCYTES # (AUTO) 0.2 10^3/uL (1.0-4.0); LYMPHOCYTES % (AUTO) 22 % (12-44); MEAN CORPUSCULAR HEMOGLOBIN 35 pg (25-34); MEAN CORPUSCULAR HGB CONC 36 g/dL (32-36); MEAN CORPUSCULAR VOLUME 96 fL (80-99); MEAN PLATELET VOLUME 10.2 fL (9.0-12.2); MONOCYTES # (AUTO) 0.2 10^3/uL (0.0-1.0); MONOCYTES % (AUTO) 19 % (0-12); NEUTROPHILS # (AUTO) 0.5 10^3/uL (1.8-7.8); NEUTROPHILS % (AUTO) 53 % (42-75); RETICULOCYTE % 1.67 % (0.50-2.40)
[2022-11-06 09:57] LABS: PLATELET COUNT 38 10^3/uL (130-400)
[2022-11-06 10:25] LABS: ANISOCYTOSIS SLIGHT; BAND NEUTROPHILS 0 %; BASOPHILS % (MANUAL) 0 %; EOSINOPHILS % (MANUAL) 0 %; LYMPHOCYTES % (MANUAL) 26 %; MONOCYTES % (MANUAL) 22 %; NEUTROPHILS % (MANUAL) 52 %
--- NOTE | 2022-11-06 10:33 | Occupational Therapy Eval ---
OT Evaluation-General/PLF Medical Diagnosis Admission Date Oct 29, 2022 at 11:27 Medical Diagnosis: Pneumonia Onset Date: Oct 29, 2022 Therapy Diagnosis Therapy Diagnosis: n/a Height/Weight Height (Feet): 5 Height (Inches): 3.00 Weight (Pounds): 293 Weight (Ounces): 0.0 Precautions Precautions/Isolations: Standard Precautions Referral Physician: Chilo Referral Reason: Evaluation/Treatment Medical History Pertinent Medical History: CAD, COPD, DM, HTN Additional Medical History COPD, anxiety, DM, HTN, HLP, hypothyroidism, CAD, LY, GERD, childhood seizures, extreme morbid obesity, arthritis Current History ED with acute respiratory failure with hypoxia of 70% Social History Home: Apartment Current Living Status: Spouse Entry Into Home: Level Entry ADL-Prior Level of Function SCALE: Activities may be completed with or without assistive devices. 8-Uvkwurmgqq-vynejbm completes the activity by him/herself with no assistance from a helper. 5-Set-up or Clean-up Assistance-helper sets up or cleans up; patient completes activity. [place] assists only prior to or following the activity. 4-Supervision or Touching Assistance-helper provides verbal cues and/or touching/steadying and/or contact guard assistance as patient completes activity. Assistance may be provided throughout the activity or intermittently. 3-Partial/Moderate Assistance-helper does LESS THAN HALF the effort. [place] lifts, holds or supports trunk or limbs, but provides less than half the effort. 2-Substantial/Maximal Assistance-helper does MORE THAN HALF the effort. [place] lifts or holds trunk or limbs and provides more than half the effort. 3-Uvdkypzno-njlecs does ALL the effort. Patient does none of the effort to complete the activity. Or, the assistance of 2 or more helpers is required for the patient to complete the activity. If activity was not attempted, code reason: 7-Patient Refused. 9-Not Applicable-not attempted and the patient did not perform the activity before the current illness, exacerbation or injury. 10-Not Attempted due to Environmental Limitations-(lack of equipment, weather restraints, etc.). 88-Not Attempted due to Medical Conditions or Safety Concerns. ADL PLOF Comments Pt reports IND with ADLs and functional mobility at [facility], no AD. She has been staying at her sister's apartment next door (sister recently had a heart attack). Pt typically goes over to her sister's apartment to shower, walk in with shower chair. Pt's apartment has a tub/shower and pt has difficulty getting in/out. Self Care: Independent Functional Cognition: Independent OT Current Status Subjective Pt on toilet upon OT arrival, agreeable to OT evaluation. Mental Status/Objective Patient Orientation: Normal For Age Attachments: Oxygen Current Upper Extremity ROM WFL ADL-Treatment Eating (QC): 6 On/Off Footwear (QC): 6 Toileting Hygiene (QC): 6 Other Treatments Pt on toilet upon OT arrival, completed toileting independently, then used FWW to transfer to recliner, independently. Pt able to manage O2 tubing during transfer. Pt demo'd ability to don/doff gripper socks. Pt states she has no concerns with her ability to complete ADLs and feels like she is at her PLOF. Po st tx, pt in recliner, call light in reach and all needs met. Education OT Patient Education: Correct positioning, Energy conservation, Modified ADL techniques, Progress toward Goal/Update tx plan, Purpose of tx/functional activities, Rehab process Teaching Recipient: Patient Teaching Methods: Discussion Response to Teaching: Verbalize Understanding OT Snf Goals Senior Construction Manager Goals 1=Demonstrate adherence to instructed precautions during ADL tasks. 2=Patient will verbalize/demonstrate understanding of assistive devices/modifications for ADL. 3=Patient will improve strength/tolerance for activity to enable patient to perform ADL's. OT Education/Plan Problem List/Assessment Assessment: No Skilled OT Needs ID'd No skilled OT services indicated at this time. Pt is currently independent with ADLS and at PLOF. D/C from OT. Discharge Recommendations Plan/Recommendations: Discharge/Goals Met Treatment Plan/Plan of Care Patient would benefit from OT for education, treatment and training to promote independence in ADL's, mobility, safety and/or upper extremity function for ADL's. Plan of Care: ADL Retraining, Functional Mobility Treatment Duration: Nov 06, 2022 Frequency: 1 time per week (eval only) Estimated Hrs Per Day: .25 hour per day Rehab Potential: Good Time Start Time: 09:59 Stop Time: 10:07 DATE: Nov 06, 2022 Total Time Billed (hr/min): 8 Billed Treatment Time 1, SHREYA TREVINO OT Nov 06, 2022 10:33
--- NOTE | 2022-11-06 11:17 | Diagnostic Imaging Report ---
INDICATION: Low platelets. Patient presents for CT-guided bone marrow aspiration and biopsy. Patient was brought to the CT suite and placed on table in the prone position. Axial imaging through the pelvis was performed to evaluate appropriate entry site. Low back was prepped and draped in the usual sterile fashion. A small amount of 1% lidocaine was utilized for local anesthesia. The bone marrow needle was advanced and placed with its tip along the posterior cortex of the right iliac bone. The needle was advanced through the cortex utilizing the bone marrow drill. Two bone marrow aspirates were then obtained. Next, the bone marrow drill was utilized to obtain a bone marrow core biopsy. Needle was removed, and hemostasis was obtained using manual compression. Patient tolerated the procedure well and left the department in stable condition. IMPRESSION: Successful CT-guided bone marrow aspiration and core biopsy, as described. Pathology results are currently pending. Dictated by: Dictated on workstation # [id number]
--- NOTE | 2022-11-06 12:12 | Progress Note - Hospitalist ---
ERIKJUDYANDRESSA 11/06/22 1212: Subjective HPI/CC On Admission Date Seen by Provider: Nov 06, 2022 Time Seen by Provider: 10:25 CC: Acute respiratory failure HPI: This is a 67yoWF who has known COPD and continues to smoke who presents to the ER with acute resp failure with hypoxia of 70% resolved with aggressive meds and oxygen. Patient will require IV steroids along with ICS and Nebs and O2. CSD required. PNA will be treatment with abx. Subjective/Events-last exam Madeleine Glez is a 67 yo female admitted to inpatient care for pneumonia and acute respiratory failure which has since resolved with treatment in the hospital. The patient on encounter today reports feeling improved symptom atically, with no notable SOB and no pain. The patient does endorse decreased appetite but states she is still eating. She has no concerns regarding urinary or bowel functions at this time. The patient has bone marrow biopsy scheduled today due to pancytopenia of HGB 0.7, HGB 11.8, PLT 14. Her other labs are significant for Na 133, Cl 85, CO2 36, BUN 25. EKG obtained yesterday showed atrial fibrillation. Review of Systems Pulmonary: No Dyspnea Cardiovascular: No: Chest Pain Gastrointestinal: No: Abdominal Pain Focused Exam Time of Focused Exam: 08:30 Objective Exam Vital Signs Vital Signs Date Time Temp Pulse Resp B/P (MAP) Pulse Ox O2 Delivery O2 Flow Rate FiO2 11/06/22 11:30 60 110/55 (73) 11/06/22 11:15 36.4 18 95 Nasal Cannula 4.00 Capillary Refill : Less Than 3 Seconds General Appearance: Mild Distress Respiratory: Lungs Clear, Normal Breath Sounds, No Accessory Muscle Use, No Respiratory Distress Cardiovascular: Regular Rate, Rhythm, No Edema, No Gallop, No JVD, No Murmur, Normal Peripheral Pulses Gastrointestinal: Non Tender, Soft Extremity: Pedal Edema (trace, bilateral) Neurologic/Psychiatric: Alert, Oriented x3 Results/Procedures Lab Laboratory Tests 11/06/22 06:28 11/06/22 09:45 Patient resulted labs reviewed. Assessment/Plan Assessment and Plan Assess & Plan/Chief Complaint 1. Community acquired pneumonia: Vancomycin course completed. Continue meropenem. Continue monitoring respiratory status. 2. Bacteremia: Vancomycin course completed. Continue meropenem. 3. Atrial fibrillation: Continue Cardizem. 4. Pancytopenia: Bone marrow biopsy obtained 11/06, awaiting pathology report. 5. Hypoxia with acute respiratory failure and COPD exacerbation: Continue O2 supplementation, inhaled corticosteroids, inhalers as needed. 6. Hyponatremia: Continue Lasix. SANDY GRIMM DO 11/07/22 0458: Subjective Subjective/Events-last exam Bone marrow will be completed today by Dr. Zhu Objective Exam General Appearance: No Apparent Distress, WD/WN, Chronically ill Respiratory: Lungs Clear, Normal Breath Sounds Cardiovascular: Regular Rate, Rhythm Neurologic/Psychiatric: Alert, Oriented x3 Assessment/Plan Assessment and Plan Assess & Plan/Chief Complaint Bone marrow today Supervisory-Addendum Brief Verification & Attestation Participated in pt care: history, MDM, physical Personally performed: exam, history, MDM, supervision of care Care discussed with: Medical Student Procedures: n/a Results interpretation: Verified all documentation Verification and Attestation of Medical Student E/M Service A medical student performed and documented this service in my presence. I reviewed and verified all information documented by the medical student and made modifications to such information, when appropriate. I personally performed the physical exam and medical decision making. Sandy Grimm, Nov 07, 2022,04:58 ANDRESSA GANT Nov 06, 2022 12:12 SANDY GRIMM DO Nov 07, 2022 04:58
--- NOTE | 2022-11-06 14:33 | Pre-Procedure Progress Note ---
Pre-Procedure Progress Note Date of Available H&P: Nov 06, 2022 Date H&P Reviewed: Nov 06, 2022 Time H&P Reviewed: 10:00 Pre-Procedure Diagnosis: low platelets ABDI KELLEY MD Nov 06, 2022 14:33
--- NOTE | 2022-11-06 16:07 | Diagnostic Imaging Report ---
INDICATION: Followup pulmonary infiltrate. COMPARISON: 10/31/2022 and 10/30/2022 FINDINGS: Frontal and lateral radiographic views of the chest were obtained and show probable trace bibasilar effusions with asymmetric linear and patchy airspace opacity in the left base. There is no pneumothorax. Cardiac silhouette and pulmonary vasculature with normal limits. Osseous structures show no gross acute abnormalities. IMPRESSION: 1. Probable trace bibasilar effusions with asymmetric left basilar atelectasis. Some component of infiltrate cannot be entirely excluded. Dictated by: Dictated on workstation # [id number]
[2022-11-06] MEDS: ACETAMINOPHEN 325 MG TABLET PO PRN ×2 (18:07→22:25)
[2022-11-06] MEDS: eZETimibe 10 MG (ZETIA) TABLET PO SCH (20:16)
[2022-11-06] MEDS: LORATADINE (CLARITIN) 10 MG TAB PO SCH (20:17)
[2022-11-06] MEDS: MONTELUKAST 10 MG (SINGULAIR) TAB PO SCH (20:17)
[2022-11-06] MEDS: FLUoxetine HCL 20 MG (PROzac) CAP PO SCH (20:17)
[2022-11-07] VITALS (7 sets, daily range): BP systolic 106–141; BP diastolic 52–67
[2022-11-07] MEDS: MEROPENEM 500 MG/NS 100 ML IVPB IV SCH ×8 (02:19→21:29)
[2022-11-07] MEDS: RT-ALBUTEROL SULF 2.5 MG/3 ML PRE-MIX VIAL INH SCH ×6 (02:57→22:04)
[2022-11-07 05:47] LABS: EOSINOPHILS % (AUTO) 0 % (0-10); MEAN CORPUSCULAR VOLUME 95 fL (80-99)
[2022-11-07 05:49] LABS: BASOPHILS % (AUTO) 0 % (0-10); HEMATOCRIT 30 % (35-52); HEMOGLOBIN 10.9 g/dL (11.5-16.0); LYMPHOCYTES # (AUTO) 0.2 10^3/uL (1.0-4.0); LYMPHOCYTES % (AUTO) 30 % (12-44); MEAN CORPUSCULAR HEMOGLOBIN 35 pg (25-34); MEAN CORPUSCULAR HGB CONC 37 g/dL (32-36); MEAN PLATELET VOLUME 11.4 fL (9.0-12.2); MONOCYTES # (AUTO) 0.1 10^3/uL (0.0-1.0); MONOCYTES % (AUTO) 15 % (0-12); NEUTROPHILS # (AUTO) 0.3 10^3/uL (1.8-7.8); NEUTROPHILS % (AUTO) 47 % (42-75); PLATELET COUNT 40 10^3/uL (130-400)
[2022-11-07] MEDS: methylPREDNISolone 40 MG/ML (Solu-MEDROL) VIAL IV SCH ×2 (05:50→18:07)
[2022-11-07] MEDS: FUROSEMIDE 40 MG/4 ML INJ (LASIX) IVP SCH ×2 (05:51→16:32)
[2022-11-07 05:59] LABS: WHITE BLOOD COUNT 0.6 10^3/uL (4.3-11.0)
[2022-11-07] MEDS: inSUlin ASPART (NovoLOG) 1 UNIT/0.01 ML (CHARGE PER UNIT) SC SCH ×4 (06:03→21:31)
[2022-11-07 06:20] LABS: ALBUMIN 2.8 GM/DL (3.2-4.5); BILIRUBIN,TOTAL 0.8 MG/DL (0.1-1.0); CALCIUM 8.3 MG/DL (8.5-10.1); CREATININE SERUM 0.72 MG/DL (0.60-1.30); MAGNESIUM 2.2 MG/DL (1.6-2.4); POTASSIUM 3.9 MMOL/L (3.6-5.0)
[2022-11-07] MEDS: RT--FLUTICASONE/SALMETEROL 113-14 (AIRDUO RespiCLICK) IH SCH ×2 (07:28→21:30)
--- NOTE | 2022-11-07 07:44 | Cardiology Progress Note ---
Subjective Date Seen by Provider: Nov 07, 2022 Time Seen by Provider: 07:30 Subjective/Events-last exam Patient was awake and oriented x3 when seen this morning. She had a bone marrow biopsy yesterday for her pancytopenia, with results pending at this time. She reports feeling the same today as she did yesterday. She reports good appetite and fluid intake. She is having occasional chest tightness which resolves with coughing, intermittent palpitations, SOB, and mild back pain. Denies having chest pain, N/V/D, constipation, dysuria, or weakness/numbness of extremities. She had no specific questions or concerns when seen this morning other than wondering when she can go home. Review of Systems General: No Chills, No Night Sweats; Appetite (good) HEENT: No Head Aches, No Visual Changes Pulmonary: Dyspnea, Cough, Other Cardiovascular: Palpitations, Other (chest tightness); No: Chest Pain, Edema Gastrointestinal: No: Nausea, Vomiting, Abdominal Pain, Diarrhea, Constipation Genitourinary: No Dysuria, No Incontinence, No Hematuria Musculoskeletal: back pain Neurological: No: Weakness, Numbness, Change in speech, Confusion Focused Exam Time of Focused Exam: 08:30 Objective-Cardiology Exam Last Set of Vital Signs Vital Signs 11/07/22 07:48 Temp 36.2 Pulse 55 Resp 20 B/P (MAP) 126/60 (82) Pulse Ox 91 O2 Delivery Nasal Cannula O2 Flow Rate 2.00 I&O Intake and Output 11/07/22 00:00 Intake Total 2100 ml Output Total 400 ml Balance 1700 ml Intake Oral 2100 ml Output Urine Total 400 ml # Voids 4 General: Alert, Oriented X3, No Acute Distress HEENT: Atraumatic, EOMI Neck: Supple Lungs: Other (mild expiratory wheezing in RUL) Heart: Normal S1, Normal S2, Other (Atrial fibrillation) Abdomen: Normal Bowel Sounds, Soft, No Tenderness Extremities: No Clubbing, No Cyanosis, No Edema Skin: No Rashes, No Breakdown, Other (ecchymosis at many sites) Neuro: Normal Speech Psych/Mental Status: Mood NL Results Lab Laboratory Tests 11/06/22 09:45 11/07/22 05:39 A/P-Cardiology Admission Diagnosis Pneumonia Pleuritic chest pain HTN HLP Assessment/Plan Persistent afib, new onset during this hospital admission. Rate controlled at this time. Maintained on PO Cardizem Not a candidate for cardioversion due to her thrombocytopenia. Unable to take any anticoagulation at this time. Pleuritic chest pain, pneumonia vs. COPD exacerbation, reporting improvement Repeat chest x-ray on 11/06 showed improvement Patient continues to have respiratory symptoms with active wheezing. Still having acute exacerbation of COPD with reactive airway disease, having active wheezing. Pt. has finished regimen of vancomycin and is finishing meropenem regimen while also receiving IV steroids, and inhalers at this time. Gram-positive bacteremia, 2 bottles of cultures were positive with Staph e kenidis on 10/29, probably contamination Last blood culture was on 10/31 and was negative at that time while she was on antibiotics Pancytopenia, neutropenia, managed by primary care physician Patient had bone marrow biopsy yesterday with results pending at this time. Unclear etiology at this time. Could be secondary to autoimmune hepatitis, but need to rule out leukemia and other causes as well. I will place patient in neutropenic isolation/precaution History of autoimmune hepatitis, patient was on azathioprine Followed and managed with primary care physician Coronary artery disease -cardiac catheterization on 08/13/2013 revealed ectasia in the RCA with small vessel disease, slow flow in the RCA. 40-50 percent mid LAD stenosis, otherwise, nonobstructive disease. EF 60 percent - stress test and 2-D echocardiogram in September 2017 revealed no ischemia or infarct with normal EF 2D echo was done on October 30, 2022 with normal ejection fraction 55 to 60%, PA pressures 35 to 40 mmHg, grade 1 diastolic dysfunction. I did not notice any vegetation on her valvular structure and no significant valvular disease was noted. Hypertension, was initially borderline hypotensive, currently blood pressure is better. Continue to monitor H/o hyperlipidemia, intolerance to statins, on ezetimibe 10mg QD Nonobstructive carotid artery stenosis per carotid duplex done November 2019 Obesity, BMI is 53 Chronic tobacco use - advised to quit COPD/asthma, educated on smoking cessation. Diabetes mellitus II Insulin sliding scale, being managed by IM team H/o hypothyroidism, followed and managed by primary care physician H/o autoimmune hepatitis, followed and managed by primary care physician. H/o psoriasis, followed and managed by primary care physician Supervisory-Addendum Brief Verification & Attestation Participated in pt care: history, MDM, physical Personally performed: exam, history, MDM, supervision of care Care discussed with: Medical Student Procedures: n/a Results interpretation: Verified all documentation Verification and Attestation of Medical Student E/M Service A medical student performed and documented this service in my presence. I reviewed and verified all information documented by the medical student and made modifications to such information, when appropriate. I personally performed the physical exam and medical decision making. Radha Mason, Nov 07, 2022,08:41 BEVERLY CAROLINA Nov 07, 2022 07:44 RADHA MASON MD Nov 07, 2022 08:41
[2022-11-07] MEDS: SENNOSIDES 8.6 MG (SENOKOT) TAB PO SCH ×2 (08:44→21:30)
[2022-11-07] MEDS: DOCUSATE SODIUM 100 MG (COLACE) CAP PO SCH ×2 (08:44→21:30)
[2022-11-07] MEDS: RIFAXIMIN 550 MG TABLET (XIFAXAN) PO SCH ×2 (08:44→21:30)
[2022-11-07] MEDS: FOLIC ACID 1 MG TAB PO SCH (08:44)
[2022-11-07] MEDS: MICONAZOLE 2% POWDER (DESENEX AF) 90 GM TOP SCH ×2 (08:44→21:31)
[2022-11-07] MEDS: LEVOTHYROXINE 75 MCG (LEVOTHROID) TABLET PO SCH (08:44)
--- NOTE | 2022-11-07 10:59 | Physical Therapy Daily Note ---
PT Daily Note-Current Subjective Patient agrees to PT. Incontinent urine requiring bed and clothing change. Pain Section J - Health Conditions 1. Rarely or not at all 2. Occasionally 3. Frequently 4. Almost constantly 8. Unable to answer Pain Effect on Sleep: 1 Pain Interference with Therapy: 1 Pain Interference w/Day-to-Day: 1 Mental Status Patient Orientation: Normal For Age Attachments: Oxygen Transfers SCALE: Activities may be completed with or without assistive devices. 5-Isksghtpxe-dhhiliz completes the activity by him/herself with no assistance from a helper. 5-Set-up or Clean-up Assistance-helper sets up or cleans up; patient completes activity. Coyote assists only prior to or following the activity. 4-Supervision or Touching Assistance-helper provides verbal cues and/or touching/steadying and/or contact guard assistance as patient completes activity. Assistance may be provided throughout the activity or intermittently. 3-Partial/Moderate Assistance-helper does LESS THAN HALF the effort. Coyote lifts, holds or supports trunk or limbs, but provides less than half the effort. 2-Substantial/Maximal Assistance-helper does MORE THAN HALF the effort. Coyote lifts or holds trunk or limbs and provides more than half the effort. 2-Ijhabwdmf-qqczzg does ALL the effort. Patient does none of the effort to complete the activity. Or, the assistance of 2 or more helpers is required for the patient to complete the activity. If activity was not attempted, code reason: 7-Patient Refused. 9-Not Applicable-not attempted and the patient did not perform the activity before the current illness, exacerbation or injury. 10-Not Attempted due to Environmental Limitations-(lack of equipment, weather restraints, etc.). 88-Not Attempted due to Medical Conditions or Safety Concerns. Lying to Sitting/Side of Bed(Q: 6 Sit to Stand (QC): 4 Chair/Uva-ok-Earvh Xfer(QC): 4 Toilet Transfer (QC): 4 Patient requires assistance to change clothing and to cleanse after toilet use. Weight Bearing Right Lower Extremity: Right Full Weight Bearing Left Lower Extremity: Left Full Weight Bearing Gait Training Distance: 15' x 2 Walk 10 feet (QC): 4 Gait Assistive Device: FWW slow, steady gait sequence Assessment Patient is up in recliner with needs met. Continues to be incontinent urine in bed with use of purewick. PT to increase activity as tolerated by patient. PT [employer] Goals Usp Goals PT Usp Goals Time Frame: Nov 18, 2022 Roll Left & Right (QC): 5 Sit to Lying (QC): 5 Lying-Sitting on Side/Bed(QC): 5 Sit to Stand (QC): 5 Chair/Bng-iw-Zbrqe Xfer(QC): 5 Toilet Transfer (QC): 5 Car Transfer (QC): 5 Does the Patient Walk: Yes Walk 10 feet (QC): 5 Walk 50ft with 2 Turns (QC): 5 Walk 150 ft (QC): 5 Does the Pt use WC or Scooter?: No PT Plan Treatment/Plan Treatment Plan: Continue Plan of Care Treatment Duration: Nov 18, 2022 Frequency: 6 times per week Estimated Hrs Per Day: .25 hour per day Patient and/or Family Agrees t: Yes Time Time In: 947 Time Out: 1010 DATE: Nov 07, 2022 Total Billed Treatment Time: 23 Total Billed Treatment 1 visit FA x 2 23 min KEVIN QUINTANILLA PT Nov 07, 2022 10:59
--- NOTE | 2022-11-07 12:57 | Progress Note - Hospitalist ---
ANDRESSA GANT 11/07/22 1257: Subjective HPI/CC On Admission Date Seen by Provider: Nov 07, 2022 Time Seen by Provider: 10:40 CC: Acute respiratory failure HPI: This is a 67yoWF who has known COPD and continues to smoke who presents to the ER with acute resp failure with hypoxia of 70% resolved with aggressive meds and oxygen. Patient will require IV steroids along with ICS and Nebs and O2. CSD required. PNA will be treatment with abx. Subjective/Events-last exam Madeleine Glez is a 67 yo female who was admitted to inpatient care for acute respiratory failure and pneumonia. The patient on evaluation today reports she feels significantly improved compared to her initial presentation. She states she has returned to baseline respiratory symptoms, and she has no complaints of pain. She endorses decreased appetite but states she is able to eat, and she does not have decreased urine or stool volume. She also admits to a mild frontal headache consistent with chronic headaches she has. The patient denies any nausea, vomiting, sore throat, new leg pain or swelling, or abdominal pain. She has no other concerns or complaints. The patient's bloodwork reveals WBC 0.6, HGB 10.9, PLT 40, Na 129, Cl 82, CO2 39, BUN 27. CXR on 11/06 showed probable trace bibasilar effusions with asymmetric left basilar atelectasis with possible infiltrate. Bone marrow pathology report is still pending. Review of Systems HEENT: Head Aches Pulmonary: No Dyspnea; Cough Cardiovascular: No: Chest Pain Gastrointestinal: No: Nausea, Vomiting, Abdominal Pain Genitourinary: No Dysuria, No Retention Focused Exam Time of Focused Exam: 08:30 Objective Exam Vital Signs Vital Signs Date Time Temp Pulse Resp B/P (MAP) Pulse Ox O2 Delivery O2 Flow Rate FiO2 11/07/22 11:36 94 Nasal Cannula 2.00 11/07/22 11:06 36.2 56 20 117/63 (81) Capillary Refill : Less Than 3 Seconds General Appearance: No Apparent Distress, Obese Respiratory: Chest Non Tender, Lungs Clear, Normal Breath Sounds, No Respiratory Distress Cardiovascular: Regular Rate, Rhythm, No Edema, No Gallop, No Murmur, Normal Peripheral Pulses Extremity: No Pedal Edema Neurologic/Psychiatric: Alert, Oriented x3 Skin: Normal Color, Warm/Dry Results/Procedures Lab Laboratory Tests 11/07/22 05:39 Patient resulted labs reviewed. Radiology Date of Exam:11/06/22 CHEST PA/LAT (2 VIEW) IMPRESSION: 1. Probable trace bibasilar effusions with asymmetric left basilar atelectasis. Some component of infiltrate cannot be entirely excluded. Assessment/Plan Assessment and Plan Assess & Plan/Chief Complaint 1. Community acquired pneumonia: Vancomycin course completed. Continue me ropenem. Continue monitoring respiratory status. Continue inhaled corticosteroids. 2. Bacteremia: Vancomycin course completed. Continue meropenem. 3. Atrial fibrillation: Continue Cardizem. 4. Pancytopenia: Bone marrow biopsy obtained 11/06, awaiting pathology report. 5. Hypoxia with acute respiratory failure and COPD exacerbation: Continue O2 supplementation, inhaled corticosteroids, inhalers as needed. 6. Hyponatremia: Continue Lasix. SANDY GRIMM DO 11/08/22 0441: Subjective Subjective/Events-last exam Spoke with Dr. 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 I reviewed and verified all information documented by the medical student and made modifications to such information, when appropriate. I personally performed the physical exam and medical decision making. Sandy Grimm Nov 08, 2022,04:41 ANDRESSA GANT Nov 07, 2022 12:57 SANDY GRIMM DO Nov 08, 2022 04:41
[2022-11-07] MEDS: ACETAMINOPHEN 325 MG TABLET PO PRN (18:11)
[2022-11-07] MEDS: LORATADINE (CLARITIN) 10 MG TAB PO SCH (21:30)
[2022-11-07] MEDS: MONTELUKAST 10 MG (SINGULAIR) TAB PO SCH (21:30)
[2022-11-07] MEDS: eZETimibe 10 MG (ZETIA) TABLET PO SCH (21:30)
[2022-11-07] MEDS: FLUoxetine HCL 20 MG (PROzac) CAP PO SCH (21:42)
[2022-11-08] VITALS (7 sets, daily range): BP systolic 119–157; BP diastolic 56–70
[2022-11-08] MEDS: MEROPENEM 500 MG/NS 100 ML IVPB IV SCH ×6 (03:02→12:53)
[2022-11-08] MEDS: RT-ALBUTEROL SULF 2.5 MG/3 ML PRE-MIX VIAL INH SCH ×4 (03:22→21:04)
[2022-11-08 05:54] LABS: BASOPHILS % (AUTO) 0 % (0-10); EOSINOPHILS % (AUTO) 0 % (0-10); HEMOGLOBIN 10.5 g/dL (11.5-16.0)
[2022-11-08 05:56] LABS: HEMATOCRIT 29 % (35-52); LYMPHOCYTES # (AUTO) 0.3 10^3/uL (1.0-4.0); LYMPHOCYTES % (AUTO) 38 % (12-44); MEAN CORPUSCULAR HEMOGLOBIN 35 pg (25-34); MEAN CORPUSCULAR HGB CONC 37 g/dL (32-36); MEAN CORPUSCULAR VOLUME 95 fL (80-99); MEAN PLATELET VOLUME 13.5 fL (9.0-12.2); MONOCYTES # (AUTO) 0.1 10^3/uL (0.0-1.0); MONOCYTES % (AUTO) 15 % (0-12); NEUTROPHILS # (AUTO) 0.3 10^3/uL (1.8-7.8); NEUTROPHILS % (AUTO) 40 % (42-75); PLATELET COUNT 41 10^3/uL (130-400)
[2022-11-08 06:23] LABS: WHITE BLOOD COUNT 0.7 10^3/uL (4.3-11.0)
[2022-11-08 06:29] LABS: ALBUMIN 2.8 GM/DL (3.2-4.5); BILIRUBIN,TOTAL 0.9 MG/DL (0.1-1.0); CALCIUM 7.9 MG/DL (8.5-10.1); CREATININE SERUM 0.68 MG/DL (0.60-1.30); MAGNESIUM 2.1 MG/DL (1.6-2.4); POTASSIUM 3.8 MMOL/L (3.6-5.0)
[2022-11-08] MEDS: FUROSEMIDE 40 MG/4 ML INJ (LASIX) IVP SCH ×2 (06:42→18:18)
[2022-11-08] MEDS: inSUlin ASPART (NovoLOG) 1 UNIT/0.01 ML (CHARGE PER UNIT) SC SCH ×5 (06:42→21:44)
[2022-11-08] MEDS: methylPREDNISolone 40 MG/ML (Solu-MEDROL) VIAL IV SCH ×2 (06:42→18:17)
[2022-11-08] MEDS: RT--FLUTICASONE/SALMETEROL 113-14 (AIRDUO RespiCLICK) IH SCH ×2 (07:21→21:05)
[2022-11-08] MEDS: LEVOTHYROXINE 75 MCG (LEVOTHROID) TABLET PO SCH (08:08)
--- NOTE | 2022-11-08 08:09 | Cardiology Progress Note ---
Subjective Date Seen by Provider: Nov 08, 2022 Time Seen by Provider: 07:40 Subjective/Events-last exam Patient was awake and oriented x3 in bed when seen this morning. She reports feeling better today than yesterday and denies having any chest pain or palpitations at this time. She continues to have a cough and left hip pain. She is currently on 2L supplemental O2 which she reports is baseline for her at home although she admits she doesn;t always wear it. She is in neutropenic precautions at this time and her bloodwork has had no significant changes since yesterday. Review of Systems General: No Chills, No Night Sweats; Appetite (normal) HEENT: No Head Aches, No Visual Changes Pulmonary: No Dyspnea; Cough; No Pleuritic Chest Pain Cardiovascular: No: Chest Pain, Palpitations, Edema Gastrointestinal: No: Nausea, Vomiting, Abdominal Pain, Diarrhea, Constipation Genitourinary: No Dysuria, No Hematuria Musculoskeletal: leg pain (Mild left hip pain) Neurological: No: Weakness, Numbness Focused Exam Time of Focused Exam: 08:30 Objective-Cardiology Exam Last Set of Vital Signs Vital Signs 11/08/22 16:09 Temp 36.4 Pulse 57 Resp 18 B/P (MAP) 119/56 (77) Pulse Ox 93 O2 Delivery Nasal Cannula O2 Flow Rate 2.00 I&O Intake and Output 11/08/22 00:00 Intake Total 2620 ml Output Total 1900 ml Balance 720 ml Intake Oral 2620 ml Output Urine Total 1900 ml # Voids 1 General: Alert, Oriented X3, No Acute Distress HEENT: Atraumatic, EOMI Neck: Supple Lungs: Other (mild expiratory wheezing in RUL) Heart: Regular Rate, Normal S1, Normal S2, No Murmurs Abdomen: Normal Bowel Sounds, Soft, No Tenderness Extremities: No Clubbing, No Cyanosis, No Edema, Normal Pulses Skin: No Rashes, No Breakdown, Other (ecchymosis at many sites) Neuro: Normal Speech Psych/Mental Status: Mood NL Results Lab Laboratory Tests 11/08/22 05:24 A/P-Cardiology Admission Diagnosis Pneumonia Pleuritic chest pain HTN HLP Assessment/Plan Paroxysmal atrial fibrillation, new onset during this hospital admission. Converted spontaneously to sinus rhythm on oral Cardizem. Not a candidate for cardioversion due to her thrombocytopenia. Unable to take any anticoagulation at this time. Patient appears to have converted to sinus rhythm on exam this morning. Will monitor for now. Pleuritic chest pain, pneumonia vs. COPD exacerbation, reporting improvement Repeat chest x-ray on 11/06 showed improvement Patient continues to have respiratory symptoms with active wheezing. Still having acute exacerbation of COPD with reactive airway disease, having active wheezing. Pt. has finished regimen of vancomycin and is finishing meropenem regimen while also receiving IV steroids, and inhalers at this time. Gram-positive bacteremia, 2 bottles of cultures were positive with Staph epidermidis on 10/29, probably contamination Last blood culture was on 10/31 and was negative at that time while she was on antibiotics Pancytopenia, neutropenia, managed by primary care physician Patient had bone marrow biopsy yesterday with results still pending at this time. Unclear etiology at this time. Could be secondary to autoimmune hepatitis, but need to rule out leukemia and other causes as well. Patient was placed in neutropenic precautions yesterday. It was reported to me that her pathology came as AML. Management per medical team History of autoimmune hepatitis, patient was on azathioprine Followed and managed with primary care physician Coronary artery disease -cardiac catheterization on 08/13/2013 revealed ectasia in the RCA with small vessel disease, slow flow in the RCA. 40-50 percent mid LAD stenosis, otherwise, nonobstructive disease. EF 60 percent - stress test and 2-D echocardiogram in September 2017 revealed no ischemia or infarct with normal EF 2D echo was done on October 30, 2022 with normal ejection fraction 55 to 60%, PA pressures 35 to 40 mmHg, grade 1 diastolic dysfunction. I did not notice any vegetation on her valvular structure and no significant valvular disease was noted. Hypertension, was initially borderline hypotensive, currently blood pressure is better. Continue to monitor H/o hyperlipidemia, intolerance to statins, on ezetimibe 10mg QD Nonobstructive carotid artery stenosis per carotid duplex done November 2019 Obesity, BMI is 53 Chronic tobacco use - advised to quit COPD/asthma, educated on smoking cessation. Diabetes mellitus II Insulin sliding scale, being managed by IM team H/o hypothyroidism, followed and managed by primary care physician H/o autoimmune hepatitis, followed and managed by primary care physician. H/o psoriasis, followed and managed by primary care physician Supervisory-Addendum Brief Verification & Attestation Participated in pt care: history, MDM, physical Personally performed: exam, history, MDM, supervision of care Care discussed with: Medical Student Procedures: n/a Results interpretation: Verified all documentation Patient was seen and evaluated with Maddie, examination performed, management plan was discussed, agree with the current scribed note, I made few changes to the note using Italic font Patient was seen at bedside, laying down comfortably, feeling better Still having some cough, has pancytopenia Discuss with Dr. Woo her management plan, she will require transfer to a tertiary care center for evaluation and management for her newly diagnosed AML This morning she was noted to be in sinus rhythm, EKG was done confirming her sinus rhythm. Still cannot tolerate oral anticoagulation. BEVERLY CAROLINA Nov 08, 2022 08:09 STARLA COTA MD Nov 08, 2022 16:53
[2022-11-08] MEDS: RIFAXIMIN 550 MG TABLET (XIFAXAN) PO SCH ×2 (08:10→21:44)
[2022-11-08] MEDS: DOCUSATE SODIUM 100 MG (COLACE) CAP PO SCH ×2 (08:10→21:45)
[2022-11-08] MEDS: MICONAZOLE 2% POWDER (DESENEX AF) 90 GM TOP SCH ×2 (08:10→21:46)
[2022-11-08] MEDS: FOLIC ACID 1 MG TAB PO SCH (08:10)
[2022-11-08] MEDS: SENNOSIDES 8.6 MG (SENOKOT) TAB PO SCH ×2 (08:10→21:45)
--- NOTE | 2022-11-08 12:07 | Progress Note - Hospitalist ---
ANDRESSA GANT 11/08/22 1207: Subjective HPI/CC On Admission Date Seen by Provider: Nov 08, 2022 Time Seen by Provider: 10:30 CC: Acute respiratory failure HPI: This is a 67yoWF who has known COPD and continues to smoke who presents to the ER with acute resp failure with hypoxia of 70% resolved with aggressive meds and oxygen. Patient will require IV steroids along with ICS and Nebs and O2. CSD required. PNA will be treatment with abx. Subjective/Events-last exam Madeleine Glez is a 67 yo female who was admitted on 10/29 to inpatient care for pneumonia and acute respiratory failure. The patient was diagnosed with pneumonia requiring antibiotics and COPD exacerbation requiring ICS and serial nebulizer treatments. The patient has had gradual improvement of her respiratory symptoms and on 11/08 states she has residual wheezing and occasional dry cough but overall feels much improved. The patient is not normally on oxygen at home but has 97% SpO2 on 2 L of oxygen here. Vancomycin and meropenem courses completed during admission. The patient was noted to be pancytopenic on CBC and has had her hospitalization extended for continued evaluation. Bone marrow biopsy was obtained. Pathology report returned today with diagnosis of myelodysplastic syndrome vs acute myeloid leukemia. Patient was notified and discussion was held at 1100 today. CBC 11/08 is significant for 0.7, 10.5, 41; CMP shows Na 130, BUN 24, Ca 7.9, Total Protein 6, Albumin 2.8. Review of Systems General: No Chills HEENT: No Head Aches Pulmonary: Dyspnea, Cough, Other (wheeze) Cardiovascular: No: Chest Pain Gastrointestinal: No: Abdominal Pain Genitourinary: No Dysuria Focused Exam Time of Focused Exam: 08:30 Objective Exam Vital Signs Vital Signs Date Time Temp Pulse Resp B/P (MAP) Pulse Ox O2 Delivery O2 Flow Rate FiO2 11/08/22 08:40 36.1 59 18 127/58 (81) 91 Nasal Cannula 2.00 Capillary Refill : Less Than 3 Seconds General Appearance: No Apparent Distress, Obese Respiratory: Chest Non Tender, Other (diffuse end-expiratory wheeze) Cardiovascular: Regular Rate, Rhythm, No Edema, No Gallop, No Murmur, Normal Peripheral Pulses Gastrointestinal: Normal Bowel Sounds, Non Tender, Soft Extremity: Pedal Edema (trace bilateral pedal edema) Neurologic/Psychiatric: Alert, Oriented x3 Skin: Normal Color, Warm/Dry Results/Procedures Lab Laboratory Tests 11/08/22 05:24 Patient resulted labs reviewed. Assessment/Plan Assessment and Plan Assess & Plan/Chief Complaint 1. Community acquired pneumonia: Vancomycin course completed. Continue meropenem. Continue monitoring respiratory status. Continue inhaled corticos teroids. 2. Bacteremia: Vancomycin course completed. Continue meropenem. 3. Atrial fibrillation: Continue Cardizem. 4. Pancytopenia: Pathology report 11/08 shows abnormal myeloid blast concerning for MDS vs AML. Morphologic findings of the bone marrow aspirate is required to further characterize the process. 5. Hypoxia with acute respiratory failure and COPD exacerbation: Continue O2 supplementation, inhaled corticosteroids, inhalers as needed. 6. Hyponatremia: Continue Lasix. 7. Elevated BUN: BUN 24 on 11/08. Likely due to dehydration, continue pushing fluids. Plan to transfer patient to for further management and hematology/oncology referral. SANDY GRIMM DO 11/09/22 0450: Assessment/Plan Assessment and Plan Assess & Plan/Chief Complaint Updated patient on the news She will talk to her family and Dr. Amato regarding next step Supervisory-Addendum Brief Verification & Attestation Participated in pt care: history, MDM, physical Personally performed: exam, history, MDM, supervision of care Care discussed with: Medical Student Procedures: n/a Results interpretation: Verified all documentation Verification and Attestation of Medical Student E/M Service A medical student performed and documented this service in my presence. I reviewed and verified all information documented by the medical student and made modifications to such information, when appropriate. I personally performed the physical exam and medical decision making. Sandy Grimm, Nov 09, 2022,04:50 ANDRESSA GANT Nov 08, 2022 12:07 SANDY GRIMM DO Nov 09, 2022 04:50
--- NOTE | 2022-11-08 14:01 | Physical Therapy Daily Note ---
PT Daily Note-Current Subjective Patient in bed pre tx, agrees to PT, has no complaints of pain. Says she has had a rough day because of bad news about her health. Pain Section J - Health Conditions 1. Rarely or not at all 2. Occasionally 3. Frequently 4. Almost constantly 8. Unable to answer Pain Effect on Sleep: 1 Pain Interference with Therapy: 1 Pain Interference w/Day-to-Day: 1 Appearance Patient on toilet post tx with nurse call, nurse notified, patient requests female nurse to help clean her up when done. Mental Status Patient Orientation: Person, Place, Situation Attachments: Oxygen, IV Transfers SCALE: Activities may be completed with or without assistive devices. 3-Jullmlbfus-xqijhyi completes the activity by him/herself with no assistance from a helper. 5-Set-up or Clean-up Assistance-helper sets up or cleans up; patient completes activity. Falls assists only prior to or following the activity. 4-Supervision or Touching Assistance-helper provides verbal cues and/or touching/steadying and/or contact guard assistance as patient completes activity. Assistance may be provided throughout the activity or intermittently. 3-Partial/Moderate Assistance-helper does LESS THAN HALF the effort. Falls lifts, holds or supports trunk or limbs, but provides less than half the effort. 2-Substantial/Maximal Assistance-helper does MORE THAN HALF the effort. Falls lifts or holds trunk or limbs and provides more than half the effort. 7-Wakklduau-joybpd does ALL the effort. Patient does none of the effort to complete the activity. Or, the assistance of 2 or more helpers is required for the patient to complete the activity. If activity was not attempted, code reason: 7-Patient Refused. 9-Not Applicable-not attempted and the patient did not perform the activity before the current illness, exacerbation or injury. 10-Not Attempted due to Environmental Limitations-(lack of equipment, weather restraints, etc.). 88-Not Attempted due to Medical Conditions or Safety Concerns. Roll Left & Right (QC): 6 Lying to Sitting/Side of Bed(Q: 6 Sit to Stand (QC): 4 Toilet Transfer (QC): 4 CGA for sit to stand and transfers Weight Bearing Right Lower Extremity: Right Full Weight Bearing Left Lower Extremity: Left Full Weight Bearing Gait Training Distance: 15' Walk 10 feet (QC): 4 Gait Assistive Device: FWW CGA, slow but steady ambulation Exercises Supine Ex: Ankle pumps, Quad Set, Heel Slides Supine Reps: 15 Treatments bed mobility and transfers, ambulation, LE ROM Assessment Current Status: Fair Progress slightly improved supine <-> sit and transfers PT Cyber Reverse Engineer Goals Cyber Reverse Engineer Goals PT Senior Living Goals Time Frame: Nov 18, 2022 Roll Left & Right (QC): 5 Sit to Lying (QC): 5 Lying-Sitting on Side/Bed(QC): 5 Sit to Stand (QC): 5 Chair/Mqx-hx-Bofzv Xfer(QC): 5 Toilet Transfer (QC): 5 Car Transfer (QC): 5 Does the Patient Walk: Yes Walk 10 feet (QC): 5 Walk 50ft with 2 Turns (QC): 5 Walk 150 ft (QC): 5 Does the Pt use WC or Scooter?: No PT Plan Problem List Problem List: Activity Tolerance, Functional Strength, Safety, Balance, Gait, Transfer, Bed Mobility, ROM Treatment/Plan Treatment Plan: Continue Plan of Care Treatment Plan: Bed Mobility, Education, Functional Activity Esteban, Functional Strength, Gait, Safety, Therapeutic Exercise, Transfers Treatment Duration: Nov 18, 2022 Frequency: 6 times per week Estimated Hrs Per Day: .25 hour per day Patient and/or Family Agrees t: Yes Safety Risks/Education Patient Education: Gait Training, Transfer Techniques, Correct Positioning, Safety Issues Teaching Recipient: Patient Teaching Methods: Demonstration, Discussion Response to Teaching: Reinforcement Needed Time Time In: 1330 Time Out: 1346 DATE: Nov 08, 2022 Total Billed Treatment Time: 16 Total Billed Treatment 1 visit FA PATTI GIBSON PT Nov 08, 2022 14:01
[2022-11-08] MEDS: FLUoxetine HCL 20 MG (PROzac) CAP PO SCH (21:44)
[2022-11-08] MEDS: MONTELUKAST 10 MG (SINGULAIR) TAB PO SCH (21:44)
[2022-11-08] MEDS: LORATADINE (CLARITIN) 10 MG TAB PO SCH (21:44)
[2022-11-08] MEDS: eZETimibe 10 MG (ZETIA) TABLET PO SCH (21:44)
[2022-11-09] MEDS: RT-ALBUTEROL SULF 2.5 MG/3 ML PRE-MIX VIAL INH SCH ×3 (02:30→20:00)
[2022-11-09 03:11] VITALS: BP 129/61
[2022-11-09 05:58] LABS: BASOPHILS % (AUTO) 0 % (0-10); EOSINOPHILS % (AUTO) 0 % (0-10); HEMATOCRIT 28 % (35-52); HEMOGLOBIN 10.3 g/dL (11.5-16.0); LYMPHOCYTES # (AUTO) 0.4 10^3/uL (1.0-4.0); LYMPHOCYTES % (AUTO) 37 % (12-44); MEAN CORPUSCULAR HEMOGLOBIN 34 pg (25-34); MEAN CORPUSCULAR HGB CONC 36 g/dL (32-36); MEAN CORPUSCULAR VOLUME 95 fL (80-99); MONOCYTES # (AUTO) 0.1 10^3/uL (0.0-1.0); MONOCYTES % (AUTO) 15 % (0-12); NEUTROPHILS # (AUTO) 0.4 10^3/uL (1.8-7.8); NEUTROPHILS % (AUTO) 39 % (42-75)
[2022-11-09 06:01] LABS: PLATELET COUNT 24 10^3/uL (130-400)
[2022-11-09 06:05] LABS: ALBUMIN 2.9 GM/DL (3.2-4.5)
[2022-11-09 06:06] LABS: POTASSIUM 3.9 MMOL/L (3.6-5.0)
[2022-11-09 06:07] LABS: CALCIUM 8.4 MG/DL (8.5-10.1)
[2022-11-09 06:08] LABS: TOTAL PROTEIN 5.8 GM/DL (6.4-8.2)
[2022-11-09 06:10] LABS: BILIRUBIN,TOTAL 0.8 MG/DL (0.1-1.0)
[2022-11-09 06:12] LABS: CREATININE SERUM 0.71 MG/DL (0.60-1.30)
[2022-11-09 06:15] LABS: MAGNESIUM 2.1 MG/DL (1.6-2.4)
[2022-11-09] MEDS: inSUlin ASPART (NovoLOG) 1 UNIT/0.01 ML (CHARGE PER UNIT) SC SCH ×4 (06:28→21:40)
[2022-11-09] MEDS: FUROSEMIDE 40 MG/4 ML INJ (LASIX) IVP SCH ×2 (06:28→17:10)
[2022-11-09] MEDS: methylPREDNISolone 40 MG/ML (Solu-MEDROL) VIAL IV SCH ×2 (06:28→17:10)
--- NOTE | 2022-11-09 07:54 | Progress Note - Hospitalist ---
Subjective HPI/CC On Admission Date Seen by Provider: Nov 09, 2022 Time Seen by Provider: 11:00 CC: Acute respiratory failure HPI: This is a 67yoWF who has known COPD and continues to smoke who presents to the ER with acute resp failure with hypoxia of 70% resolved with aggressive meds and oxygen. Patient will require IV steroids along with ICS and Nebs and O2. CSD required. PNA will be treatment with abx. Subjective/Events-last exam Patient doing well Wheeze noted on exam Awaiting [facility] referral Review of Systems General: Fatigue, Malaise Focused Exam Time of Focused Exam: 08:30 Objective Exam Vital Signs Vital Signs Date Time Temp Pulse Resp B/P (MAP) Pulse Ox O2 Delivery O2 Flow Rate FiO2 11/10/22 03:06 95 Nasal Cannula 2.00 11/10/22 00:00 36.6 62 17 120/55 (76) Capillary Refill : Less Than 3 Seconds General Appearance: No Apparent Distress, WD/WN, Chronically ill, Obese Respiratory: No Accessory Muscle Use, No Respiratory Distress, Decreased Breath Sounds, Wheezing Cardiovascular: Regular Rate, Rhythm Neurologic/Psychiatric: Alert, Oriented x3, No Motor/Sensory Deficits, Normal Mood/Affect Results/Procedures Lab Laboratory Tests 11/09/22 05:30 Patient resulted labs reviewed. 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
--- NOTE | 2022-11-09 08:01 | Cardiology Progress Note ---
Subjective Date Seen by Provider: Nov 09, 2022 Time Seen by Provider: 07:30 Subjective/Events-last exam Patient was awake and alert in bed this morning when seen. Path report from her bone marrow biopsy came back yesterday as myelodysplastic syndrome vs. AML. Patient appears in good spirts this morning and plans to go through with treatment at . Unclear what the timeline is at this time. She reports feeling better today with decreased cough. She converted to sinus rhythm yesterday and reports no palpitations in the past 24 hours. No chest pain, lightheadedness, dizziness, shortness of breath at this time. She had no specific questions or concerns at this time. Review of Systems General: No Chills, No Fatigue; Appetite (good) HEENT: No Head Aches, No Visual Changes Pulmonary: No Dyspnea, No Cough, No Pleuritic Chest Pain Cardiovascular: No: Chest Pain, Palpitations, Edema Gastrointestinal: No: Nausea, Vomiting, Abdominal Pain, Diarrhea, Constipation Genitourinary: No Dysuria, No Hematuria Musculoskeletal: leg pain (mild left hip pain) Neurological: No: Weakness, Numbness, Change in speech Focused Exam Time of Focused Exam: 08:30 Objective-Cardiology Exam Last Set of Vital Signs Vital Signs 11/09/22 08:54 Temp 36.1 Pulse 74 Resp 18 B/P (MAP) 120/58 (78) Pulse Ox 91 O2 Delivery Nasal Cannula O2 Flow Rate 2.00 I&O Intake and Output 11/09/22 00:00 Intake Total 1500 ml Output Total 2000 ml Balance -500 ml Intake Oral 1500 ml Output Urine Total 2000 ml # Urine Diapers 3 # Bowel Movements 2 General: Alert, Oriented X3, No Acute Distress HEENT: Atraumatic, EOMI Neck: Supple Lungs: Clear to Auscultation, Normal Air Movement Heart: Regular Rate, Normal S1, Normal S2, No Murmurs Abdomen: Normal Bowel Sounds, Soft, No Tenderness Extremities: No Clubbing, No Cyanosis, No Edema, Normal Pulses Skin: No Rashes, No Breakdown, Other (ecchymosis at many sites) Neuro: Normal Speech Psych/Mental Status: Mood NL Results Lab Laboratory Tests 11/09/22 05:30 A/P-Cardiology Admission Diagnosis Pneumonia Pleuritic chest pain HTN HLP Assessment/Plan Paroxysmal atrial fibrillation, new onset during this hospital admission. Patient spontaneously converted to sinus rhythm yesterday morning on oral cardizem, confirmed by EKG. She continues to be in sinus rhythm at this time. Monitor for now. If a fib returns, patient is not a candidate for cardioversion due to her thrombocytopenia. Unable to take any anticoagulation at this time. Pleuritic chest pain, pneumonia vs. COPD exacerbation, reporting improvement Repeat chest x-ray on 11/06 showed improvement Patient's wheezing and cough has improved and she is maintaining good oxygen saturation on 2L O2, which is baseline for her. Pt. has finished regimen of vancomycin and meropenem while also receiving IV steroids, and inhalers at this time. Gram-positive bacteremia, 2 bottles of cultures were positive with Staph epidermidis on 10/29, probably contamination Last blood culture was on 10/31 and was negative at that time while she was on antibiotics Pancytopenia, neutropenia, managed by primary care physician Pt. had bone marrow biopsy on 11/06. Results came back on 11/08 as myelodysplastic syndrome vs. AML. Patient is aware of the diagnosis and plans to go through with treatment at . Management per medical team at this time. History of autoimmune hepatitis, patient was on azathioprine Followed and managed with primary care physician Coronary artery disease -cardiac catheterization on 08/13/2013 revealed ectasia in the RCA with small vessel disease, slow flow in the RCA. 40-50 percent mid LAD stenosis, otherwise, nonobstructive disease. EF 60 percent - stress test and 2-D echocardiogram in September 2017 revealed no ischemia or infarct with normal EF 2D echo was done on October 30, 2022 with normal ejection fraction 55 to 60%, PA pressures 35 to 40 mmHg, grade 1 diastolic dysfunction. I did not notice any vegetation on her valvular structure and no significant valvular disease was noted. Hypertension, was initially borderline hypotensive, currently blood pressure is better. Continue to monitor H/o hyperlipidemia, intolerance to statins, on ezetimibe 10mg QD Nonobstructive carotid artery stenosis per carotid duplex done November 2019 Obesity, BMI is 53 Chronic tobacco use - advised to quit COPD/asthma, educated on smoking cessation. Diabetes mellitus II Insulin sliding scale, being managed by IM team H/o hypothyroidism, followed and managed by primary care physician H/o autoimmune hepatitis, followed and managed by primary care physician. H/o psoriasis, followed and managed by primary care physician Supervisory-Addendum Brief Verification & Attestation Participated in pt care: history, MDM, physical Personally performed: exam, history, MDM, supervision of care Care discussed with: Medical Student Procedures: n/a Results interpretation: Verified all documentation Verification and Attestation of Medical Student E/M Service A medical student performed and documented this service in my presence. I reviewed and verified all information documented by the medical student and made modifications to such information, when appropriate. I personally performed the physical exam and medical decision making. Patient was seen at bedside, sitting comfortably, feeling better, breathing better. Denied any chest pain. Possible transfer to a tertiary care center. Starla Mason, Nov 09, 2022,09:07 BEVERLY CAROLINA Nov 09, 2022 08:01 STARLA MASON MD Nov 09, 2022 09:08
[2022-11-09] MEDS: RT--FLUTICASONE/SALMETEROL 113-14 (AIRDUO RespiCLICK) IH SCH ×2 (08:42→20:01)
[2022-11-09 08:54] VITALS: BP 120/58
[2022-11-09] MEDS: FOLIC ACID 1 MG TAB PO SCH (09:01)
[2022-11-09] MEDS: RIFAXIMIN 550 MG TABLET (XIFAXAN) PO SCH ×2 (09:01→21:41)
[2022-11-09] MEDS: LEVOTHYROXINE 75 MCG (LEVOTHROID) TABLET PO SCH (09:01)
[2022-11-09] MEDS: DOCUSATE SODIUM 100 MG (COLACE) CAP PO SCH ×2 (09:02→21:42)
[2022-11-09] MEDS: SENNOSIDES 8.6 MG (SENOKOT) TAB PO SCH ×2 (09:02→21:42)
[2022-11-09] MEDS: MICONAZOLE 2% POWDER (DESENEX AF) 90 GM TOP SCH ×2 (09:02→21:43)
--- NOTE | 2022-11-09 11:41 | Physical Therapy Daily Note ---
PT Daily Note-Current Subjective Patient agrees to PT. Pain Section J - Health Conditions 1. Rarely or not at all 2. Occasionally 3. Frequently 4. Almost constantly 8. Unable to answer Pain Effect on Sleep: 1 Pain Interference with Therapy: 1 Pain Interference w/Day-to-Day: 1 Mental Status Patient Orientation: Normal For Age Attachments: Oxygen Transfers SCALE: Activities may be completed with or without assistive devices. 3-Cxiovyolft-jhawxow completes the activity by him/herself with no assistance from a helper. 5-Set-up or Clean-up Assistance-helper sets up or cleans up; patient completes activity. Floral assists only prior to or following the activity. 4-Supervision or Touching Assistance-helper provides verbal cues and/or touching/steadying and/or contact guard assistance as patient completes activity. Assistance may be provided throughout the activity or intermittently. 3-Partial/Moderate Assistance-helper does LESS THAN HALF the effort. Floral lifts, holds or supports trunk or limbs, but provides less than half the effort. 2-Substantial/Maximal Assistance-helper does MORE THAN HALF the effort. Floral lifts or holds trunk or limbs and provides more than half the effort. 9-Cfmlxhbtb-jitmai does ALL the effort. Patient does none of the effort to complete the activity. Or, the assistance of 2 or more helpers is required for the patient to complete the activity. If activity was not attempted, code reason: 7-Patient Refused. 9-Not Applicable-not attempted and the patient did not perform the activity before the current illness, exacerbation or injury. 10-Not Attempted due to Environmental Limitations-(lack of equipment, weather restraints, etc.). 88-Not Attempted due to Medical Conditions or Safety Concerns. Lying to Sitting/Side of Bed(Q: 6 Sit to Stand (QC): 6 Toilet Transfer (QC): 6 Weight Bearing Right Lower Extremity: Right Full Weight Bearing Left Lower Extremity: Left Full Weight Bearing Gait Training Distance: 30' Walk 10 feet (QC): 6 Assessment Patient incontinent urine and transferred to toilet after ambulation. Patient tolerated treatment well. Nursing notified of patient on toilet. PT Halfway Goals Flat Cutter Goals PT Flat Cutter Goals Time Frame: Nov 18, 2022 Roll Left & Right (QC): 5 Sit to Lying (QC): 5 Lying-Sitting on Side/Bed(QC): 5 Sit to Stand (QC): 5 Chair/Uxm-jj-Nflky Xfer(QC): 5 Toilet Transfer (QC): 5 Car Transfer (QC): 5 Does the Patient Walk: Yes Walk 10 feet (QC): 5 Walk 50ft with 2 Turns (QC): 5 Walk 150 ft (QC): 5 Does the Pt use WC or Scooter?: No PT Plan Treatment/Plan Treatment Plan: Continue Plan of Care Treatment Plan: Bed Mobility, Education, Functional Activity Esteban, Functional Strength, Gait, Safety, Therapeutic Exercise, Transfers Treatment Duration: Nov 18, 2022 Frequency: 6 times per week Estimated Hrs Per Day: .25 hour per day Patient and/or Family Agrees t: Yes Time Time In: 1103 Time Out: 1113 DATE: Nov 09, 2022 Total Billed Treatment Time: 10 Total Billed Treatment 1 visit FA 10 min KEVIN QUINTANILLA PT Nov 09, 2022 11:41
[2022-11-09 11:59] VITALS: BP 122/60
[2022-11-09 16:51] VITALS: BP 129/77
[2022-11-09 20:09] VITALS: BP 120/56
[2022-11-09] MEDS: MONTELUKAST 10 MG (SINGULAIR) TAB PO SCH (21:40)
[2022-11-09] MEDS: FLUoxetine HCL 20 MG (PROzac) CAP PO SCH (21:40)
[2022-11-09] MEDS: LORATADINE (CLARITIN) 10 MG TAB PO SCH (21:40)
[2022-11-09] MEDS: eZETimibe 10 MG (ZETIA) TABLET PO SCH (21:41)
[2022-11-10] VITALS: BP 120/55
[2022-11-10] MEDS: RT-ALBUTEROL SULF 2.5 MG/3 ML PRE-MIX VIAL INH SCH ×4 (03:06→19:29)
[2022-11-10 04:23] VITALS: BP 130/70
--- NOTE | 2022-11-10 05:56 | Progress Note - Hospitalist ---
Subjective HPI/CC On Admission Date Seen by Provider: Nov 10, 2022 Time Seen by Provider: 11:30 CC: Acute respiratory failure HPI: This is a 67yoWF who has known COPD and continues to smoke who presents to the ER with acute resp failure with hypoxia of 70% resolved with aggressive meds and oxygen. Patient will require IV steroids along with ICS and Nebs and O2. CSD required. PNA will be treatment with abx. Subjective/Events-last exam Awaiting [facility] Amato told me [facility] would call me on Sunday to prepare for discharge on Sunday Patient has no new issues CBC assessed Review of Systems General: Fatigue, Malaise Pulmonary: Dyspnea Focused Exam Time of Focused Exam: 08:30 Objective Exam Vital Signs Vital Signs Date Time Temp Pulse Resp B/P (MAP) Pulse Ox O2 Delivery O2 Flow Rate FiO2 11/11/22 02:54 95 Nasal Cannula 2.00 11/11/22 00:00 36.1 60 16 122/70 (87) Capillary Refill : Less Than 3 Seconds General Appearance: No Apparent Distress, WD/WN, Chronically ill Respiratory: No Accessory Muscle Use, No Respiratory Distress, Wheezing Cardiovascular: Regular Rate, Rhythm Neurologic/Psychiatric: Alert, Oriented x3 Results/Procedures Lab Patient resulted labs reviewed. 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
[2022-11-10] MEDS: inSUlin ASPART (NovoLOG) 1 UNIT/0.01 ML (CHARGE PER UNIT) SC SCH ×4 (07:56→20:48)
[2022-11-10] MEDS: FUROSEMIDE 40 MG/4 ML INJ (LASIX) IVP SCH ×2 (07:56→16:08)
[2022-11-10] MEDS: methylPREDNISolone 40 MG/ML (Solu-MEDROL) VIAL IV SCH ×2 (07:56→17:16)
[2022-11-10 08:02] VITALS: BP 143/65
[2022-11-10] MEDS: RT--FLUTICASONE/SALMETEROL 113-14 (AIRDUO RespiCLICK) IH SCH ×2 (08:25→19:29)
[2022-11-10] MEDS: LEVOTHYROXINE 75 MCG (LEVOTHROID) TABLET PO SCH (08:47)
[2022-11-10] MEDS: FOLIC ACID 1 MG TAB PO SCH (08:47)
[2022-11-10] MEDS: RIFAXIMIN 550 MG TABLET (XIFAXAN) PO SCH ×2 (08:47→20:08)
[2022-11-10] MEDS: SENNOSIDES 8.6 MG (SENOKOT) TAB PO SCH ×2 (08:48→20:09)
[2022-11-10] MEDS: DOCUSATE SODIUM 100 MG (COLACE) CAP PO SCH ×2 (08:48→20:09)
[2022-11-10] MEDS: MICONAZOLE 2% POWDER (DESENEX AF) 90 GM TOP SCH ×2 (08:48→20:10)
--- NOTE | 2022-11-10 10:24 | Cardiology Progress Note ---
Subjective Date Seen by Provider: Nov 10, 2022 Time Seen by Provider: 10:23 Subjective/Events-last exam Patient was seen and evaluated at bedside, laying down comfortably, denied any chest pain Review of Systems General: No Chills, No Night Sweats, No Fatigue, No Malaise, No Appetite, No Other HEENT: No Head Aches, No Visual Changes, No Eye Pain, No Ear Pain, No Dysphasia, No Sinus Congestion, No Post Nasal Drip, No Sore Throat, No Other Pulmonary: No Dyspnea, No Cough, No Pleuritic Chest Pain, No Other Cardiovascular: No: Chest Pain, Palpitations, Orthopnea, Paroxysmal Noc. Dyspnea, Edema, Lt Headedness, Other Focused Exam Time of Focused Exam: 08:30 Objective-Cardiology Exam Last Set of Vital Signs Vital Signs 11/10/22 11/10/22 11/10/22 08:02 08:25 08:47 Temp 36.1 Pulse 67 Resp 18 B/P (MAP) 143/65 (91) Pulse Ox 95 O2 Delivery Nasal Cannula O2 Flow Rate 2.00 I&O Intake and Output 11/10/22 00:00 Intake Total 1980 ml Output Total 1850 ml Balance 130 ml Intake Oral 1980 ml Output Urine Total 1850 ml # Voids 9 # Bowel Movements 3 General: Alert, Oriented X3, No Acute Distress HEENT: Atraumatic, EOMI Neck: Supple Lungs: Clear to Auscultation, Normal Air Movement Heart: Regular Rate, Normal S1, Normal S2, No Murmurs Abdomen: Normal Bowel Sounds, Soft, No Tenderness Extremities: No Clubbing, No Cyanosis, No Edema, Normal Pulses Skin: No Rashes, No Breakdown, Other (ecchymosis at many sites) Neuro: Normal Speech Psych/Mental Status: Mood NL Results Lab Laboratory Tests Test 11/09/22 11:29 11/09/22 15:35 11/09/22 16:30 11/09/22 20:47 Range/Units Glucometer 237 H 191 H 200 H 270 H 70-110 MG/DL Test 11/10/22 06:45 11/10/22 07:50 Range/Units Magnesium Level 2.1 1.6-2.4 MG/DL Glucometer 158 H 70-110 MG/DL A/P-Cardiology Admission Diagnosis Pneumonia Pleuritic chest pain HTN HLP Assessment/Plan Paroxysmal atrial fibrillation, new onset during this hospital admission. Patient spontaneously converted to sinus rhythm yesterday morning on oral cardizem, confirmed by EKG. She continues to be in sinus rhythm at this time. Monitor for now. If a fib returns, patient is not a candidate for cardioversion due to her thrombocytopenia. Unable to take any anticoagulation at this time. Pleuritic chest pain, pneumonia vs. COPD exacerbation, reporting improvement Repeat chest x-ray on 11/06 showed improvement Patient's wheezing and cough has improved and she is maintaining good oxygen saturation on 2L O2, which is baseline for her. Pt. has finished regimen of vancomycin and meropenem while also receiving IV steroids, and inhalers at this time. Gram-positive bacteremia, 2 bottles of cultures were positive with Staph epidermidis on 10/29, probably contamination Last blood culture was on 10/31 and was negative at that time while she was on antibiotics Pancytopenia, neutropenia, managed by primary care physician Pt. had bone marrow biopsy on 11/06. Results came back on 11/08 as myelodysplastic syndrome vs. AML. Patient is aware of the diagnosis and plans to go through with treatment at . Management per medical team at this time. History of autoimmune hepatitis, patient was on azathioprine Followed and managed with primary care physician Coronary artery disease -cardiac catheterization on 08/13/2013 revealed ectasia in the RCA with small vessel disease, slow flow in the RCA. 40-50 percent mid LAD stenosis, otherwise, nonobstructive disease. EF 60 percent - stress test and 2-D echocardiogram in September 2017 revealed no ischemia or infarct with normal EF 2D echo was done on October 30, 2022 with normal ejection fraction 55 to 60%, PA pressures 35 to 40 mmHg, grade 1 diastolic dysfunction. I did not notice any vegetation on her valvular structure and no significant valvular disease was noted. Hypertension, was initially borderline hypotensive, currently blood pressure is better. Continue to monitor H/o hyperlipidemia, intolerance to statins, on ezetimibe 10mg QD Nonobstructive carotid artery stenosis per carotid duplex done November 2019 Obesity, BMI is 53 Chronic tobacco use - advised to quit COPD/asthma, educated on smoking cessation. Diabetes mellitus II Insulin sliding scale, being managed by IM team H/o hypothyroidism, followed and managed by primary care physician H/o autoimmune hepatitis, followed and managed by primary care physician. H/o psoriasis, followed and managed by primary care physician STARLA COTA MD Nov 10, 2022 10:24
--- NOTE | 2022-11-10 11:44 | Physical Therapy Progress Note ---
Therapy Progress Note Patient declined PT at this time. Will attempt later today or tomorrow a.m. 1 ref KEVIN QUINTANILLA PT Nov 10, 2022 11:44
[2022-11-10 12:03] VITALS: BP 132/60
[2022-11-10 15:48] VITALS: BP 128/67
[2022-11-10 19:39] VITALS: BP 121/59
[2022-11-10] MEDS: FLUoxetine HCL 20 MG (PROzac) CAP PO SCH (20:08)
[2022-11-10] MEDS: LORATADINE (CLARITIN) 10 MG TAB PO SCH (20:08)
[2022-11-10] MEDS: MONTELUKAST 10 MG (SINGULAIR) TAB PO SCH (20:08)
[2022-11-10] MEDS: eZETimibe 10 MG (ZETIA) TABLET PO SCH (20:08)
[2022-11-10] MEDS: ANTACID SUSP 30 ML UDC (MYLANTA) PO PRN (21:50)
[2022-11-11] VITALS: BP 122/70
[2022-11-11] MEDS: RT-ALBUTEROL SULF 2.5 MG/3 ML PRE-MIX VIAL INH SCH ×4 (02:53→22:08)
[2022-11-11] MEDS: inSUlin ASPART (NovoLOG) 1 UNIT/0.01 ML (CHARGE PER UNIT) SC SCH ×4 (05:32→20:55)
[2022-11-11] MEDS: methylPREDNISolone 40 MG/ML (Solu-MEDROL) VIAL IV SCH ×2 (05:32→17:19)
[2022-11-11] MEDS: ANTACID SUSP 30 ML UDC (MYLANTA) PO PRN (05:47)
[2022-11-11 05:49] VITALS: BP 144/65
--- NOTE | 2022-11-11 06:31 | Progress Note - Hospitalist ---
Subjective HPI/CC On Admission Date Seen by Provider: Nov 11, 2022 Time Seen by Provider: 11:00 CC: Acute respiratory failure HPI: This is a 67yoWF who has known COPD and continues to smoke who presents to the ER with acute resp failure with hypoxia of 70% resolved with aggressive meds and oxygen. Patient will require IV steroids along with ICS and Nebs and O2. CSD required. PNA will be treatment with abx. Subjective/Events-last exam Patient doing the same Using nebulizers Check labs tomorrow [facility] Will arrange transfer Review of Systems General: Fatigue, Malaise Focused Exam Time of Focused Exam: 08:30 Objective Exam Vital Signs Vital Signs Date Time Temp Pulse Resp B/P (MAP) Pulse Ox O2 Delivery O2 Flow Rate FiO2 11/12/22 03:24 94 Nasal Cannula 2.00 11/11/22 23:19 36.0 60 20 118/57 (77) 11/11/22 14:55 28 Capillary Refill : Less Than 3 Seconds General Appearance: No Apparent Distress, WD/WN, Chronically ill Respiratory: Normal Breath Sounds, No Accessory Muscle Use, No Respiratory Distress, Wheezing Cardiovascular: Regular Rate, Rhythm Neurologic/Psychiatric: Alert, Oriented x3 Results/Procedures Lab Patient resulted labs reviewed. 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
[2022-11-11] MEDS: FUROSEMIDE 40 MG/4 ML INJ (LASIX) IVP SCH ×2 (06:36→16:34)
[2022-11-11 08:07] VITALS: BP 128/60
[2022-11-11] MEDS: FOLIC ACID 1 MG TAB PO SCH (09:21)
[2022-11-11] MEDS: LEVOTHYROXINE 75 MCG (LEVOTHROID) TABLET PO SCH (09:21)
[2022-11-11] MEDS: RIFAXIMIN 550 MG TABLET (XIFAXAN) PO SCH ×2 (09:21→19:33)
[2022-11-11] MEDS: MICONAZOLE 2% POWDER (DESENEX AF) 90 GM TOP SCH ×2 (09:22→19:33)
[2022-11-11] MEDS: DOCUSATE SODIUM 100 MG (COLACE) CAP PO SCH ×2 (09:22→19:33)
[2022-11-11] MEDS: SENNOSIDES 8.6 MG (SENOKOT) TAB PO SCH ×2 (09:22→19:33)
[2022-11-11] MEDS: RT--FLUTICASONE/SALMETEROL 113-14 (AIRDUO RespiCLICK) IH SCH ×2 (11:27→22:09)
--- NOTE | 2022-11-11 14:28 | Physical Therapy Daily Note ---
PT Daily Note-Current Subjective States that she is really tired from being up all night. States that she will do some bed exercises. Pain Section J - Health Conditions 1. Rarely or not at all 2. Occasionally 3. Frequently 4. Almost constantly 8. Unable to answer Pain Effect on Sleep: 1 Pain Interference with Therapy: 1 Pain Interference w/Day-to-Day: 1 Transfers SCALE: Activities may be completed with or without assistive devices. 9-Fbeqizhjna-vsdzbsj completes the activity by him/herself with no assistance from a helper. 5-Set-up or Clean-up Assistance-helper sets up or cleans up; patient completes activity. [place] assists only prior to or following the activity. 4-Supervision or Touching Assistance-helper provides verbal cues and/or touching/steadying and/or contact guard assistance as patient completes activity. Assistance may be provided throughout the activity or intermittently. 3-Partial/Moderate Assistance-helper does LESS THAN HALF the effort. [place] lifts, holds or supports trunk or limbs, but provides less than half the effort. 2-Substantial/Maximal Assistance-helper does MORE THAN HALF the effort. [place] lifts or holds trunk or limbs and provides more than half the effort. 0-Szfhmrxin-rsghdb does ALL the effort. Patient does none of the effort to complete the activity. Or, the assistance of 2 or more helpers is required for the patient to complete the activity. If activity was not attempted, code reason: 7-Patient Refused. 9-Not Applicable-not attempted and the patient did not perform the activity before the current illness, exacerbation or injury. 10-Not Attempted due to Environmental Limitations-(lack of equipment, weather restraints, etc.). 88-Not Attempted due to Medical Conditions or Safety Concerns. Weight Bearing Right Lower Extremity: Right Full Weight Bearing Left Lower Extremity: Left Full Weight Bearing Exercises Supine Ex: LE Protocol Supine Reps: 20 Assessment Current Status: Fair Progress Patient did well with bed exercises. PT Trust Clerk Goals Care Home Goals PT Care Home Goals Time Frame: Nov 18, 2022 Roll Left & Right (QC): 5 Sit to Lying (QC): 5 Lying-Sitting on Side/Bed(QC): 5 Sit to Stand (QC): 5 Chair/Vxs-dh-Uceee Xfer(QC): 5 Toilet Transfer (QC): 5 Car Transfer (QC): 5 Does the Patient Walk: Yes Walk 10 feet (QC): 5 Walk 50ft with 2 Turns (QC): 5 Walk 150 ft (QC): 5 Does the Pt use WC or Scooter?: No PT Plan Treatment/Plan Treatment Plan: Continue Plan of Care Treatment Plan: Bed Mobility, Education, Functional Activity Esteban, Functional Strength, Gait, Safety, Therapeutic Exercise, Transfers Treatment Duration: Nov 18, 2022 Frequency: 6 times per week Estimated Hrs Per Day: .25 hour per day Patient and/or Family Agrees t: Yes Time Time In: 1400 Time Out: 1410 DATE: Nov 11, 2022 Total Billed Treatment Time: 10 Total Billed Treatment 1, EX x 10' GARO CARMICHAEL PT Nov 11, 2022 14:28
[2022-11-11 14:55] VITALS: BP 128/60
[2022-11-11 15:55] VITALS: BP 120/64
[2022-11-11] MEDS: eZETimibe 10 MG (ZETIA) TABLET PO SCH (19:33)
[2022-11-11] MEDS: MONTELUKAST 10 MG (SINGULAIR) TAB PO SCH (19:33)
[2022-11-11] MEDS: LORATADINE (CLARITIN) 10 MG TAB PO SCH (19:33)
[2022-11-11] MEDS: FLUoxetine HCL 20 MG (PROzac) CAP PO SCH (19:33)
[2022-11-11 23:19] VITALS: BP 118/57
[2022-11-12] MEDS: RT-ALBUTEROL SULF 2.5 MG/3 ML PRE-MIX VIAL INH SCH ×2 (03:24→08:10)
[2022-11-12] MEDS: inSUlin ASPART (NovoLOG) 1 UNIT/0.01 ML (CHARGE PER UNIT) SC SCH ×2 (04:55→11:02)
[2022-11-12] MEDS: methylPREDNISolone 40 MG/ML (Solu-MEDROL) VIAL IV SCH (04:55)
--- NOTE | 2022-11-12 06:39 | Progress Note - Hospitalist ---
Subjective HPI/CC On Admission Date Seen by Provider: Nov 12, 2022 Time Seen by Provider: 11:00 CC: Acute respiratory failure HPI: This is a 67yoWF who has known COPD and continues to smoke who presents to the ER with acute resp failure with hypoxia of 70% resolved with aggressive meds and oxygen. Patient will require IV steroids along with ICS and Nebs and O2. CSD required. PNA will be treatment with abx. Focused Exam Time of Focused Exam: 08:30 Objective Exam Vital Signs Vital Signs Date Time Temp Pulse Resp B/P (MAP) Pulse Ox O2 Delivery O2 Flow Rate FiO2 11/12/22 12:52 36.4 62 16 132/71 93 Nasal Cannula 2.00 11/11/22 14:55 28 Capillary Refill : Less Than 3 Seconds Results/Procedures Lab Laboratory Tests 11/12/22 06:00 11/12/22 06:01 Patient resulted labs reviewed. 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
[2022-11-12] MEDS: FUROSEMIDE 40 MG/4 ML INJ (LASIX) IVP SCH (06:46)
[2022-11-12 07:00] LABS: BASOPHILS % (AUTO) 1 % (0-10); EOSINOPHILS % (AUTO) 0 % (0-10); HEMATOCRIT 30 % (35-52); PLATELET COUNT 59 10^3/uL (130-400)
[2022-11-12 07:02] LABS: LYMPHOCYTES # (AUTO) 0.4 10^3/uL (1.0-4.0); LYMPHOCYTES % (AUTO) 21 % (12-44); MEAN CORPUSCULAR HEMOGLOBIN 35 pg (25-34); MEAN CORPUSCULAR HGB CONC 37 g/dL (32-36); MEAN CORPUSCULAR VOLUME 94 fL (80-99); MEAN PLATELET VOLUME 11.4 fL (9.0-12.2); MONOCYTES # (AUTO) 0.2 10^3/uL (0.0-1.0); MONOCYTES % (AUTO) 10 % (0-12); NEUTROPHILS % (AUTO) 60 % (42-75); WHITE BLOOD COUNT 1.6 10^3/uL (4.3-11.0)
[2022-11-12 07:09] LABS: SMEAR SCAN COMMENT YES
[2022-11-12 07:20] VITALS: BP 143/67
[2022-11-12 07:23] LABS: ALBUMIN 3.1 GM/DL (3.2-4.5); CALCIUM 8.7 MG/DL (8.5-10.1); CREATININE SERUM 0.78 MG/DL (0.60-1.30); POTASSIUM 3.5 MMOL/L (3.6-5.0); TOTAL PROTEIN 6.4 GM/DL (6.4-8.2)
[2022-11-12] MEDS: RT--FLUTICASONE/SALMETEROL 113-14 (AIRDUO RespiCLICK) IH SCH (08:10)
[2022-11-12] MEDS: SENNOSIDES 8.6 MG (SENOKOT) TAB PO SCH (08:19)
[2022-11-12] MEDS: LEVOTHYROXINE 75 MCG (LEVOTHROID) TABLET PO SCH (08:19)
[2022-11-12] MEDS: DOCUSATE SODIUM 100 MG (COLACE) CAP PO SCH (08:19)
[2022-11-12] MEDS: FOLIC ACID 1 MG TAB PO SCH (08:19)
[2022-11-12] MEDS: RIFAXIMIN 550 MG TABLET (XIFAXAN) PO SCH (08:19)
[2022-11-12] MEDS: MICONAZOLE 2% POWDER (DESENEX AF) 90 GM TOP SCH (08:20)
[2022-11-12] MEDS ORDERED: FLUT1AER4 IH (10:05)
[2022-11-12] MEDS ORDERED: MONT-40 PO (10:05)
[2022-11-12] MEDS ORDERED: DILT240C91 PO (10:05)
--- NOTE | 2022-11-12 10:07 | History & Physical-Hospitalist ---
History of Present Illness HPI/Chief Complaint CC: Acute respiratory failure HPI: This is a 67yoWF who has known COPD and continues to smoke who presents to the ER with acute resp failure with hypoxia of 70% resolved with aggressive meds and oxygen. Patient will require IV steroids along with ICS and Nebs and O2. CSD required. PNA will be treatment with abx. Date Seen 11/12/22 Attending Physician [place] PCP Admitting Physician: Sandy Woo DO Attending Physician: Sandy Woo DO Referring Physician Date of Admission Oct 29, 2022 at 11:27 Home Medications & Allergies Home Medications Reviewed patient Home Medication Reconciliation performed by pharmacy medication reconciliations oil and gas exploration technician and/or nursing. Patients Allergies have been reviewed. Allergies Allergies Coded Allergies cephalexin (Verified Allergy, Mild, 10/30/17) ciprofloxacin (Verified Allergy, Mild, 10/30/17) sulfamethoxazole (Verified Allergy, Mild, ITCH ALL OVER, 10/30/17) trimethoprim (Verified Allergy, Mild, ITCH ALL OVER, 10/30/17) Penicillins (Verified Allergy, Unknown, 10/30/17) Sulfa (Sulfonamide Antibiotics) (Verified Allergy, Unknown, 10/30/17) atorvastatin (Unverified Allergy, Unknown, EDEMA, 10/30/17) hydrocodone (Verified Allergy, Unknown, 10/30/17) tramadol (Verified Allergy, Unknown, 10/30/17) metformin (Unverified Adverse Reaction, Mild, NAUSEA, 10/30/17) Uncoded Allergies RED MEAT ( Allergy, Unknown, HIVES, 12/13/16) Past Fsystvu-Lvgshh-Hcipyp Hx Patient Social History Marrital Status: single Employed/Student: retired Tobacco Use?: Yes Tobacco type used: Cigarettes Smoking Status: Current Everyday Smoker Use of E-Cig and/or Vaping dev: No Substance use?: No Alcohol Use?: No Immunizations Up To Date Date of Influenza Vaccine: Oct 29, 2022 Tetanus Booster (TDap): Unknown Date of Pneumonia Vaccine: Sep 26, 2016 Seasonal Allergies Seasonal Allergies: Yes Current Status Primary Language: Mongolian Implanted or Applied Medical D: None Past Medical History Surgeries: Section, Gallbladder, Hysterectomy Asthma, Sleep Apnea, COPD, Emphysema Currently Using CPAP: No (trying to get a new one) Currently Using BIPAP: No Coronary Artery Disease, Hypertension 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 COPD- pt. used to see [facility] 2. Anxiety 3. DM-II not taking medications "diet controlled" 4. HTN 5. HLP 6. Hypothyroidism 7. Psoriasis 8. Mild non-obstructive coronary artery disease Isabella 9. Chronic edema of her lower extremities with no history of CHF 10. LY- using CPAP and O2 at night 11. GERD 12. Childhood seizures-resolved 13. Extreme Morbid Obesity Past Surgical History 1. RU BSO 38 years ago 2. 36 years ago 3. Appendectomy- 40 years ago 4. Cholecystectomy 5. Teeth extraction 6. Cardiac Cath 2012 Family Medical History Reviewed Nursing Family Hx Arthritis G8 BROTHER G8 SISTER Diabetes mellitus 19 FATHER Neoplasm 19 MOTHER (lung cancer ) Respiratory disorder G8 SISTER (pulmonary fibrosis) Cancer Physical Exam Physical Exam Vital Signs Vital Signs - First Documented 11/06/22 11/06/22 11/06/22 11/11/22 01:00 02:56 03:13 14:55 Temp 36.4 Pulse 92 Resp 16 B/P (MAP) 110/64 (79) Pulse Ox 95 O2 Delivery Nasal Cannula O2 Flow Rate 4.00 FiO2 28 Capillary Refill : Less Than 3 Seconds Height, Weight, BMI Height: 5'3.00" Weight: 293lbs. 0.0oz. [id number]; 42.46 BMI Method:Stated Results Results/Procedures Labs Laboratory Tests 11/12/22 06:00 11/12/22 06:01 Patient resulted labs reviewed. 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
[2022-11-12 11:28] VITALS: BP 132/71
[2022-11-12 12:52] VITALS: BP 132/71
--- NOTE | 2022-11-12 19:43 | Discharge Summary ---
Discharge Summary Hospital Course Was the Problem List Reviewed?: Yes Problems/Dx: (1) Acute myeloid leukemia (2) Persistent atrial fibrillation (3) Coronary artery disease without angina pectoris (4) Acute heart failure with preserved ejection fraction (HFpEF) (5) Primary hypertension (6) Mixed hyperlipidemia (7) Pancytopenia Status: Acute (8) Morbid obesity Status: Chronic (9) Cigarette smoker Status: Chronic Hospital Course Date of Admission: Oct 29, 2022 at 11:27 Admission Diagnosis : Family Physician/Provider: [place] Date of Discharge: 11/12/22 Discharge Diagnosis: [ ] Hospital Course: Patient had a lengthy hospital course after she was admitted for acute on chronic respiratory failure due to exacerbation of COPD. She did require BiPAP. She did have A. fib with RVR requiring Cardizem drip and cardiology consultation. Pancytopenia noted requiring oncology evaluation which prompted bone marrow biopsy with diagnosis of acute myeloid leukemia. Anticoagulation was not able to be initiated due to low platelet count and anemia. Overall she remains stable but requiring [facility] for induction therapy for leukemia. Labs and Pending Lab Test: Laboratory Tests 11/11/22 20:11: Glucometer 208H 11/12/22 04:39: Glucometer 186H 11/12/22 06:00: Sodium Level 128L, Potassium Level 3.5L, Chloride Level 76L, Carbon Dioxide Level 39H, Anion Gap 13, Blood Urea Nitrogen 22H, Creatinine 0.78, Estimat Glomerular Filtration Rate 83, BUN/Creatinine Ratio 28, Glucose Level 161H, Calcium Level 8.7, Corrected Calcium 9.4, Total Bilirubin 1.0, Aspartate Amino Transf (AST/SGOT) 12, Alanine Aminotransferase (ALT/SGPT) 18, Alkaline Eliezer sphatase 48, Total Protein 6.4, Albumin 3.1L 11/12/22 06:01: White Blood Count 1.6L, Red Blood Count 3.16L, Hemoglobin 11.0L, Hematocrit 30L, Mean Corpuscular Volume 94, Mean Corpuscular Hemoglobin 35H, Mean Corpuscular Hemoglobin Concent 37H, Red Cell Distribution Width 14.3, Platelet Count 59L, Mean Platelet Volume 11.4, Immature Granulocyte % (Auto) 9, Neutrophils (%) (Auto) 60, Lymphocytes (%) (Auto) 21, Monocytes (%) (Auto) 10, Eosinophils (%) (Auto) 0, Basophils (%) (Auto) 1, Neutrophils # (Auto) 1.0L, Lymphocytes # (Auto) 0.4L, Monocytes # (Auto) 0.2, Eosinophils # (Auto) 0.0, Basophils # (Auto) 0.0, Immature Granulocyte # (Auto) 0.1, Percent Immature Platelet Fraction 3.8, Smear Scan YES 11/12/22 10:04: Glucometer 335H Microbiology 10/31/22 Blood Culture - Final, Complete No growth Home Meds Active Montelukast Sodium 10 Mg Tablet 10 Mg PO HS 30 Days Fluticasone-Salmeterol 113-14 (Fluticasone/Salmeterol) 113 Mcg-14 Mcg/Actuation Aer.pow.ba 0 Each IH RTBID 30 Days bid Diltiazem 24Hr ER (Diltiazem HCl) 240 Mg Cap.er.24h 240 Mg PO DAILY 30 Days Reported Tylenol Extra Strength (Acetaminophen) 500 Mg Tablet 1,000 Mg PO Q8H PRN TAKES 2 (500MG) TABS Victoza 3-Avery (Liraglutide) 0.6 Mg/0.1 Ml (18 Mg/3 Ml) Pen.injctr 1.8 Mg SQ DAILY Lisinopril 5 Mg Tablet 5 Mg PO DAILY Imuran (Azathioprine) 50 Mg Tablet 50 Mg PO 1200 Xifaxan (Rifaximin) 550 Mg Tablet 550 Mg PO BID Ezetimibe 10 Mg Tablet 10 Mg PO HS Cetirizine HCl 10 Mg Tablet 10 Mg PO HS Prozac (Fluoxetine HCl) 20 Mg Capsule 20 Mg PO HS Potassium Chloride 20 Meq Tab.er.prt 20 Meq PO DAILY PRN Lasix (Furosemide) 20 Mg Tablet 20 Mg PO DAILY PRN Folic Acid 1 Mg Tablet 1 Mg PO DAILY Norvasc (Amlodipine Besylate) 5 Mg Tablet 5 Mg PO DAILY Levothyroxine Sodium 75 Mcg Tablet 75 Mcg PO DAILY Assessment/Pt Instructions [facility] transfer Discharge Planning: <30 minutes discharge planning Discharge Physical Examination Vital Signs Vital Signs Date Time Temp Pulse Resp B/P (MAP) Pulse Ox O2 Delivery O2 Flow Rate FiO2 11/12/22 12:52 36.4 62 16 132/71 93 Nasal Cannula 2.00 11/11/22 14:55 28 Allergies: Coded Allergies: cephalexin (Verified Allergy, Mild, 10/30/17) ciprofloxacin (Verified Allergy, Mild, 10/30/17) sulfamethoxazole (Verified Allergy, Mild, ITCH ALL OVER, 10/30/17) trimethoprim (Verified Allergy, Mild, ITCH ALL OVER, 10/30/17) Penicillins (Verified Allergy, Unknown, 10/30/17) Sulfa (Sulfonamide Antibiotics) (Verified Allergy, Unknown, 10/30/17) atorvastatin (Unverified Allergy, Unknown, EDEMA, 10/30/17) hydrocodone (Verified Allergy, Unknown, 10/30/17) tramadol (Verified Allergy, Unknown, 10/30/17) metformin (Unverified Adverse Reaction, Mild, NAUSEA, 10/30/17) Uncoded Allergies: RED MEAT (Allergy, Unknown, HIVES, 12/13/16) Discharge Summary Date of Admission Oct 29, 2022 at 11:27 Date of Discharge Nov 12, 2022 at 12:54 Discharge Date: Nov 12, 2022 Admission Diagnosis Assessment: Acute hypoxic hypercapneic respiratory failure AECOPD PNA Smoker LY non-compliant Obesity Plan: IV steroids IV abx Nebs O2 BiPAP Discharge Diagnosis Assessment: Acute on chronic respiratory failure Exacerbation COPD 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 She seems to be asymptomatic with this. Heart rates had been reasonably controlled with short acting diltiazem. On 11/04 I changed her over to long-acting diltiazem. She is not on oral anticoagulation due to pancytopenia with severe thrombocytopenia. I will obtain a follow-up electrocardiogram in the morning. She is not currently a candidate for antiarrhythmic drug since we cannot give it for anticoagulation due to thrombocytopenia. (2) Coronary artery disease without angina pectoris Assessment & Plan: She has a history of coronary artery disease but is not currently having angina. She is not receiving aspirin due to thrombocytopenia. She is on diltiazem for antianginal properties and rate control for the atrial fibrillation. I restarted her ezetimibe. (3) Acute heart failure with preserved ejection fraction (HFpEF) Assessment & Plan: She has been receiving intravenous Lasix. Her peripheral edema has improved. We may be able to convert this over to oral diuretic in the near future. We need to watch her renal function closely. (4) Primary hypertension Assessment & Plan: Blood pressures have been reasonably controlled on the current dose of diltiazem. (5) Mixed hyperlipidemia Assessment & Plan: Continue ezetimibe which she takes at home. She has an intolerance to atorvastatin. (6) Pancytopenia Status: Acute Assessment & Plan: This is being evaluated by the hospitalist who has also ordered a hematology consultation and bone marrow biopsy. The severe thrombocytopenia is a relative contraindication to anticoagulation for the atrial fibrillation. The platelet count continues to drop. No signs of bleeding at this point in time. (7) Morbid obesity Status: Chronic Assessment & Plan: She needs to work on weight loss. (8) Cigarette smoker Status: Chronic Assessment & Plan: She is adamant that she has quit smoking since the day of this current admission. RANDI GRIMM DO Nov 12, 2022 19:42
== END 2022-11-12 12:54 | disposition critical access hospital (66) | DRG 193 ==
LOC: EDUNIT# 10:07 → ER 10:09 → CSD 11:27 → ICU 10-31 13:12 → 4TH 11-04 11:10
PROVIDERS: ADMIT Internal Medicine; ATTEND Internal Medicine
PROC: 5A0935A Assistance with Respiratory Ventilation, Less than 24 Consecutive Hours, High Flow/Velocity Cannula (ICD-10-PCS; 2022-10-29)
PROC: 07DR3ZX Extraction of Iliac Bone Marrow, Percutaneous Approach, Diagnostic (ICD-10-PCS; principal; 2022-11-06)
DX: J18.9 Pneumonia, unspecified organism (principal); I50.31 Acute diastolic (congestive) heart failure; J96.01 Acute respiratory failure with hypoxia; J96.02 Acute respiratory failure with hypercapnia; Z68.43 Body mass index [BMI] 50.0-59.9, adult; R78.81 Bacteremia; D61.818 Other pancytopenia; E87.1 Hypo-osmolality and hyponatremia; I48.19 Other persistent atrial fibrillation; C92.00 Acute myeloblastic leukemia, not having achieved remission; J43.9 Emphysema, unspecified; E66.01 Morbid (severe) obesity due to excess calories; Z66 Do not resuscitate; Z20.822 Contact with and (suspected) exposure to COVID-19; I25.10 Atherosclerotic heart disease of native coronary artery without angina pectoris; K74.60 Unspecified cirrhosis of liver; M19.90 Unspecified osteoarthritis, unspecified site; E03.9 Hypothyroidism, unspecified; E11.9 Type 2 diabetes mellitus without complications; F41.9 Anxiety disorder, unspecified; Z88.0 Allergy status to penicillin; Z88.1 Allergy status to other antibiotic agents; Z88.2 Allergy status to sulfonamides; F17.210 Nicotine dependence, cigarettes, uncomplicated; G47.33 Obstructive sleep apnea (adult) (pediatric); K75.4 Autoimmune hepatitis; M17.10 Unilateral primary osteoarthritis, unspecified knee; D70.9 Neutropenia, unspecified; D69.6 Thrombocytopenia, unspecified; L40.9 Psoriasis, unspecified; I11.0 Hypertensive heart disease with heart failure; E78.2 Mixed hyperlipidemia
CPT/HCPCS: 36410; 36415; 38222; 71045; 71046; 71275; 76937; 77012; 80053; 82728; 82805; 82947; 83540; 83550; 83605; 83735; 84100; 84439; 84443; 85007; 85025; 85027; 85045; 85055; 85379; 85610; 85730; 87040; 87186; 87636; 93005; 93306; 93970; 94640; 94664; 94760; 96365; 96375